=== PATIENT | female | born 1960 | race Caucasian/White ===

== ENCOUNTER 2021-07-03 00:46 | Inpatient (IN) | payer OTHER, SELFPAY ==
--- NOTE | ~2021-07-03 | CT_ITS ---
EXAMINATION: CT HEAD WITHOUT CONTRAST CLINICAL INFORMATION: Fall. COMPARISON: None TECHNIQUE: Contiguous axial imaging was performed from the skull base to vertex without intravenous administration of contrast. This CT examination was performed using dose optimization techniques as appropriate, variously including the following: *Automated exposure control *Adjustment of mA and/or kV according to patient size (this includes techniques or standardized protocols for targeted exams where dose is matched to indication/reason for exam; i.e. extremities or head) *Use of iterative reconstruction technique DLP: 724 mGy-cm FINDINGS: There is no evidence of acute intracranial hemorrhage or territorial infarction. No abnormal mass effect or midline shift is seen. [place] to white matter differentiation is well preserved. No extra-axial fluid collections are identified. The ventricles are normal in size. There is no abnormal attenuation within the brain parenchyma. The osseous structures and soft tissues are normal. The mastoid air cells and visualized portions of the paranasal sinuses are well aerated. CT/CT head/brain wo con IMPRESSION: No acute intracranial process seen
--- NOTE | ~2021-07-03 | XR_ITS ---
EXAMINATION: XR CHEST CLINICAL INFORMATION: Choking with hypoxia COMPARISON: 12/06/2008 TECHNIQUE: Frontal view of the chest was obtained. FINDINGS: The lungs are markedly hypoexpanded. Allowing for that, no significant abnormality is seen in the heart, lungs, mediastinum or bony thorax. XR/XR chest 1V IMPRESSION: Hypoinflated lungs. No acute intrathoracic disease.
[2021-07-03 00:57] VITALS: BP 140/76; PULSE 72; RESP 16; TEMP 37.2; O2SAT 99; BMI 28.0
[2021-07-03 01:34] LABS: MANUAL DIFF FLAG NO
[2021-07-03 01:35] LABS: COVID-19 Test Negative (Negative)
[2021-07-03 01:36] LABS: Basophils Absolute Auto 0.1 X10*3/uL (0.0-0.2); Basophils Percent Auto 1.3 % (0-2); Eosinophils Absolute Auto 0.5 X10*3/uL (0.0-0.4); Eosinophils Percent Auto 4.4 % (0-4); Hematocrit 42.2 % (37.0-47.0); Hemoglobin 13.5 g/dl (12.0-16.0); Imm Gran Abs Auto 0.02 X10*3/uL (0.00-0.03); Imm Gran Pct Auto 0.2 % (0.0-0.4); Lymphocytes Absolute Auto 3.6 X10*3/uL (1.2-4.9); Lymphocytes Percent Auto 33.1 % (20-40); Mean Corpuscular Hemoglobin 31.9 pg (27.0-33.0); Mean Corpuscular Volume 99.8 fL (80.0-98.0); Mean Platelet Volume 12.4 fL (9.4-12.3); Monocytes Absolute Auto 1.1 X10*3/uL (0.1-1.2); Monocytes Percent Auto 10.2 % (2-11); Neutrophils Absolute Auto 5.5 x10*3/uL (2.0-8.3); Neutrophils Percent Auto 50.8 % (45-73); Platelet Count 219 X10*3/uL (160-400); Red Blood Count 4.23 X10*6/uL (4.20-5.50); Red Cell Distribution Width 13.2 % (11.0-16.0); White Blood Count 10.9 X10*3/uL (4.8-10.8)
[2021-07-03 01:38] LABS: Appearance Urine HAZY; Color Urine STRAW; Glucose Urine UA NEG (NEG); Leukocyte Esterase Urine 1+ (NEG); Nitrite Urine NEG (NEG); Specific Gravity - Urine <= 1.005 (1.005-1.025); Urine Blood NEG (NEG); Urine Ketones NEG (NEG); Urine Protein NEG (NEG-TRACE)
[2021-07-03 01:43] LABS: Bacteria Urine 2+ /LPF; RBC Urine 0 /HPF (0); Squamous Epithelial Cell Urine 2+ /LPF
[2021-07-03 01:46] LABS: Amphetamine Screen Urine Not Detected (Not Detect); Barbiturates, Urine Not Detected (Not Detect); Benzodiazepines Screen Urine Not Detected (Not Detect); Cannabinoid Screen Urine Not Detected (Not Detect); Cocaine Screen Urine Not Detected (Not Detect); Fentanyl, urine Not Detected (Not Detect); Opiate Screen Urine Not Detected (Not Detect); Phencyclidine Screen Urine Not Detected (Not Detect)
[2021-07-03 01:47] LABS: Ethanol < 10 mg/dL
[2021-07-03 01:48] LABS: Anion Gap 12 (12-20); Blood Urea Nitrogen 9 mg/dL (9-16); Calcium 9.6 mg/dL (8.4-10.2); Carbon Dioxide 25 mmol/L (22-29); Chloride 107 mmol/L (96-108); Creatinine Clr Calc Pharmacy 38.5; Estimated Glomerular Filt Rate 28; Glucose Random 88 mg/dL (60-115); Potassium 3.5 mmol/L (3.3-5.1); Sodium 140 mmol/L (135-145)
[2021-07-03 02:04] LABS: Acetaminophen LAB < 1 mcg/mL (<30); Alanine Aminotransferase 24 U/L (0-31); Albumin Level 4.3 g/dL (3.5-5.0); Alkaline Phosphatase 97 U/L (39-117); Aspartate Amino Transferase 47 U/L (5-31); Bilirubin Direct 0.2 mg/dL (0.0-0.5); Bilirubin Total 0.5 mg/dL (0.0-1.0); Magnesium 2.1 mg/dL (1.6-2.6); Salicylate < 5.0 mg/dL (15-30); Total Protein 8.1 g/dL (6.5-8.0)
[2021-07-03 02:08] LABS: Valproate 27.1 mcg/mL (50.0-100.0)
--- NOTE | 2021-07-03 05:07 | PC.NURSE ---
Patient slept through the night, no distress observed/reported, [facility]N referral completed/confirmed/pending ETA, med rec completed/pending providers approval, VSS, behavior non concerning at this time, will continue to monitor.
--- NOTE | 2021-07-03 07:44 | ED_ITS ---
HPI - Psych General Chief Complaint: Psychiatric Symptoms Stated Complaint: crisis Time Seen by Provider: 07/03/21 07:43 Source: patient Mode of arrival: EMS Limitations: no limitations History of Present Illness MD complaint: feels depressed and anxiety Onset (ago): day(s) (several days) Duration: getting worse History of same: Yes Relieving factors: none Exacerbating factors: medication Context: new medication(s) Associated psychiatric symptoms: depression Associated symptoms: denies other symptoms Treatments prior to arrival: none Related Data Home Medications Medication Instructions Recorded Confirmed divalproex 250 mg tablet,delayed 1 tab PO BEDTIME 07/03/21 07/03/21 release hydroxyzine pamoate 25 mg capsule 1 - 2 cap PO BID PRN 07/03/21 07/03/21 levothyroxine 50 mcg tablet 1 tab PO DAILY 07/03/21 07/03/21 omeprazole 20 mg capsule,delayed 1 cap PO QAM 07/03/21 07/03/21 release paroxetine HCl 20 mg tablet 1 tab PO DAILY 07/03/21 07/03/21 propranolol 10 mg tablet 1 tab PO BID 07/03/21 07/03/21 Allergies Allergy/AdvReac Type Severity Reaction Status Date / Time No Known Allergies Allergy Unverified 11/05/19 14:44 Review of Systems Review of Systems: Constitutional : No Fever, No Chills ENT/Mouth : No Ear Pain, No Nasal Congestion, No sore throat Eyes: No Eye Pain, No Swelling, No Redness Cardiovascular : No Chest Pain, No SOB Respiratory : No Cough, No Sputum, No Dyspnea Gastrointestinal : No Nausea, No Vomiting, No Diarrhea, No Hematochezia, No Melena Genitourinary : No Dysuria, No Urinary Frequency, No Hematuria Musculoskeletal : No Myalgias Skin : No Skin Lesions, No rash Neuro : No Weakness, No Numbness, No Paresthesias, No Dizziness, No Headache Psych : positive Anxiety, positive Depression, no SI/HI Heme/Lymph: No Lymphadenopathy Endocrine : No Polyuria, No Polydipsia All other systems reviewed and are negative [facility] Past Medical History Attestation statement: The following information was validated with the patient. Medical History (Updated 07/03/21 @ 08:16 by Anne Machado DO) Anxiety CKD (chronic kidney disease) Depression GERD (gastroesophageal reflux disease) Hypothyroidism Social History Social History (Updated 07/03/21 @ 07:48 by Anne Machado DO) Patient Tobacco Use Status: Tobacco use Unknown Advance Directives: No Physical Exam Vital Signs: Vital Signs: Last Vital Signs Temp 99 F 07/03/21 00:57 Pulse 72 07/03/21 00:57 Resp 16 07/03/21 00:57 BP 140/76 H 07/03/21 00:57 Pulse Ox 99 07/03/21 00:57 BMI result Body Mass Index 28.0 Appearance: Alert. Oriented X3. No acute distress. Eyes: Pupils equal, round and reactive to light. ENT: Pharynx normal. Neck: Normal inspection. Neck supple. CVS: Normal heart rate and rhythm. Pulses normal. Respiratory: No respiratory distress. Breath sounds normal. Abdomen: Soft and non-tender. Skin: Skin warm and dry. Normal skin color. Normal skin turgor. Extremities: No lower extremity edema. No calf ttp Neuro: Oriented X 3. No motor deficit. No sensory deficit. CN2-12 intact Course Course Course Narrative: getting records from [facility] - states she has CKD at baseline to compare Cr today baseline Cr 1.4 from 06/13 will give 2L of IVF and repeat BMP CR 1.6 down medically cleared at this time Physician observation started at 1033am.Patient placed in physician observation because the patient needed more time for N to assess the need for psych admission. At the time observation was started the patient's vitals were stable, patient is alert and oriented Neuro: nonfocal, CV RRR, Lungs clear MDM - Psych MDM Narrative Medical decision making narrative: 60 yo female presents with worsening depression and anxiety - at this time denies medical complaints to me she is in no distress - need to obtain prior Cr level from [facility] and then will refer to BHN. She denies any issues voiding no vomiting/dehydration. Dispo per baseline Cr and N input Lab Data Result diagrams: 07/03/21 01:27 07/03/21 09:37 Labs: Lab Results 07/03/21 07/03/21 07/03/21 Range/Units 01:08 01:27 01:27 WBC 10.9 H (4.8-10.8) X10*3/uL RBC 4.23 (4.20-5.50) X10*6/uL Hgb 13.5 (12.0-16.0) g/dl Hct 42.2 (37.0-47.0) % MCV 99.8 H (80.0-98.0) fL MCH 31.9 (27.0-33.0) pg MCHC 32.0 (31.0-35.0) g/dl RDW 13.2 (11.0-16.0) % Plt Count 219 (160-400) X10*3/uL MPV 12.4 H (9.4-12.3) fL Immature Gran % (Auto) 0.2 (0.0-0.4) % Neut % (Auto) 50.8 (45-73) % Lymph % (Auto) 33.1 (20-40) % [place] % (Auto) 10.2 (2-11) % Eos % (Auto) 4.4 H (0-4) % Baso % (Auto) 1.3 (0-2) % Lymph # (Auto) 3.6 (1.2-4.9) X10*3/uL [place] # (Auto) 1.1 (0.1-1.2) X10*3/uL Eos # (Auto) 0.5 H (0.0-0.4) X10*3/uL Baso # (Auto) 0.1 (0.0-0.2) X10*3/uL Abs Immat Gran (auto) 0.02 (0.00-0.03) X10*3/uL Absolute Neuts (auto) 5.5 (2.0-8.3) x10*3/uL Absolute Nucleated RBC 0.000 (0.0-0.012) X10*3/uL Nucleated RBC % (auto) 0.0 (0.0-0.2) /100WBC Sodium 140 (135-145) mmol/L Potassium 3.5 (3.3-5.1) mmol/L Chloride 107 (96-108) mmol/L Carbon Dioxide 25 (22-29) mmol/L Anion Gap 12 (12-20) BUN 9 (9-16) mg/dL Creatinine 1.84 H (0.5-1.4) mg/dL Estim Creat Clear Calc 38.5 Estimated GFR 28 Random Glucose 88 (60-115) mg/dL Calcium 9.6 (8.4-10.2) mg/dL Magnesium (1.6-2.6) mg/dL Total Bilirubin (0.0-1.0) mg/dL Direct Bilirubin (0.0-0.5) mg/dL AST (5-31) U/L ALT (0-31) U/L Alkaline Phosphatase (39-117) U/L Total Protein (6.5-8.0) g/dL Albumin (3.5-5.0) g/dL Urine Color Urine Appearance Urine pH (5.0-8.0) Ur Specific [place] (1.005-1.025) Urine Protein (NEG-TRACE) MG/DL Urine Glucose (UA) (NEG) MG/DL Urine Ketones (NEG) MG/DL Urine Blood (NEG) Urine Nitrite (NEG) Ur Leukocyte Esterase (NEG) Urine RBC (0) /HPF Urine WBC (0-4) /HPF Ur Squamous Epith Cells /LPF Urine Bacteria /LPF Salicylates (15-30) mg/dL Urine Opiates Screen (Not Detect) Urine Fentanyl Screen (Not Detect) Acetaminophen (<30) mcg/mL Ur Barbiturates Screen (Not Detect) Valproic Acid (50.0-100.0) mcg/mL Ur Phencyclidine Scrn (Not Detect) Ur Amphetamines Screen (Not Detect) U Benzodiazepines Scrn (Not Detect) Urine Cocaine Screen (Not Detect) U Marijuana (THC) Screen (Not Detect) Ethyl Alcohol mg/dL COVID-19 ([facility]) Negative (Negative) COVID-19 Clin Com See Note 07/03/21 07/03/21 07/03/21 Range/Units 01:27 01:27 01:28 WBC (4.8-10.8) X10*3/uL RBC (4.20-5.50) X10*6/uL Hgb (12.0-16.0) g/dl Hct (37.0-47.0) % MCV (80.0-98.0) fL MCH (27.0-33.0) pg MCHC (31.0-35.0) g/dl RDW (11.0-16.0) % Plt Count (160-400) X10*3/uL MPV (9.4-12.3) fL Immature Gran % (Auto) (0.0-0.4) % Neut % (Auto) (45-73) % Lymph % (Auto) (20-40) % [place] % (Auto) (2-11) % Eos % (Auto) (0-4) % Baso % (Auto) (0-2) % Lymph # (Auto) (1.2-4.9) X10*3/uL [place] # (Auto) (0.1-1.2) X10*3/uL Eos # (Auto) (0.0-0.4) X10*3/uL Baso # (Auto) (0.0-0.2) X10*3/uL Abs Immat Gran (auto) (0.00-0.03) X10*3/uL Absolute Neuts (auto) (2.0-8.3) x10*3/uL Absolute Nucleated RBC (0.0-0.012) X10*3/uL Nucleated RBC % (auto) (0.0-0.2) /100WBC Sodium (135-145) mmol/L Potassium (3.3-5.1) mmol/L Chloride (96-108) mmol/L Carbon Dioxide (22-29) mmol/L Anion Gap (12-20) BUN (9-16) mg/dL Creatinine (0.5-1.4) mg/dL Estim Creat Clear Calc Estimated GFR Random Glucose (60-115) mg/dL Calcium (8.4-10.2) mg/dL Magnesium 2.1 (1.6-2.6) mg/dL Total Bilirubin 0.5 (0.0-1.0) mg/dL Direct Bilirubin 0.2 (0.0-0.5) mg/dL AST 47 H (5-31) U/L ALT 24 (0-31) U/L Alkaline Phosphatase 97 (39-117) U/L Total Protein 8.1 H (6.5-8.0) g/dL Albumin 4.3 (3.5-5.0) g/dL Urine Color Urine Appearance Urine pH (5.0-8.0) Ur Specific [place] (1.005-1.025) Urine Protein (NEG-TRACE) MG/DL Urine Glucose (UA) (NEG) MG/DL Urine Ketones (NEG) MG/DL Urine Blood (NEG) Urine Nitrite (NEG) Ur Leukocyte Esterase (NEG) Urine RBC (0) /HPF Urine WBC (0-4) /HPF Ur Squamous Epith Cells /LPF Urine Bacteria /LPF Salicylates < 5.0 L (15-30) mg/dL Urine Opiates Screen Not Detected (Not Detect) Urine Fentanyl Screen Not Detected (Not Detect) Acetaminophen < 1 (<30) mcg/mL Ur Barbiturates Screen Not Detected (Not Detect) Valproic Acid 27.1 L (50.0-100.0) mcg/mL Ur Phencyclidine Scrn Not Detected (Not Detect) Ur Amphetamines Screen Not Detected (Not Detect) U Benzodiazepines Scrn Not Detected (Not Detect) Urine Cocaine Screen Not Detected (Not Detect) U Marijuana (THC) Screen Not Detected (Not Detect) Ethyl Alcohol < 10 mg/dL COVID-19 ([facility]) (Negative) COVID-19 Clin Com 07/03/21 07/03/21 Range/Units 01:29 09:37 WBC (4.8-10.8) X10*3/uL RBC (4.20-5.50) X10*6/uL Hgb (12.0-16.0) g/dl Hct (37.0-47.0) % MCV (80.0-98.0) fL MCH (27.0-33.0) pg MCHC (31.0-35.0) g/dl RDW (11.0-16.0) % Plt Count (160-400) X10*3/uL MPV (9.4-12.3) fL Immature Gran % (Auto) (0.0-0.4) % Neut % (Auto) (45-73) % Lymph % (Auto) (20-40) % [place] % (Auto) (2-11) % Eos % (Auto) (0-4) % Baso % (Auto) (0-2) % Lymph # (Auto) (1.2-4.9) X10*3/uL [place] # (Auto) (0.1-1.2) X10*3/uL Eos # (Auto) (0.0-0.4) X10*3/uL Baso # (Auto) (0.0-0.2) X10*3/uL Abs Immat Gran (auto) (0.00-0.03) X10*3/uL Absolute Neuts (auto) (2.0-8.3) x10*3/uL Absolute Nucleated RBC (0.0-0.012) X10*3/uL Nucleated RBC % (auto) (0.0-0.2) /100WBC Sodium 144 (135-145) mmol/L Potassium 3.5 (3.3-5.1) mmol/L Chloride 114 H (96-108) mmol/L Carbon Dioxide 24 (22-29) mmol/L Anion Gap 10 L (12-20) BUN 10 (9-16) mg/dL Creatinine 1.66 H (0.5-1.4) mg/dL Estim Creat Clear Calc 42.7 Estimated GFR 32 Random Glucose 103 (60-115) mg/dL Calcium 8.5 D (8.4-10.2) mg/dL Magnesium (1.6-2.6) mg/dL Total Bilirubin (0.0-1.0) mg/dL Direct Bilirubin (0.0-0.5) mg/dL AST (5-31) U/L ALT (0-31) U/L Alkaline Phosphatase (39-117) U/L Total Protein (6.5-8.0) g/dL Albumin (3.5-5.0) g/dL Urine Color STRAW Urine Appearance HAZY Urine pH 6.0 (5.0-8.0) Ur Specific [place] <= 1.005 (1.005-1.025) Urine Protein NEG (NEG-TRACE) MG/DL Urine Glucose (UA) NEG (NEG) MG/DL Urine Ketones NEG (NEG) MG/DL Urine Blood NEG (NEG) Urine Nitrite NEG (NEG) Ur Leukocyte Esterase 1+ H (NEG) Urine RBC 0 (0) /HPF Urine WBC 5-9 H (0-4) /HPF Ur Squamous Epith Cells 2+ /LPF Urine Bacteria 2+ /LPF Salicylates (15-30) mg/dL Urine Opiates Screen (Not Detect) Urine Fentanyl Screen (Not Detect) Acetaminophen (<30) mcg/mL Ur Barbiturates Screen (Not Detect) Valproic Acid (50.0-100.0) mcg/mL Ur Phencyclidine Scrn (Not Detect) Ur Amphetamines Screen (Not Detect) U Benzodiazepines Scrn (Not Detect) Urine Cocaine Screen (Not Detect) U Marijuana (THC) Screen (Not Detect) Ethyl Alcohol mg/dL COVID-19 ([facility]) (Negative) COVID-19 Clin Com Discharge Plan Discharge Clinical Impression: Depression, Acute kidney injury superimposed on chronic kidney disease Patient Disposition: Still a Patient Prescriptions: No Action divalproex 250 mg tablet,delayed release (DR/EC) 1 tab PO BEDTIME 0RF paroxetine HCl 20 mg tablet 1 tab PO DAILY 0RF omeprazole 20 mg capsule,delayed release(DR/EC) 1 cap PO QAM 0RF levothyroxine 50 mcg tablet 1 tab PO DAILY 0RF hydroxyzine pamoate 25 mg capsule 1 - 2 cap PO BID PRN (Reason: anxiety) 0RF propranolol 10 mg tablet 1 tab PO BID 0RF
--- NOTE | 2021-07-03 08:42 | PHA.MEDREC ---
Pharmacy Consult ? Medication Reconciliation Pharmacy has reviewed the medication reconciliation by Willie. Patient does not take Depakote 500 mg. Reports that doctor consider increase dose to 500 mg but has not done it yet. Nanci Weiss, PharmD
[2021-07-03] MEDS: Levothyroxine Sodium 50 MCG TABLET PO (08:51)
[2021-07-03] MEDS: Omeprazole 20 MG CAPSULE.DR PO (08:51)
[2021-07-03] MEDS: Propranolol HCL 10 MG TABLET PO (08:51)
[2021-07-03] MEDS: 0.9 % Sodium Chloride 1,000 ML 999 ML IVCONT ×2 (08:53→08:54)
[2021-07-03] MEDS: PARoxetine HCL 20 MG TABLET PO (09:48)
[2021-07-03 10:08] LABS: Anion Gap 10 (12-20); Blood Urea Nitrogen 10 mg/dL (9-16); Calcium 8.5 mg/dL (8.4-10.2); Carbon Dioxide 24 mmol/L (22-29); Chloride 114 mmol/L (96-108); Creatinine Clr Calc Pharmacy 42.7; Estimated Glomerular Filt Rate 32; Glucose Random 103 mg/dL (60-115); Potassium 3.5 mmol/L (3.3-5.1); Sodium 144 mmol/L (135-145)
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
--- NOTE | 2021-07-03 17:59 | MHC.CARE ---
Patient assessed by the CARE Team to need an inpatient psychiatric admission, she is voluntary for this treatment.
[2021-07-03] MEDS: hydrOXYzine HCL 50 MG TABLET PO (19:00)
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
[2021-07-03] MEDS: OLANZapine 5 MG TABLET PO (20:28)
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
[2021-07-04] MEDS: Omeprazole 20 MG CAPSULE.DR PO (06:35)
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
[2021-07-04] MEDS: Divalproex Sodium ER 250 MG TAB.ER.24H PO (13:46)
[2021-07-04] MEDS: Acetaminophen 325 MG TABLET 650 MG PO (16:53)
[2021-07-04] MEDS: hydrOXYzine HCL 50 MG TABLET PO (16:54)
[2021-07-04 16:57] VITALS: BP 124/72; PULSE 97; RESP 16; TEMP 36.8; O2SAT 98
[2021-07-04] MEDS: OLANZapine 5 MG TABLET PO (17:21)
--- NOTE | 2021-07-04 17:59 | PM.EVENT ---
Event Note Date of Service: 07/04/21 Event Note: pt became severely agitated, aggressive, not redirectable. Needs medication restraint. Ordered zyprexa 10mg IM
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
[2021-07-04] MEDS: OLANZapine 10 MG VIAL IM (18:26)
[2021-07-04] MEDS: traZODone HCL 50 MG TABLET PO (21:03)
[2021-07-04] MEDS: Divalproex Sodium ER 500 MG TAB.ER.24H 1000 MG PO (21:03)
[2021-07-04] MEDS: Propranolol HCL 10 MG TABLET PO (21:03)
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
[2021-07-05] MEDS: Omeprazole 20 MG CAPSULE.DR PO (05:59)
[2021-07-05] MEDS: Levothyroxine Sodium 50 MCG TABLET PO (05:59)
[2021-07-05] MEDS: Acetaminophen 325 MG TABLET 650 MG PO ×2 (05:59→11:45)
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
--- NOTE | 2021-07-05 09:52 | HO.PSYCHPN ---
Subjective Subjective Date of Service: 07/05/21 Reason For Visit: Depression Interim History: Patient remains intermittently very aggressive, posturing to staff, throwing and breaking things, spitting at staff, threatening to hit and has already several times needed IM medication to calm down. Patient has some insight and says she is getting angry because everybody is Messing With her; however when content writer offers that it seems that the bipolar disorder is making her more irritable, she says maybe that's true. Patient asked when she could discharge but accepted that she needs to become more stable. She agrees to increase dose of Depakote however she said that her sister has been telling her to try Trileptal which has apparently made a big difference in treating her sisters bipolar disorder which is equally severe. Patient agreed to Thorazine as a p.r.n. saying that it can help sedate her. Mental Status Exam Mental Status Exam Narrative: Pt is alert and oriented; behavior is aggressive, agitated, destructive, intrusive; dressed in hospital gown with unkempt hair; mood is described as angry and affect congruent, intense; eye contact intense; Speech is normal rate, loud volume, normal prosody and not pressured; intermittent psychomotor agitation present; thought process is goal directed; Thought content is on feeling provoked, tx, discharge; some delusional thinking but no paranoid ideations expressed; denies any SI/HI. Seems at times to be responding to internal stimuli. Patients insight and judgment are impaired Diagnostics Vital Signs (24Hr): Vital Signs - 24 hr 07/04/21 16:57 Temperature 98.2 F Pulse Rate 97 Respiratory Rate 16 Blood Pressure 124/72 Pulse Oximetry 98 BMI result Body Mass Index 28.0 Labs Results: 07/03/21 01:27 07/03/21 09:37 Labs: Laboratory Results - last 48 hr 07/03/21 09:37 Sodium 144 Potassium 3.5 Chloride 114 H Carbon Dioxide 24 Anion Gap 10 L BUN 10 Creatinine 1.66 H Estim Creat Clear Calc 42.7 Estimated GFR 32 Random Glucose 103 Calcium 8.5 D Medications Medications Current Medications Acetaminophen (Acetaminophen 325 Mg Tablet) 650 mg PO Q6H PRN PRN Reason: Headache/Pain Mild Scale (1-3) Last Admin: 07/05/21 05:59 Dose: 650 mg Documented by: Al Hydroxide/Mg Hydroxide (Magnesium Hydrox/Alum Hydrox 30 Ml Oral.Susp) 30 ml PO Q6H PRN PRN Reason: Heartburn/Nausea Diphenhydramine HCl (Diphenhydramine Hcl 25 Mg Tablet) 50 mg PO BEDTIME PRN PRN Reason: sleep Divalproex Sodium (Divalproex Sodium Er 500 Mg Tab.Er.24h) 1,000 mg PO BEDTIME [facility] Last Admin: 07/04/21 21:03 Dose: 1,000 mg Documented by: Divalproex Sodium (Divalproex Sodium Er 500 Mg Tab.Er.24h) 500 mg PO DAILY [facility] Divalproex Sodium (Divalproex Sodium Er 500 Mg Tab.Er.24h) 500 mg PO ONCE ONE Stop: 07/05/21 09:51 Hydroxyzine HCl (Hydroxyzine Hcl 50 Mg Tablet) 50 mg PO Q6H PRN PRN Reason: Anxiety Last Admin: 07/04/21 16:54 Dose: 50 mg Documented by: Levothyroxine Sodium (Levothyroxine Sodium 50 Mcg Tablet) 50 mcg PO DAILY@0600 [facility] Last Admin: 07/05/21 05:59 Dose: 50 mcg Documented by: Loperamide HCl (Loperamide Hcl 2 Mg Capsule) 2 mg PO Q6H PRN PRN Reason: diarrhea Magnesium Hydroxide (Milk Of Magnesia 30 Ml Oral.Susp) 30 ml PO DAILY PRN PRN Reason: Constipation Olanzapine (Olanzapine 5 Mg Tablet) 5 mg PO Q4H PRN PRN Reason: agitation Last Admin: 07/04/21 17:21 Dose: 5 mg Documented by: Omeprazole (Omeprazole 20 Mg Capsule.) 20 mg PO DAILY@0630 [facility] Last Admin: 07/05/21 05:59 Dose: 20 mg Documented by: Paroxetine HCl (Paroxetine Hcl 10 Mg Tablet) 10 mg PO DAILY [facility] Propranolol HCl (Propranolol Hcl 10 Mg Tablet) 10 mg PO BID [facility]; Protocol Last Admin: 07/04/21 21:03 Dose: 10 mg Documented by: Trazodone HCl (Trazodone Hcl 50 Mg Tablet) 50 mg PO BEDTIME [facility] Last Admin: 07/04/21 21:03 Dose: 50 mg Documented by: Trazodone HCl (Trazodone Hcl 50 Mg Tablet) 50 mg PO BEDTIME PRN PRN Reason: continued insomnia Allergies Allergies Allergy/AdvReac Type Severity Reaction Status Date / Time No Known Allergies Allergy Unverified 11/05/19 14:44 Assessment & Plan Assessment & Plan (1) Bipolar 1 disorder: Status: Acute Code(s): F31.9 - Bipolar disorder, unspecified Plan Jeri is a 60 yo female who carries a diagnosis of bipolar I DO. She presented to [facility] ED on 07/03/21 due to worsening depression and anxiety after she was at a convenience store and told the desk clerks supervisor she needed help and they called 911. ED provider obtained records from [facility], pt has CKD, Cr 1.4 on 06/13. Pt was given 2L of IVF, Cr improved from 1.84 to 1.66. Precipitating factors include recent medication change from [place] to Depakote due to toxicity, level was 1.5 on 06/08/21, in content of underlying kidney impairment. Pt reported worsening sx of mood lability, mary ellen, agitation, and increased activity level since stopping lithium, i.e. she walked for 14 hours one day. VPA level was 27.1. Utox negative. HOSPITAL Course: 07/04 patient highly irritable this morning, posturing and aggressive with peers and staff however she was able to calm down and agreed to increase Depakote dose. Will also restart Paxil though at a lower dose to avoid discontinuation syndrome which could be further aggravated 07/05 Patient severely agitated off and on throughout the day, posturing at staff, threatening to hit, spitting on staff, breaking and throwing things and needing IM medication. Minimal insight -hopefully Depakote will start to help -will consider Tegretol since her sister who has severe bipolar disorder has been successfully treated with this medication PLAN: CV; signed 3 day Q15 min safety checks Depakote ER 500mg daily Depakote ER 1000mg qhs Consider Tegretol which has helped her sister who also has severe bipolar disorder Thorazine 25mg qid prn for anxiety, mild agitation Likely add increased Thorazine dose for severe agitation as zyprexa not that helpful DC zyprexa prn since not that helpful -will recheck levels/Lft's Elevated Cr due CKD -Schedule Trazodone for sleep -will restart Paxil but at 10mg (down from 20mg) to avoid discontinuation syndrome which could be potentially aggravating -continue to avoid NSAIDs given CKD Otherwise: Monitor response to medications. Monitor for safety in the milieu. Discharge on stabilization. Patient seen. Chart reviewed. Discussed with team. Obtain collateral contact info?as needed I spent minutes with the patient and/or on the patient floor today, greater than?50% of which was spent counseling/coordinating care. Patient educated on: diagnosis and medication risk/benefits Informed Consent: further education needed Reason for contiued inpatient stay Substantial Risk for: harm to self and harm to others
[2021-07-05] MEDS: OLANZapine 10 MG VIAL IM (10:00)
[2021-07-05] MEDS: Divalproex Sodium ER 500 MG TAB.ER.24H PO (10:00)
--- NOTE | 2021-07-05 12:59 | PC.NURSE ---
Patient came out of her room demanding to leave now. Staff attempted to discuss the process with patient when she became angry, making verbal threats to harm staff and punching windows. Staff again tried to speak to patient and offer quit space when pt spit at the staff and made more threats of harm. MD notified and medication restraint was ordered, Zyprexa IM, given in left Deltoid with out difficulty at 10 am. Security notified and present. Gambling Box Person notified. Pt placed on 5 minute safety checks at this time.
[2021-07-05] MEDS: LORazepam 2 MG/ML VIAL IM (13:32)
--- NOTE | 2021-07-05 13:47 | PM.EVENT ---
Event Note Date of Service: 07/05/21 Event Note: pt pushing staff with elbow, not redirectable, when into peers room; at redirection, got verbally aggressive, grabbed staff's badge, threw lunch tray, posturing and threatening, threatening to spit;needed to call security for [place] and staff safety; pt could not calm down on her own, tried to bite staff, She did accept IM Thorazine 75mg and ativan 2mg. And though verbally still aggressive, put herself in her room.
--- NOTE | 2021-07-05 13:58 | PC.NURSE ---
At approx 1330 Pt was wondering in/out of peers rooms and when redirected she became aggressive. Pt shaking fist at staff, then walked down the hagan and flipped food filled trays over in the hallway. Pt then made verbal threats towards multiple staff. present and ordered medication restraint, Thorazine 75MG IM and Ativan 2 mg IM. Security called to unit and patient was approached. Pt swung at staff, threatened to spit in staffs face and tried to bite staff. Pt given both medications and went to her room. Pt continues to swear and threaten staff, but not approaching them.No injuries reported or visible.
[2021-07-05 18:00] VITALS: PULSE 67; RESP 18; TEMP 36.3; O2SAT 98
[2021-07-05] MEDS: diphenhydrAMINE HCL 25 MG TABLET 50 MG PO (19:09)
[2021-07-05] MEDS: chlorproMAZINE HCl 25 MG TABLET PO (19:10)
[2021-07-05] MEDS: LORazepam 1 MG TABLET 2 MG PO (19:10)
[2021-07-06] MEDS: Acetaminophen 325 MG TABLET 650 MG PO (01:03)
[2021-07-06] MEDS: chlorproMAZINE HCl 25 MG TABLET 75 MG PO (01:05)
[2021-07-06] MEDS: LORazepam 1 MG TABLET 2 MG PO (01:05)
--- NOTE | 2021-07-06 11:17 | HO.PSYCHPN ---
Subjective Subjective Date of Service: 07/06/21 Reason For Visit: Depression Interim History: UTI; discussed with Dr. Flor including CKD, who recommended Ceftin 250mg BID for 7 days Patient irritable, lying in bed, does not want to talk. Remains intermittently verbally assaultive and making threats Mental Status Exam Mental Status Exam Narrative: Pt is alert and oriented; behavior is aggressive, agitated, destructive, intrusive; dressed in hospital gown with unkempt hair; mood is described as angry and affect congruent, intense; eye contact intense on none; Speech is normal rate, loud volume, normal prosody and not pressured; intermittent psychomotor agitation present; thought process is goal directed; Thought content is on feeling provoked, tx, discharge; some delusional thinking but no paranoid ideations expressed; denies any SI/HI. Seems at times to be responding to internal stimuli. Patients insight and judgment are impaired Diagnostics Vital Signs (24Hr): Vital Signs - 24 hr 07/05/21 18:00 Temperature 97.3 F Pulse Rate 67 Respiratory Rate 18 Pulse Oximetry 98 BMI result Body Mass Index 28.0 Labs Results: 07/03/21 01:27 07/03/21 09:37 Medications Medications Current Medications Acetaminophen (Acetaminophen 325 Mg Tablet) 650 mg PO Q6H PRN PRN Reason: Headache/Pain Mild Scale (1-3) Last Admin: 07/06/21 01:03 Dose: 650 mg Documented by: Al Hydroxide/Mg Hydroxide (Magnesium Hydrox/Alum Hydrox 30 Ml Oral.Susp) 30 ml PO Q6H PRN PRN Reason: Heartburn/Nausea Cefuroxime Axetil (Cefuroxime Axetil 250 Mg Tablet) 250 mg PO Q12H [facility] Stop: 07/12/21 07:01 Last Admin: 07/05/21 19:10 Dose: 250 mg Documented by: Chlorpromazine HCl (Chlorpromazine Hcl 25 Mg Tablet) 25 mg PO Q4H PRN PRN Reason: anxiety/agitation Last Admin: 07/05/21 19:10 Dose: 25 mg Documented by: Chlorpromazine HCl (Chlorpromazine Hcl 25 Mg Tablet) 50 mg PO TID PRN PRN Reason: mod -severe agitation Chlorpromazine HCl (Chlorpromazine Hcl 25 Mg Tablet) 50 mg PO BEDTIME PRN PRN Reason: insomnia Diphenhydramine HCl (Diphenhydramine Hcl 25 Mg Tablet) 50 mg PO BEDTIME PRN PRN Reason: sleep Last Admin: 07/05/21 19:09 Dose: 50 mg Documented by: Divalproex Sodium (Divalproex Sodium Er 500 Mg Tab.Er.24h) 1,500 mg PO BEDTIME [facility] Hydroxyzine HCl (Hydroxyzine Hcl 50 Mg Tablet) 50 mg PO Q6H PRN PRN Reason: Anxiety Last Admin: 07/04/21 16:54 Dose: 50 mg Documented by: Levothyroxine Sodium (Levothyroxine Sodium 50 Mcg Tablet) 50 mcg PO DAILY@0600 [facility] Last Admin: 07/05/21 05:59 Dose: 50 mcg Documented by: Loperamide HCl (Loperamide Hcl 2 Mg Capsule) 2 mg PO Q6H PRN PRN Reason: diarrhea Lorazepam (Lorazepam 1 Mg Tablet) 1 mg PO TID PRN PRN Reason: mod severe agitation Magnesium Hydroxide (Milk Of Magnesia 30 Ml Oral.Susp) 30 ml PO DAILY PRN PRN Reason: Constipation Omeprazole (Omeprazole 20 Mg Capsule.Dr) 20 mg PO DAILY@0630 [facility] Last Admin: 07/05/21 05:59 Dose: 20 mg Documented by: Paroxetine HCl (Paroxetine Hcl 10 Mg Tablet) 10 mg PO DAILY [facility] Last Admin: 07/05/21 10:01 Dose: Not Given Documented by: Propranolol HCl (Propranolol Hcl 10 Mg Tablet) 10 mg PO BID [facility]; Protocol Last Admin: 07/05/21 23:36 Dose: Not Given Documented by: Allergies Allergies Allergy/AdvReac Type Severity Reaction Status Date / Time lithium AdvReac Intermediate CKD Verified 07/05/21 15:04 Assessment & Plan Assessment & Plan (1) Bipolar 1 disorder: Status: Acute Code(s): F31.9 - Bipolar disorder, unspecified Plan Jeri is a 60 yo female who carries a diagnosis of bipolar I DO. She presented to [facility] ED on 07/03/21 due to worsening depression and anxiety after she was at a convenience store and told the branch billing payroll clerk she needed help and they called 911. ED provider obtained [place] [facility], [place] has CKD, Cr 1.4 on 06/13. Pt was given 2L of IVF, Cr improved from 1.84 to 1.66. Precipitating factors include recent medication change from [place] to Depakote due to toxicity, level was 1.5 on 06/08/21, in content of underlying kidney impairment. Pt reported worsening sx of mood lability, mary ellen, agitation, and increased activity level since stopping lithium, i.e. she walked for 14 hours one day. VPA level was 27.1. Utox negative. HOSPITAL Course: 07/04 patient highly irritable this morning, posturing and aggressive with peers and staff however she was able to calm down and agreed to increase Depakote dose. Will also restart Paxil though at a lower dose to avoid discontinuation syndrome which could be further aggravated 07/05 Patient severely agitated off and on throughout the day, posturing at staff, threatening to hit, spitting on staff, breaking and throwing things and needing IM medication. Minimal insight -hopefully Depakote will start to help -will consider Tegretol since her sister who has severe bipolar disorder has been successfully treated with this medication 07/06 remains manic, irritated easily agitated; continue treatment plan however patient talked about Tegretol and this remains consideration PLAN: CV; signed 3 day (verbally retracted and resigned saying she wants dc no later than saturday) Q15 min safety checks -will recheck levels/Lft's/Bun Cr Depakote ER 500mg daily Depakote ER 1000mg qhs Thorazine 50 mg and Ativan 1 mg for moderate severe agitation (lowered dosing a little since sedating) Thorazine 25mg qid prn for anxiety, mild agitation Consider Tegretol which has helped her sister who also has severe bipolar disorder Likely add increased Thorazine dose for severe agitation as zyprexa not that helpful DC zyprexa prn since not that helpful -will recheck levels/Lft's Elevated Cr due CKD -Schedule Trazodone for sleep -will restart Paxil but at 10mg (down from 20mg) to avoid discontinuation syndrome which could be potentially aggravating -continue to avoid NSAIDs given CKD Otherwise: Monitor response to medications. Monitor for safety in the milieu. Discharge on stabilization. Patient seen. Chart reviewed. Discussed with team. Obtain collateral contact info?as needed I spent minutes with the patient and/or on the patient floor today, greater than?50% of which was spent counseling/coordinating care. Patient educated on: diagnosis Informed Consent: understands Reason for contiued inpatient stay Substantial Risk for: rapid decompensation
--- NOTE | 2021-07-06 14:53 | PC.NURSE ---
pt has refused all medications and blood pressures today, incontinent of urine x2 with need to for 100% assist in ADL's, she is sedated from restraint medications previous day and overnight meds; pt slept all day, minimal fluid intake of 40ml . aware.
[2021-07-06 21:00] VITALS: BP 121/73; PULSE 102; TEMP 36.4
[2021-07-06] MEDS: Propranolol HCL 10 MG TABLET PO (21:12)
[2021-07-06] MEDS: Divalproex Sodium ER 500 MG TAB.ER.24H 1500 MG PO (21:13)
[2021-07-07] MEDS: Levothyroxine Sodium 50 MCG TABLET PO (05:33)
[2021-07-07] MEDS: Omeprazole 20 MG CAPSULE.DR PO (05:33)
[2021-07-07] MEDS: Acetaminophen 325 MG TABLET 650 MG PO ×3 (05:33→22:30)
--- NOTE | 2021-07-07 11:49 | HO.PSYCHPN ---
Subjective Subjective Date of Service: 07/07/21 Reason For Visit: Depression Interim History: Remains manic , irritable difficult to engage; wants Tegretol saying show abuse Depakote Mental Status Exam Mental Status Exam Narrative: t is alert and oriented; behavior is aggressive, agitated, destructive, intrusive; dressed in hospital gown with unkempt hair; mood is described as irritable and affect congruent, intense; eye contact intense on none; Speech is normal rate, loud volume, normal prosody and not pressured; intermittent psychomotor agitation present; thought process is goal directed; Thought content is on feeling provoked, tx, discharge; some delusional thinking but no paranoid ideations expressed; denies any SI/HI. Seems at times to be responding to internal stimuli. Patients insight and judgment are impaired Diagnostics Vital Signs (24Hr): Vital Signs - 24 hr 07/06/21 21:00 Temperature 97.5 F Pulse Rate 102 H Blood Pressure 121/73 BMI result Body Mass Index 28.0 Labs Results: 07/03/21 01:27 07/03/21 09:37 Medications Medications Current Medications Acetaminophen (Acetaminophen 325 Mg Tablet) 650 mg PO Q6H PRN PRN Reason: Headache/Pain Mild Scale (1-3) Last Admin: 07/07/21 05:33 Dose: 650 mg Documented by: Al Hydroxide/Mg Hydroxide (Magnesium Hydrox/Alum Hydrox 30 Ml Oral.Susp) 30 ml PO Q6H PRN PRN Reason: Heartburn/Nausea Cefuroxime Axetil (Cefuroxime Axetil 250 Mg Tablet) 250 mg PO Q12H [facility] Stop: 07/12/21 07:01 Last Admin: 07/07/21 05:33 Dose: 250 mg Documented by: Chlorpromazine HCl (Chlorpromazine Hcl 25 Mg Tablet) 25 mg PO Q4H PRN PRN Reason: anxiety/agitation Last Admin: 07/05/21 19:10 Dose: 25 mg Documented by: Chlorpromazine HCl (Chlorpromazine Hcl 25 Mg Tablet) 50 mg PO TID PRN PRN Reason: mod -severe agitation Chlorpromazine HCl (Chlorpromazine Hcl 25 Mg Tablet) 50 mg PO BEDTIME PRN PRN Reason: insomnia Diphenhydramine HCl (Diphenhydramine Hcl 25 Mg Tablet) 50 mg PO BEDTIME PRN PRN Reason: sleep Last Admin: 07/05/21 19:09 Dose: 50 mg Documented by: Divalproex Sodium (Divalproex Sodium Er 500 Mg Tab.Er.24h) 1,500 mg PO BEDTIME [facility] Last Admin: 07/06/21 21:13 Dose: 500 mg Documented by: Hydroxyzine HCl (Hydroxyzine Hcl 50 Mg Tablet) 50 mg PO Q6H PRN PRN Reason: Anxiety Last Admin: 07/04/21 16:54 Dose: 50 mg Documented by: Levothyroxine Sodium (Levothyroxine Sodium 50 Mcg Tablet) 50 mcg PO DAILY@0600 [facility] Last Admin: 07/07/21 05:33 Dose: 50 mcg Documented by: Loperamide HCl (Loperamide Hcl 2 Mg Capsule) 2 mg PO Q6H PRN PRN Reason: diarrhea Lorazepam (Lorazepam 1 Mg Tablet) 1 mg PO TID PRN PRN Reason: mod severe agitation Magnesium Hydroxide (Milk Of Magnesia 30 Ml Oral.Susp) 30 ml PO DAILY PRN PRN Reason: Constipation Omeprazole (Omeprazole 20 Mg Capsule.Dr) 20 mg PO DAILY@0630 [facility] Last Admin: 07/07/21 05:33 Dose: 20 mg Documented by: Paroxetine HCl (Paroxetine Hcl 10 Mg Tablet) 10 mg PO DAILY [facility] Last Admin: 07/07/21 09:57 Dose: Not Given Documented by: Propranolol HCl (Propranolol Hcl 10 Mg Tablet) 10 mg PO BID [facility]; Protocol Last Admin: 07/07/21 09:57 Dose: Not Given Documented by: Allergies Allergies Allergy/AdvReac Type Severity Reaction Status Date / Time lithium AdvReac Intermediate CKD Verified 07/05/21 15:04 Assessment & Plan Assessment & Plan (1) Bipolar 1 disorder: Status: Acute Code(s): F31.9 - Bipolar disorder, unspecified Plan Jeri is a 60 yo female who carries a diagnosis of bipolar I DO. She presented to [facility] on 07/03/21 due to worsening depression and anxiety after she was at a convenience store and told the medical records clerk she needed help and they called 911. ED provider [place] [facility] has CKD, Cr 1.4 on 06/13. Pt was given 2L of IVF, Cr improved from 1.84 to 1.66. Precipitating factors include recent medication change from [place] to Depakote due to toxicity, level was 1.5 on 06/08/21, in content of underlying kidney impairment. Pt reported worsening sx of mood lability, mary ellen, agitation, and increased activity level since stopping lithium, i.e. she walked for 14 hours one day. VPA level was 27.1. Utox negative. HOSPITAL Course: 07/04 patient highly irritable this morning, posturing and aggressive with peers and staff however she was able to calm down and agreed to increase Depakote dose. Will also restart Paxil though at a lower dose to avoid discontinuation syndrome which could be further aggravated 07/05 Patient severely agitated off and on throughout the day, posturing at staff, threatening to hit, spitting on staff, breaking and throwing things and needing IM medication. Minimal insight -hopefully Depakote will start to help -will consider Tegretol since her sister who has severe bipolar disorder has been successfully treated with this medication 07/06 remains manic, irritated easily agitated; continue treatment plan however patient talked about Tegretol and this remains consideration 07/07 patient refused Depakote last night saying she wants Tegretol PLAN: CV; signed 3 day (verbally retracted and resigned saying she wants dc no later than saturday) Q15 min safety checks -will recheck levels/Lft's/Bun Cr START Tegretol 200mg BID; will need to titrate; will leave Depakote on for now; Tegretol has helped her sister who also has severe bipolar disorder Depakote ER 500mg daily Depakote ER 1000mg qhs Thorazine 50 mg and Ativan 1 mg for moderate severe agitation (lowered dosing a little since sedating) Thorazine 25mg qid prn for anxiety, mild agitation Likely add increased Thorazine dose for severe agitation as zyprexa not that helpful DC zyprexa prn since not that helpful -will recheck levels/Lft's Elevated Cr due CKD -Schedule Trazodone for sleep -will restart Paxil but at 10mg (down from 20mg) to avoid discontinuation syndrome which could be potentially aggravating -continue to avoid NSAIDs given CKD Otherwise: Monitor response to medications. Monitor for safety in the milieu. Discharge on stabilization. Patient seen. Chart reviewed. Discussed with team. Obtain collateral contact info?as needed I spent minutes with the patient and/or on the patient floor today, greater than?50% of which was spent counseling/coordinating care. Patient educated on: diagnosis Informed Consent: understands Reason for contiued inpatient stay Substantial Risk for: inability to function and rapid decompensation
[2021-07-07 17:36] VITALS: BP 126/86; PULSE 82; RESP 18; TEMP 36.1; O2SAT 98
--- NOTE | 2021-07-07 20:08 | HO.PSYCHPN ---
Subjective Subjective Reason For Visit: Depression Diagnostics Vital Signs (24Hr): Vital Signs - 24 hr 07/06/21 21:00 07/07/21 17:36 Temperature 97.5 F 96.9 F Pulse Rate 102 H 82 Respiratory Rate 18 Blood Pressure 121/73 126/86 Pulse Oximetry 98 BMI result Body Mass Index 28.0 Labs Results: 07/03/21 01:27 07/03/21 09:37 Medications Medications Current Medications Acetaminophen (Acetaminophen 325 Mg Tablet) 650 mg PO Q6H PRN PRN Reason: Headache/Pain Mild Scale (1-3) Last Admin: 07/07/21 16:53 Dose: 650 mg Documented by: Al Hydroxide/Mg Hydroxide (Magnesium Hydrox/Alum Hydrox 30 Ml Oral.Susp) 30 ml PO Q6H PRN PRN Reason: Heartburn/Nausea Carbamazepine (Carbamazepine Er 200 Mg Tab.Er.12h) 200 mg PO BID [facility] Cefuroxime Axetil (Cefuroxime Axetil 250 Mg Tablet) 250 mg PO Q12H [facility] Stop: 07/12/21 07:01 Last Admin: 07/07/21 05:33 Dose: 250 mg Documented by: Chlorpromazine HCl (Chlorpromazine Hcl 25 Mg Tablet) 25 mg PO Q4H PRN PRN Reason: anxiety/agitation Last Admin: 07/05/21 19:10 Dose: 25 mg Documented by: Chlorpromazine HCl (Chlorpromazine Hcl 25 Mg Tablet) 50 mg PO TID PRN PRN Reason: mod -severe agitation Chlorpromazine HCl (Chlorpromazine Hcl 25 Mg Tablet) 50 mg PO BEDTIME PRN PRN Reason: insomnia Diphenhydramine HCl (Diphenhydramine Hcl 25 Mg Tablet) 50 mg PO BEDTIME PRN PRN Reason: sleep Last Admin: 07/05/21 19:09 Dose: 50 mg Documented by: Divalproex Sodium (Divalproex Sodium Er 500 Mg Tab.Er.24h) 1,500 mg PO BEDTIME ISA[facility]AS Last Admin: 07/06/21 21:13 Dose: 500 mg Documented by: Hydroxyzine HCl (Hydroxyzine Hcl 50 Mg Tablet) 50 mg PO Q6H PRN PRN Reason: Anxiety Last Admin: 07/04/21 16:54 Dose: 50 mg Documented by: Levothyroxine Sodium (Levothyroxine Sodium 50 Mcg Tablet) 50 mcg PO DAILY@0600 [facility] Last Admin: 07/07/21 05:33 Dose: 50 mcg Documented by: Loperamide HCl (Loperamide Hcl 2 Mg Capsule) 2 mg PO Q6H PRN PRN Reason: diarrhea Lorazepam (Lorazepam 1 Mg Tablet) 1 mg PO TID PRN PRN Reason: mod severe agitation Magnesium Hydroxide (Milk Of Magnesia 30 Ml Oral.Susp) 30 ml PO DAILY PRN PRN Reason: Constipation Omeprazole (Omeprazole 20 Mg Capsule.) 20 mg PO DAILY@0630 [facility] Last Admin: 07/07/21 05:33 Dose: 20 mg Documented by: Paroxetine HCl (Paroxetine Hcl 10 Mg Tablet) 10 mg PO DAILY [facility] Last Admin: 07/07/21 09:57 Dose: Not Given Documented by: Propranolol HCl (Propranolol Hcl 10 Mg Tablet) 10 mg PO BID [facility]; Protocol Last Admin: 07/07/21 09:57 Dose: Not Given Documented by: Allergies Allergies Allergy/AdvReac Type Severity Reaction Status Date / Time lithium AdvReac Intermediate CKD Verified 07/05/21 15:04 Assessment & Plan Assessment & Plan (1) Bipolar 1 disorder: Status: Acute Code(s): F31.9 - Bipolar disorder, unspecified Plan Jeri is a 60 yo female who carries a diagnosis of bipolar I DO. She presented to [facility] [place] ED on 07/03/21 due to worsening depression and anxiety after she was at a convenience store and told the item processing clerk she needed help and they called 911. [place] provider [place] [facility] [place], Cr 1.4 on 06/13. Pt was given 2L of IVF, Cr improved from 1.84 to 1.66. Precipitating factors include recent medication change from [place] to Depakote due to toxicity, level was 1.5 on 06/08/21, in content of underlying kidney impairment. Pt reported worsening sx of mood lability, mary ellen, agitation, and increased activity level since stopping lithium, i.e. she walked for 14 hours one day. VPA level was 27.1. Utox negative. HOSPITAL Course: 07/04 patient highly irritable this morning, posturing and aggressive with peers and staff however she was able to calm down and agreed to increase Depakote dose. Will also restart Paxil though at a lower dose to avoid discontinuation syndrome which could be further aggravated 07/05 Patient severely agitated off and on throughout the day, posturing at staff, threatening to hit, spitting on staff, breaking and throwing things and needing IM medication. Minimal insight -hopefully Depakote will start to help -will consider Tegretol since her sister who has severe bipolar disorder has been successfully treated with this medication 07/06 remains manic, irritated easily agitated; continue treatment plan however patient talked about Tegretol and this remains consideration 07/07 patient refused Depakote last night saying she wants Tegretol PLAN: CV; signed 3 day (verbally retracted and resigned saying she wants dc no later than saturday) Q15 min safety checks -will recheck levels/Lft's/Bun Cr Depakote ER 500mg daily Depakote ER 1000mg qhs Thorazine 50 mg and Ativan 1 mg for moderate severe agitation (lowered dosing a little since sedating) Thorazine 25mg qid prn for anxiety, mild agitation Consider Tegretol which has helped her sister who also has severe bipolar disorder Likely add increased Thorazine dose for severe agitation as zyprexa not that helpful DC zyprexa prn since not that helpful -will recheck levels/Lft's Elevated Cr due CKD -Schedule Trazodone for sleep -will restart Paxil but at 10mg (down from 20mg) to avoid discontinuation syndrome which could be potentially aggravating -continue to avoid NSAIDs given CKD Otherwise: Monitor response to medications. Monitor for safety in the milieu. Discharge on stabilization. Patient seen. Chart reviewed. Discussed with team. Obtain collateral contact info?as needed I spent minutes with the patient and/or on the patient floor today, greater than?50% of which was spent counseling/coordinating care.
[2021-07-07] MEDS: Divalproex Sodium ER 500 MG TAB.ER.24H 1500 MG PO (22:08)
[2021-07-07] MEDS: Propranolol HCL 10 MG TABLET PO (22:08)
[2021-07-07] MEDS: carBAMazepine ER 200 MG TAB.ER.12H PO (22:09)
[2021-07-08] MEDS: Omeprazole 20 MG CAPSULE.DR PO (05:20)
[2021-07-08] MEDS: Levothyroxine Sodium 50 MCG TABLET PO (05:20)
[2021-07-08] MEDS: PARoxetine HCL 10 MG TABLET PO (09:43)
[2021-07-08] MEDS: carBAMazepine ER 200 MG TAB.ER.12H PO (09:43)
[2021-07-08 18:00] VITALS: BP 128/62; PULSE 91; RESP 18; TEMP 36.1; O2SAT 95
--- NOTE | 2021-07-08 20:49 | P.PNPSI_ITS ---
Subjective Subjective Date of Service: 07/08/21 Reason For Visit: Depression Subjective Notes: Vela Warning and Conditional Voluntary Healthcare Proxy: No Guardianship: No Medical Problems Affecting Mental Status: No Interim History: Patient seen and discussed with team. Her 3 day is up on Monday 07/10, med adherent. Patient evaluated today, however she declined interview, says dont talk to me. In the milieu, patient is disorganized, lacks insight, easily agitated. Medication Compliance: Yes Side effects from medications: No Attending Groups: No Review of Systems Acute medical concerns: No Medical Review of Systems: unchanged Mental Status Exam Mental Status Exam Narrative: Pt is alert and oriented; behavior is aggressive, agitated, destructive, intrusive; dressed in casual attire with unkempt hair; mood is described as irritable and affect congruent, intense; eye contact intense on none; Speech is normal rate, loud volume, normal prosody and not pressured; intermittent psychomotor agitation present; thought process is goal directed; Thought content is on feeling provoked, tx, discharge; some delusional thinking but no paranoid ideations expressed; denies any SI/HI. Seems at times to be responding to internal stimuli. Patients insight and judgment are impaired Diagnostics Vital Signs (24Hr): Vital Signs - 24 hr 07/08/21 18:00 Temperature 97 F Pulse Rate 91 Respiratory Rate 18 Blood Pressure 128/62 Pulse Oximetry 95 BMI result Body Mass Index 28.0 Labs Results: 07/10/21 10:07 07/10/21 10:07 Medications Medications Current Medications Acetaminophen (Acetaminophen 325 Mg Tablet) 650 mg PO Q6H PRN PRN Reason: Headache/Pain Mild Scale (1-3) Last Admin: 07/07/21 22:30 Dose: 650 mg Documented by: Al Hydroxide/Mg Hydroxide (Magnesium Hydrox/Alum Hydrox 30 Ml Oral.Susp) 30 ml PO Q6H PRN PRN Reason: Heartburn/Nausea Carbamazepine (Carbamazepine Er 200 Mg Tab.Er.12h) 200 mg PO BID [facility] Last Admin: 07/08/21 22:58 Dose: Not Given Documented by: Cefuroxime Axetil (Cefuroxime Axetil 250 Mg Tablet) 250 mg PO Q12H [facility] Stop: 07/12/21 07:01 Last Admin: 07/08/21 18:22 Dose: 250 mg Documented by: Chlorpromazine HCl (Chlorpromazine Hcl 25 Mg Tablet) 25 mg PO Q4H PRN PRN Reason: anxiety/agitation Last Admin: 07/05/21 19:10 Dose: 25 mg Documented by: Chlorpromazine HCl (Chlorpromazine Hcl 25 Mg Tablet) 50 mg PO TID PRN PRN Reason: mod -severe agitation Chlorpromazine HCl (Chlorpromazine Hcl 25 Mg Tablet) 50 mg PO BEDTIME PRN PRN Reason: insomnia Diphenhydramine HCl (Diphenhydramine Hcl 25 Mg Tablet) 50 mg PO BEDTIME PRN PRN Reason: sleep Last Admin: 07/05/21 19:09 Dose: 50 mg Documented by: Divalproex Sodium (Divalproex Sodium Er 500 Mg Tab.Er.24h) 1,500 mg PO BEDTIME ISAÍAS Last Admin: 07/08/21 22:47 Dose: 1,500 mg Documented by: Hydroxyzine HCl (Hydroxyzine Hcl 50 Mg Tablet) 50 mg PO Q6H PRN PRN Reason: Anxiety Last Admin: 07/04/21 16:54 Dose: 50 mg Documented by: Levothyroxine Sodium (Levothyroxine Sodium 50 Mcg Tablet) 50 mcg PO DAILY@0600 [facility] Last Admin: 07/08/21 05:20 Dose: 50 mcg Documented by: Loperamide HCl (Loperamide Hcl 2 Mg Capsule) 2 mg PO Q6H PRN PRN Reason: diarrhea Lorazepam (Lorazepam 1 Mg Tablet) 1 mg PO TID PRN PRN Reason: mod severe agitation Magnesium Hydroxide (Milk Of Magnesia 30 Ml Oral.Susp) 30 ml PO DAILY PRN PRN Reason: Constipation Omeprazole (Omeprazole 20 Mg Capsule.Dr) 20 mg PO DAILY@0630 [facility] Last Admin: 07/08/21 05:20 Dose: 20 mg Documented by: Paroxetine HCl (Paroxetine Hcl 10 Mg Tablet) 10 mg PO DAILY [facility] Last Admin: 07/08/21 09:43 Dose: 10 mg Documented by: Propranolol HCl (Propranolol Hcl 10 Mg Tablet) 10 mg PO BID [facility]; Protocol Last Admin: 07/08/21 22:48 Dose: 10 mg Documented by: Allergies Allergies Allergy/AdvReac Type Severity Reaction Status Date / Time lithium AdvReac Intermediate CKD Verified 07/05/21 15:04 Assessment & Plan Assessment & Plan (1) Bipolar 1 disorder: Status: Acute Code(s): F31.9 - Bipolar disorder, unspecified Plan Jeri is a 60 yo female who carries a diagnosis of bipolar I DO. She presented to [facility] [place] on 07/03/21 due to worsening depression and anxiety after she was at a convenience store and told the entry level accounting clerk she needed help and they called 911. [place] [facility] [place], Cr 1.4 on 06/13. Pt was given 2L of IVF, Cr improved from 1.84 to 1.66. Precipitating factors include recent medication change from [place] to Depakote due to toxicity, level was 1.5 on 06/08/21, in content of underlying kidney impairment. Pt reported worsening sx of mood lability, mary ellen, agitation, and increased activity level since stopping lithium, i.e. she walked for 14 hours one day. VPA level was 27.1. Utox negative. HOSPITAL Course: 07/04 patient highly irritable this morning, posturing and aggressive with peers and staff however she was able to calm down and agreed to increase Depakote dose. Will also restart Paxil though at a lower dose to avoid discontinuation syndrome which could be further aggravated 07/08 No changes PLAN: CV; signed 3 day Q15 min safety checks -INCREASE to Depakote (and change to ER) 500 mg q.h.s.; may need to go higher however patient hesitant at the moment -will recheck levels/Lft's -Schedule Trazodone for sleep -zyprexa 5 mg Q4Hr PRN for agitation. -will restart Paxil but at 10mg (down from 20mg) to avoid discontinuation syndrome which could be potentially aggravating -continue to avoid NSAIDs given CKD Otherwise: Monitor response to medications. Monitor for safety in the milieu. Discharge on stabilization. Patient seen. Chart reviewed. Discussed with team. Obtain collateral contact info?as needed I spent minutes with the patient and/or on the patient floor today, greater than?50% of which was spent counseling/coordinating care. Reason for contiued inpatient stay Substantial Risk for: inability to function, rapid decompensation and med/psych decompensation
[2021-07-08] MEDS: Divalproex Sodium ER 500 MG TAB.ER.24H 1500 MG PO (22:47)
[2021-07-08] MEDS: Propranolol HCL 10 MG TABLET PO (22:48)
[2021-07-09] MEDS: diphenhydrAMINE HCL 25 MG TABLET 50 MG PO ×2 (02:38→19:55)
[2021-07-09] MEDS: Acetaminophen 325 MG TABLET 650 MG PO (04:53)
[2021-07-09] MEDS: Levothyroxine Sodium 50 MCG TABLET PO (07:08)
[2021-07-09] MEDS: Omeprazole 20 MG CAPSULE.DR PO (07:08)
[2021-07-09 08:23] VITALS: BP 98/53; PULSE 80; TEMP 36.2; O2SAT 98
[2021-07-09] MEDS: carBAMazepine ER 200 MG TAB.ER.12H PO ×2 (08:29→19:55)
[2021-07-09 08:30] VITALS: BP 135/75; PULSE 97; TEMP 36
[2021-07-09] MEDS: chlorproMAZINE HCl 25 MG TABLET PO (08:30)
[2021-07-09] MEDS: PARoxetine HCL 10 MG TABLET PO (08:30)
--- NOTE | 2021-07-09 18:45 | P.PNPSI_ITS ---
Subjective Subjective Date of Service: 07/09/21 Reason For Visit: Depression Interim History: Patient seen and discussed with team. Per staff, pt has a reverse sleep schedule, asleep in the daytime. Pt asleep, which was deemed therapeutic. I did not wake her. Medication Compliance: Yes Side effects from medications: No Attending Groups: No Review of Systems Acute medical concerns: No Medical Review of Systems: unchanged Mental Status Exam Mental Status Exam Narrative: Pt is alert and oriented; behavior is aggressive, agitated, destructive, intrusive; dressed in casual attire with unkempt hair; mood is [did not state], intense; eye contact intense on none; Speech is normal rate, loud volume, normal prosody and not pressured; intermittent psychomotor agitation present; thought process is goal directed; Thought content is on feeling provoked, tx, discharge; some delusional thinking but no paranoid ideations expressed; denies any SI/HI. Seems at times to be responding to internal stimuli. Patients insight and judgment are impaired Diagnostics Vital Signs (24Hr): Vital Signs - 24 hr 07/10/21 08:41 07/10/21 18:00 Temperature 97.0 F 97.8 F Pulse Rate 68 70 Blood Pressure 137/69 95/61 Pulse Oximetry 98 99 BMI result Body Mass Index 28.0 Labs Results: 07/10/21 10:07 07/10/21 10:07 Labs: Laboratory Results - last 48 hr 07/10/21 07/10/21 07/10/21 10:07 10:07 10:07 WBC 5.7 RBC 3.69 L Hgb 11.9 L Hct 38.2 MCV 103.5 H MCH 32.2 MCHC 31.2 RDW 13.0 Plt Count 142 L D MPV 12.8 H Immature Gran % (Auto) 0.2 Neut % (Auto) 50.2 Lymph % (Auto) 31.1 Ida % (Auto) 10.2 Eos % (Auto) 6.9 H Baso % (Auto) 1.4 Lymph # (Auto) 1.8 Ida # (Auto) 0.6 Eos # (Auto) 0.4 Baso # (Auto) 0.1 Abs Immat Gran (auto) 0.01 Absolute Neuts (auto) 2.9 Absolute Nucleated RBC 0.000 Nucleated RBC % (auto) 0.0 Sodium 143 Potassium 4.3 D Chloride 112 H Carbon Dioxide 25 Anion Gap 10 L BUN 22 H D Creatinine 1.74 H Estim Creat Clear Calc 40.7 Estimated GFR 30 Total Bilirubin 0.3 Direct Bilirubin < 0.2 AST 17 D ALT 14 Alkaline Phosphatase 72 D Ammonia 39 Total Protein 6.8 Albumin 3.6 Valproic Acid 83.1 Medications Medications Current Medications Acetaminophen (Acetaminophen 325 Mg Tablet) 650 mg PO Q6H PRN PRN Reason: Headache/Pain Mild Scale (1-3) Last Admin: 07/09/21 04:53 Dose: 650 mg Documented by: Al Hydroxide/Mg Hydroxide (Magnesium Hydrox/Alum Hydrox 30 Ml Oral.Susp) 30 ml PO Q6H PRN PRN Reason: Heartburn/Nausea Carbamazepine (Carbamazepine Er 200 Mg Tab.Er.12h) 400 mg PO BID [facility] Last Admin: 07/10/21 21:16 Dose: 400 mg Documented by: Cefuroxime Axetil (Cefuroxime Axetil 250 Mg Tablet) 250 mg PO Q12H [facility] Stop: 07/12/21 07:01 Last Admin: 07/10/21 19:40 Dose: 250 mg Documented by: Chlorpromazine HCl (Chlorpromazine Hcl 25 Mg Tablet) 25 mg PO Q4H PRN PRN Reason: anxiety/agitation Last Admin: 07/10/21 08:33 Dose: 25 mg Documented by: Chlorpromazine HCl (Chlorpromazine Hcl 25 Mg Tablet) 50 mg PO TID PRN PRN Reason: mod -severe agitation Last Admin: 07/09/21 19:55 Dose: 50 mg Documented by: Chlorpromazine HCl (Chlorpromazine Hcl 25 Mg Tablet) 50 mg PO BEDTIME PRN PRN Reason: insomnia Last Admin: 07/10/21 02:01 Dose: 25 mg Documented by: Diphenhydramine HCl (Diphenhydramine Hcl 25 Mg Tablet) 50 mg PO BEDTIME PRN PRN Reason: sleep Last Admin: 07/09/21 19:55 Dose: 50 mg Documented by: Divalproex Sodium (Divalproex Sodium Er 500 Mg Tab.Er.24h) 1,500 mg PO BEDTIME ISAÍAS Last Admin: 07/10/21 21:16 Dose: 1,500 mg Documented by: Hydroxyzine HCl (Hydroxyzine Hcl 50 Mg Tablet) 50 mg PO Q6H PRN PRN Reason: Anxiety Last Admin: 07/04/21 16:54 Dose: 50 mg Documented by: Levothyroxine Sodium (Levothyroxine Sodium 50 Mcg Tablet) 50 mcg PO DAILY@0600 [facility] Last Admin: 07/10/21 08:33 Dose: 50 mcg Documented by: Loperamide HCl (Loperamide Hcl 2 Mg Capsule) 2 mg PO Q6H PRN PRN Reason: diarrhea Lorazepam (Lorazepam 1 Mg Tablet) 1 mg PO TID PRN PRN Reason: mod severe agitation Last Admin: 07/10/21 02:00 Dose: 1 mg Documented by: Magnesium Hydroxide (Milk Of Magnesia 30 Ml Oral.Susp) 30 ml PO DAILY PRN PRN Reason: Constipation Omeprazole (Omeprazole 20 Mg Capsule.Dr) 20 mg PO DAILY@0630 [facility] Last Admin: 07/10/21 08:33 Dose: 20 mg Documented by: Paroxetine HCl (Paroxetine Hcl 10 Mg Tablet) 10 mg PO DAILY [facility] Last Admin: 07/10/21 08:33 Dose: 10 mg Documented by: Propranolol HCl (Propranolol Hcl 10 Mg Tablet) 10 mg PO BID [facility]; Protocol Last Admin: 07/10/21 21:16 Dose: 10 mg Documented by: Allergies Allergies Allergy/AdvReac Type Severity Reaction Status Date / Time lithium AdvReac Intermediate CKD Verified 07/05/21 15:04 Assessment & Plan Assessment & Plan (1) Bipolar 1 disorder: Status: Acute Code(s): F31.9 - Bipolar disorder, unspecified Plan Jeri is a 60 yo female who carries a diagnosis of bipolar I DO. She presented to [facility] [place] on 07/03/21 due to worsening depression and anxiety after she was at a convenience store and told the hospital television rental clerk she needed help and they called 911. ED provider obtained records from [facility] [place], pt has CKD, Cr 1.4 on 06/13. Pt was given 2L of IVF, Cr improved from 1.84 to 1.66. Precipitating factors include recent medication change from [place] to Depakote due to toxicity, level was 1.5 on 06/08/21, in content of underlying kidney impairment. Pt reported worsening sx of mood lability, mary ellen, agitation, and increased activity level since stopping lithium, i.e. she walked for 14 hours one day. VPA level was 27.1. Utox negative. HOSPITAL Course: 07/04 patient highly irritable this morning, posturing and aggressive with peers and staff however she was able to calm down and agreed to increase Depakote dose. Will also restart Paxil though at a lower dose to avoid discontinuation syndrome which could be further aggravated 07/08 No changes during weekend coverage 07/09 No changes during weekend coverage PLAN: CV; signed 3 day Q15 min safety checks -INCREASE to Depakote (and change to ER) 500 mg q.h.s.; may need to go higher however patient hesitant at the moment -will recheck levels/Lft's -Schedule Trazodone for sleep -zyprexa 5 mg Q4Hr PRN for agitation. -will restart Paxil but at 10mg (down from 20mg) to avoid discontinuation syndrome which could be potentially aggravating -continue to avoid NSAIDs given CKD Otherwise: Monitor response to medications. Monitor for safety in the milieu. Discharge on stabilization. Patient seen. Chart reviewed. Discussed with team. Obtain collateral contact info?as needed I spent minutes with the patient and/or on the patient floor today, greater than?50% of which was spent counseling/coordinating care. Reason for contiued inpatient stay Substantial Risk for: inability to function, rapid decompensation and med/psych decompensation
[2021-07-09] MEDS: chlorproMAZINE HCl 25 MG TABLET 50 MG PO (19:55)
[2021-07-09] MEDS: Divalproex Sodium ER 500 MG TAB.ER.24H 1500 MG PO (19:55)
[2021-07-09] MEDS: Propranolol HCL 10 MG TABLET PO (19:56)
[2021-07-10] MEDS: LORazepam 1 MG TABLET PO (02:00)
[2021-07-10] MEDS: chlorproMAZINE HCl 25 MG TABLET 50 MG PO (02:01)
--- NOTE | 2021-07-10 02:28 | PC.NURSE ---
Patient had unwitnessed fall in the kitchen @0212; was found on floor next to refrigerator. Denied pain, denied hitting her head. Baseline confusion and agitation. Moving all extremities at will. Refused vitals. Self-Dialoguing and swearing at staff. Ambulated independently back to room and is currently in bed. Patient was on 5 minute safety checks due to behaviors at time of event and will remain on 5 min safety checks. OnCall Psych Provider and Clinical Nursing Molding Machine Tender notified.
[2021-07-10] MEDS: chlorproMAZINE HCl 25 MG TABLET PO (08:33)
[2021-07-10] MEDS: Levothyroxine Sodium 50 MCG TABLET PO (08:33)
[2021-07-10] MEDS: PARoxetine HCL 10 MG TABLET PO (08:33)
[2021-07-10] MEDS: Omeprazole 20 MG CAPSULE.DR PO (08:33)
[2021-07-10] MEDS: carBAMazepine ER 200 MG TAB.ER.12H PO (08:33)
[2021-07-10] MEDS: Propranolol HCL 10 MG TABLET PO ×2 (08:33→21:16)
[2021-07-10 08:41] VITALS: BP 137/69; PULSE 68; TEMP 36.1; O2SAT 98
[2021-07-10 10:16] LABS: MANUAL DIFF FLAG NO
[2021-07-10 10:21] LABS: Basophils Absolute Auto 0.1 X10*3/uL (0.0-0.2); Basophils Percent Auto 1.4 % (0-2); Eosinophils Absolute Auto 0.4 X10*3/uL (0.0-0.4); Eosinophils Percent Auto 6.9 % (0-4); Hematocrit 38.2 % (37.0-47.0); Hemoglobin 11.9 g/dl (12.0-16.0); Imm Gran Abs Auto 0.01 X10*3/uL (0.00-0.03); Imm Gran Pct Auto 0.2 % (0.0-0.4); Lymphocytes Absolute Auto 1.8 X10*3/uL (1.2-4.9); Lymphocytes Percent Auto 31.1 % (20-40); Mean Corpuscular HGB Conc 31.2 g/dl (31.0-35.0); Mean Corpuscular Hemoglobin 32.2 pg (27.0-33.0); Mean Corpuscular Volume 103.5 fL (80.0-98.0); Mean Platelet Volume 12.8 fL (9.4-12.3); Monocytes Absolute Auto 0.6 X10*3/uL (0.1-1.2); Monocytes Percent Auto 10.2 % (2-11); Neutrophils Absolute Auto 2.9 x10*3/uL (2.0-8.3); Neutrophils Percent Auto 50.2 % (45-73); Platelet Count 142 X10*3/uL (160-400); Red Blood Count 3.69 X10*6/uL (4.20-5.50); White Blood Count 5.7 X10*3/uL (4.8-10.8)
[2021-07-10 10:25] LABS: Ammonia 39 umol/L (13-55)
[2021-07-10 10:35] LABS: Alanine Aminotransferase 14 U/L (0-31); Albumin Level 3.6 g/dL (3.5-5.0); Alkaline Phosphatase 72 U/L (39-117); Anion Gap 10 (12-20); Aspartate Amino Transferase 17 U/L (5-31); Bilirubin Direct < 0.2 mg/dL (0.0-0.5); Bilirubin Total 0.3 mg/dL (0.0-1.0); Blood Urea Nitrogen 22 mg/dL (9-16); Carbon Dioxide 25 mmol/L (22-29); Chloride 112 mmol/L (96-108); Creatinine Clr Calc Pharmacy 40.7; Estimated Glomerular Filt Rate 30; Potassium 4.3 mmol/L (3.3-5.1); Sodium 143 mmol/L (135-145); Total Protein 6.8 g/dL (6.5-8.0)
[2021-07-10 10:44] LABS: Valproate 83.1 mcg/mL (50.0-100.0)
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
[2021-07-10 18:00] VITALS: BP 95/61; PULSE 70; TEMP 36.6; O2SAT 99
[2021-07-10] MEDS: Divalproex Sodium ER 500 MG TAB.ER.24H 1500 MG PO (21:16)
[2021-07-10] MEDS: carBAMazepine ER 200 MG TAB.ER.12H 400 MG PO (21:16)
[2021-07-11] MEDS: Levothyroxine Sodium 50 MCG TABLET PO (06:35)
[2021-07-11] MEDS: Omeprazole 20 MG CAPSULE.DR PO (06:35)
[2021-07-11] MEDS: Propranolol HCL 10 MG TABLET PO (08:10)
[2021-07-11] MEDS: carBAMazepine ER 200 MG TAB.ER.12H 400 MG PO (08:10)
[2021-07-11] MEDS: chlorproMAZINE HCl 25 MG TABLET PO ×2 (08:10→18:22)
[2021-07-11] MEDS: PARoxetine HCL 10 MG TABLET PO (08:10)
[2021-07-11 08:16] VITALS: BP 134/76; PULSE 82; RESP 16; TEMP 36.1; O2SAT 96
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
[2021-07-11] MEDS: Albuterol/Iprat 2.5/0.5MG 3 ML AMPUL.NEB INHALE (20:56)
[2021-07-11 20:57] VITALS: PULSE 82; RESP 16; O2SAT 94
[2021-07-11 21:07] VITALS: BP 110/50
[2021-07-11 21:56] LABS: D Dimer High Sensitivity 237 NG/ML
[2021-07-12 06:00] VITALS: BP 106/57; PULSE 80; RESP 16; TEMP 36.7; O2SAT 95
--- NOTE | 2021-07-12 07:55 | PC.NURSE ---
Late entry for 07/11 at approximately 1430. Pt came out of her room and her izaiah pants where sliding down. Pt asked to pull up pants and staff approached. Pt bent over to pull up pants and then became off balance, stumbling forward. Pt began to fall, T/W reached for pt securing her arm to slow fall , but was unable to prevent fall. Pt feel into wall and then to the floor. Pt didn't hit head and had no visible injuries. Pt assisted to room to sit, MD notified and assessed pt. MD to make medication adjustments due to sedation and unsteady gait.
[2021-07-12] MEDS: PARoxetine HCL 10 MG TABLET PO (08:37)
[2021-07-12] MEDS: Propranolol HCL 10 MG TABLET PO (08:38)
[2021-07-12] MEDS: Levothyroxine Sodium 50 MCG TABLET PO (08:38)
[2021-07-12] MEDS: Omeprazole 20 MG CAPSULE.DR PO (08:38)
[2021-07-12 09:12] LABS: MANUAL DIFF FLAG NO
[2021-07-12 09:15] LABS: Basophils Absolute Auto 0.1 X10*3/uL (0.0-0.2); Basophils Percent Auto 1.4 % (0-2); Eosinophils Absolute Auto 0.5 X10*3/uL (0.0-0.4); Eosinophils Percent Auto 6.5 % (0-4); Hematocrit 39.6 % (37.0-47.0); Hemoglobin 12.5 g/dl (12.0-16.0); Imm Gran Abs Auto 0.03 X10*3/uL (0.00-0.03); Imm Gran Pct Auto 0.4 % (0.0-0.4); Lymphocytes Absolute Auto 2.1 X10*3/uL (1.2-4.9); Lymphocytes Percent Auto 28.7 % (20-40); Mean Corpuscular HGB Conc 31.6 g/dl (31.0-35.0); Mean Corpuscular Hemoglobin 32.4 pg (27.0-33.0); Mean Corpuscular Volume 102.6 fL (80.0-98.0); Mean Platelet Volume 12.7 fL (9.4-12.3); Monocytes Absolute Auto 0.8 X10*3/uL (0.1-1.2); Monocytes Percent Auto 10.7 % (2-11); Neutrophils Absolute Auto 3.8 x10*3/uL (2.0-8.3); Neutrophils Percent Auto 52.3 % (45-73); Platelet Count 151 X10*3/uL (160-400); Red Blood Count 3.86 X10*6/uL (4.20-5.50); White Blood Count 7.3 X10*3/uL (4.8-10.8)
--- NOTE | 2021-07-12 09:38 | PC.NURSE ---
This telegraphic typewriter installer was informed by staff that pt was observed to be coughing at breakfast; specifically when eating toast. A similar event was noted to have happened yesterday in report this morning, however no documentation was made. Patient took meds whole this morning and drank several cups of water w/no noted difficulty. Speech and swallow order was placed yesterday and patient will be assessed today. Will continue to observe aspiration precautions while awaiting speech report.
--- NOTE | 2021-07-12 10:33 | P.PNPSI_ITS ---
Subjective Subjective Date of Service: 07/12/21 Reason For Visit: Depression Interim History: Staff reported to law writer that patient had a choking episode and needed the Heimlich maneuver which was successful. Patient remained unsteady on her feet overnight, fell. Head CT done which was negative Chest x-ray revealed hypoinflation, law writer placed internal medicine consult Because patient was confused last night her Depakote dose was held Labs rechecked and platelets remain low but stable Swallow eval Pending Today patient has some vague recollection of this from last night. However she does know she has been having negative side effects symptoms. Email Administrator discussed again that this is very likely Tegretol and Now that she is off it it should start to clear up. Patient agreed to remain off Tegretol and to see how Depakote would do and Also agreed to start another medication for mood stabilization if needed. Patient was able to sit calmly in talk about this with law writer with insight. Later in the day however she became verbally aggressive, repeatedly threatening to hit a staff member And postured aggressively as if she was going to do it. Patient's swore at this law writer. Patient was able to be redirected to her room and took her nighttime medications plus p.r.n. Thorazine. Mental Status Exam Mental Status Exam Narrative: Pt is alert and oriented; behavior vacillates between calm and agitated; dressed in hospital gown with unkempt hair; mood is irritable; eye contact typically either intense or avoidant; Speech is normal rate but loud volume, normal prosody and not pressured; intermittent psychomotor agitation present; thought process is goal directed; Thought content is on discharge and tx; some delusional thinking but no paranoid ideations expressed; denies any SI/HI. Seems at times to be responding to internal stimuli. Patients insight and judgment are impaired Diagnostics Vital Signs (24Hr): Vital Signs - 24 hr 07/11/21 20:57 07/11/21 21:07 07/12/21 06:00 Temperature 98.0 F Pulse Rate 82 80 Respiratory Rate 16 16 Blood Pressure 110/50 L 106/57 L Pulse Oximetry 95 BMI result Body Mass Index 28.0 Labs Results: 07/12/21 08:16 07/10/21 10:07 Labs: Laboratory Results - last 48 hr 07/10/21 07/11/21 07/12/21 10:07 21:37 08:16 WBC 7.3 RBC 3.86 L Hgb 12.5 Hct 39.6 MCV 102.6 H MCH 32.4 MCHC 31.6 RDW 13.0 Plt Count 151 L MPV 12.7 H Immature Gran % (Auto) 0.4 Neut % (Auto) 52.3 Lymph % (Auto) 28.7 [place] % (Auto) 10.7 Eos % (Auto) 6.5 H Baso % (Auto) 1.4 Lymph # (Auto) 2.1 [place] # (Auto) 0.8 Eos # (Auto) 0.5 H Baso # (Auto) 0.1 Abs Immat Gran (auto) 0.03 Absolute Neuts (auto) 3.8 Absolute Nucleated RBC 0.000 Nucleated RBC % (auto) 0.0 D-Dimer High Sensitivty 237 Sodium 143 Potassium 4.3 D Chloride 112 H Carbon Dioxide 25 Anion Gap 10 L BUN 22 H D Creatinine 1.74 H Estim Creat Clear Calc 40.7 Estimated GFR 30 Total Bilirubin 0.3 Direct Bilirubin < 0.2 AST 17 D ALT 14 Alkaline Phosphatase 72 D Total Protein 6.8 Albumin 3.6 Valproic Acid 83.1 Imaging Radiology Impressions: ITS Impressions Chest X-Ray 07/11/21 21:02 IMPRESSION: Hypoinflated lungs. No acute intrathoracic disease. Head CT 07/11/21 21:12 IMPRESSION: No acute intracranial process seen Medications Medications Current Medications Acetaminophen (Acetaminophen 325 Mg Tablet) 650 mg PO Q6H PRN PRN Reason: Headache/Pain Mild Scale (1-3) Last Admin: 07/09/21 04:53 Dose: 650 mg Documented by: Al Hydroxide/Mg Hydroxide (Magnesium Hydrox/Alum Hydrox 30 Ml Oral.Susp) 30 ml PO Q6H PRN PRN Reason: Heartburn/Nausea Albuterol/Ipratropium (Albuterol/Iprat 2.5/0.5mg 3 Ml Ampul.Neb) 3 ml INHALE RQ4H PRN PRN Reason: Shortness of Breath/Wheezing Last Admin: 07/11/21 20:56 Dose: 3 ml Documented by: Chlorpromazine HCl (Chlorpromazine Hcl 25 Mg Tablet) 25 mg PO Q4H PRN PRN Reason: anxiety/agitation Last Admin: 07/11/21 18:22 Dose: 25 mg Documented by: Chlorpromazine HCl (Chlorpromazine Hcl 25 Mg Tablet) 50 mg PO TID PRN PRN Reason: mod -severe agitation Last Admin: 07/09/21 19:55 Dose: 50 mg Documented by: Chlorpromazine HCl (Chlorpromazine Hcl 25 Mg Tablet) 50 mg PO BEDTIME PRN PRN Reason: insomnia Last Admin: 07/10/21 02:01 Dose: 25 mg Documented by: Diphenhydramine HCl (Diphenhydramine Hcl 25 Mg Tablet) 50 mg PO BEDTIME PRN PRN Reason: sleep Last Admin: 07/09/21 19:55 Dose: 50 mg Documented by: Divalproex Sodium (Divalproex Sodium Er 500 Mg Tab.Er.24h) 1,500 mg PO BEDTIME ISAÍAS Last Admin: 07/11/21 20:35 Dose: Not Given Documented by: Hydroxyzine HCl (Hydroxyzine Hcl 50 Mg Tablet) 50 mg PO Q6H PRN PRN Reason: Anxiety Last Admin: 07/04/21 16:54 Dose: 50 mg Documented by: Levothyroxine Sodium (Levothyroxine Sodium 50 Mcg Tablet) 50 mcg PO DAILY@0600 [facility] Last Admin: 07/12/21 08:38 Dose: 50 mcg Documented by: Loperamide HCl (Loperamide Hcl 2 Mg Capsule) 2 mg PO Q6H PRN PRN Reason: diarrhea Lorazepam (Lorazepam 1 Mg Tablet) 1 mg PO TID PRN PRN Reason: mod severe agitation Last Admin: 07/10/21 02:00 Dose: 1 mg Documented by: Magnesium Hydroxide (Milk Of Magnesia 30 Ml Oral.Susp) 30 ml PO DAILY PRN PRN Reason: Constipation Omeprazole (Omeprazole 20 Mg Capsule.Dr) 20 mg PO DAILY@0630 [facility] Last Admin: 07/12/21 08:38 Dose: 20 mg Documented by: Paroxetine HCl (Paroxetine Hcl 10 Mg Tablet) 10 mg PO DAILY [facility] Last Admin: 07/12/21 08:37 Dose: 10 mg Documented by: Propranolol HCl (Propranolol Hcl 10 Mg Tablet) 10 mg PO BID [facility]; Protocol Last Admin: 07/12/21 08:38 Dose: 10 mg Documented by: Allergies Allergies Allergy/AdvReac Type Severity Reaction Status Date / Time lithium AdvReac Intermediate CKD Verified 07/05/21 15:04 Assessment & Plan Assessment & Plan (1) Bipolar 1 disorder: Status: Acute Code(s): F31.9 - Bipolar disorder, unspecified Plan Jeri is a 60 yo female who carries a diagnosis of bipolar I DO. She presented to [facility] ED on 07/03/21 due to worsening depression and anxiety after she was at a convenience store and told the money order clerk she needed help and they called 911. ED provider obtained records from [facility], pt has CKD, Cr 1.4 on 06/13. Pt was given 2L of IVF, Cr improved from 1.84 to 1.66. Precipitating factors include recent medication change from [place] to Depakote due to toxicity, level was 1.5 on 06/08/21, in content of underlying kidney impairment. Pt reported worsening sx of mood lability, mary ellen, agitation, and increased activity level since stopping lithium, i.e. she walked for 14 hours one day. VPA level was 27.1. Utox negative. PLAN: CV; (retracted 3 day) Q15 min safety checks 1. confusion, fall due to medication side-effect, resolving: Head CT done which was negative Chest x-ray negative for aspiration but did reveal hypoinflation, law writer placed internal medicine consult Labs rechecked and platelets remain low but stable Swallow eval Pending -patient's confusion is resolving and she is now walking and talking much better has Tegretol was discontinued 2. Bipolar disorder, severe: -while it is possible patient may stabilize on Depakote if given more time, she is currently internally provoked to unsafe behaviors and it may be necessary to start another mood stabilizer. Patient cannot take lithium, and Tegretol caused intolerable medication side effect. Trileptal is an option however this also can lower platelets and cause similar side effects to Tegretol. It seems that atypical antipsychotics are likely the next best option for med trials consider adding Risperdal DISCONTINUE Tegretol seems to have produced side effects of ataxia and tremor Continue Depakote ER 1500mg qhs Thorazine 50 mg and Ativan 1 mg for moderate severe agitation (lowered dosing a little since sedating) Thorazine 25mg qid prn for anxiety, mild agitation DC zyprexa prn since not that helpful CBC repeat: Platelets remain low but are stabilized Elevated Cr due CKD -continue Trazodone for sleep -continue Paxil but at 10mg (down from 20mg) to avoid discontinuation syndrome which could be potentially aggravating -continue to avoid NSAIDs given CKD Otherwise: Monitor response to medications. Monitor for safety in the milieu. Discharge on stabilization. Patient seen. Chart reviewed. Discussed with team. Obtain collateral contact info?as needed HOSPITAL Course: 07/04 patient highly irritable this morning, posturing and aggressive with peers and staff however she was able to calm down and agreed to increase Depakote dose. Will also restart Paxil though at a lower dose to avoid discontinuation syndrome which could be further aggravated 07/05 Patient severely agitated off and on throughout the day, posturing at staff, threatening to hit, spitting on staff, breaking and throwing things and needing IM medication. Minimal insight -hopefully Depakote will start to help -will consider Tegretol since her sister who has severe bipolar disorder has been successfully treated with this medication 07/06 remains manic, irritated easily agitated; continue treatment plan however patient talked about Tegretol and this remains consideration 07/07 patient refused Depakote last night saying she wants Tegretol 07/10 some mild improvement but she remains manic, disorganized. Patient seems to be having side effect of hand tremor, some ataxia and lowered platelets; currently debating how to approach medication management as patient would like to be on Tegretol as a monotherapy, however initiation of this medication coincides with onset of side effects. Will continue to monitor for now. These medications side effects/risks were discussed with patient who understood and agrees to current regimen 07/11 patient agrees that side effects of unsteady gait and tremor have increased with increased dose of Tegretol and she agrees to discontinue this medication and see if Depakote alone or with another mood stabilizer will be helpful. 07/12 pt confused, disoriented, most likely due to medicationStaff reported to law writer that patient had a choking episode and needed the Heimlich maneuver which was successful. Patient remained unsteady on her feet overnight, fell. Head CT done which was negative; Chest x-ray negative for aspiration but did reveal hypoinflation, law writer placed internal medicine consult; Because patient was con fused last night her Depakote dose was held I spent minutes with the patient and/or on the patient floor today, greater than?50% of which was spent counseling/coordinating care. Patient educated on: medication risk/benefits Informed Consent: understands Reason for contiued inpatient stay Substantial Risk for: inability to function and rapid decompensation
--- NOTE | 2021-07-12 12:03 | MHC.SL.SWA ---
Speech Pathologist Impression: Oropharyngeal dysphagia Risk of Aspiration Due to: Impulsivity when eating Dysphasia Diet Status: Downgrade Liquid Consistency and Strategies for Safe Swallow: Liquid Intake Recommendation: Thin Liquid Intake Strategies: Small Sips Solid Food Consistency: Dietary Recommendations: Chopped/Advanced (NDD3) Additional Modifications to Solid Foods: Patient seen for bedside dysphagia evaluation this morning. No clinical signs of aspiration. Oral phase marked by prolonged mastication of solids. Also note impulsivity when eating- taking large bites, speaking with food in her mouth. Given the recent choking episodes, as a precaution, recommend CHOPPED/ADVANCED (NDD3) diet with sauces and gravies, avoid sticky foods, tough difficult to chew solids, and breads. Continue with THIN liquids, pills WHOLE with LIQUID or PUREE. Recommend total supervision during meals to monitor tolerance and provide reminders for safe eating/aspiration precautions: take small bites, chew food well, clear oral cavity and swallow before speaking, minimize distractions during meals, upright 90 degree position during PO intake, alternate bite of food with sip of liquid. Diet order updated by SWIM COACH- Updated RN, RD, via [employer]. SWIM COACH to f/u tomorrow to re-assess. Oral Medication Intake: Whole with Liquid Please contact the pharmacy regarding appropriate crushable or liquid drug formulations that are available whenever modified delivery is recommended. Compensatory Strategies and Precautions to be Taken for Safe Swallow: Sitting Upright (90 deg) No Straw Small Bites and Sips Alternate Liquids/Solids Rate of Ingestion Change Avoid Specific Foods Supervision While Eating and Drinking for Safe Swallow: Total Supervision (1:1) Foods to Avoid: Avoid sticky foods, tough difficult to chew solids, and breads. Swallowing Recommended Treatments: Compens. Strategy Educat. Recommendation for Speech: Inpatient Speech Therapy Comment: Frequency/Duration: Date Range for Service Req: Timeline to reassess: Traffic Law Attorney Clinican/Clinical Fellow: No Supervisory Statement: I have reviewed and agree with the student/clinical fellow's documentation: N/A Speech Language Pathologist: Viridiana Lovell M.A., CCC-SWIM COACH
[2021-07-12 18:00] VITALS: BP 100/57; PULSE 90; TEMP 36.6; O2SAT 100
[2021-07-12] MEDS: chlorproMAZINE HCl 25 MG TABLET 50 MG PO (18:43)
[2021-07-12] MEDS: Divalproex Sodium ER 500 MG TAB.ER.24H 1500 MG PO (18:44)
--- NOTE | 2021-07-12 23:30 | PC.NURSE ---
Pt's BP at 100/57, HR 90, an hour after taking prn Thorazine.Scheduled Propranolol not given, Sabrina Ybarra notified, endorsed decision not to give.
[2021-07-13] MEDS: chlorproMAZINE HCl 25 MG TABLET 50 MG PO ×2 (00:21→21:05)
[2021-07-13] MEDS: diphenhydrAMINE HCL 25 MG TABLET 50 MG PO ×2 (00:21→21:05)
--- NOTE | 2021-07-13 10:29 | HO.PSYCHPN ---
Subjective Subjective Date of Service: 07/13/21 Reason For Visit: Depression Interim History: Overnight irritable and required p.r.n. Thorazine. This morning patient started out as Highly irritable; However she agreed to add Risperdal to her medication regimen and later in the day was more calm and for the 1st time said that her mind was not racing so much anymore and that I have not been swearing at everyone Which is true. Patient is also walking much better and talking more clearly. She reports she does not feel so angry and her presentation shows this. Patient said she would really like to discharge but agrees to wait it out longer to make sure that she really is stabilizing, not wanting to have to come back if she again decompensates. Mental Status Exam Mental Status Exam Narrative: Pt is alert and oriented; behavior vacillates between calm and agitated; dressed in hospital gown with unkempt hair; mood is not as angry and affect is calmer too; eye contact typically either intense or avoidant but can also at time be appropriate; Speech is normal rate but often loud volume, normal prosody and not pressured; intermittent psychomotor agitation present; thought process is goal directed; Thought content is on discharge and tx; some delusional thinking but no paranoid ideations expressed; denies any SI/HI. Seems at times to be responding to internal stimuli. Patients insight and judgment are impaired but improving. Diagnostics Vital Signs (24Hr): Vital Signs - 24 hr 07/12/21 18:00 Temperature 97.8 F Pulse Rate 90 Blood Pressure 100/57 L Pulse Oximetry 100 BMI result Body Mass Index 28.0 Labs Results: 07/12/21 08:16 07/10/21 10:07 Labs: Laboratory Results - last 48 hr 07/11/21 07/12/21 21:37 08:16 WBC 7.3 RBC 3.86 L Hgb 12.5 Hct 39.6 MCV 102.6 H MCH 32.4 MCHC 31.6 RDW 13.0 Plt Count 151 L MPV 12.7 H Immature Gran % (Auto) 0.4 Neut % (Auto) 52.3 Lymph % (Auto) 28.7 [place] % (Auto) 10.7 Eos % (Auto) 6.5 H Baso % (Auto) 1.4 Lymph # (Auto) 2.1 [place] # (Auto) 0.8 Eos # (Auto) 0.5 H Baso # (Auto) 0.1 Abs Immat Gran (auto) 0.03 Absolute Neuts (auto) 3.8 Absolute Nucleated RBC 0.000 Nucleated RBC % (auto) 0.0 D-Dimer High Sensitivty 237 Imaging Radiology Impressions: ITS Impressions Chest X-Ray 07/11/21 21:02 IMPRESSION: Hypoinflated lungs. No acute intrathoracic disease. Head CT 07/11/21 21:12 IMPRESSION: No acute intracranial process seen Medications Medications Current Medications Acetaminophen (Acetaminophen 325 Mg Tablet) 650 mg PO Q6H PRN PRN Reason: Headache/Pain Mild Scale (1-3) Last Admin: 07/09/21 04:53 Dose: 650 mg Documented by: Al Hydroxide/Mg Hydroxide (Magnesium Hydrox/Alum Hydrox 30 Ml Oral.Susp) 30 ml PO Q6H PRN PRN Reason: Heartburn/Nausea Albuterol/Ipratropium (Albuterol/Iprat 2.5/0.5mg 3 Ml Ampul.Neb) 3 ml INHALE RQ4H PRN PRN Reason: Shortness of Breath/Wheezing Last Admin: 07/11/21 20:56 Dose: 3 ml Documented by: Chlorpromazine HCl (Chlorpromazine Hcl 25 Mg Tablet) 25 mg PO Q4H PRN PRN Reason: anxiety/agitation Last Admin: 07/11/21 18:22 Dose: 25 mg Documented by: Chlorpromazine HCl (Chlorpromazine Hcl 25 Mg Tablet) 50 mg PO TID PRN PRN Reason: mod -severe agitation Last Admin: 07/13/21 00:21 Dose: 50 mg Documented by: Chlorpromazine HCl (Chlorpromazine Hcl 25 Mg Tablet) 50 mg PO BEDTIME PRN PRN Reason: insomnia Last Admin: 07/12/21 18:43 Dose: 50 mg Documented by: Diphenhydramine HCl (Diphenhydramine Hcl 25 Mg Tablet) 50 mg PO BEDTIME PRN PRN Reason: sleep Last Admin: 07/13/21 00:21 Dose: 50 mg Documented by: Divalproex Sodium (Divalproex Sodium Er 500 Mg Tab.Er.24h) 1,500 mg PO BEDTIME ISAÍAS Last Admin: 07/12/21 18:44 Dose: 1,500 mg Documented by: Hydroxyzine HCl (Hydroxyzine Hcl 50 Mg Tablet) 50 mg PO Q6H PRN PRN Reason: Anxiety Last Admin: 07/04/21 16:54 Dose: 50 mg Documented by: Levothyroxine Sodium (Levothyroxine Sodium 50 Mcg Tablet) 50 mcg PO DAILY@0600 [facility] Last Admin: 07/12/21 08:38 Dose: 50 mcg Documented by: Loperamide HCl (Loperamide Hcl 2 Mg Capsule) 2 mg PO Q6H PRN PRN Reason: diarrhea Magnesium Hydroxide (Milk Of Magnesia 30 Ml Oral.Susp) 30 ml PO DAILY PRN PRN Reason: Constipation Omeprazole (Omeprazole 20 Mg Capsule.Dr) 20 mg PO DAILY@0630 [facility] Last Admin: 07/12/21 08:38 Dose: 20 mg Documented by: Paroxetine HCl (Paroxetine Hcl 10 Mg Tablet) 10 mg PO DAILY [facility] Last Admin: 07/12/21 08:37 Dose: 10 mg Documented by: Propranolol HCl (Propranolol Hcl 10 Mg Tablet) 10 mg PO BID [facility]; Protocol Last Admin: 07/12/21 23:30 Dose: Not Given Documented by: Allergies Allergies Allergy/AdvReac Type Severity Reaction Status Date / Time lithium AdvReac Intermediate CKD Verified 07/05/21 15:04 Assessment & Plan Assessment & Plan (1) Bipolar 1 disorder: Status: Acute Code(s): F31.9 - Bipolar disorder, unspecified Plan Jeri is a 60 yo female who carries a diagnosis of bipolar I DO. She presented to [facility] ED on 07/03/21 due to worsening depression and anxiety after she was at a convenience store and told the automotive title clerk she needed help and they called 911. ED provider obtained records from [facility], pt has CKD, Cr 1.4 on 06/13. Pt was given 2L of IVF, Cr improved from 1.84 to 1.66. Precipitating factors include recent medication change from [place] to Depakote due to toxicity, level was 1.5 on 06/08/21, in content of underlying kidney impairment. Pt reported worsening sx of mood lability, mary ellen, agitation, and increased activity level since stopping lithium, i.e. she walked for 14 hours one day. VPA level was 27.1. Utox negative. PLAN: CV; (retracted 3 day) Q15 min safety checks 1. confusion, fall due to medication side-effect, resolving: Head CT done which was negative Chest x-ray negative for aspiration but did reveal hypoinflation, copy writer placed internal medicine consult Labs rechecked and platelets remain low but stable Swallow eval Pending -patient's confusion is resolving and she is now walking and talking much better has Tegretol was discontinued 2. Bipolar disorder, severe: -while it is possible patient may stabilize on Depakote if given more time, she is currently internally provoked to unsafe behaviors and it may be necessary to start another mood stabilizer. Patient cannot take lithium, and Tegretol caused intolerable medication side effect. Trileptal is an option however this also can lower platelets and cause similar side effects to Tegretol. It seems that atypical antipsychotics are likely the next best option for med trials START Risperdal 1mg BID DISCONTINUE Tegretol seems to have produced side effects of ataxia and tremor Continue Depakote ER 1500mg qhs Thorazine 50 mg and Ativan 1 mg for moderate severe agitation (lowered dosing a little since sedating) Thorazine 25mg qid prn for anxiety, mild agitation DC zyprexa prn since not that helpful CBC repeat: Platelets remain low but are stabilized Elevated Cr due CKD -continue Trazodone for sleep -continue Paxil but at 10mg (down from 20mg) to avoid discontinuation syndrome which could be potentially aggravating -continue to avoid NSAIDs given CKD Otherwise: Monitor response to medications. Monitor for safety in the milieu. Discharge on stabilization. Patient seen. Chart reviewed. Discussed with team. Obtain collateral contact info?as needed HOSPITAL Course: 07/04 patient highly irritable this morning, posturing and aggressive with peers and staff however she was able to calm down and agreed to increase Depakote dose. Will also restart Paxil though at a lower dose to avoid discontinuation syndrome which could be further aggravated 07/05 Patient severely agitated off and on throughout the day, posturing at staff, threatening to hit, spitting on staff, breaking and throwing things and needing IM medication. Minimal insight -hopefully Depakote will start to help -will consider Tegretol since her sister who has severe bipolar disorder has been successfully treated with this medication 07/06 remains manic, irritated easily agitated; continue treatment plan however patient talked about Tegretol and this remains consideration 07/07 patient refused Depakote last night saying she wants Tegretol 07/10 some mild improvement but she remains manic, disorganized. Patient seems to be having side effect of hand tremor, some ataxia and lowered platelets; currently debating how to approach medication management as patient would like to be on Tegretol as a monotherapy, however initiation of this medication coincides with onset of side effects. Will continue to monitor for now. These medications side effects/risks were discussed with patient who understood and agrees to current regimen 07/11 patient agrees that side effects of unsteady gait and tremor have increased with increased dose of Tegretol and she agrees to discontinue this medication and see if Depakote alone or with another mood stabilizer will be helpful. 07/12 pt confused, disoriented, most likely due to medicationStaff reported to copy writer that patient had a choking episode and needed the Heimlich maneuver which was successful. Patient remained unsteady on her feet overnight, fell. Head CT done which was negative; Chest x-ray negative for aspiration but did reveal hypoinflation, copy writer placed internal medicine consult; Because patient was confused last night her Depakote dose was held 07/13 Seems to be calmer since starting low-dose Risperdal; she says her mind is not racing as much. Will continue this medication and hopefully seek continued stabilization I spent minutes with the patient and/or on the patient floor today, greater than?50% of which was spent counseling/coordinating care. Patient educated on: diagnosis and medication risk/benefits Informed Consent: understands Reason for contiued inpatient stay Substantial Risk for: inability to function and rapid decompensation
[2021-07-13] MEDS: PARoxetine HCL 10 MG TABLET PO (11:43)
[2021-07-13] MEDS: Propranolol HCL 10 MG TABLET PO (11:43)
[2021-07-13] MEDS: risperiDONE 1 MG TABLET PO (11:43)
[2021-07-13] MEDS: Levothyroxine Sodium 50 MCG TABLET PO (11:45)
[2021-07-13] MEDS: Omeprazole 20 MG CAPSULE.DR PO (11:45)
[2021-07-13 11:50] VITALS: BP 148/81; PULSE 86; TEMP 47.9; TEMP 8.8
--- NOTE | 2021-07-13 12:25 | MHC.SLORD ---
Speech Language Pathology Order Status: Attempted to see PT at lunch. Lunch not yet to floor, Pt notably agitated and combative w/ my presence, and becoming escalated. Staff reported that she ate a little this morning, but that was her pattern, and had no other difficulties. Due to Pt escalated state, did not attempt any further trials or observation.
[2021-07-13] MEDS: chlorproMAZINE HCl 25 MG TABLET PO (17:37)
[2021-07-13 18:11] VITALS: RESP 18
--- NOTE | 2021-07-14 09:19 | P.PNPSI_ITS ---
Subjective Subjective Date of Service: 07/14/21 Reason For Visit: Depression Interim History: Last night and again today, patient yelling and swearing at staff and other patients, scaring patients and threatening. Today patient had to be redirected out of the kitchen and lost access to the kitchen due to agitation towards other patients. Patient refused her Depakote last night. On approach patient said that ghost writer promised her she would discharge today which ghost writer helped explain w as not the case and that she agreed to remain on the unit for more treatment. Patient then remembered this discussion and again agreed she needed to remain for treatment and that she was still not at her baseline. She cried and said she hates being liked this and hates feeling manic; she agreed to increased Risperdal dose. Mental Status Exam Mental Status Exam Narrative: Pt is alert and oriented; behavior vacillates between calm and agitated; dressed in hospital gown with unkempt hair; mood is not as angry and affect is calmer too; eye contact typically either intense or avoidant but can also at time be appropriate; Speech is normal rate but often loud volume, normal prosody and not pressured; intermittent psychomotor agitation present; thought process is goal directed; Thought content is on discharge and tx; some delusional thinking but no paranoid ideations expressed; denies any SI/HI. Seems at times to be responding to internal stimuli. Patients insight and judgment are impaired. Diagnostics Vital Signs (24Hr): Vital Signs - 24 hr 07/13/21 11:50 07/13/21 18:11 Temperature 47.9 F L Pulse Rate 86 Respiratory Rate 18 Blood Pressure 148/81 H BMI result Body Mass Index 28.0 Labs Results: 07/12/21 08:16 07/10/21 10:07 Imaging Radiology Impressions: ITS Impressions Chest X-Ray 07/11/21 21:02 IMPRESSION: Hypoinflated lungs. No acute intrathoracic disease. Head CT 07/11/21 21:12 IMPRESSION: No acute intracranial process seen Medications Medications Current Medications Acetaminophen (Acetaminophen 325 Mg Tablet) 650 mg PO Q6H PRN PRN Reason: Headache/Pain Mild Scale (1-3) Last Admin: 07/09/21 04:53 Dose: 650 mg Documented by: Al Hydroxide/Mg Hydroxide (Magnesium Hydrox/Alum Hydrox 30 Ml Oral.Susp) 30 ml PO Q6H PRN PRN Reason: Heartburn/Nausea Albuterol/Ipratropium (Albuterol/Iprat 2.5/0.5mg 3 Ml Ampul.Neb) 3 ml INHALE RQ4H PRN PRN Reason: Shortness of Breath/Wheezing Last Admin: 07/11/21 20:56 Dose: 3 ml Documented by: Chlorpromazine HCl (Chlorpromazine Hcl 25 Mg Tablet) 25 mg PO Q4H PRN PRN Reason: anxiety/agitation Last Admin: 07/13/21 17:37 Dose: 25 mg Documented by: Chlorpromazine HCl (Chlorpromazine Hcl 25 Mg Tablet) 50 mg PO TID PRN PRN Reason: mod -severe agitation Last Admin: 07/13/21 21:05 Dose: 50 mg Documented by: Chlorpromazine HCl (Chlorpromazine Hcl 25 Mg Tablet) 50 mg PO BEDTIME PRN PRN Reason: insomnia Last Admin: 07/12/21 18:43 Dose: 50 mg Documented by: Diphenhydramine HCl (Diphenhydramine Hcl 25 Mg Tablet) 50 mg PO BEDTIME PRN PRN Reason: sleep Last Admin: 07/13/21 21:05 Dose: 50 mg Documented by: Divalproex Sodium (Divalproex Sodium Er 500 Mg Tab.Er.24h) 1,500 mg PO BEDTIME [facility] Last Admin: 07/13/21 20:12 Dose: Not Given Documented by: Hydroxyzine HCl (Hydroxyzine Hcl 50 Mg Tablet) 50 mg PO Q6H PRN PRN Reason: Anxiety Last Admin: 07/04/21 16:54 Dose: 50 mg Documented by: Levothyroxine Sodium (Levothyroxine Sodium 50 Mcg Tablet) 50 mcg PO DAILY@0600 [facility] Last Admin: 07/14/21 08:38 Dose: 50 mcg Documented by: Loperamide HCl (Loperamide Hcl 2 Mg Capsule) 2 mg PO Q6H PRN PRN Reason: diarrhea Magnesium Hydroxide (Milk Of Magnesia 30 Ml Oral.Susp) 30 ml PO DAILY PRN PRN Reason: Constipation Omeprazole (Omeprazole 20 Mg Capsule.Dr) 20 mg PO DAILY@0630 [facility] Last Admin: 07/14/21 08:38 Dose: 20 mg Documented by: Paroxetine HCl (Paroxetine Hcl 10 Mg Tablet) 10 mg PO DAILY [facility] Last Admin: 07/14/21 08:38 Dose: 10 mg Documented by: Propranolol HCl (Propranolol Hcl 10 Mg Tablet) 10 mg PO BID ISAÍAS; Protocol Last Admin: 07/14/21 08:38 Dose: 10 mg Documented by: Risperidone (Risperidone 1 Mg Tablet) 1 mg PO BID [facility] Last Admin: 07/14/21 08:38 Dose: 1 mg Documented by: Allergies Allergies Allergy/AdvReac Type Severity Reaction Status Date / Time lithium AdvReac Intermediate CKD Verified 07/05/21 15:04 Assessment & Plan Assessment & Plan (1) Bipolar 1 disorder: Status: Acute Code(s): F31.9 - Bipolar disorder, unspecified Plan Jeri is a 60 yo female who carries a diagnosis of bipolar I DO. She presented to [facility] ED on 07/03/21 due to worsening depression and anxiety after she was at a convenience store and told the sales order clerk she needed help and they called 911. ED provider obtained records from [facility], pt has CKD, Cr 1.4 on 06/13. Pt was given 2L of IVF, Cr improved from 1.84 to 1.66. Precipitating factors include recent medication change from [place] to Depakote due to toxicity, level was 1.5 on 06/08/21, in content of underlying kidney impairment. Pt reported worsening sx of mood lability, mary ellen, agitation, and increased activity level since stopping lithium, i.e. she walked for 14 hours one day. VPA level was 27.1. Utox negative. PLAN: CV; (retracted 3 day) Q15 min safety checks . Bipolar disorder, severe: while it is possible patient may stabilize on Depakote if given more time, she is currently internally provoked to unsafe be haviors and it may be necessary to start another mood stabilizer. Patient cannot take lithium, and Tegretol caused intolerable medication side effect. Trileptal is an option however this also can lower platelets and cause similar side effects to Tegretol. Starting trial of atypical antipsychotics INCrease to Risperdal 2mg BID (increased on ) DISCONTINUE Tegretol seems to have produced side effects of ataxia and tremor Continue Depakote ER 1500mg qhs Thorazine 50 mg and Ativan 1 mg for moderate severe agitation (lowered dosing a little since sedating) Thorazine 25mg qid prn for anxiety, mild agitation DC zyprexa prn since not that helpful CBC repeat: Platelets remain low but are stabilized Elevated Cr due CKD -continue Trazodone for sleep -continue Paxil but at 10mg (down from 20mg) to avoid discontinuation syndrome which could be potentially aggravating -continue to avoid NSAIDs given CKD Chest x-ray negative for aspiration but did reveal hypoinflation: discussed with Dr. Castillo who says no need for follow up; finding due to pt not taking deep breath when image taken. Otherwise: Monitor response to medications. Monitor for safety in the milieu. Discharge on stabilization. Patient seen. Chart reviewed. Discussed with team. Obtain collateral contact info?as needed HOSPITAL Course: 07/04 patient highly irritable this morning, posturing and aggressive with peers and staff however she was able to calm down and agreed to increase Depakote dose. Will also restart Paxil though at a lower dose to avoid discontinuation syndrome which could be further aggravated 07/05 Patient severely agitated off and on throughout the day, posturing at staff, threatening to hit, spitting on staff, breaking and throwing things and needing IM medication. Minimal insight -hopefully Depakote will start to help -will consider Tegretol since her sister who has severe bipolar disorder has b een successfully treated with this medication 07/06 remains manic, irritated easily agitated; continue treatment plan however patient talked about Tegretol and this remains consideration 07/07 patient refused Depakote last night saying she wants Tegretol 07/10 some mild improvement but she remains manic, disorganized. Patient seems to be having side effect of hand tremor, some ataxia and lowered platelets; currently debating how to approach medication management as patient would like to be on Tegretol as a monotherapy, however initiation of this medication coincides with onset of side effects. Will continue to monitor for now. These medications side effects/risks were discussed with patient who understood and agrees to current regimen 07/11 patient agrees that side effects of unsteady gait and tremor have increased with increased dose of Tegretol and she agrees to discontinue this medication and see if Depakote alone or with another mood stabilizer will be helpful. 07/12 pt confused, disoriented, most likely due to medication Tegretol side effects. Staff reported to ghost writer that patient had a choking episode and needed the Heimlich maneuver which was successful. Patient remained unsteady on her feet overnight, fell. Head CT done which was negative; Chest x-ray negative for aspiration but did reveal hypoinflation, ghost writer placed internal medicine consult; Because patient was confused last night her Depakote dose was held 07/13 Seems to be calmer since starting low-dose Risperdal; she says her mind is not racing as much. Will continue this medication and hopefully seek continued stabilization 07/14 remains manic; refused depakote last night; increasing Risperdal to 2 mg b.i.d. patient accepts that she has bipolar disorder and agrees that she is not at her baseline and that discharging would put her vulnerable in the community due to her agitated behaviors. She agrees to remain in the unit for continued treatment I spent minutes with the patient and/or on the patient floor today, greater than?50% of which was spent counseling/coordinating care. Patient educated on: medication risk/benefits Informed Consent: further education needed Reason for contiued inpatient stay Substantial Risk for: inability to function and rapid decompensation
[2021-07-14] MEDS: PARoxetine HCL 10 MG TABLET PO (11:06)
[2021-07-14] MEDS: Levothyroxine Sodium 50 MCG TABLET PO (11:06)
[2021-07-14] MEDS: Propranolol HCL 10 MG TABLET PO (11:06)
[2021-07-14] MEDS: Omeprazole 20 MG CAPSULE.DR PO (11:07)
[2021-07-14] MEDS: risperiDONE 1 MG TABLET PO (11:07)
[2021-07-14] MEDS: Divalproex Sodium ER 500 MG TAB.ER.24H PO (14:52)
[2021-07-14 21:30] VITALS: BP 126/80; PULSE 80; TEMP 36.1
[2021-07-15] MEDS: diphenhydrAMINE HCL 25 MG TABLET 50 MG PO (02:36)
[2021-07-15] MEDS: Acetaminophen 325 MG TABLET 650 MG PO (02:36)
[2021-07-15] MEDS: Omeprazole 20 MG CAPSULE.DR PO (08:31)
[2021-07-15] MEDS: Levothyroxine Sodium 50 MCG TABLET PO (08:32)
[2021-07-15] MEDS: risperiDONE 2 MG TABLET PO ×2 (08:33→18:31)
[2021-07-15] MEDS: PARoxetine HCL 10 MG TABLET PO (08:33)
[2021-07-15] MEDS: Propranolol HCL 10 MG TABLET PO (08:34)
--- NOTE | 2021-07-15 12:55 | HO.PSYCHPN ---
Subjective Subjective Date of Service: 07/15/21 Reason For Visit: Depression Interim History: Patient seen. Patient refused medications last night including Depakote. She is described as easily irritable. She reported she feels calmer since coming in. She was encouraged to comply with medications at night. She denies SI. She perseverates on getting items from kitchen like coke or water. She is kitchen restricted for now. Continues on 1:1 for safety. Mental Status Exam Mental Status Exam Narrative: Pt is alert and oriented; behavior vacillates between calm and agitated; dressed in hospital gown with unkempt hair; mood is not as angry and affect is calmer too; eye contact typically either intense or avoidant but can also at time be appropriate; Speech is normal rate but often loud volume, normal prosody and not pressured; intermittent psychomotor agitation present; thought process is goal directed; Thought content is on discharge and tx; some delusional thinking but no paranoid ideations expressed; denies any SI/HI. Seems at times to be responding to internal stimuli. Patients insight and judgment are impaired. Diagnostics Vital Signs (24Hr): Vital Signs - 24 hr 07/14/21 21:30 Temperature 97.0 F Pulse Rate 80 Blood Pressure 126/80 BMI result Body Mass Index 28.0 Labs Results: 07/12/21 08:16 07/10/21 10:07 Imaging Radiology Impressions: ITS Impressions Chest X-Ray 07/11/21 21:02 IMPRESSION: Hypoinflated lungs. No acute intrathoracic disease. Head CT 07/11/21 21:12 IMPRESSION: No acute intracranial process seen Medications Medications Current Medications Acetaminophen (Acetaminophen 325 Mg Tablet) 650 mg PO Q6H PRN PRN Reason: Headache/Pain Mild Scale (1-3) Last Admin: 07/15/21 02:36 Dose: 650 mg Documented by: Al Hydroxide/Mg Hydroxide (Magnesium Hydrox/Alum Hydrox 30 Ml Oral.Susp) 30 ml PO Q6H PRN PRN Reason: Heartburn/Nausea Albuterol/Ipratropium (Albuterol/Iprat 2.5/0.5mg 3 Ml Ampul.Neb) 3 ml INHALE RQ4H PRN PRN Reason: Shortness of Breath/Wheezing Last Admin: 07/11/21 20:56 Dose: 3 ml Documented by: Chlorpromazine HCl (Chlorpromazine Hcl 25 Mg Tablet) 25 mg PO Q4H PRN PRN Reason: anxiety/agitation Last Admin: 07/13/21 17:37 Dose: 25 mg Documented by: Chlorpromazine HCl (Chlorpromazine Hcl 25 Mg Tablet) 50 mg PO TID PRN PRN Reason: mod -severe agitation Last Admin: 07/13/21 21:05 Dose: 50 mg Documented by: Chlorpromazine HCl (Chlorpromazine Hcl 25 Mg Tablet) 50 mg PO BEDTIME PRN PRN Reason: insomnia Last Admin: 07/12/21 18:43 Dose: 50 mg Documented by: Diphenhydramine HCl (Diphenhydramine Hcl 25 Mg Tablet) 50 mg PO BEDTIME PRN PRN Reason: sleep Last Admin: 07/15/21 02:36 Dose: 50 mg Documented by: Divalproex Sodium (Divalproex Sodium Er 500 Mg Tab.Er.24h) 1,500 mg PO DAILY@1700 [facility] Last Admin: 07/14/21 17:35 Dose: Not Given Documented by: Hydroxyzine HCl (Hydroxyzine Hcl 50 Mg Tablet) 50 mg PO Q6H PRN PRN Reason: Anxiety Last Admin: 07/04/21 16:54 Dose: 50 mg Documented by: Levothyroxine Sodium (Levothyroxine Sodium 50 Mcg Tablet) 50 mcg PO DAILY@0600 [facility] Last Admin: 07/15/21 08:32 Dose: 50 mcg Documented by: Loperamide HCl (Loperamide Hcl 2 Mg Capsule) 2 mg PO Q6H PRN PRN Reason: diarrhea Magnesium Hydroxide (Milk Of Magnesia 30 Ml Oral.Susp) 30 ml PO DAILY PRN PRN Reason: Constipation Omeprazole (Omeprazole 20 Mg Capsule.Dr) 20 mg PO DAILY [facility] Last Admin: 07/15/21 08:31 Dose: 20 mg Documented by: Paroxetine HCl (Paroxetine Hcl 10 Mg Tablet) 10 mg PO DAILY [facility] Last Admin: 07/15/21 08:33 Dose: 10 mg Documented by: Propranolol HCl (Propranolol Hcl 10 Mg Tablet) 10 mg PO BID [facility]; Protocol Last Admin: 07/15/21 08:34 Dose: 10 mg Documented by: Risperidone (Risperidone 2 Mg Tablet) 2 mg PO DAILY@1700 [facility] Last Admin: 07/14/21 17:36 Dose: Not Given Documented by: Risperidone (Risperidone 2 Mg Tablet) 2 mg PO DAILY [facility] Last Admin: 07/15/21 08:33 Dose: 2 mg Documented by: Allergies Allergies Allergy/AdvReac Type Severity Reaction Status Date / Time lithium AdvReac Intermediate CKD Verified 07/05/21 15:04 Assessment & Plan Assessment & Plan (1) Bipolar 1 disorder: Status: Acute Code(s): F31.9 - Bipolar disorder, unspecified Plan Jeri is a 60 yo female who carries a diagnosis of bipolar I DO. She presented to [facility] ED on 07/03/21 due to worsening depression and anxiety after she was at a convenience store and told the court operations clerk she needed help and they called 911. ED provider obtained records from [facility], pt has CKD, Cr 1.4 on 06/13. Pt was given 2L of IVF, Cr improved from 1.84 to 1.66. Precipitating factors include recent medication change from [place] to Depakote due to toxicity, level was 1.5 on 06/08/21, in content of underlying kidney impairment. Pt reported worsening sx of mood lability, mary ellen, agitation, and increased activity level since stopping lithium, i.e. she walked for 14 hours one day. VPA level was 27.1. Utox negative. PLAN: CV; (retracted 3 day) Q15 min safety checks . Bipolar disorder, severe: while it is possible patient may stabilize on Depakote if given more time, she is currently internally provoked to unsafe behaviors and it may be necessary to start another mood stabilizer. Patient cannot take lithium, and Tegretol caused intolerable medication side effect. Trileptal is an option however this also can lower platelets and cause similar side effects to Tegretol. Starting trial of atypical antipsychotics INCrease to Risperdal 2mg BID (increased on ) DISCONTINUE Tegretol seems to have produced side effects of ataxia and tremor Continue Depakote ER 1500mg qhs Thorazine 50 mg and Ativan 1 mg for moderate severe agitation (lowered dosing a little since sedating) Thorazine 25mg qid prn for anxiety, mild agitation DC zyprexa prn since not that helpful CBC repeat: Platelets remain low but are stabilized Elevated Cr due CKD -continue Trazodone for sleep -continue Paxil but at 10mg (down from 20mg) to avoid discontinuation syndrome which could be potentially aggravating -continue to avoid NSAIDs given CKD Chest x-ray negative for aspiration but did reveal hypoinflation: discussed with Dr. Castillo who says no need for follow up; finding due to pt not taking deep breath when image taken. Otherwise: Monitor response to medications. Monitor for safety in the milieu. Discharge on stabilization. Patient seen. Chart reviewed. Discussed with team. Obtain collateral contact info?as needed HOSPITAL Course: 07/04 patient highly irritable this morning, posturing and aggressive with peers and staff however she was able to calm down and agreed to increase Depakote dose. Will also restart Paxil though at a lower dose to avoid discontinuation syndrome which could be further aggravated 07/05 Patient severely agitated off and on throughout the day, posturing at staff, threatening to hit, spitting on staff, breaking and throwing things and needing IM medication. Minimal insight -hopefully Depakote will start to help -will consider Tegretol since her sister who has severe bipolar disorder has been successfully treated with this medication 07/06 remains manic, irritated easily agitated; continue treatment plan however patient talked about Tegretol and this remains consideration 07/07 patient refused Depakote last night saying she wants Tegretol 07/10 some mild improvement but she remains manic, disorganized. Patient seems to be having side effect of hand tremor, some ataxia and lowered platelets; currently debating how to approach medication management as patient would like to be on Tegretol as a monotherapy, however initiation of this medication coincides with onset of side effects. Will continue to monitor for now. These medications side effects/risks were discussed with patient who understood and agrees to current regimen 07/11 patient agrees that side effects of unsteady gait and tremor have increased with increased dose of Tegretol and she agrees to discontinue this medication and see if Depakote alone or with another mood stabilizer will be helpful. 07/12 pt confused, disoriented, most likely due to medication Tegretol side effects. Staff reported to contract writer that patient had a choking episode and needed the Heimlich maneuver which was successful. Patient remained unsteady on her feet overnight, fell. Head CT done which was negative; Chest x-ray negative for aspiration but did reveal hypoinflation, contract writer placed internal medicine consult; Because patient was confused last night her Depakote dose was held 07/13 Seems to be calmer since starting low-dose Risperdal; she says her mind is not racing as much. Will continue this medication and hopefully seek continued stabilization 07/14 remains manic; refused depakote last night; increasing Risperdal to 2 mg b.i.d. patient accepts that she has bipolar disorder and agrees that she is not at her baseline and that discharging would put her vulnerable in the community due to her agitated behaviors. She agrees to remain in the unit for continued treatment 07/15: continue treatment plan. Encourage to take medications. 1:1 for safety. I spent minutes with the patient and/or on the patient floor today, greater than?50% of which was spent counseling/coordinating care. Reason for contiued inpatient stay Substantial Risk for: inability to function and rapid decompensation
[2021-07-15] MEDS: Divalproex Sodium ER 500 MG TAB.ER.24H 1500 MG PO (18:31)
[2021-07-16] MEDS: diphenhydrAMINE HCL 25 MG TABLET 50 MG PO (01:01)
--- NOTE | 2021-07-16 02:03 | PC.NURSE ---
0050- Patient came out of room agitated, yelling loudly she needed to talk to Grant ; when this film writer asked who Grant was, patient stated My childhood friend. Where is he? He was just here 15 minutes ago! Let me leave now so I can go talk to him. When patient was told he was not here, she swung violently and knocked the clipboard used to document checks across the hallway off a table, narrowly missing another patient. Patient was asked to go back to her room while this film writer took hold of her wrist to prevent swinging again. Patient then decided to go back to her room. She refused PRN Thorazine but accepted PRN Benadryl. Patient became more civil with her sitter whom she was not cooperating with during the incident, and apologized shortly after to this RN.
[2021-07-16] MEDS: Levothyroxine Sodium 50 MCG TABLET PO (06:13)
[2021-07-16] MEDS: Propranolol HCL 10 MG TABLET PO (08:19)
[2021-07-16] MEDS: Omeprazole 20 MG CAPSULE.DR PO (08:19)
[2021-07-16] MEDS: PARoxetine HCL 10 MG TABLET PO (08:19)
[2021-07-16] MEDS: risperiDONE 2 MG TABLET PO ×2 (08:20→17:45)
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
[2021-07-16] MEDS: Nicotine 14 MG PATCH.TD24 TRANSDERMA (14:20)
[2021-07-16] MEDS: Divalproex Sodium ER 500 MG TAB.ER.24H 1500 MG PO (17:44)
[2021-07-16 20:30] VITALS: BP 122/85; PULSE 101; TEMP 36.8; O2SAT 98
[2021-07-17 10:00] VITALS: BP 101/65; PULSE 104; RESP 16; TEMP 36.4; O2SAT 98
[2021-07-17] MEDS: PARoxetine HCL 10 MG TABLET PO (10:25)
[2021-07-17] MEDS: Omeprazole 20 MG CAPSULE.DR PO (10:25)
[2021-07-17] MEDS: risperiDONE 2 MG TABLET PO ×2 (10:26→18:59)
[2021-07-17] MEDS: Propranolol HCL 10 MG TABLET PO (10:26)
[2021-07-17] MEDS: Nicotine 14 MG PATCH.TD24 TRANSDERMA (10:26)
[2021-07-17] MEDS: Levothyroxine Sodium 50 MCG TABLET PO (10:26)
--- NOTE | 2021-07-17 13:06 | P.PNPSI_ITS ---
Subjective Subjective Date of Service: 07/17/21 Reason For Visit: Depression Interim History: Patient seen. LULÚ RN. Patient continues to improve. Taking her medications. Staff report she may be eligible to switch to 5 minute checks tomorrow if she continues to show behavioral control and adherence to medications. She had no behavioral outbursts. She is sleeping better. No SI. Mental Status Exam Mental Status Exam Narrative: Pt is alert and oriented; Calmer today. Behavior calm; dressed in casual clothes today; mood is feeling better and affect is calmer too; eye contact approp riate; Speech is normal rate, normal prosody and not pressured; No psychomotor agitation; thought process is goal directed; Thought content is on discharge and tx; no delusional thinking elicited; denies any SI/HI. Patients insight and judgment are improving. Diagnostics Vital Signs (24Hr): Vital Signs - 24 hr 07/16/21 20:30 07/17/21 10:00 Temperature 98.2 F 97.6 F Pulse Rate 101 H 104 H Respiratory Rate 16 Blood Pressure 122/85 101/65 Pulse Oximetry 98 98 BMI result Body Mass Index 28.0 Labs Results: 07/12/21 08:16 07/10/21 10:07 Imaging Radiology Impressions: ITS Impressions Chest X-Ray 07/11/21 21:02 IMPRESSION: Hypoinflated lungs. No acute intrathoracic disease. Head CT 07/11/21 21:12 IMPRESSION: No acute intracranial process seen Medications Medications Current Medications Acetaminophen (Acetaminophen 325 Mg Tablet) 650 mg PO Q6H PRN PRN Reason: Headache/Pain Mild Scale (1-3) Last Admin: 07/15/21 02:36 Dose: 650 mg Documented by: Al Hydroxide/Mg Hydroxide (Magnesium Hydrox/Alum Hydrox 30 Ml Oral.Susp) 30 ml PO Q6H PRN PRN Reason: Heartburn/Nausea Albuterol/Ipratropium (Albuterol/Iprat 2.5/0.5mg 3 Ml Ampul.Neb) 3 ml INHALE RQ4H PRN PRN Reason: Shortness of Breath/Wheezing Last Admin: 07/11/21 20:56 Dose: 3 ml Documented by: Chlorpromazine HCl (Chlorpromazine Hcl 25 Mg Tablet) 25 mg PO Q4H PRN PRN Reason: anxiety/agitation Last Admin: 07/13/21 17:37 Dose: 25 mg Documented by: Chlorpromazine HCl (Chlorpromazine Hcl 25 Mg Tablet) 50 mg PO TID PRN PRN Reason: mod -severe agitation Last Admin: 07/13/21 21:05 Dose: 50 mg Documented by: Chlorpromazine HCl (Chlorpromazine Hcl 25 Mg Tablet) 50 mg PO BEDTIME PRN PRN Reason: insomnia Last Admin: 07/12/21 18:43 Dose: 50 mg Documented by: Diphenhydramine HCl (Diphenhydramine Hcl 25 Mg Tablet) 50 mg PO BEDTIME PRN PRN Reason: sleep Last Admin: 07/16/21 01:01 Dose: 50 mg Documented by: Divalproex Sodium (Divalproex Sodium Er 500 Mg Tab.Er.24h) 1,500 mg PO DAILY@1700 [facility] Last Admin: 07/16/21 17:44 Dose: 1,500 mg Documented by: Hydroxyzine HCl (Hydroxyzine Hcl 50 Mg Tablet) 50 mg PO Q6H PRN PRN Reason: Anxiety Last Admin: 07/04/21 16:54 Dose: 50 mg Documented by: Levothyroxine Sodium (Levothyroxine Sodium 50 Mcg Tablet) 50 mcg PO DAILY@0600 [facility] Last Admin: 07/17/21 10:26 Dose: 50 mcg Documented by: Loperamide HCl (Loperamide Hcl 2 Mg Capsule) 2 mg PO Q6H PRN PRN Reason: diarrhea Magnesium Hydroxide (Milk Of Magnesia 30 Ml Oral.Susp) 30 ml PO DAILY PRN PRN Reason: Constipation Nicotine (Nicotine 14 Mg Patch.Td24) 14 mg TRANSDERMA DAILY [facility] Last Admin: 07/17/21 10:26 Dose: 14 mg Documented by: Nicotine Polacrilex (Nicotine Polacrilex 2 Mg Gum) 2 mg BUCCAL Q2H PRN PRN Reason: Nicotine Cravings Omeprazole (Omeprazole 20 Mg Capsule.Dr) 20 mg PO DAILY [facility] Last Admin: 07/17/21 10:25 Dose: 20 mg Documented by: Paroxetine HCl (Paroxetine Hcl 10 Mg Tablet) 10 mg PO DAILY [facility] Last Admin: 07/17/21 10:25 Dose: 10 mg Documented by: Propranolol HCl (Propranolol Hcl 10 Mg Tablet) 10 mg PO BID [facility]; Protocol Last Admin: 07/17/21 10:26 Dose: 10 mg Documented by: Risperidone (Risperidone 2 Mg Tablet) 2 mg PO DAILY@1700 [facility] Last Admin: 07/16/21 17:45 Dose: 2 mg Documented by: Risperidone (Risperidone 2 Mg Tablet) 2 mg PO DAILY [facility] Last Admin: 07/17/21 10:26 Dose: 2 mg Documented by: Allergies Allergies Allergy/AdvReac Type Severity Reaction Status Date / Time lithium AdvReac Intermediate CKD Verified 07/05/21 15:04 Assessment & Plan Assessment & Plan (1) Bipolar 1 disorder: Status: Acute Code(s): F31.9 - Bipolar disorder, unspecified Plan Jeri is a 60 yo female who carries a diagnosis of bipolar I DO. She presented to [facility] ED on 07/03/21 due to worsening depression and anxiety after she was at a convenience store and told the car rental clerk she needed help and they called 911. [place] [facility] [place], Cr 1.4 on 06/13. Pt was given 2L of IVF, Cr improved from 1.84 to 1.66. Precipitating factors include recent medication change from [place] to Depakote due to toxicity, level was 1.5 on 06/08/21, in content of underlying kidney impairment. Pt reported worsening sx of mood lability, mary ellen, agitation, and increased activity level since stopping lithium, i.e. she walked for 14 hours one day. VPA level was 27.1. Utox negative. PLAN: CV; (retracted 3 day) Q15 min safety checks . Bipolar disorder, severe: while it is possible patient may stabilize on Depa kote if given more time, she is currently internally provoked to unsafe behaviors and it may be necessary to start another mood stabilizer. Patient cannot take lithium, and Tegretol caused intolerable medication side effect. Trileptal is an option however this also can lower platelets and cause similar side effects to Tegretol. Starting trial of atypical antipsychotics INCrease to Risperdal 2mg BID (increased on ) DISCONTINUE Tegretol seems to have produced side effects of ataxia and tremor Continue Depakote ER 1500mg qhs Thorazine 50 mg and Ativan 1 mg for moderate severe agitation (lowered dosing a little since sedating) Thorazine 25mg qid prn for anxiety, mild agitation DC zyprexa prn since not that helpful CBC repeat: Platelets remain low but are stabilized Elevated Cr due CKD -continue Trazodone for sleep -continue Paxil but at 10mg (down from 20mg) to avoid discontinuation syndrome which could be potentially aggravating -continue to avoid NSAIDs given CKD Chest x-ray negative for aspiration but did reveal hypoinflation: discussed with Dr. Castillo who says no need for follow up; finding due to pt not taking deep breath when image taken. Otherwise: Monitor response to medications. Monitor for safety in the milieu. Discharge on stabilization. Patient seen. Chart reviewed. Discussed with team. Obtain collateral contact info?as needed HOSPITAL Course: 07/04 patient highly irritable this morning, posturing and aggressive with peers and staff however she was able to calm down and agreed to increase Depakote dose. Will also restart Paxil though at a lower dose to avoid discontinuation syndrome which could be further aggravated 07/05 Patient severely agitated off and on throughout the day, posturing at staff, threatening to hit, spitting on staff, breaking and throwing things and needing IM medication. Minimal insight -hopefully Depakote will start to help -will consider Tegretol since her sister who has severe bipolar disorder has been successfully treated with this medication 07/06 remains manic, irritated easily agitated; continue treatment plan however p atient talked about Tegretol and this remains consideration 07/07 patient refused Depakote last night saying she wants Tegretol 07/10 some mild improvement but she remains manic, disorganized. Patient seems to be having side effect of hand tremor, some ataxia and lowered platelets; currently debating how to approach medication management as patient would like to be on Tegretol as a monotherapy, however initiation of this medication coincides with onset of side effects. Will continue to monitor for now. These medications side effects/risks were discussed with patient who understood and agrees to current regimen 07/11 patient agrees that side effects of unsteady gait and tremor have increased with increased dose of Tegretol and she agrees to discontinue this medication and see if Depakote alone or with another mood stabilizer will be helpful. 07/12 pt confused, disoriented, most likely due to medication Tegretol side effects. Staff reported to keno writer/runner that patient had a choking episode and needed the Heimlich maneuver which was successful. Patient remained unsteady on her feet overnight, fell. Head CT done which was negative; Chest x-ray negative for aspiration but did reveal hypoinflation, keno writer/runner placed internal medicine consult; Because patient was confused last night her Depakote dose was held 07/13 Seems to be calmer since starting low-dose Risperdal; she says her mind is not racing as much. Will continue this medication and hopefully seek continued stabilization 07/14 remains manic; refused depakote last night; increasing Risperdal to 2 mg b.i.d. patient accepts that she has bipolar disorder and agrees that she is not at her baseline and that discharging would put her vulnerable in the community due to her agitated behaviors. She agrees to remain in the unit for continued treatment 07/15: continue treatment plan. Encourage to take medications. 1:1 for safety. 07/16: continue treatment plan. Encourage to take medications. 1:1 for safety. 07/17: Improving. Continue tx plan I spent minutes with the patient and/or on the patient floor today, greater than?50% of which was spent counseling/coordinating care. Reason for contiued inpatient stay Substantial Risk for: inability to function and rapid decompensation
[2021-07-17] MEDS: Divalproex Sodium ER 500 MG TAB.ER.24H 1500 MG PO (18:59)
[2021-07-17 20:08] VITALS: BP 127/57; PULSE 88; RESP 18; TEMP 37.3
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
[2021-07-18] MEDS: Acetaminophen 325 MG TABLET 650 MG PO ×2 (01:49→19:40)
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
[2021-07-18 06:00] VITALS: BP 143/68; PULSE 104; RESP 18; O2SAT 98
--- NOTE | 2021-07-18 06:35 | PC.NURSE ---
0630: pt apologized to this senior underwriter for her earlier behavior
[2021-07-18] MEDS: Levothyroxine Sodium 50 MCG TABLET PO (08:38)
[2021-07-18] MEDS: Omeprazole 20 MG CAPSULE.DR PO (08:38)
[2021-07-18] MEDS: Nicotine 14 MG PATCH.TD24 TRANSDERMA (08:38)
[2021-07-18] MEDS: PARoxetine HCL 10 MG TABLET PO (08:38)
[2021-07-18] MEDS: risperiDONE 2 MG TABLET PO (08:39)
--- NOTE | 2021-07-18 10:25 | P.PNPSI_ITS ---
Subjective Subjective Date of Service: 07/18/21 Reason For Visit: Depression Interim History: Yesterday evening staff reports the patient threw water on the staff, grabbed to staff by the neck, was spitting, yelling, pulling things off the wall unable to be redirected and needed medication restraint. Patient up off and on throughout the night. Patient disorganized and thought she was in a hotel and demanding to leave. Today patient agrees to remain for treatment. Narrow Gauge Operator further inquired and staff who was present over the weekend said that starting Saturday evening Saturday and Saturday, patient was in good behavioral control and had no dangerous air inappropriate behaviors. Staff also reports that Saturday night, when patient got dysregulated and unsafe, they unit itself was at a high acuity and very likely triggering for patient. Narrow Gauge Operator spoke with patient today who agreed that she is feeling a little better and thinks perhaps the Depakote has been working. However she does say she feels confused and does not know she is coming or going. She continues to have some delusional thoughts about people trying to provoke her on the unit and does not remember that she was aggressive with staff, instead seems to be remembering it as if she was trying to defend herself. Patient also said that she can hear people saying negative root things about her behind her back. Patient got tearful when assembly instructions writer explained that this is not actually happening but it is a hallucination and part of her bipolar disorder. Patient was grateful for this information and accepted it as reality despite being upset that it is occurring. After discussion of medications, patient agrees to remain on Depakote but will get off the Risperdal and start Haldol for the auditory hallucinations and delusional thinking. Discussed case with other psychiatrists/nurse practitioner and on staff. Mental Status Exam Mental Status Exam Narrative: Pt is alert and oriented; Behavior vacillates between calm and agitated, internally triggered; dressed in hospital gown with unkempt hair; mood is OK, when can I leave and affect is irritable; eye contact typically either intense or avoidant but can also at time be appropriate; Speech is normal rate but often loud volume, normal prosody and not pressured; intermittent psychomotor agitation present; thought process is goal directed; Thought content is on some paranoid ideations that others are provoking her; also discharge and tx; some delusional; denies any SI/HI. Seems at times to be responding to internal stimuli. Patients insight and judgment are impaired. Diagnostics Vital Signs (24Hr): Vital Signs - 24 hr 07/17/21 20:08 07/18/21 06:00 Temperature 99.2 F Pulse Rate 88 104 H Respiratory Rate 18 18 Blood Pressure 127/57 L 143/68 H Pulse Oximetry 98 BMI result Body Mass Index 28.0 Labs Results: 07/19/21 08:40 07/19/21 08:40 Imaging Radiology Impressions: ITS Impressions Chest X-Ray 07/11/21 21:02 IMPRESSION: Hypoinflated lungs. No acute intrathoracic disease. Head CT 07/11/21 21:12 IMPRESSION: No acute intracranial process seen Medications Medications Current Medications Acetaminophen (Acetaminophen 325 Mg Tablet) 650 mg PO Q6H PRN PRN Reason: Headache/Pain Mild Scale (1-3) Last Admin: 07/18/21 01:49 Dose: 650 mg Documented by: Al Hydroxide/Mg Hydroxide (Magnesium Hydrox/Alum Hydrox 30 Ml Oral.Susp) 30 ml PO Q6H PRN PRN Reason: Heartburn/Nausea Albuterol/Ipratropium (Albuterol/Iprat 2.5/0.5mg 3 Ml Ampul.Neb) 3 ml INHALE RQ4H PRN PRN Reason: Shortness of Breath/Wheezing Last Admin: 07/11/21 20:56 Dose: 3 ml Documented by: Chlorpromazine HCl (Chlorpromazine Hcl 25 Mg Tablet) 25 mg PO Q4H PRN PRN Reason: anxiety/agitation Last Admin: 07/13/21 17:37 Dose: 25 mg Documented by: Chlorpromazine HCl (Chlorpromazine Hcl 25 Mg Tablet) 50 mg PO TID PRN PRN Reason: mod -severe agitation Last Admin: 07/13/21 21:05 Dose: 50 mg Documented by: Chlorpromazine HCl (Chlorpromazine Hcl 25 Mg Tablet) 50 mg PO BEDTIME PRN PRN Reason: insomnia Last Admin: 07/12/21 18:43 Dose: 50 mg Documented by: Diphenhydramine HCl (Diphenhydramine Hcl 25 Mg Tablet) 50 mg PO BEDTIME PRN PRN Reason: sleep Last Admin: 07/16/21 01:01 Dose: 50 mg Documented by: Divalproex Sodium (Divalproex Sodium Er 500 Mg Tab.Er.24h) 1,500 mg PO DAILY@1700 [facility] Last Admin: 07/17/21 18:59 Dose: 1,500 mg Documented by: Hydroxyzine HCl (Hydroxyzine Hcl 50 Mg Tablet) 50 mg PO Q6H PRN PRN Reason: Anxiety Last Admin: 07/04/21 16:54 Dose: 50 mg Documented by: Levothyroxine Sodium (Levothyroxine Sodium 50 Mcg Tablet) 50 mcg PO DAILY@0600 [facility] Last Admin: 07/18/21 08:38 Dose: 50 mcg Documented by: Loperamide HCl (Loperamide Hcl 2 Mg Capsule) 2 mg PO Q6H PRN PRN Reason: diarrhea Magnesium Hydroxide (Milk Of Magnesia 30 Ml Oral.Susp) 30 ml PO DAILY PRN PRN Reason: Constipation Nicotine (Nicotine 14 Mg Patch.Td24) 14 mg TRANSDERMA DAILY [facility] Last Admin: 07/18/21 08:38 Dose: 14 mg Documented by: Nicotine Polacrilex (Nicotine Polacrilex 2 Mg Gum) 2 mg BUCCAL Q2H PRN PRN Reason: Nicotine Cravings Omeprazole (Omeprazole 20 Mg Capsule.Dr) 20 mg PO DAILY [facility] Last Admin: 07/18/21 08:38 Dose: 20 mg Documented by: Paroxetine HCl (Paroxetine Hcl 10 Mg Tablet) 10 mg PO DAILY [facility] Last Admin: 07/18/21 08:38 Dose: 10 mg Documented by: Propranolol HCl (Propranolol Hcl 10 Mg Tablet) 10 mg PO BID [facility]; Protocol Last Admin: 07/18/21 08:40 Dose: Not Given Documented by: Risperidone (Risperidone 2 Mg Tablet) 2 mg PO DAILY@1700 [facility] Last Admin: 07/17/21 18:59 Dose: 2 mg Documented by: Risperidone (Risperidone 2 Mg Tablet) 2 mg PO DAILY [facility] Last Admin: 07/18/21 08:39 Dose: 2 mg Documented by: Allergies Allergies Allergy/AdvReac Type Severity Reaction Status Date / Time lithium AdvReac Intermediate CKD Verified 07/05/21 15:04 Assessment & Plan Assessment & Plan (1) Bipolar 1 disorder: Status: Acute Code(s): F31.9 - Bipolar disorder, unspecified Plan HPI: Jeri is a 60 yo female who carries a diagnosis of bipolar I DO. She [place] [facility] [place] due to worsening depression and anxiety after she was at a convenience store and told the mortgage closing clerk she needed help and they called 911. ED provider obtained records from [facility], pt has CKD, Cr 1.4 on 06/13. Pt was given 2L of IVF, Cr improved from 1.84 to 1.66. Precipitating factors include recent medication change where she was discontinued from [place] after developing CKD adn started on Depakote 250mg daily; she was left on Paxil. Pt reported worsening sx of mood lability, mary ellen, agitation, and increased activity level since stopping lithium, i.e. she walked for 14 hours one day. Utox negative. Working Formulation: History of severe bipolar disorder moderately well treated with lithium until developed CKD. Patient has tough daily insight and judgment to know she has bipolar disorder and needs to remain for treatment. She nearly daily demands discharge when she is dysregulated however when she calms down she agrees that she is not stable and agrees to remain for treatment Working PLAN: CV 1:1 1. Bipolar disorder, severe: Continue Depakote, and consider increasing; discontinue Risperdal and start Haldol Depakote ER 1500mg daily (consider increasing since room in levels) START Haldol 10mg BID (0900 and 1700) DC Risperdal monitor CBC, lytes, bun/cr LOWER Paxil to 5mg and then dc START Thorazine 50mg qhs for insomnia (dc'd trazodone) continue Thorazine 50 mg and Ativan 1 mg for moderate severe agitation (lowered dosing a little since sedating) continue Thorazine 25mg qid prn for anxiety, mild agitation -will consider Clozapine and ECT Evolving Medication decisions for this admission: -on Admision, Depakote monotherapy tried; not effective (tried in combo with tegretol, then risperdal... eventually Dc'd) -Zyprexa as a p.r.n. not effective; DC'd -Risperidone (added to Depakote); not effective; DC'd -Thorazine PRN proves sedating even at low doses making it difficult to titrate to therapeutic dose. -Tegretol added to depakote caused side-effect: pt developed ataxia, tremor and was disoriented. Tegretol was dc'd and side-effects resolved. -Narrow Gauge Operator discussed case with psychiatric team, Dr. Uribe, Dr. Leon, Dr. Rangel; one consideration is that the problem with Tegretol was that it was combined with Depakote, the combination being the cause of side effects; however given the fact that patient did have 3 good days over the weekend on Depakote, assembly instructions writer will continue with Depakote at this time, possibly increase it and instead just switch patient over to Haldol since Risperdal has not been helpful for delusions/AH. -prior to admission patient was started on Depakote 250 mg and left on Paxil 20 mg; to avoid discontinuation syndrome, assembly instructions writer lowered Paxil to 10 mg and increase Depakote to therapeutic level. At this time will taper and then discontinue Paxil out of concern for at being a barrier for resolution of mary ellen. DISCONTINUE Risperdal 2mg BID; not effective (dc'd on 07/18) DISCONTINUE Trazodone; used for sleep, but will dc on outside chance interferes with this mentally mary ellen; will use Thorazine instead) Otherwise: Elevated Cr due CKD continue to avoid NSAIDs given CKD Chest x-ray negative for aspiration but did reveal hypoinflation: discussed with Dr. Castillo who says no need for follow up; finding due to pt not taking deep breath when image taken. Monitor response to medications. Monitor for safety in the milieu. Discharge on stabilization. Patient seen. Chart reviewed. Discussed with team. Obtain collateral contact info?as needed For day today details... HOSPITAL Course: 07/04 patient highly irritable this morning, posturing and aggressive with peers and staff however she was able to calm down and agreed to increase Depakote dose. Will also restart Paxil though at a lower dose to avoid discontinuation syndrome which could be further aggravated 07/05 Patient severely agitated off and on throughout the day, posturing at staff, threatening to hit, spitting on staff, breaking and throwing things and needing IM medication. Minimal insight -hopefully Depakote will start to help -will consider Tegretol since her sister who has severe bipolar disorder has been successfully treated with this medication 07/06 remains manic, irritated easily agitated; continue treatment plan however patient talked about Tegretol and this remains consideration 07/07 patient refused Depakote last night saying she wants Tegretol 07/10 some mild improvement but she remains manic, disorganized. Patient seems to be having side effect of hand tremor, some ataxia and lowered platelets; currently debating how to approach medication management as patient would like to be on Tegretol as a monotherapy, however initiation of this medication coincides with onset of side effects. Will continue to monitor for now. These medications side effects/risks were discussed with patient who understood and agrees to current regimen 07/11 patient agrees that side effects of unsteady gait and tremor have increased with increased dose of Tegretol and she agrees to discontinue this medication and see if Depakote alone or with another mood stabilizer will be helpful. 07/12 pt confused, disoriented, most likely due to medication Tegretol side effects. Staff reported to assembly instructions writer that patient had a choking episode and needed the Heimlich maneuver which was successful. Patient remained unsteady on her feet overnight, fell. Head CT done which was negative; Chest x-ray negative for aspiration but did reveal hypoinflation, assembly instructions writer placed internal medicine consult; Because patient was confused last night her Depakote dose was held 07/13 Seems to be calmer since starting low-dose Risperdal; she says her mind is not racing as much. Will continue this medication and hopefully seek continued stabilization 07/14 remains manic; refused depakote last night; increasing Risperdal to 2 mg b.i.d. patient accepts that she has bipolar disorder and agrees that she is not at her baseline and that discharging would put her vulnerable in the community due to her agitated behaviors. She agrees to remain in the unit for continued treatment From evening of 07/14 to evening of 07/17 patient had good behaviors and was in good behavioral control only getting dysregulated the evening of 07/17 and possibly due to being triggered by the high acuity on the unit. I spent minutes with the patient and/or on the patient floor today, greater than?50% of which was spent counseling/coordinating care. Patient educated on: diagnosis, medication risk/benefits and therapeutic strategies Informed Consent: understands Reason for contiued inpatient stay Substantial Risk for: inability to function and rapid decompensation
[2021-07-18] MEDS: HaloperidoL 5 MG TABLET 10 MG PO ×2 (17:46→20:54)
[2021-07-18] MEDS: Divalproex Sodium ER 500 MG TAB.ER.24H 1500 MG PO (17:47)
[2021-07-18 18:00] VITALS: BP 134/66; PULSE 97; RESP 18; TEMP 36.3; O2SAT 97
[2021-07-18] MEDS: hydrOXYzine HCL 50 MG TABLET PO (20:54)
[2021-07-18] MEDS: chlorproMAZINE HCl 25 MG TABLET 50 MG PO (21:09)
[2021-07-18] MEDS: Propranolol HCL 10 MG TABLET PO (21:10)
[2021-07-19] MEDS: Levothyroxine Sodium 50 MCG TABLET PO (07:13)
[2021-07-19] MEDS: HaloperidoL 5 MG TABLET 10 MG PO ×2 (08:52→16:32)
[2021-07-19] MEDS: Propranolol HCL 10 MG TABLET PO (08:53)
[2021-07-19] MEDS: Nicotine 14 MG PATCH.TD24 TRANSDERMA (08:54)
[2021-07-19] MEDS: PARoxetine HCL 10 MG TABLET 5 MG PO (08:54)
[2021-07-19] MEDS: Omeprazole 20 MG CAPSULE.DR PO (08:55)
[2021-07-19 09:00] VITALS: BP 123/58; PULSE 77
[2021-07-19 09:18] LABS: MANUAL DIFF FLAG NO
[2021-07-19 09:30] LABS: Basophils Absolute Auto 0.1 X10*3/uL (0.0-0.2); Basophils Percent Auto 1.3 % (0-2); Eosinophils Absolute Auto 0.3 X10*3/uL (0.0-0.4); Eosinophils Percent Auto 5.7 % (0-4); Hematocrit 32.5 % (37.0-47.0); Hemoglobin 10.6 g/dl (12.0-16.0); Imm Gran Abs Auto 0.01 X10*3/uL (0.00-0.03); Imm Gran Pct Auto 0.2 % (0.0-0.4); Lymphocytes Absolute Auto 1.9 X10*3/uL (1.2-4.9); Lymphocytes Percent Auto 34.8 % (20-40); Mean Corpuscular HGB Conc 32.6 g/dl (31.0-35.0); Mean Corpuscular Hemoglobin 33.4 pg (27.0-33.0); Mean Corpuscular Volume 102.5 fL (80.0-98.0); Monocytes Absolute Auto 0.9 X10*3/uL (0.1-1.2); Monocytes Percent Auto 15.2 % (2-11); Neutrophils Absolute Auto 2.4 x10*3/uL (2.0-8.3); Neutrophils Percent Auto 42.8 % (45-73); Red Blood Count 3.17 X10*6/uL (4.20-5.50); White Blood Count 5.6 X10*3/uL (4.8-10.8)
[2021-07-19 09:39] LABS: Ammonia 39 umol/L (13-55)
[2021-07-19 09:50] LABS: Mean Platelet Volume 12.3 fL (9.4-12.3); Platelet Count 96 X10*3/uL (160-400)
[2021-07-19 10:14] LABS: Anion Gap 11 (12-20); Blood Urea Nitrogen 27 mg/dL (9-16); Carbon Dioxide 25 mmol/L (22-29); Chloride 111 mmol/L (96-108); Creatinine Clr Calc Pharmacy 44.9; Estimated Glomerular Filt Rate 33; Potassium 4.1 mmol/L (3.3-5.1); Sodium 143 mmol/L (135-145)
[2021-07-19] MEDS: Acetaminophen 325 MG TABLET 650 MG PO (11:23)
[2021-07-19] MEDS: Divalproex Sodium ER 500 MG TAB.ER.24H 1500 MG PO (16:32)
--- NOTE | 2021-07-19 16:52 | MHC.SLORD ---
Speech Language Pathology Order Status: Discussed w/ RN. Per RN, patient reportedly has been eating fine with no choking problems at the moment, has been good for several days. Patient continues with a chopped diet. Per RN, patient has been doing better, may be more willing to cooperate in re-evaluation. Will attempt re-evaluation tomorrow.
--- NOTE | 2021-07-19 17:08 | P.PNPSI_ITS ---
Subjective Subjective Date of Service: 07/19/21 Reason For Visit: Depression Interim History: Patient able to come off one-to-one. Still some disorganization, mostly in the morning but it seems to wear off and she complains of her friends coming by and scratching at the window. Otherwise Last night overnight was good for behaviors. Economic Development Director explained that Platelets continue to trend down but will monitor. Mental Status Exam Mental Status Exam Narrative: Pt is alert and oriented; Behavior mostly calm; dressed in casual cloths; unkempt hair; mood is OK and affect more calm; eye contact adequate; Speech is normal rate, volume and prosody; not pressured; no psychomotor agitation present; thought process is goal directed; Thought content still on some paranoid ideations but less intense; denies any SI/HI. Seems at times to be responding to internal stimuli. Patients insight and judgment are impaired but much improved. Diagnostics Vital Signs (24Hr): Vital Signs - 24 hr 07/18/21 18:00 07/19/21 09:00 Temperature 97.4 F Pulse Rate 97 77 Respiratory Rate 18 Blood Pressure 134/66 123/58 L Pulse Oximetry 97 BMI result Body Mass Index 28.0 Labs Results: 07/21/21 08:33 07/19/21 08:40 Labs: Laboratory Results - last 48 hr 07/19/21 07/19/21 07/19/21 08:40 08:40 08:40 WBC 5.6 RBC 3.17 L Hgb 10.6 L Hct 32.5 L MCV 102.5 H MCH 33.4 H MCHC 32.6 RDW 13.0 Plt Count 96 L D MPV 12.3 Immature Gran % (Auto) 0.2 Neut % (Auto) 42.8 L Lymph % (Auto) 34.8 Merrick % (Auto) 15.2 H Eos % (Auto) 5.7 H Baso % (Auto) 1.3 Lymph # (Auto) 1.9 Merrick # (Auto) 0.9 Eos # (Auto) 0.3 Baso # (Auto) 0.1 Abs Immat Gran (auto) 0.01 Absolute Neuts (auto) 2.4 Absolute Nucleated RBC 0.000 Nucleated RBC % (auto) 0.0 Sodium 143 Potassium 4.1 Chloride 111 H Carbon Dioxide 25 Anion Gap 11 L BUN 27 H Creatinine 1.58 H Estim Creat Clear Calc 44.9 Estimated GFR 33 Ammonia 39 Imaging Radiology Impressions: ITS Impressions Chest X-Ray 07/11/21 21:02 IMPRESSION: Hypoinflated lungs. No acute intrathoracic disease. Head CT 07/11/21 21:12 IMPRESSION: No acute intracranial process seen Medications Medications Current Medications Acetaminophen (Acetaminophen 325 Mg Tablet) 650 mg PO Q6H PRN PRN Reason: Headache/Pain Mild Scale (1-3) Last Admin: 07/19/21 11:23 Dose: 650 mg Documented by: Al Hydroxide/Mg Hydroxide (Magnesium Hydrox/Alum Hydrox 30 Ml Oral.Susp) 30 ml PO Q6H PRN PRN Reason: Heartburn/Nausea Albuterol/Ipratropium (Albuterol/Iprat 2.5/0.5mg 3 Ml Ampul.Neb) 3 ml INHALE RQ4H PRN PRN Reason: Shortness of Breath/Wheezing Last Admin: 07/11/21 20:56 Dose: 3 ml Documented by: Chlorpromazine HCl (Chlorpromazine Hcl 25 Mg Tablet) 25 mg PO Q4H PRN PRN Reason: anxiety/agitation Last Admin: 07/13/21 17:37 Dose: 25 mg Documented by: Chlorpromazine HCl (Chlorpromazine Hcl 25 Mg Tablet) 50 mg PO TID PRN PRN Reason: mod -severe agitation Last Admin: 07/13/21 21:05 Dose: 50 mg Documented by: Chlorpromazine HCl (Chlorpromazine Hcl 25 Mg Tablet) 50 mg PO BEDTIME [facility] Last Admin: 07/18/21 21:09 Dose: 50 mg Documented by: Diphenhydramine HCl (Diphenhydramine Hcl 25 Mg Tablet) 50 mg PO BEDTIME PRN PRN Reason: sleep Last Admin: 07/16/21 01:01 Dose: 50 mg Documented by: Divalproex Sodium (Divalproex Sodium Er 500 Mg Tab.Er.24h) 1,500 mg PO DAILY@1700 [facility] Last Admin: 07/19/21 16:32 Dose: 1,500 mg Documented by: Haloperidol (Haloperidol 5 Mg Tablet) 10 mg PO BID@0900,1700 [facility] Last Admin: 07/19/21 16:32 Dose: 10 mg Documented by: Hydroxyzine HCl (Hydroxyzine Hcl 50 Mg Tablet) 50 mg PO Q6H PRN PRN Reason: Anxiety Last Admin: 07/18/21 20:54 Dose: 50 mg Documented by: Levothyroxine Sodium (Levothyroxine Sodium 50 Mcg Tablet) 50 mcg PO DAILY@0600 [facility] Last Admin: 07/19/21 07:13 Dose: 50 mcg Documented by: Loperamide HCl (Loperamide Hcl 2 Mg Capsule) 2 mg PO Q6H PRN PRN Reason: diarrhea Magnesium Hydroxide (Milk Of Magnesia 30 Ml Oral.Susp) 30 ml PO DAILY PRN PRN Reason: Constipation Nicotine (Nicotine 14 Mg Patch.Td24) 14 mg TRANSDERMA DAILY [facility] Last Admin: 07/19/21 08:54 Dose: 14 mg Documented by: Nicotine Polacrilex (Nicotine Polacrilex 2 Mg Gum) 2 mg BUCCAL Q2H PRN PRN Reason: Nicotine Cravings Omeprazole (Omeprazole 20 Mg Capsule.Dr) 20 mg PO DAILY [facility] Last Admin: 07/19/21 08:55 Dose: 20 mg Documented by: Paroxetine HCl (Paroxetine Hcl 10 Mg Tablet) 5 mg PO DAILY [facility] Last Admin: 07/19/21 08:54 Dose: 5 mg Documented by: Propranolol HCl (Propranolol Hcl 10 Mg Tablet) 10 mg PO BID [facility]; Protocol Last Admin: 07/19/21 08:53 Dose: 10 mg Documented by: Allergies Allergies Allergy/AdvReac Type Severity Reaction Status Date / Time lithium AdvReac Intermediate CKD Verified 07/05/21 15:04 Assessment & Plan Assessment & Plan (1) Bipolar 1 disorder: Status: Acute Code(s): F31.9 - Bipolar disorder, unspecified Plan HPI: Jeri is a 60 yo female who carries a diagnosis of bipolar I DO. She presented to [facility] on 07/03/21 due to worsening depression and anxiety after she was at a convenience store and told the materials management clerk she needed help and they called 911. ED provider [place] [facility] has CKD, Cr 1.4 on 06/13. Pt was given 2L of IVF, Cr improved from 1.84 to 1.66. Precipitating factors include recent medication change where she was discontinued from [place] after developing CKD adn started on Depakote 250mg daily; she was left on Paxil. Pt reported worsen ing sx of mood lability, mary ellen, agitation, and increased activity level since stopping lithium, i.e. she walked for 14 hours one day. Utox negative. Working Formulation: History of severe bipolar disorder moderately well treated with lithium until developed CKD. Patient has tough daily insight and judgment to know she has bipolar disorder and needs to remain for treatment. She nearly daily demands discharge when she is dysregulated however when she calms down she agrees that she is not stable and agrees to remain for treatment Working PLAN: CV 1:1 1. Bipolar disorder, severe: Continue Depakote, and consider increasing; discontinue Risperdal and start Haldol Depakote ER 1500mg daily (consider increasing since room in levels) continue Haldol 10mg BID (0900 and 1700) DC Risperdal monitor Platelets LOWER Paxil to 5mg and then dc START Thorazine 50mg qhs for insomnia (dc'd trazodone) continue Thorazine 50 mg and Ativan 1 mg for moderate severe agitation (lowered dosing a little since sedating) continue Thorazine 25mg qid prn for anxiety, mild agitation -will consider Clozapine and ECT Evolving Medication decisions for this admission: -on Admision, Depakote monotherapy tried; not effective (tried in combo with tegretol, then risperdal... eventually Dc'd) -Zyprexa as a p.r.n. not effective; DC'd -Risperidone (added to Depakote); not effective; DC'd -Thorazine PRN proves sedating even at low doses making it difficult to titrate to therapeutic dose. -Tegretol added to depakote caused side-effect: pt developed ataxia, tremor and was disoriented. Tegretol was dc'd and side-effects resolved. -Economic Development Director discussed case with psychiatric team, Dr. Uribe, Dr. Leon, Dr. Rangel; one consideration is that the problem with Tegretol was that it was combined with Depakote, the combination being the cause of side effects; however given the fact that patient did have 3 good days over the weekend on Depakote, procedure writer will continue with Depakote at this time, possibly increase it and instead just switch patient over to Haldol since Risperdal has not been helpful for delusions/AH. -prior to admission patient was started on Depakote 250 mg and left on Paxil 20 mg; to avoid discontinuation syndrome, procedure writer lowered Paxil to 10 mg and increase Depakote to therapeutic level. At this time will taper and then discontinue Paxil out of concern for at being a barrier for resolution of mary ellen. DISCONTINUE Risperdal 2mg BID; not effective (dc'd on 07/18) DISCONTINUE Trazodone; used for sleep, but will dc on outside chance interferes with this mentally mary ellen; will use Thorazine instead) Otherwise: Elevated Cr due CKD continue to avoid NSAIDs given CKD Chest x-ray negative for aspiration but did reveal hypoinflation: discussed with Dr. Castillo who says no need for follow up; finding due to pt not taking deep breath when image taken. Monitor response to medications. Monitor for safety in the milieu. Discharge on stabilization. Patient seen. Chart reviewed. Discussed with team. Obtain collateral contact info?as needed For day today details... HOSPITAL Course: 07/04 patient highly irritable this morning, posturing and aggressive with peers and staff however she was able to calm down and agreed to increase Depakote dose. Will also restart Paxil though at a lower dose to avoid discontinuation syndrome which could be further aggravated 07/05 Patient severely agitated off and on throughout the day, posturing at staff, threatening to hit, spitting on staff, breaking and throwing things and needing IM medication. Minimal insight -hopefully Depakote will start to help -will consider Tegretol since her sister who has severe bipolar disorder has been successfully treated with this medication 07/06 remains manic, irritated easily agitated; continue treatment plan however patient talked about Tegretol and this remains consideration 07/07 patient refused Depakote last night saying she wants Tegretol 07/10 some mild improvement but she remains manic, disorganized. Patient seems to be having side effect of hand tremor, some ataxia and lowered platelets; currently debating how to approach medication management as patient would like to be on Tegretol as a monotherapy, however initiation of this medication coincides with onset of side effects. Will continue to monitor for now. These medications side effects/risks were discussed with patient who understood and agrees to current regimen 07/11 patient agrees that side effects of unsteady gait and tremor have increased with increased dose of Tegretol and she agrees to discontinue this medication and see if Depakote alone or with another mood stabilizer will be helpful. 07/12 pt confused, disoriented, most likely due to medication Tegretol side effects. Staff reported to procedure writer that patient had a choking episode and needed the Heimlich maneuver which was successful. Patient remained unsteady on her feet overnight, fell. Head CT done which was negative; Chest x-ray negative for aspiration but did reveal hypoinflation, procedure writer placed internal medicine consul t; Because patient was confused last night her Depakote dose was held 07/13 Seems to be calmer since starting low-dose Risperdal; she says her mind is not racing as much. Will continue this medication and hopefully seek continued stabilization 07/14 remains manic; refused depakote last night; increasing Risperdal to 2 mg b.i.d. patient accepts that she has bipolar disorder and agrees that she is not at her baseline and that discharging would put her vulnerable in the community due to her agitated behaviors. She agrees to remain in the unit for continued treatment From evening of 07/14 to evening of 07/17 patient had good behaviors and was in good behavioral control only getting dysregulated the evening of 07/17 and possibly due to being triggered by the high acuity on the unit. 07/19 more calm, no problematic behaviors; agrees to stay for treatment. Some confusion and auditory hallucinations but less so. I spent minutes with the patient and/or on the patient floor today, greater than?50% of which was spent counseling/coordinating care. Patient educated on: diagnosis and medical condition Informed Consent: understands Reason for contiued inpatient stay Substantial Risk for: rapid decompensation
[2021-07-19 19:08] VITALS: BP 107/54; PULSE 76
[2021-07-20] MEDS: Levothyroxine Sodium 50 MCG TABLET PO (05:26)
[2021-07-20 07:00] VITALS: BMI 30.4
[2021-07-20] MEDS: HaloperidoL 5 MG TABLET 10 MG PO ×2 (08:50→15:55)
[2021-07-20] MEDS: Omeprazole 20 MG CAPSULE.DR PO (08:50)
[2021-07-20] MEDS: PARoxetine HCL 10 MG TABLET 5 MG PO (08:50)
[2021-07-20] MEDS: Nicotine 14 MG PATCH.TD24 TRANSDERMA (08:51)
[2021-07-20] MEDS: Propranolol HCL 10 MG TABLET PO (08:51)
[2021-07-20] MEDS: Acetaminophen 325 MG TABLET 650 MG PO (13:23)
--- NOTE | 2021-07-20 14:29 | MHC.SL.SWA ---
Speech Pathologist Impression: Risk of Aspiration Due to: Dysphasia Diet Status: Recommend UPGRADE to REGULAR diet and continue with THIN liquids with pills whole w/liquid Liquid Consistency and Strategies for Safe Swallow: Liquid Intake Recommendation: Thin Liquid Intake Strategies: Small Sips Solid Food Consistency: Dietary Recommendations: Regular Additional Modifications to Solid Foods: Oral Medication Intake: Whole with Liquid Please contact the pharmacy regarding appropriate crushable or liquid drug formulations that are available whenever modified delivery is recommended. Compensatory Strategies and Precautions to be Taken for Safe Swallow: Sitting Upright (90 deg) Small Bites and Sips Alternate Liquids/Solids Supervision While Eating and Drinking for Safe Swallow: Intermittent Supervision Foods to Avoid: Swallowing Recommended Treatments: Compens. Strategy Educat. Recommendation for Speech: Inpatient Speech Therapy: Pt was seen in her room during lunch today to re-assess swallow. Pt was already eating a meal of a boneless barbeque pork chop, mashed potatoes and cooked broccoli. Pt was observed cutting a small bite of the pork chop and chewing and swallowing with oral and pharyngeal phase of swallow wnl, no difficulties observed. Pt reported that she has been having no difficulties with eating, although she has had periods where she did not have much of an appetite. Today her appetite was fine, and she reported feeling much better over all. Pt was given a hard, crunchy solid to eat (cookie), which she also did with no observed difficulty, producing a normal oral phase w/rotational chew, timely transit, evident swallow trigger, with laryngeal elevation wnl. Pt was additionally observed taking sips of liquid, with normal oral transit, evident swallow trigger with timely swallow, no clinical signs of aspiration. Pt was notably pleasant and easily engaged in conversation today. Recommend advance diet to Regular food consistencies and continue with thin liquids. [facility] [employer] made adjustment in Diet Orders and contacted MD via secure text regarding diet change recommendations. [facility] CONS[employer]ANT will follow up X1 to assess toleration of Regular diet. Comment: Frequency/Duration: Date Range for Service Req: Timeline to reassess: Clinical Data Management Manager Clinican/Clinical Fellow: No Supervisory Statement: I have reviewed and agree with the student/clinical fellow's documentation: N/A Speech Language Pathologist: Merna Morales M.A., [facility]
[2021-07-20] MEDS: Divalproex Sodium ER 500 MG TAB.ER.24H 1500 MG PO (15:54)
[2021-07-20 16:31] VITALS: RESP 16
[2021-07-20 16:46] VITALS: BP 113/67; PULSE 75
--- NOTE | 2021-07-20 17:07 | HO.PSYCHPN ---
Subjective Subjective Date of Service: 07/20/21 Reason For Visit: Depression Interim History: Patient in good behavioral and impulse control overnight and today. She says that she no longer is feeling confused about things and denies any auditory hallucinations or concerns that people are scratch at the window, knowing that was part of her mary ellen. Agrees to remain on current regimen to remain on unit for continued stabilization. Mental Status Exam Mental Status Exam Narrative: Pt is alert and oriented; Behavior calm, cooperative, organized; dressed in casual cloths; mildly unkempt hair, but also braided; mood is OK and affect calm; eye contact adequate; Speech is normal rate, volume and prosody; not pressured; no psychomotor agitation present; thought process is goal directed; Thought content without paranoid ideations and on tx; denies any SI/HI. not witnessed responding to internal stimuli. Patients insight and judgment are impaired but much improved. Diagnostics Vital Signs (24Hr): Vital Signs - 24 hr 07/19/21 19:08 07/20/21 16:31 07/20/21 16:46 Pulse Rate 76 75 Respiratory Rate 16 Blood Pressure 107/54 L 113/67 BMI result Body Mass Index 30.4 Labs Results: 07/21/21 08:33 07/19/21 08:40 Labs: Laboratory Results - last 48 hr 07/19/21 07/19/21 07/19/21 08:40 08:40 08:40 WBC 5.6 RBC 3.17 L Hgb 10.6 L Hct 32.5 L MCV 102.5 H MCH 33.4 H MCHC 32.6 RDW 13.0 Plt Count 96 L D MPV 12.3 Immature Gran % (Auto) 0.2 Neut % (Auto) 42.8 L Lymph % (Auto) 34.8 Gosper % (Auto) 15.2 H Eos % (Auto) 5.7 H Baso % (Auto) 1.3 Lymph # (Auto) 1.9 Gosper # (Auto) 0.9 Eos # (Auto) 0.3 Baso # (Auto) 0.1 Abs Immat Gran (auto) 0.01 Absolute Neuts (auto) 2.4 Absolute Nucleated RBC 0.000 Nucleated RBC % (auto) 0.0 Sodium 143 Potassium 4.1 Chloride 111 H Carbon Dioxide 25 Anion Gap 11 L BUN 27 H Creatinine 1.58 H Estim Creat Clear Calc 44.9 Estimated GFR 33 Ammonia 39 Imaging Radiology Impressions: ITS Impressions Chest X-Ray 07/11/21 21:02 IMPRESSION: Hypoinflated lungs. No acute intrathoracic disease. Head CT 07/11/21 21:12 IMPRESSION: No acute intracranial process seen Medications Medications Current Medications Acetaminophen (Acetaminophen 325 Mg Tablet) 650 mg PO Q6H PRN PRN Reason: Headache/Pain Mild Scale (1-3) Last Admin: 07/20/21 13:23 Dose: 650 mg Documented by: Al Hydroxide/Mg Hydroxide (Magnesium Hydrox/Alum Hydrox 30 Ml Oral.Susp) 30 ml PO Q6H PRN PRN Reason: Heartburn/Nausea Albuterol/Ipratropium (Albuterol/Iprat 2.5/0.5mg 3 Ml Ampul.Neb) 3 ml INHALE RQ4H PRN PRN Reason: Shortness of Breath/Wheezing Last Admin: 07/11/21 20:56 Dose: 3 ml Documented by: Chlorpromazine HCl (Chlorpromazine Hcl 25 Mg Tablet) 25 mg PO Q4H PRN PRN Reason: anxiety/agitation Last Admin: 07/13/21 17:37 Dose: 25 mg Documented by: Chlorpromazine HCl (Chlorpromazine Hcl 25 Mg Tablet) 50 mg PO TID PRN PRN Reason: mod -severe agitation Last Admin: 07/13/21 21:05 Dose: 50 mg Documented by: Chlorpromazine HCl (Chlorpromazine Hcl 25 Mg Tablet) 50 mg PO BEDTIME [facility] Last Admin: 07/20/21 16:27 Dose: Not Given Documented by: Diphenhydramine HCl (Diphenhydramine Hcl 25 Mg Tablet) 50 mg PO BEDTIME PRN PRN Reason: sleep Last Admin: 07/16/21 01:01 Dose: 50 mg Documented by: Divalproex Sodium (Divalproex Sodium Er 500 Mg Tab.Er.24h) 1,500 mg PO DAILY@1700 [facility] Last Admin: 07/20/21 15:54 Dose: 1,500 mg Documented by: Haloperidol (Haloperidol 5 Mg Tablet) 10 mg PO BID@0900,1700 [facility] Last Admin: 07/20/21 15:55 Dose: 10 mg Documented by: Hydroxyzine HCl (Hydroxyzine Hcl 50 Mg Tablet) 50 mg PO Q6H PRN PRN Reason: Anxiety Last Admin: 07/18/21 20:54 Dose: 50 mg Documented by: Levothyroxine Sodium (Levothyroxine Sodium 50 Mcg Tablet) 50 mcg PO DAILY@0600 [facility] Last Admin: 07/20/21 05:26 Dose: 50 mcg Documented by: Loperamide HCl (Loperamide Hcl 2 Mg Capsule) 2 mg PO Q6H PRN PRN Reason: diarrhea Magnesium Hydroxide (Milk Of Magnesia 30 Ml Oral.Susp) 30 ml PO DAILY PRN PRN Reason: Constipation Nicotine (Nicotine 14 Mg Patch.Td24) 14 mg TRANSDERMA DAILY [facility] Last Admin: 07/20/21 08:51 Dose: 14 mg Documented by: Nicotine Polacrilex (Nicotine Polacrilex 2 Mg Gum) 2 mg BUCCAL Q2H PRN PRN Reason: Nicotine Cravings Omeprazole (Omeprazole 20 Mg Capsule.Dr) 20 mg PO DAILY [facility] Last Admin: 07/20/21 08:50 Dose: 20 mg Documented by: Paroxetine HCl (Paroxetine Hcl 10 Mg Tablet) 5 mg PO DAILY [facility] Last Admin: 07/20/21 08:50 Dose: 5 mg Documented by: Propranolol HCl (Propranolol Hcl 10 Mg Tablet) 10 mg PO BID [facility]; Protocol Last Admin: 07/20/21 16:27 Dose: Not Given Documented by: Allergies Allergies Allergy/AdvReac Type Severity Reaction Status Date / Time lithium AdvReac Intermediate CKD Verified 07/05/21 15:04 Assessment & Plan Assessment & Plan (1) Bipolar 1 disorder: Status: Acute Code(s): F31.9 - Bipolar disorder, unspecified Plan HPI: Jeri is a 60 yo female who carries a diagnosis of bipolar I DO. She presented to [facility] ED on 07/03/21 due to worsening depression and anxiety after she was at a convenience store and told the senior warehouse clerk she needed help and they called 911. ED provider obtained records from [facility] [place], pt has CKD, Cr 1.4 on 06/13. Pt was given 2L of IVF, Cr improved from 1.84 to 1.66. Precipitating factors include recent medication change where she was discontinued from [facility] after developing CKD adn started on Depakote 250mg daily; she was left on Paxil. Pt reported worsening sx of mood lability, mary ellen, agitation, and increased activity level since stopping lithium, i.e. she walked for 14 hours one day. Utox negative. Working Formulation: History of severe bipolar disorder moderately well treated with lithium until developed CKD. Patient has tough daily insight and judgment to know she has bipolar disorder and needs to remain for treatment. She nearly daily demands discharge when she is dysregulated however when she calms down she agrees that she is not stable and agrees to remain for treatment Working PLAN: CV 1:1 1. Bipolar disorder, severe: Continue Depakote, and consider increasing; discontinue Risperdal and start Haldol Depakote ER 1500mg daily (consider increasing since room in levels) START Haldol 10mg BID (0900 and 1700) DC Risperdal monitor CBC, lytes, bun/cr LOWER Paxil to 5mg and then dc START Thorazine 50mg qhs for insomnia (dc'd trazodone) continue Thorazine 50 mg and Ativan 1 mg for moderate severe agitation (lowered dosing a little since sedating) continue Thorazine 25mg qid prn for anxiety, mild agitation -will consider Clozapine and ECT Evolving Medication decisions for this admission: -on Admision, Depakote monotherapy tried; not effective (tried in combo with tegretol, then risperdal... eventually Dc'd) -Zyprexa as a p.r.n. not effective; DC'd -Risperidone (added to Depakote); not effective; DC'd -Thorazine PRN proves sedating even at low doses making it difficult to titrate to therapeutic dose. -Tegretol added to depakote caused side-effect: pt developed ataxia, tremor and was disoriented. Tegretol was dc'd and side-effects resolved. -Technical Support 1 Software Engineer discussed case with psychiatric team, Dr. Uribe, Dr. Leon, Dr. Rangel; one consideration is that the problem with Tegretol was that it was combined with Depakote, the combination being the cause of side effects; however given the fact that patient did have 3 good days over the weekend on Depakote, fiction and nonfiction writer prose will continue with Depakote at this time, possibly increase it and instead just switch patient over to Haldol since Risperdal has not been helpful for delusions/AH. -prior to admission patient was started on Depakote 250 mg and left on Paxil 20 mg; to avoid discontinuation syndrome, fiction and nonfiction writer prose lowered Paxil to 10 mg and increase Depakote to therapeutic level. At this time will taper and then discontinue Paxil out of concern for at being a barrier for resolution of mary ellen. DISCONTINUE Risperdal 2mg BID; not effective (dc'd on 07/18) DISCONTINUE Trazodone; used for sleep, but will dc on outside chance interferes with this mentally mary ellen; will use Thorazine instead) Otherwise: Elevated Cr due CKD continue to avoid NSAIDs given CKD Chest x-ray negative for aspiration but did reveal hypoinflation: discussed with Dr. Castillo who says no need for follow up; finding due to pt not taking deep breath when image taken. Monitor response to medications. Monitor for safety in the milieu. Discharge on stabilization. Patient seen. Chart reviewed. Discussed with team. Obtain collateral contact info?as needed For day today details... HOSPITAL Course: 07/04 patient highly irritable this morning, posturing and aggressive with peers and staff however she was able to calm down and agreed to increase Depakote dose. Will also restart Paxil though at a lower dose to avoid discontinuation syndrome which could be further aggravated 07/05 Patient severely agitated off and on throughout the day, posturing at staff, threatening to hit, spitting on staff, breaking and throwing things and needing IM medication. Minimal insight -hopefully Depakote will start to help -will consider Tegretol since her sister who has severe bipolar disorder has been successfully treated with this medication 07/06 remains manic, irritated easily agitated; continue treatment plan however patient talked about Tegretol and this remains consideration 07/07 patient refused Depakote last night saying she wants Tegretol 07/10 some mild improvement but she remains manic, disorganized. Patient seems to be having side effect of hand tremor, some ataxia and lowered platelets; currently debating how to approach medication management as patient would like to be on Tegretol as a monotherapy, however initiation of this medication coincides with onset of side effects. Will continue to monitor for now. These medications side effects/risks were discussed with patient who understood and agrees to current regimen 07/11 patient agrees that side effects of unsteady gait and tremor have increased with increased dose of Tegretol and she agrees to discontinue this medication and see if Depakote alone or with another mood stabilizer will be helpful. 07/12 pt confused, disoriented, most likely due to medication Tegretol side effects. Staff reported to fiction and nonfiction writer prose that patient had a choking episode and needed the Heimlich maneuver which was successful. Patient remained unsteady on her feet overnight, fell. Head CT done which was negative; Chest x-ray negative for aspiration but did reveal hypoinflation, fiction and nonfiction writer prose placed internal medicine consult; Because patient was confused last night her Depakote dose was held 07/13 Seems to be calmer since starting low-dose Risperdal; she says her mind is not racing as much. Will continue this medication and hopefully seek continued stabilization 07/14 remains manic; refused depakote last night; increasing Risperdal to 2 mg b.i.d. patient accepts that she has bipolar disorder and agrees that she is not at her baseline and that discharging would put her vulnerable in the community due to her agitated behaviors. She agrees to remain in the unit for continued treatment From evening of 07/14 to evening of 07/17 patient had good behaviors and was in good behavioral control only getting dysregulated the evening of 07/17 and possibly due to being triggered by the high acuity on the unit. 07/19 more calm, no problematic behaviors; agrees to stay for treatment.? Some confusion and auditory hallucinations but less so. / calm, cooperative, in good behavioral control; denies AVH and is no longer feeling confused, no longer entertaining delusional thoughts. Says she has an 8/10, 10 being her regular, baseline self I spent minutes with the patient and/or on the patient floor today, greater than?50% of which was spent counseling/coordinating care. Patient educated on: diagnosis Reason for contiued inpatient stay Substantial Risk for: rapid decompensation
[2021-07-21] MEDS: Acetaminophen 325 MG TABLET 650 MG PO ×3 (02:54→23:08)
[2021-07-21] MEDS: diphenhydrAMINE HCL 25 MG TABLET 50 MG PO ×2 (02:54→23:08)
[2021-07-21 06:00] VITALS: BP 119/67; PULSE 93; RESP 14; TEMP 36.6; O2SAT 95
[2021-07-21] MEDS: Levothyroxine Sodium 50 MCG TABLET PO (06:02)
[2021-07-21 08:48] LABS: MANUAL DIFF FLAG NO
[2021-07-21 08:58] LABS: Basophils Absolute Auto 0.1 X10*3/uL (0.0-0.2); Basophils Percent Auto 1.3 % (0-2); Eosinophils Absolute Auto 0.4 X10*3/uL (0.0-0.4); Eosinophils Percent Auto 7.2 % (0-4); Hematocrit 35.7 % (37.0-47.0); Hemoglobin 11.1 g/dl (12.0-16.0); Imm Gran Abs Auto 0.04 X10*3/uL (0.00-0.03); Imm Gran Pct Auto 0.7 % (0.0-0.4); Lymphocytes Absolute Auto 1.5 X10*3/uL (1.2-4.9); Mean Corpuscular HGB Conc 31.1 g/dl (31.0-35.0); Mean Corpuscular Hemoglobin 31.9 pg (27.0-33.0); Mean Corpuscular Volume 102.6 fL (80.0-98.0); Mean Platelet Volume 12.3 fL (9.4-12.3); Monocytes Percent Auto 15.5 % (2-11); Neutrophils Absolute Auto 3.1 x10*3/uL (2.0-8.3); Neutrophils Percent Auto 51.3 % (45-73); Platelet Count 125 X10*3/uL (160-400); Red Blood Count 3.48 X10*6/uL (4.20-5.50); Red Cell Distribution Width 12.8 % (11.0-16.0); White Blood Count 6.1 X10*3/uL (4.8-10.8)
[2021-07-21] MEDS: PARoxetine HCL 10 MG TABLET 5 MG PO (11:31)
[2021-07-21] MEDS: Propranolol HCL 10 MG TABLET PO (11:31)
[2021-07-21] MEDS: Nicotine 14 MG PATCH.TD24 TRANSDERMA (11:31)
[2021-07-21] MEDS: HaloperidoL 5 MG TABLET 10 MG PO ×2 (11:31→15:56)
[2021-07-21] MEDS: Omeprazole 20 MG CAPSULE.DR PO (11:31)
[2021-07-21] MEDS: Nicotine Polacrilex 2 MG GUM BUCCAL (11:33)
[2021-07-21] MEDS: Divalproex Sodium ER 500 MG TAB.ER.24H 1500 MG PO (15:56)
--- NOTE | 2021-07-21 17:28 | P.PNPSI_ITS ---
Subjective Subjective Date of Service: 07/21/21 Reason For Visit: Depression Interim History: Patient had a good night last night. However this morning after patient can meds shower she came out very irritable and angry, hardly closed yelling. She was in the kitchen with hospital gown on however exposed and very difficult to redirect. Patient did eventually calmed down. As travel writer met with her later on she said that when she came out of the shower her gown was wet and staff quickly approached her sternal eat telling her to wrap her gown up better which she found very triggering. Patient shared that over the course of her life and due to long history of trauma, she is easily put on the defensive and easily triggered in towards responding aggressively if she is feeling approach door cornered. She said this is the reason she had an outburst and explains that once she gets dysregulated takes time to calm down and she is not easily redirected. Patient says she is feeling fine now. She reports overall sleeping well, denies any auditory or visual hallucinations and denies any delusional thinking. She like to continue to plan to discharge early next week. Patient can accept that she may be over reacting to other people and gets defensive when no offense is given, however she is unaware of how much she misreads certain situations Mental Status Exam Mental Status Exam Narrative: Pt is alert and oriented; Behavior calm, cooperative but can intermittently get explosive if feeling triggered; dressed in casual cloths; adequate hygiene; mood is OK and affect calm; eye contact adequate; Speech is normal rate, volume and prosody; not pressured; no psychomotor agitation present but pt can intermittently erupt; thought process is goal directed; Thought content without paranoid ideations and on tx however, sometimes feels unnecessarily defensive towards others, misreading their tone or body language; denies any SI/HI. not witnessed responding to internal stimuli. Patients insight and judgment are impaired but much improved. Diagnostics Vital Signs (24Hr): Vital Signs - 24 hr 07/21/21 06:00 Temperature 98 F Pulse Rate 93 Respiratory Rate 14 Blood Pressure 119/67 Pulse Oximetry 95 BMI result Body Mass Index 30.4 Labs Results: 07/21/21 08:33 07/19/21 08:40 Labs: Laboratory Results - last 48 hr 07/21/21 08:33 WBC 6.1 RBC 3.48 L Hgb 11.1 L Hct 35.7 L MCV 102.6 H MCH 31.9 MCHC 31.1 RDW 12.8 Plt Count 125 L D MPV 12.3 Immature Gran % (Auto) 0.7 H Neut % (Auto) 51.3 Lymph % (Auto) 24.0 [place] % (Auto) 15.5 H Eos % (Auto) 7.2 H Baso % (Auto) 1.3 Lymph # (Auto) 1.5 [place] # (Auto) 1.0 Eos # (Auto) 0.4 Baso # (Auto) 0.1 Abs Immat Gran (auto) 0.04 H Absolute Neuts (auto) 3.1 Absolute Nucleated RBC 0.000 Nucleated RBC % (auto) 0.0 Imaging Radiology Impressions: ITS Impressions Chest X-Ray 07/11/21 21:02 IMPRESSION: Hypoinflated lungs. No acute intrathoracic disease. Head CT 07/11/21 21:12 IMPRESSION: No acute intracranial process seen Medications Medications Current Medications Acetaminophen (Acetaminophen 325 Mg Tablet) 650 mg PO Q6H PRN PRN Reason: Headache/Pain Mild Scale (1-3) Last Admin: 07/21/21 16:04 Dose: 650 mg Documented by: Al Hydroxide/Mg Hydroxide (Magnesium Hydrox/Alum Hydrox 30 Ml Oral.Susp) 30 ml PO Q6H PRN PRN Reason: Heartburn/Nausea Albuterol/Ipratropium (Albuterol/Iprat 2.5/0.5mg 3 Ml Ampul.Neb) 3 ml INHALE RQ4H PRN PRN Reason: Shortness of Breath/Wheezing Last Admin: 07/11/21 20:56 Dose: 3 ml Documented by: Chlorpromazine HCl (Chlorpromazine Hcl 25 Mg Tablet) 25 mg PO Q4H PRN PRN Reason: anxiety/agitation Last Admin: 07/13/21 17:37 Dose: 25 mg Documented by: Chlorpromazine HCl (Chlorpromazine Hcl 25 Mg Tablet) 50 mg PO TID PRN PRN Reason: mod -severe agitation Last Admin: 07/13/21 21:05 Dose: 50 mg Documented by: Chlorpromazine HCl (Chlorpromazine Hcl 25 Mg Tablet) 50 mg PO BEDTIME ISAÍAS Last Admin: 07/21/21 16:03 Dose: Not Given Documented by: Diphenhydramine HCl (Diphenhydramine Hcl 25 Mg Tablet) 50 mg PO BEDTIME PRN PRN Reason: sleep Last Admin: 07/21/21 02:54 Dose: 50 mg Documented by: Divalproex Sodium (Divalproex Sodium Er 500 Mg Tab.Er.24h) 1,500 mg PO DAILY@1700 [facility] Last Admin: 07/21/21 15:56 Dose: 1,000 mg Documented by: Haloperidol (Haloperidol 5 Mg Tablet) 10 mg PO BID@0900,1700 [facility] Last Admin: 07/21/21 15:56 Dose: 10 mg Documented by: Hydroxyzine HCl (Hydroxyzine Hcl 50 Mg Tablet) 50 mg PO Q6H PRN PRN Reason: Anxiety Last Admin: 07/18/21 20:54 Dose: 50 mg Documented by: Levothyroxine Sodium (Levothyroxine Sodium 50 Mcg Tablet) 50 mcg PO DAILY@0630 [facility] Loperamide HCl (Loperamide Hcl 2 Mg Capsule) 2 mg PO Q6H PRN PRN Reason: diarrhea Magnesium Hydroxide (Milk Of Magnesia 30 Ml Oral.Susp) 30 ml PO DAILY PRN PRN Reason: Constipation Nicotine (Nicotine 14 Mg Patch.Td24) 14 mg TRANSDERMA DAILY [facility] Last Admin: 07/21/21 11:31 Dose: 14 mg Documented by: Nicotine Polacrilex (Nicotine Polacrilex 2 Mg Gum) 2 mg BUCCAL Q2H PRN PRN Reason: Nicotine Cravings Last Admin: 07/21/21 11:33 Dose: 2 mg Documented by: Omeprazole (Omeprazole 20 Mg Capsule.) 20 mg PO DAILY [facility] Last Admin: 07/21/21 11:31 Dose: 20 mg Documented by: Paroxetine HCl (Paroxetine Hcl 10 Mg Tablet) 5 mg PO DAILY [facility] Last Admin: 07/21/21 11:31 Dose: 5 mg Documented by: Propranolol HCl (Propranolol Hcl 10 Mg Tablet) 10 mg PO BID [facility]; Protocol Last Admin: 07/21/21 16:03 Dose: Not Given Documented by: Allergies Allergies Allergy/AdvReac Type Severity Reaction Status Date / Time lithium AdvReac Intermediate CKD Verified 07/05/21 15:04 Assessment & Plan Assessment & Plan (1) Bipolar 1 disorder: Status: Acute Code(s): F31.9 - Bipolar disorder, unspecified Plan HPI: Jeri is a 60 yo female who carries a diagnosis of bipolar I DO. She presented to [facility] ED on 07/03/21 due to worsening depression and anxiety after she was at a convenience store and told the passenger booking clerk she needed help and they called 911. ED tiarra miller obtained records from [facility], pt has CKD, Cr 1.4 on 06/13. Pt was given 2L of IVF, Cr improved from 1.84 to 1.66. Precipitating factors include recent medication change where she was discontinued from Is[place] after developing CKD adn started on Depakote 250mg daily; she was left on Paxil. Pt reported worsening sx of mood lability, mary ellen, agitation, and increased activity level since stopping lithium, i.e. she walked for 14 hours one day. Utox negative. Working Formulation: History of severe bipolar disorder moderately well treated with lithium until developed CKD. Patient has tough daily insight and judgment to know she has bipolar disorder and needs to remain for treatment. She nearly daily demands discharge when she is dysregulated however when she calms down she agrees that she is not stable and agrees to remain for treatment. On current regimen patient continues to increasingly stabilize and she has overall become organized in speech and behavior. Intermittently she will get triggered and miss read some social interaction which can lead to intermittent explosive anger however patient is able to eventually calm down. Patient shares that this exists at baseline though seems to have been better treated with lithium. Working PLAN: CV 1:1 1. Bipolar disorder, severe: Resolving with Depakote and Haldol -Depakote ER 1500mg daily (will not increase); while patient may benefit from a higher dose, her platelets have decreased since starting Depakote; platelets have stabilized; since patient is behaviors and organization is also stabilizing, do not want to risk further lowering platelets -continue Haldol 10mg BID (0900 and 1700) -Platelets stable; Continue to monitor CBC, lytes, bun/cr -CONTINUE Paxil to 5mg; patient is overall stabilizing; given the risk for discontinuation syndrome, do not want to risk her continue to trend toward stability at this time. -Continue Thorazine 50mg qhs for insomnia (dc'd trazodone) -continue Thorazine 50 mg and Ativan 1 mg for moderate severe agitation (lowered dosing a little since sedating) -continue Thorazine 25mg qid prn for anxiety, mild agitation Evolving Medication decisions for this admission: Currently patient has become s table on Depakote and Haldol -on Admision, Depakote monotherapy tried; not effective (tried in combo with tegretol, then risperdal... eventually Dc'd) -Zyprexa as a p.r.n. not effective; DC'd -Risperidone (added to Depakote); not effective; DC'd -Thorazine PRN proves sedating even at low doses making it difficult to titrate to therapeutic dose. -Tegretol added to depakote caused side-effect: pt developed ataxia, tremor and was disoriented. Tegretol was dc'd and side-effects resolved. -[employer] Person discussed case with psychiatric team, Dr. Uribe, Dr. Leon, Dr. Rangel; one consideration is that the problem with Tegretol was that it was combined with Depakote, the combination being the cause of side effects; however given the fact that patient did have 3 good days over the weekend on Depakote, travel writer will continue with Depakote at this time, possibly increase it and instead just switch patient over to Haldol since Risperdal has not been helpful for delusions/AH. -prior to admission patient was started on Depakote 250 mg and left on Paxil 20 mg; to avoid discontinuation syndrome, travel writer lowered Paxil to 10 mg and increase Depakote to therapeutic level. At this time will taper and then discontinue Paxil out of concern for at being a barrier for resolution of mary ellen. DISCONTINUE Risperdal 2mg BID; not effective (dc'd on 07/18) DISCONTINUE Trazodone; used for sleep, but will dc on outside chance interferes with this mentally mary ellen; will use Thorazine instead) DC Risperdal Otherwise: Elevated Cr due CKD continue to avoid NSAIDs given CKD Chest x-ray negative for aspiration but did reveal hypoinflation: discussed with Dr. Castillo who says no need for follow up; finding due to pt not taking deep breath when image taken. Monitor response to medications. Monitor for safety in the milieu. Discharge on stabilization. Patient seen. Chart reviewed. Discussed with team. Obtain collateral contact info?as needed For day today details... HOSPITAL Course: 07/04 patient highly irritable this morning, posturing and aggressive with peers and staff however she was able to calm down and agreed to increase Depakote dose. Will also restart Paxil though at a lower dose to avoid discontinuation syndrome which could be further aggravated 07/05 Patient severely agitated off and on throughout the day, posturing at staff, threatening to hit, spitting on staff, breaking and throwing things and needing IM medication. Minimal insight -hopefully Depakote will start to help -will consider Tegretol since her sister who has severe bipolar disorder has been successfully treated with this medication 07/06 remains manic, irritated easily agitated; continue treatment plan however patient talked about Tegretol and this remains consideration 07/07 patient refused Depakote last night saying she wants Tegretol 07/10 some mild improvement but she remains manic, disorganized. Patient seems to be having side effect of hand tremor, some ataxia and lowered platelets; currently debating how to approach medication management as patient would like to be on Tegretol as a monotherapy, however initiation of this medication coincides with onset of side effects. Will continue to monitor for now. These medications side effects/risks were discussed with patient who understood and agrees to current regimen 07/11 patient agrees that side effects of unsteady gait and tremor have increased with increased dose of Tegretol and she agrees to discontinue this medication and see if Depakote alone or with another mood stabilizer will be helpful. 07/12 pt confused, disoriented, most likely due to medication Tegretol side effects. Staff reported to travel writer that patient had a choking episode and needed the Heimlich maneuver which was successful. Patient remained unsteady on her feet overnight, fell. Head CT done which was negative; Chest x-ray negative for aspiration but did reveal hypoinflation, travel writer placed internal medicine consult ; Because patient was confused last night her Depakote dose was held 07/13 Seems to be calmer since starting low-dose Risperdal; she says her mind is not racing as much. Will continue this medication and hopefully seek continued stabilization 07/14 remains manic; refused depakote last night; increasing Risperdal to 2 mg b.i.d. patient accepts that she has bipolar disorder and agrees that she is not at her baseline and that discharging would put her vulnerable in the community due to her agitated behaviors. She agrees to remain in the unit for continued treatment From evening of 07/14 to evening of 07/17 patient had good behaviors and was in good behavioral control only getting dysregulated the evening of 07/17 and possibly due to being triggered by the high acuity on the unit. 07/19 more calm, no problematic behaviors; agrees to stay for treatment.? Some confusion and auditory hallucinations but less so. 07/20 calm, cooperative, in good behavioral control; denies AVH and is no longer feeling confused, no longer entertaining delusional thoughts. Says she has an 8/10, 10 being her regular, baseline self 6/ outburst this morning from which patient says she was feeling triggered. Patient will come down. Patient intermittently over reacts but is overall continuing to trend towards increasing stability I spent minutes with the patient and/or on the patient floor today, greater than?50% of which was spent counseling/coordinating care. Patient educated on: diagnosis, medication risk/benefits and medical condition Informed Consent: understands Reason for contiued inpatient stay Substantial Risk for: other
[2021-07-21 19:54] VITALS: RESP 18
[2021-07-22] MEDS: hydrOXYzine HCL 50 MG TABLET PO ×3 (02:00→21:14)
[2021-07-22] MEDS: Levothyroxine Sodium 50 MCG TABLET PO (06:21)
[2021-07-22] MEDS: Nicotine 14 MG PATCH.TD24 TRANSDERMA (12:12)
[2021-07-22] MEDS: Omeprazole 20 MG CAPSULE.DR PO (12:13)
[2021-07-22] MEDS: HaloperidoL 5 MG TABLET 10 MG PO ×2 (12:14→18:51)
[2021-07-22] MEDS: PARoxetine HCL 10 MG TABLET 5 MG PO (12:15)
--- NOTE | 2021-07-22 16:47 | P.PNPSI_ITS ---
Subjective Subjective Date of Service: 07/22/21 Reason For Visit: Depression Interim History: Intermittent periods of agitation with screaming, explosive rage and abuse to others and poor boundaries-has a inability to modulate when stimuli are presented and cannot tolerate interactions at times. In need of consistent redirection by team with attention to managing her environment to contain stimuli. Medication Compliance: Intermittent (difficult for the pt-several negotiations) Side effects from medications: Yes ([facility]) Attending Groups: No Review of Systems Acute medical concerns: No Medical Review of Systems: unchanged Mental Status Exam Mental Status Exam Patient Appearance: Disheveled Patient Orientation: Person, Place, Time and Situation Level of Consciousness: Alert Patient Behavior: Guarded, Aggressive, Belligerent, Verbal Threats, Swearing, Resistive to Care, Fatigued, Distractible, Good Eye Contact, Uncooperative and Impulsive Mood Description: Labile and Angry Affect Description: Labile and Angry Patient Cognition Impaired: No Ability to Follow Directions: Fair Speech Pattern: Spontaneous Speech, Rambling, Excessive, Loud, Pressured and Includes Profanity Memory Description: Episodic Impaired Hallucinations: None Delusions: Paranoid Ideation Perceptual Disturbances: Depersonalization and Derealization Thought Content: positive for Mellen and positive for Circumstantial Depressive Symptoms: Increased Irritability Abnormal Motor Activity Signs and Symptoms: Agitation and Restlessness Judgement: Poor Diagnostics Vital Signs (24Hr): Vital Signs - 24 hr 07/21/21 19:54 Respiratory Rate 18 BMI result Body Mass Index 30.4 Labs Results: 07/21/21 08:33 07/19/21 08:40 Labs: Laboratory Results - last 48 hr 07/21/21 08:33 WBC 6.1 RBC 3.48 L Hgb 11.1 L Hct 35.7 L MCV 102.6 H MCH 31.9 MCHC 31.1 RDW 12.8 Plt Count 125 L D MPV 12.3 Immature Gran % (Auto) 0.7 H Neut % (Auto) 51.3 Lymph % (Auto) 24.0 Preston % (Auto) 15.5 H Eos % (Auto) 7.2 H Baso % (Auto) 1.3 Lymph # (Auto) 1.5 Preston # (Auto) 1.0 Eos # (Auto) 0.4 Baso # (Auto) 0.1 Abs Immat Gran (auto) 0.04 H Absolute Neuts (auto) 3.1 Absolute Nucleated RBC 0.000 Nucleated RBC % (auto) 0.0 Imaging Radiology Impressions: ITS Impressions Chest X-Ray 07/11/21 21:02 IMPRESSION: Hypoinflated lungs. No acute intrathoracic disease. Head CT 07/11/21 21:12 IMPRESSION: No acute intracranial process seen Medications Medications Current Medications Acetaminophen (Acetaminophen 325 Mg Tablet) 650 mg PO Q6H PRN PRN Reason: Headache/Pain Mild Scale (1-3) Last Admin: 07/21/21 23:08 Dose: 650 mg Documented by: Al Hydroxide/Mg Hydroxide (Magnesium Hydrox/Alum Hydrox 30 Ml Oral.Susp) 30 ml PO Q6H PRN PRN Reason: Heartburn/Nausea Albuterol/Ipratropium (Albuterol/Iprat 2.5/0.5mg 3 Ml Ampul.Neb) 3 ml INHALE RQ4H PRN PRN Reason: Shortness of Breath/Wheezing Last Admin: 07/11/21 20:56 Dose: 3 ml Documented by: Chlorpromazine HCl (Chlorpromazine Hcl 25 Mg Tablet) 25 mg PO Q4H PRN PRN Reason: anxiety/agitation Last Admin: 07/13/21 17:37 Dose: 25 mg Documented by: Chlorpromazine HCl (Chlorpromazine Hcl 25 Mg Tablet) 50 mg PO TID PRN PRN Reason: mod -severe agitation Last Admin: 07/13/21 21:05 Dose: 50 mg Documented by: Chlorpromazine HCl (Chlorpromazine Hcl 25 Mg Tablet) 50 mg PO BEDTIME [facility] Last Admin: 07/21/21 16:03 Dose: Not Given Documented by: Diphenhydramine HCl (Diphenhydramine Hcl 25 Mg Tablet) 50 mg PO BEDTIME PRN PRN Reason: sleep Last Admin: 07/21/21 23:08 Dose: 50 mg Documented by: Divalproex Sodium (Divalproex Sodium Er 500 Mg Tab.Er.24h) 1,500 mg PO DAILY@1700 [facility] Last Admin: 07/21/21 15:56 Dose: 1,000 mg Documented by: Haloperidol (Haloperidol 5 Mg Tablet) 10 mg PO BID@0900,1700 [facility] Last Admin: 07/22/21 12:14 Dose: 10 mg Documented by: Hydroxyzine HCl (Hydroxyzine Hcl 50 Mg Tablet) 50 mg PO Q6H PRN PRN Reason: Anxiety Last Admin: 07/22/21 13:50 Dose: 50 mg Documented by: Levothyroxine Sodium (Levothyroxine Sodium 50 Mcg Tablet) 50 mcg PO DAILY@0630 [facility] Last Admin: 07/22/21 06:21 Dose: 50 mcg Documented by: Loperamide HCl (Loperamide Hcl 2 Mg Capsule) 2 mg PO Q6H PRN PRN Reason: diarrhea Magnesium Hydroxide (Milk Of Magnesia 30 Ml Oral.Susp) 30 ml PO DAILY PRN PRN Reason: Constipation Nicotine (Nicotine 14 Mg Patch.Td24) 14 mg TRANSDERMA DAILY [facility] Last Admin: 07/22/21 12:12 Dose: 14 mg Documented by: Nicotine Polacrilex (Nicotine Polacrilex 2 Mg Gum) 2 mg BUCCAL Q2H PRN PRN Reason: Nicotine Cravings Last Admin: 07/21/21 11:33 Dose: 2 mg Documented by: Omeprazole (Omeprazole 20 Mg Capsule.Dr) 20 mg PO DAILY [facility] Last Admin: 07/22/21 12:13 Dose: 20 mg Documented by: Paroxetine HCl (Paroxetine Hcl 10 Mg Tablet) 5 mg PO DAILY [facility] Last Admin: 07/22/21 12:15 Dose: 5 mg Documented by: Propranolol HCl (Propranolol Hcl 10 Mg Tablet) 10 mg PO BID [facility]; Protocol Last Admin: 07/22/21 12:19 Dose: Not Given Documented by: Allergies Allergies Allergy/AdvReac Type Severity Reaction Status Date / Time lithium AdvReac Intermediate CKD Verified 07/05/21 15:04 Assessment & Plan Assessment & Plan (1) Bipolar 1 disorder: Status: Acute Code(s): F31.9 - Bipolar disorder, unspecified Plan HPI: Jeri is a 60 yo female who carries a diagnosis of bipolar I DO. She presented to [facility] ED on 07/03/21 due to worsening depression and anxiety after she was at a convenience store and told the route delivery clerk she needed help and they called 911. [place] provider [place] [facility] [place], Cr 1.4 on 06/13. Pt was given 2L of IVF, Cr improved from 1.84 to 1.66. Precipitating factors include recent medication change where she was discontinued from [facility] after developing CKD adn started on Depakote 250mg daily; she was left on Paxil. Pt reported worsening sx of mood lability, mary ellen, agitation, and increased activity level since stopping lithium, i.e. she walked for 14 hours one day. Utox negative. Working Formulation: History of severe bipolar disorder moderately well treated with lithium until developed CKD. Patient has tough daily insight and judgment to know she has bipolar disorder and needs to remain for treatment. She nearly daily demands discharge when she is dysregulated however when she calms down she agrees that she is not stable and agrees to remain for treatment. On current regimen patient continues to increasingly stabilize and she has overall become organized in speech and behavior. Intermittently she will get triggered and miss read some social interaction which can lead to intermittent explosive anger however patient is able to eventually calm down. Patient shares that this exists at baseline though seems to have been better treated with lithium. Working PLAN: CV 1:1 1. Bipolar disorder, severe: Resolving with Depakote and Haldol -Depakote ER 1500mg daily (will not increase); while patient may benefit from a higher dose, her platelets have decreased since starting Depakote; platelets have stabilized; since patient is behaviors and organization is also stabilizing, do not want to risk further lowering platelets -continue Haldol 10mg BID (0900 and 1700) -Platelets stable; Continue to monitor CBC, lytes, bun/cr -CONTINUE Paxil to 5mg; patient is overall stabilizing; given the risk for discontinuation syndrome, do not want to risk her continue to trend toward stability at this time. -Continue Thorazine 50mg qhs for insomnia (dc'd trazodone) -continue Thorazine 50 mg and Ativan 1 mg for moderate severe agitation (lowered dosing a little since sedating) -continue Thorazine 25mg qid prn for anxiety, mild agitation Evolving Medication decisions for this admission: Currently patient has become stable on Depakote and Haldol -on Admision, Depakote monotherapy tried; not effective (tried in combo with tegretol, then risperdal... eventually Dc'd) -Zyprexa as a p.r.n. not effective; DC'd -Risperidone (added to Depakote); not effective; DC'd -Thorazine PRN proves sedating even at low doses making it difficult to titrate to therapeutic dose. -Tegretol added to depakote caused side-effect: pt developed ataxia, tremor and was disoriented. Tegretol was dc'd and side-effects resolved. -[employer] discussed case with psychiatric team, Dr. Uribe, Dr. Leon, Dr. Rangel; one consideration is that the problem with Tegretol was that it was combined with Depakote, the combination being the cause of side effects; however given the fact that patient did have 3 good days over the weekend on Depakote, specification writer will continue with Depakote at this time, possibly increase it and instead just switch patient over to Haldol since Risperdal has not been helpful for delusions/AH. -prior to admission patient was started on Depakote 250 mg and left on Paxil 20 mg; to avoid discontinuation syndrome, specification writer lowered Paxil to 10 mg and increase Depakote to therapeutic level. At this time will taper and then discontinue Paxil out of concern for at being a barrier for resolution of mary ellen. DISCONTINUE Risperdal 2mg BID; not effective (dc'd on 07/18) DISCONTINUE Trazodone; used for sleep, but will dc on outside chance interferes with this mentally mary ellen; will use Thorazine instead) DC Risperdal Otherwise: Elevated Cr due CKD continue to avoid NSAIDs given CKD Chest x-ray negative for aspiration but did reveal hypoinflation: discussed with Dr. Castillo who says no need for follow up; finding due to pt not taking deep b reath when image taken. Monitor response to medications. Monitor for safety in the milieu. Discharge on stabilization. Patient seen. Chart reviewed. Discussed with team. Obtain collateral contact info?as needed For day today details... HOSPITAL Course: 07/04 patient highly irritable this morning, posturing and aggressive with peers and staff however she was able to calm down and agreed to increase Depakote dose. Will also restart Paxil though at a lower dose to avoid discontinuation syndrome which could be further aggravated 07/05 Patient severely agitated off and on throughout the day, posturing at staff, threatening to hit, spitting on staff, breaking and throwing things and needing IM medication. Minimal insight -hopefully Depakote will start to help -will consider Tegretol since her sister who has severe bipolar disorder has been successfully treated with this medication 07/06 remains manic, irritated easily agitated; continue treatment plan however patient talked about Tegretol and this remains consideration 07/07 patient refused Depakote last night saying she wants Tegretol 07/10 some mild improvement but she remains manic, disorganized. Patient seems to be having side effect of hand tremor, some ataxia and lowered platelets; currently debating how to approach medication management as patient would like to be on Tegretol as a monotherapy, however initiation of this medication coincides with onset of side effects. Will continue to monitor for now. These medications side effects/risks were discussed with patient who understood and agrees to current regimen 07/11 patient agrees that side effects of unsteady gait and tremor have increased with increased dose of Tegretol and she agrees to discontinue this medication a nd see if Depakote alone or with another mood stabilizer will be helpful. 07/12 pt confused, disoriented, most likely due to medication Tegretol side effects. Staff reported to specification writer that patient had a choking episode and needed the Heimlich maneuver which was successful. Patient remained unsteady on her feet overnight, fell. Head CT done which was negative; Chest x-ray negative for aspiration but did reveal hypoinflation, specification writer placed internal medicine consult; Because patient was confused last night her Depakote dose was held 07/13 Seems to be calmer since starting low-dose Risperdal; she says her mind is not racing as much. Will continue this medication and hopefully seek continued stabilization 07/14 remains manic; refused depakote last night; increasing Risperdal to 2 mg b.i.d. patient accepts that she has bipolar disorder and agrees that she is not at her baseline and that discharging would put her vulnerable in the community due to her agitated behaviors. She agrees to remain in the unit for continued treatment From evening of 07/14 to evening of 07/17 patient had good behaviors and was in good behavioral control only getting dysregulated the evening of 07/17 and possibly due to being triggered by the high acuity on the unit. 07/19 more calm, no problematic behaviors; agrees to stay for treatment.? Some confusion and auditory hallucinations but less so. / calm, cooperative, in good behavioral control; denies AVH and is no longer feeling confused, no longer entertaining delusional thoughts. Says she has an 8/10, 10 being her regular, baseline self 6/3 outburst this morning from which patient says she was feeling triggered. Patient will come down. Patient intermittently over reacts but is overall continuing to trend towards increasing stability 07/22/21- coverage- platlets 96-125, continue current regime I spent minutes with the patient and/or on the patient floor today, greater than?50% of which was spent counseling/coordinating care. Patient educated on: therapeutic strategies Informed Consent: further education needed Reason for contiued inpatient stay Substantial Risk for: inability to function and rapid decompensation
[2021-07-22] MEDS: Divalproex Sodium ER 500 MG TAB.ER.24H 1500 MG PO (18:51)
[2021-07-22] MEDS: Acetaminophen 325 MG TABLET 650 MG PO (19:03)
[2021-07-22 21:00] VITALS: BP 124/78; PULSE 96; TEMP 36.6; O2SAT 97
[2021-07-22] MEDS: Propranolol HCL 10 MG TABLET PO (21:07)
[2021-07-22] MEDS: chlorproMAZINE HCl 25 MG TABLET 50 MG PO (21:08)
[2021-07-23] MEDS: diphenhydrAMINE HCL 25 MG TABLET 50 MG PO (00:09)
[2021-07-23] MEDS: Acetaminophen 325 MG TABLET 650 MG PO ×4 (00:09→19:33)
[2021-07-23] MEDS: Levothyroxine Sodium 50 MCG TABLET PO (06:10)
[2021-07-23] MEDS: HaloperidoL 5 MG TABLET 10 MG PO ×2 (10:27→15:38)
[2021-07-23] MEDS: Propranolol HCL 10 MG TABLET PO ×2 (10:28→19:31)
[2021-07-23] MEDS: Omeprazole 20 MG CAPSULE.DR PO (10:29)
[2021-07-23] MEDS: PARoxetine HCL 10 MG TABLET 5 MG PO (10:29)
--- NOTE | 2021-07-23 10:50 | HO.PSYCHPN ---
Subjective Subjective Date of Service: 07/23/21 Reason For Visit: Depression Interim History: Continues with intermittent episodic periods of agitation, anger. Overall, appears calmer today. Team report difficulty in helping pt maintain medication compliance. Medication Compliance: Intermittent Side effects from medications: No Attending Groups: No Review of Systems Acute medical concerns: No Medical Review of Systems: unchanged Mental Status Exam Mental Status Exam Patient Appearance: Disheveled Patient Orientation: Person, Place, Time and Situation Level of Consciousness: Alert Patient Behavior: Guarded, Aggressive, Belligerent, Verbal Threats, Swearing, Resistive to Care, Fatigued, Distractible, Good Eye Contact, Uncooperative and Impulsive Mood Description: Labile and Angry Affect Description: Labile and Angry Patient Cognition Impaired: No Ability to Follow Directions: Fair Speech Pattern: Spontaneous Speech, Rambling, Excessive, Loud, Pressured and Includes Profanity Memory Description: Episodic Impaired Hallucinations: None Delusions: Paranoid Ideation Perceptual Disturbances: Depersonalization and Derealization Thought Content: positive for [place] and positive for Circumstantial Depressive Symptoms: Increased Irritability Abnormal Motor Activity Signs and Symptoms: Agitation and Restlessness Judgement: Poor Diagnostics Vital Signs (24Hr): Vital Signs - 24 hr 07/22/21 21:00 Temperature 97.8 F Pulse Rate 96 Blood Pressure 124/78 Pulse Oximetry 97 BMI result Body Mass Index 30.4 Labs Results: 07/21/21 08:33 07/19/21 08:40 Imaging Radiology Impressions: ITS Impressions Chest X-Ray 07/11/21 21:02 IMPRESSION: Hypoinflated lungs. No acute intrathoracic disease. Head CT 07/11/21 21:12 IMPRESSION: No acute intracranial process seen Medications Medications Current Medications Acetaminophen (Acetaminophen 325 Mg Tablet) 650 mg PO Q6H PRN PRN Reason: Headache/Pain Mild Scale (1-3) Last Admin: 07/23/21 06:10 Dose: 650 mg Documented by: Al Hydroxide/Mg Hydroxide (Magnesium Hydrox/Alum Hydrox 30 Ml Oral.Susp) 30 ml PO Q6H PRN PRN Reason: Heartburn/Nausea Albuterol/Ipratropium (Albuterol/Iprat 2.5/0.5mg 3 Ml Ampul.Neb) 3 ml INHALE RQ4H PRN PRN Reason: Shortness of Breath/Wheezing Last Admin: 07/11/21 20:56 Dose: 3 ml Documented by: Chlorpromazine HCl (Chlorpromazine Hcl 25 Mg Tablet) 25 mg PO Q4H PRN PRN Reason: anxiety/agitation Last Admin: 07/13/21 17:37 Dose: 25 mg Documented by: Chlorpromazine HCl (Chlorpromazine Hcl 25 Mg Tablet) 50 mg PO TID PRN PRN Reason: mod -severe agitation Last Admin: 07/13/21 21:05 Dose: 50 mg Documented by: Chlorpromazine HCl (Chlorpromazine Hcl 25 Mg Tablet) 50 mg PO BEDTIME [facility] Last Admin: 07/22/21 21:08 Dose: 50 mg Documented by: Diphenhydramine HCl (Diphenhydramine Hcl 25 Mg Tablet) 50 mg PO BEDTIME PRN PRN Reason: sleep Last Admin: 07/23/21 00:09 Dose: 50 mg Documented by: Divalproex Sodium (Divalproex Sodium Er 500 Mg Tab.Er.24h) 1,500 mg PO DAILY@1700 [facility] Last Admin: 07/22/21 18:51 Dose: 1,500 mg Documented by: Haloperidol (Haloperidol 5 Mg Tablet) 10 mg PO BID@0900,1700 [facility] Last Admin: 07/23/21 10:27 Dose: 10 mg Documented by: Hydroxyzine HCl (Hydroxyzine Hcl 50 Mg Tablet) 50 mg PO Q6H PRN PRN Reason: Anxiety Last Admin: 07/22/21 21:14 Dose: 50 mg Documented by: Levothyroxine Sodium (Levothyroxine Sodium 50 Mcg Tablet) 50 mcg PO DAILY@0630 [facility] Last Admin: 07/23/21 06:10 Dose: 50 mcg Documented by: Loperamide HCl (Loperamide Hcl 2 Mg Capsule) 2 mg PO Q6H PRN PRN Reason: diarrhea Magnesium Hydroxide (Milk Of Magnesia 30 Ml Oral.Susp) 30 ml PO DAILY PRN PRN Reason: Constipation Nicotine (Nicotine 14 Mg Patch.Td24) 14 mg TRANSDERMA DAILY [facility] Last Admin: 07/23/21 10:28 Dose: 14 mg Documented by: Nicotine Polacrilex (Nicotine Polacrilex 2 Mg Gum) 2 mg BUCCAL Q2H PRN PRN Reason: Nicotine Cravings Last Admin: 07/21/21 11:33 Dose: 2 mg Documented by: Omeprazole (Omeprazole 20 Mg Capsule.Dr) 20 mg PO DAILY [facility] Last Admin: 07/23/21 10:29 Dose: 20 mg Documented by: Paroxetine HCl (Paroxetine Hcl 10 Mg Tablet) 5 mg PO DAILY [facility] Last Admin: 07/23/21 10:29 Dose: 5 mg Documented by: Propranolol HCl (Propranolol Hcl 10 Mg Tablet) 10 mg PO BID [facility]; Protocol Last Admin: 07/23/21 10:28 Dose: 10 mg Documented by: Allergies Allergies Allergy/AdvReac Type Severity Reaction Status Date / Time lithium AdvReac Intermediate CKD Verified 07/05/21 15:04 Assessment & Plan Assessment & Plan (1) Bipolar 1 disorder: Status: Acute Code(s): F31.9 - Bipolar disorder, unspecified Plan HPI: Jeri is a 60 yo female who carries a diagnosis of bipolar I DO. She presented [place] [facility] on 07[place]21 due to worsening depression and anxiety after she was at a convenience store and told the coupon and bond collection clerk she needed help and they called 911. ED provider obtained records from [facility], pt has CKD, Cr 1.4 on 06/13. Pt was given 2L of IVF, Cr improved from 1.84 to 1.66. Precipitating factors include recent medication change where she was discontinued from [place] after developing CKD adn started on Depakote 250mg daily; she was left on Paxil. Pt reported worsening sx of mood lability, mary ellen, agitation, and increased activity level since stopping lithium, i.e. she walked for 14 hours one day. Utox negative. Working Formulation: History of severe bipolar disorder moderately well treated with lithium until developed CKD. Patient has tough daily insight and judgment to know she has bipolar disorder and needs to remain for treatment. She nearly daily demands discharge when she is dysregulated however when she calms down she agrees that she is not stable and agrees to remain for treatment. On current regimen patient continues to increasingly stabilize and she has overall become organized in speech and behavior. Intermittently she will get triggered and miss read some social interaction which can lead to intermittent explosive anger however patient is able to eventually calm down. Patient shares that this exists at baseline though seems to have been better treated with lithium. Working PLAN: CV 1:1 1. Bipolar disorder, severe: Resolving with Depakote and Haldol -Depakote ER 1500mg daily (will not increase); while patient may benefit from a higher dose, her platelets have decreased since starting Depakote; platelets have stabilized; since patient is behaviors and organization is also stabilizing, do not want to risk further lowering platelets -continue Haldol 10mg BID (0900 and 1700) -Platelets stable; Continue to monitor CBC, lytes, bun/cr -CONTINUE Paxil to 5mg; patient is overall stabilizing; given the risk for discontinuation syndrome, do not want to risk her continue to trend toward stability at this time. -Continue Thorazine 50mg qhs for insomnia (dc'd trazodone) -continue Thorazine 50 mg and Ativan 1 mg for moderate severe agitation (lowered dosing a little since sedating) -continue Thorazine 25mg qid prn for anxiety, mild agitation Evolving Medication decisions for this admission: Currently patient has become stable on Depakote and Haldol -on Admision, Depakote monotherapy tried; not effective (tried in combo with tegretol, then risperdal... eventually Dc'd) -Zyprexa as a p.r.n. not effective; DC'd -Risperidone (added to Depakote); not effective; DC'd -Thorazine PRN proves sedating even at low doses making it difficult to titrate to therapeutic dose. -Tegretol added to depakote caused side-effect: pt developed ataxia, tremor and was disoriented. Tegretol was dc'd and side-effects resolved. -[employer] discussed case with psychiatric team, Dr. Uribe, Dr. Leon, Dr. Rangel; one consideration is that the problem with Tegretol was that it was combined with Depakote, the combination being the cause of side effects; however given the fact that patient did have 3 good days over the weekend on Depakote, telegraphic typewriter operator chief will continue with Depakote at this time, possibly increase it and instead just switch patient over to Haldol since Risperdal has not been helpful for delusions/AH. -prior to admission patient was started on Depakote 250 mg and left on Paxil 20 mg; to avoid discontinuation syndrome, telegraphic typewriter operator chief lowered Paxil to 10 mg and increase Depakote to therapeutic level. At this time will taper and then discontinue Paxil out of concern for at being a barrier for resolution of mary ellen. DISCONTINUE Risperdal 2mg BID; not effective (dc'd on 5/31) DISCONTINUE Trazodone; used for sleep, but will dc on outside chance interferes with this mentally mary ellen; will use Thorazine instead) DC Risperdal Otherwise: Elevated Cr due CKD continue to avoid NSAIDs given CKD Chest x-ray negative for aspiration but did reveal hypoinflation: discussed with Dr. Castillo who says no need for follow up; finding due to pt not taking deep breath when image taken. Monitor response to medications. Monitor for safety in the milieu. Discharge on stabilization. Patient seen. Chart reviewed. Discussed with team. Obtain collateral contact info?as needed For day today details... HOSPITAL Course: 07/04 patient highly irritable this morning, posturing and aggressive with peers and staff however she was able to calm down and agreed to increase Depakote dose. Will also restart Paxil though at a lower dose to avoid discontinuation syndrome which could be further aggravated 07/05 Patient severely agitated off and on throughout the day, posturing at staff, threatening to hit, spitting on staff, breaking and throwing things and needing IM medication. Minimal insight -hopefully Depakote will start to help -will consider Tegretol since her sister who has severe bipolar disorder has been successfully treated with this medication 07/06 remains manic, irritated easily agitated; continue treatment plan however patient talked about Tegretol and this remains consideration 07/07 patient refused Depakote last night saying she wants Tegretol 07/10 some mild improvement but she remains manic, disorganized. Patient seems to be having side effect of hand tremor, some ataxia and lowered platelets; currently debating how to approach medication management as patient would like to be on Tegretol as a monotherapy, however initiation of this medication coincides with onset of side effects. Will continue to monitor for now. These medications side effects/risks were discussed with patient who understood and agrees to current regimen 07/11 patient agrees that side effects of unsteady gait and tremor have increased with increased dose of Tegretol and she agrees to discontinue this medication and see if Depakote alone or with another mood stabilizer will be helpful. 07/12 pt confused, disoriented, most likely due to medication Tegretol side effects. Staff reported to telegraphic typewriter operator chief that patient had a choking episode and needed the Heimlich maneuver which was successful. Patient remained unsteady on her feet overnight, fell. Head CT done which was negative; Chest x-ray negative for aspiration but did reveal hypoinflation, telegraphic typewriter operator chief placed internal medicine consult; Because patient was confused last night her Depakote dose was held 07/13 Seems to be calmer since starting low-dose Risperdal; she says her mind is not racing as much. Will continue this medication and hopefully seek continued stabilization 07/14 remains manic; refused depakote last night; increasing Risperdal to 2 mg b.i.d. patient accepts that she has bipolar disorder and agrees that she is not at her baseline and that discharging would put her vulnerable in the community due to her agitated behaviors. She agrees to remain in the unit for continued treatment From evening of 07/14 to evening of 07/17 patient had good behaviors and was in good behavioral control only getting dysregulated the evening of 07/17 and possibly due to being triggered by the high acuity on the unit. 07/19 more calm, no problematic behaviors; agrees to stay for treatment.? Some confusion and auditory hallucinations but less so. 07/20 calm, cooperative, in good behavioral control; denies AVH and is no longer feeling confused, no longer entertaining delusional thoughts. Says she has an 8/10, 10 being her regular, baseline self 6/3 outburst this morning from which patient says she was feeling triggered. Patient will come down. Patient intermittently over reacts but is overall continuing to trend towards increasing stability 07/23/21 Encourage regime compliance I spent minutes with the patient and/or on the patient floor today, greater than?50% of which was spent counseling/coordinating care. Patient educated on: therapeutic strategies Informed Consent: further education needed Reason for contiued inpatient stay Substantial Risk for: inability to function and rapid decompensation
[2021-07-23] MEDS: hydrOXYzine HCL 50 MG TABLET PO (15:41)
[2021-07-23] MEDS: Divalproex Sodium ER 500 MG TAB.ER.24H 1500 MG PO ×2 (16:00→16:19)
[2021-07-23 19:25] VITALS: BP 116/58; PULSE 76; TEMP 36.4; O2SAT 97
[2021-07-23] MEDS: chlorproMAZINE HCl 25 MG TABLET 50 MG PO (19:32)
--- NOTE | 2021-07-23 22:13 | PC.NURSE ---
Patient had been resting quietly in her room in NAD. At 2205 patient let this manual writer know that she is still having pain 7/10 on 0-10 pain scale with 10 being the worst. teacher physically impaired provider notified that Tylenol is not relieving her pain. Flexeril 5 mg po Now and may repeat x 1.
[2021-07-23] MEDS: Cyclobenzaprine HCl 5 MG TABLET PO (22:30)
[2021-07-24] MEDS: hydrOXYzine HCL 50 MG TABLET PO (03:48)
[2021-07-24] MEDS: Levothyroxine Sodium 50 MCG TABLET PO (03:48)
[2021-07-24] MEDS: PARoxetine HCL 10 MG TABLET 5 MG PO (09:08)
[2021-07-24] MEDS: HaloperidoL 5 MG TABLET 10 MG PO ×2 (09:08→17:06)
[2021-07-24] MEDS: Propranolol HCL 10 MG TABLET PO (09:08)
[2021-07-24] MEDS: Omeprazole 20 MG CAPSULE.DR PO (09:08)
[2021-07-24 09:36] LABS: MANUAL DIFF FLAG NO
[2021-07-24 09:43] LABS: Basophils Percent Auto 0.9 % (0-2); Eosinophils Absolute Auto 0.4 X10*3/uL (0.0-0.4); Eosinophils Percent Auto 8.9 % (0-4); Hematocrit 33.9 % (37.0-47.0); Hemoglobin 10.8 g/dl (12.0-16.0); Imm Gran Abs Auto 0.04 X10*3/uL (0.00-0.03); Imm Gran Pct Auto 0.9 % (0.0-0.4); Lymphocytes Absolute Auto 1.4 X10*3/uL (1.2-4.9); Mean Corpuscular HGB Conc 31.9 g/dl (31.0-35.0); Mean Corpuscular Hemoglobin 32.3 pg (27.0-33.0); Mean Corpuscular Volume 101.5 fL (80.0-98.0); Mean Platelet Volume 11.6 fL (9.4-12.3); Monocytes Absolute Auto 0.7 X10*3/uL (0.1-1.2); Monocytes Percent Auto 16.4 % (2-11); Neutrophils Absolute Auto 1.9 x10*3/uL (2.0-8.3); Neutrophils Percent Auto 41.9 % (45-73); Platelet Count 124 X10*3/uL (160-400); Red Blood Count 3.34 X10*6/uL (4.20-5.50); White Blood Count 4.5 X10*3/uL (4.8-10.8)
--- NOTE | 2021-07-24 11:16 | P.PNPSI_ITS ---
Subjective Subjective Date of Service: 07/24/21 Reason For Visit: Depression Interim History: On Saturday, patient got triggered and upset, threw water at staff member, swore and used racial slur in the day room prompting a peer to get angry with her. Patient calm this morning and explain to travel writer that there is a specific staff member who is triggering for her; to some degree staff agrees that there is a connection between patient's dysregulation and interacting with this staff member however the fine behaviors to intermittently be problematic even when this staff member is not present. Personal Computer Network Engineer trying to get a hold of patient's outpatient therapist who knows her well to see what her baseline is. Patient agrees to remain on the unit but is still focused on discharging soon. Patient wants off propranolol saying it makes her confused; BP and heart rate within normal limits so will discontinue Discussed case with Hemonc Dr. Howe who saw patient and finds lab values currently stable enough to continue current regimen. She recommends limiting Thorazine if possible and having patients CBC monitored [id number] as outpt until determined they are remaining stable. Mental Status Exam Mental Status Exam Narrative: Pt is alert and oriented; Behavior calm, cooperative but can intermittently get explosive if feeling triggered; dressed in casual cloths; adequate hygiene; mood is OK and affect calm; eye contact adequate; Speech is normal rate, volume and prosody; not pressured; no psychomotor agitation present but pt can intermittently erupt; thought process is goal directed; Thought content without paranoid ideations and on tx however, sometimes feels unnecessarily defensive towards others, misreading their tone or body language; denies any SI/HI. not witnessed responding to internal stimuli. Patients insight and judgment are impaired but much improved. Diagnostics Vital Signs (24Hr): Vital Signs - 24 hr 07/23/21 19:25 Temperature 97.5 F Pulse Rate 76 Blood Pressure 116/58 L Pulse Oximetry 97 BMI result Body Mass Index 30.4 Labs Results: 07/24/21 09:32 07/19/21 08:40 Labs: Laboratory Results - last 48 hr 07/24/21 09:32 WBC 4.5 L RBC 3.34 L Hgb 10.8 L Hct 33.9 L MCV 101.5 H MCH 32.3 MCHC 31.9 RDW 13.0 Plt Count 124 L MPV 11.6 Immature Gran % (Auto) 0.9 H Neut % (Auto) 41.9 L Lymph % (Auto) 31.0 [place] % (Auto) 16.4 H Eos % (Auto) 8.9 H Baso % (Auto) 0.9 Lymph # (Auto) 1.4 [place] # (Auto) 0.7 Eos # (Auto) 0.4 Baso # (Auto) 0.0 Abs Immat Gran (auto) 0.04 H Absolute Neuts (auto) 1.9 L Absolute Nucleated RBC 0.000 Nucleated RBC % (auto) 0.0 Imaging Radiology Impressions: ITS Impressions Chest X-Ray 07/11/21 21:02 IMPRESSION: Hypoinflated lungs. No acute intrathoracic disease. Head CT 07/11/21 21:12 IMPRESSION: No acute intracranial process seen Medications Medications Current Medications Acetaminophen (Acetaminophen 325 Mg Tablet) 650 mg PO Q6H PRN PRN Reason: Headache/Pain Mild Scale (1-3) Last Admin: 07/23/21 19:33 Dose: 650 mg Documented by: Al Hydroxide/Mg Hydroxide (Magnesium Hydrox/Alum Hydrox 30 Ml Oral.Susp) 30 ml PO Q6H PRN PRN Reason: Heartburn/Nausea Albuterol/Ipratropium (Albuterol/Iprat 2.5/0.5mg 3 Ml Ampul.Neb) 3 ml INHALE R Q4H PRN PRN Reason: Shortness of Breath/Wheezing Last Admin: 07/11/21 20:56 Dose: 3 ml Documented by: Chlorpromazine HCl (Chlorpromazine Hcl 25 Mg Tablet) 25 mg PO Q4H PRN PRN Reason: anxiety/agitation Last Admin: 07/13/21 17:37 Dose: 25 mg Documented by: Chlorpromazine HCl (Chlorpromazine Hcl 25 Mg Tablet) 50 mg PO TID PRN PRN Reason: mod -severe agitation Last Admin: 07/13/21 21:05 Dose: 50 mg Documented by: Chlorpromazine HCl (Chlorpromazine Hcl 25 Mg Tablet) 50 mg PO BEDTIME ISA[facility]AS Last Admin: 07/23/21 19:32 Dose: 50 mg Documented by: Cyclobenzaprine HCl (Cyclobenzaprine Hcl 5 Mg Tablet) 5 mg PO BEDTIME PRN PRN Reason: Pain, Moderate (Pain Scale 4-6 Last Admin: 07/23/21 22:30 Dose: 5 mg Documented by: Diphenhydramine HCl (Diphenhydramine Hcl 25 Mg Tablet) 50 mg PO BEDTIME PRN PRN Reason: sleep Last Admin: 07/23/21 00:09 Dose: 50 mg Documented by: Divalproex Sodium (Divalproex Sodium Er 500 Mg Tab.Er.24h) 1,500 mg PO DAILY@1700 [facility] Last Admin: 07/23/21 16:19 Dose: 1,000 mg Documented by: Haloperidol (Haloperidol 5 Mg Tablet) 10 mg PO BID@0900,1700 [facility] Last Admin: 07/24/21 09:08 Dose: 10 mg Documented by: Hydroxyzine HCl (Hydroxyzine Hcl 50 Mg Tablet) 50 mg PO Q6H PRN PRN Reason: Anxiety Last Admin: 07/24/21 03:48 Dose: 50 mg Documented by: Levothyroxine Sodium (Levothyroxine Sodium 50 Mcg Tablet) 50 mcg PO DAILY@0630 [facility] Last Admin: 07/24/21 03:48 Dose: 50 mcg Documented by: Loperamide HCl (Loperamide Hcl 2 Mg Capsule) 2 mg PO Q6H PRN PRN Reason: diarrhea Magnesium Hydroxide (Milk Of Magnesia 30 Ml Oral.Susp) 30 ml PO DAILY PRN PRN Reason: Constipation Nicotine (Nicotine 14 Mg Patch.Td24) 14 mg TRANSDERMA DAILY [facility] Last Admin: 07/24/21 09:11 Dose: Not Given Documented by: Nicotine Polacrilex (Nicotine Polacrilex 2 Mg Gum) 2 mg BUCCAL Q2H PRN PRN Reason: Nicotine Cravings Last Admin: 07/21/21 11:33 Dose: 2 mg Documented by: Omeprazole (Omeprazole 20 Mg Capsule.Dr) 20 mg PO DAILY [facility] Last Admin: 07/24/21 09:08 Dose: 20 mg Documented by: Allergies Allergies Allergy/AdvReac Type Severity Reaction Status Date / Time lithium AdvReac Intermediate CKD Verified 07/05/21 15:04 Assessment & Plan Assessment & Plan (1) Bipolar 1 disorder: Status: Acute Code(s): F31.9 - Bipolar disorder, unspecified Plan HPI: Jeri is a 60 yo female who carries a diagnosis of bipolar I DO. She presented [place] [facility] [place] 07[place]21 due to worsening depression and anxiety after she was at a convenience store and told the coding clerk she needed help and they called 911. ED provider obtained records from [facility], pt has CKD, Cr 1.4 on 06/13. Pt was given 2L of IVF, Cr improved from 1.84 to 1.66. Precipitating factors include recent medication change where she was discontinued from [place] after developing CKD adn started on Depakote 250mg daily; she was left on Paxil. Pt reported worsening sx of mood lability, mary ellen, agitation, and increased activity level since stopping lithium, i.e. she walked for 14 hours one day. Utox negative. Working Formulation: History of severe bipolar disorder moderately well treated with lithium until developed CKD. Patient has tough daily insight and judgment to know she has bipolar disorder and needs to remain for treatment. She nearly daily demands discharge when she is dysregulated however when she calms down she agrees that she is not stable and agrees to remain for treatment. On current regimen patient continues to increasingly stabilize and she has overall become organized in speech and behavior. Intermittently she will get triggered and miss read some social interaction which can lead to intermittent explosive anger however patient is able to eventually calm down. Patient shares that this exists at baseline though seems to have been better treated with lithium. Working PLAN: CV 1:1 1. Bipolar disorder, severe: Resolving with Depakote and Haldol -Depakote ER 1500mg daily (will not increase); while patient may benefit from a higher dose, her platelets have decreased since starting Depakote; platelets have stabilized; since patient is behaviors and organization is also stabilizing, do not want to risk further lowering platelets -continue Haldol 10mg BID (0900 and 1700) -Platelets stable; Continue to monitor CBC, lytes, bun/cr -DC Paxil to 5mg; for despite the fact that patient has improved considerably since admission, she remains intermittently eruptive and disorganized so will remove all barriers to mood stabilization -DC Thorazine 50mg qhs for insomnia and make PRN so as to limit contributions to leukocytopenia -continue Thorazine 50 mg and Ativan 1 mg for moderate severe agitation (lowered dosing a little since sedating) -continue Thorazine 25mg qid prn for anxiety, mild agitation -Dc'd propranolol: pt says contributing to her confusion 2. Pancytopenia: stable Medication induced; discussed with float remover Dr. Howe who agrees labs are stable and patient can continue on current medication regimen but should likely follow up Q 2 weeks for while to continue to demonstrate stable lab values -ordered B12/folate level Evolving Medication decisions for this admission: Currently patient has become stable on Depakote and Haldol -on Admision, Depakote monotherapy tried; not effective (tried in combo with tegretol, then risperdal... eventually Dc'd) -Zyprexa as a p.r.n. not effective; DC'd -Risperidone (added to Depakote); not effective; DC'd -Thorazine PRN proves sedating even at low doses making it difficult to titrate to therapeutic dose. -Tegretol added to depakote caused side-effect: pt developed ataxia, tremor and was disoriented. Tegretol was dc'd and side-effects resolved. -Personal Computer Network Engineer discussed case with psychiatric team, Dr. Uribe, Dr. Leon, Dr. Rangel; one consideration is that the problem with Tegretol was that it was combined with Depakote, the combination being the cause of side effects; however given the fact that patient did have 3 good days over the weekend on Depakote, travel writer will continue with Depakote at this time, possibly increase it and inst ead just switch patient over to Haldol since Risperdal has not been helpful for delusions/AH. -prior to admission patient was started on Depakote 250 mg and left on Paxil 20 mg; to avoid discontinuation syndrome, travel writer lowered Paxil to 10 mg and increase Depakote to therapeutic level. At this time will taper and then discontinue Paxil out of concern for at being a barrier for resolution of mary ellen. DISCONTINUE Risperdal 2mg BID; not effective (dc'd on 07/18) DISCONTINUE Trazodone; used for sleep, but will dc on outside chance interferes with this mentally mary ellen; will use Thorazine instead) DC Risperdal Otherwise: Elevated Cr due CKD continue to avoid NSAIDs given CKD Chest x-ray negative for aspiration but did reveal hypoinflation: discussed with Dr. Castillo who says no need for follow up; finding due to pt not taking deep breath when image taken. Monitor response to medications. Monitor for safety in the milieu. Discharge on stabilization. Patient seen. Chart reviewed. Discussed with team. Obtain collateral contact info?as needed For day today details... HOSPITAL Course: 07/04 patient highly irritable this morning, posturing and aggressive with peers and staff however she was able to calm down and agreed to increase Depakote dos e. Will also restart Paxil though at a lower dose to avoid discontinuation syndrome which could be further aggravated 07/05 Patient severely agitated off and on throughout the day, posturing at staff, threatening to hit, spitting on staff, breaking and throwing things and needing IM medication. Minimal insight -hopefully Depakote will start to help -will consider Tegretol since her sister who has severe bipolar disorder has been successfully treated with this medication 07/06 remains manic, irritated easily agitated; continue treatment plan however patient talked about Tegretol and this remains consideration 07/07 patient refused Depakote last night saying she wants Tegretol 07/10 some mild improvement but she remains manic, disorganized. Patient seems to be having side effect of hand tremor, some ataxia and lowered platelets; currently debating how to approach medication management as patient would like to be on Tegretol as a monotherapy, however initiation of this medication coincides with onset of side effects. Will continue to monitor for now. These medications side effects/risks were discussed with patient who understood and agrees to current regimen 07/11 patient agrees that side effects of unsteady gait and tremor have increased with increased dose of Tegretol and she agrees to discontinue this medication and see if Depakote alone or with another mood stabilizer will be helpful. 07/12 pt confused, disoriented, most likely due to medication Tegretol side effects. Staff reported to travel writer that patient had a choking episode and needed the Heimlich maneuver which was successful. Patient remained unsteady on her feet overnight, fell. Head CT done which was negative; Chest x-ray negative for aspiration but did reveal hypoinflation, travel writer placed internal medicine con sult; Because patient was confused last night her Depakote dose was held 07/13 Seems to be calmer since starting low-dose Risperdal; she says her mind is not racing as much. Will continue this medication and hopefully seek continued stabilization 07/14 remains manic; refused depakote last night; increasing Risperdal to 2 mg b.i.d. patient accepts that she has bipolar disorder and agrees that she is not at her baseline and that discharging would put her vulnerable in the community due to her agitated behaviors. She agrees to remain in the unit for continued treatment From evening of 07/14 to evening of 07/17 patient had good behaviors and was in good behavioral control only getting dysregulated the evening of 07/17 and possibly due to being triggered by the high acuity on the unit. 07/19 more calm, no problematic behaviors; agrees to stay for treatment.? Some confusion and auditory hallucinations but less so. 07/20 calm, cooperative, in good behavioral control; denies AVH and is no longer feeling confused, no longer entertaining delusional thoughts. Says she has an 8/10, 10 being her regular, baseline self 07/21 outburst this morning from which patient says she was feeling triggered. Patient will come down. Patient intermittently over reacts but is overall continuing to trend towards increasing stability 07/23/21 Encourage regime compliance 07/24 outburst yesterday; today calm; organized until get's dysregulated; struggles with insight into her behaviors I spent minutes with the patient and/or on the patient floor today, greater than?50% of which was spent counseling/coordinating care. Reason for contiued inpatient stay Substantial Risk for: rapid decompensation
[2021-07-24 13:49] LABS: Immature Retic Fraction 9.4 % (3.0-15.9); Retic HGB Equivalent 36.6 pg (30.0-35.0); Reticulocyte Percent 0.8 % (0.5-1.8); Reticulocytes Absolute 0.028 X10*6/uL (0.026-0.095)
--- NOTE | 2021-07-24 14:07 | PM.HEMONCCN ---
Subjective - Subjective Chief complaint: None reported Patient: new to practice Consult date: 07/24/21 Requesting Physician: Memo Alcantara MD Primary Care Provider: Aquiles Rivera DO, MD HPI - Consult Narrative Reason for consult: Pancytopenia Narrative: Jeri Stanford is a 60 year old female who was admitted on 07/03/2021 to for aggressive behaviors/mary ellen. She has history of bipolar disorder, she was recently taken off lithium because of kidney impairment. This appears to have aggravated her symptoms of depression as well as caused mood lability and agitation. Since admission to she has been started on Depakote and chlorpromazine at bedtime as well as p.r.n. agitation. Her CBC was normal on admission, but since 07/10/2021 she has developed gradually progressive pancytopenia. She denies any past history of anemia or cytopenias. She does not consume alcohol, she quit drinking 10 years ago. She reports loss of appetite and weight loss in the recent months which she attributes to her psychiatric symptoms. She has never had a screening colonoscopy. She is up-to-date with mammograms. Review of Systems - Constitutional Reports as per HPI, Reports lack of energy, Reports poor appetite, Reports weight loss - Cardiovascular Reports no additional cardiovascular complaints - Respiratory Reports no additional respiratory complaints - Gastrointestinal Reports no additional gastrointestinal complaints Oncology Screenings - ECOG Performance Status ECOG Performance Status: 0 [facility] Medical History: Medical History (Last Updated 07/03/21 @ 07:49 by Anne Machado DO) Anxiety CKD (chronic kidney disease) Depression GERD (gastroesophageal reflux disease) Hypothyroidism Social History: Social History (Last Updated 07/03/21 @ 07:48 by Anne Machado DO) Living Situation History: Household Members: Family Housing: House Do you presently have visiting nurse or other home services: No Alcohol History Details: 1. How often do you have a drink containing alcohol?: b. Monthly or less 2. How many drinks containing alcohol do you have on a typical day when you are drinking?: a. 1 or 2 3. How often do you have six or more drinks on one occasion?: a. Never AUDIT-C Alcohol total score: 1 Last drink: Days (ago) Currently Displaying Signs/Symptoms of Alcohol Withdrawal: No Tobacco History: Patient Tobacco Use Status: Current everyday Tobacco Tobacco use type: Cigarette Cigarette Packs Per Day: 0.5 Smoked in Last 30 Days: Yes Patient Interested in Nicotine Replacement: No Patient Given Instructions on How to Stop Smoking: Yes Date Education Initiated: 07/03/21 Second Hand Smoke Exposure: Yes Substance Use History: Use of substances other than those prescribed or required for medical reasons: No Currently Displaying Signs/Symptoms of Drug Intoxication Withdrawal: No Any prior treatment program specific to substance use: Yes Any prior treatment program specific to substance use comment: [facility] Domestic Abuse History: Have you been hit, kicked, punched, or otherwise hurt by someone within the past year? If so, by whom?: No Do you feel safe in your current relationship?: No Current Relationship Is there a partner from a previous relationship who is making you feel unsafe now?: No Are you made to feel afraid or neglected: No Healthcare Practices: Spiritual Healthcare Practices: none Shinto Healthcare Practices: none Cultural Healthcare Practices: none Advance Directives: Advance Directives: No Advance Directives Information Provided: No Advance Directives Information Provided comment: declined Advance Directives on File: No Healthcare Proxy: No Guardian: No Homicidal Assessment: Do you have thoughts of harming others: None Do you have a plan to hurt others: No Plan Nutrition Assessment: Recently lost weight without trying: No Nutrition Risks: No Nutritional Risk Patient : No : No Poor oral hygiene: No Occupation Assessmet: service: No Sex/Gender Assessment: Sexual orientation: Did not discuss Home Medications and Allergies Current Medications: Current Medications Acetaminophen (Acetaminophen 325 Mg Tablet) 650 mg PO Q6H PRN PRN Reason: Headache/Pain Mild Scale (1-3) Last Admin: 07/23/21 19:33 Dose: 650 mg Documented by: Al Hydroxide/Mg Hydroxide (Magnesium Hydrox/Alum Hydrox 30 Ml Oral.Susp) 30 ml PO Q6H PRN PRN Reason: Heartburn/Nausea Albuterol/Ipratropium (Albuterol/Iprat 2.5/0.5mg 3 Ml Ampul.Neb) 3 ml INHALE RQ4H PRN PRN Reason: Shortness of Breath/Wheezing Last Admin: 07/11/21 20:56 Dose: 3 ml Documented by: Chlorpromazine HCl (Chlorpromazine Hcl 25 Mg Tablet) 25 mg PO Q4H PRN PRN Reason: anxiety/agitation Last Admin: 07/13/21 17:37 Dose: 25 mg Documented by: Chlorpromazine HCl (Chlorpromazine Hcl 25 Mg Tablet) 50 mg PO TID PRN PRN Reason: mod -severe agitation Last Admin: 07/13/21 21:05 Dose: 50 mg Documented by: Chlorpromazine HCl (Chlorpromazine Hcl 25 Mg Tablet) 50 mg PO BEDTIME [facility] Last Admin: 07/23/21 19:32 Dose: 50 mg Documented by: Cyclobenzaprine HCl (Cyclobenzaprine Hcl 5 Mg Tablet) 5 mg PO BEDTIME PRN PRN Reason: Pain, Moderate (Pain Scale 4-6 Last Admin: 07/23/21 22:30 Dose: 5 mg Documented by: Diphenhydramine HCl (Diphenhydramine Hcl 25 Mg Tablet) 50 mg PO BEDTIME PRN PRN Reason: sleep Last Admin: 07/23/21 00:09 Dose: 50 mg Documented by: Divalproex Sodium (Divalproex Sodium Er 500 Mg Tab.Er.24h) 1,500 mg PO DAILY@1700 [facility] Last Admin: 07/23/21 16:19 Dose: 1,000 mg Documented by: Haloperidol (Haloperidol 5 Mg Tablet) 10 mg PO BID@0900,1700 [facility] Last Admin: 07/24/21 09:08 Dose: 10 mg Documented by: Hydroxyzine HCl (Hydroxyzine Hcl 50 Mg Tablet) 50 mg PO Q6H PRN PRN Reason: Anxiety Last Admin: 07/24/21 03:48 Dose: 50 mg Documented by: Levothyroxine Sodium (Levothyroxine Sodium 50 Mcg Tablet) 50 mcg PO DAILY@0630 [facility] Last Admin: 07/24/21 03:48 Dose: 50 mcg Documented by: Loperamide HCl (Loperamide Hcl 2 Mg Capsule) 2 mg PO Q6H PRN PRN Reason: diarrhea Magnesium Hydroxide (Milk Of Magnesia 30 Ml Oral.Susp) 30 ml PO DAILY PRN PRN Reason: Constipation Nicotine (Nicotine 14 Mg Patch.Td24) 14 mg TRANSDERMA DAILY [facility] Last Admin: 07/24/21 09:11 Dose: Not Given Documented by: Nicotine Polacrilex (Nicotine Polacrilex 2 Mg Gum) 2 mg BUCCAL Q2H PRN PRN Reason: Nicotine Cravings Last Admin: 07/21/21 11:33 Dose: 2 mg Documented by: Omeprazole (Omeprazole 20 Mg Capsule.) 20 mg PO DAILY [facility]AS Last Admin: 07/24/21 09:08 Dose: 20 mg Documented by: Home Medications Medication Instructions Recorded Confirmed Type divalproex 250 mg tablet,delayed 1 tab PO BEDTIME 07/03/21 07/03/21 History release hydroxyzine pamoate 25 mg capsule 1 - 2 cap PO BID PRN 07/03/21 07/03/21 History levothyroxine 50 mcg tablet 1 tab PO DAILY 07/03/21 07/03/21 History omeprazole 20 mg capsule,delayed 1 cap PO QAM 07/03/21 07/03/21 History release paroxetine HCl 20 mg tablet 1 tab PO DAILY 07/03/21 07/03/21 History propranolol 10 mg tablet 1 tab PO BID 07/03/21 07/03/21 History Allergies Allergy/AdvReac Type Severity Reaction Status Date / Time lithium AdvReac Intermediate CKD Verified 07/05/21 15:04 Physical Exam Vital signs: Vital Signs Temp 97.5 F 07/23/21 19:25 Pulse 76 07/23/21 19:25 Resp 18 07/21/21 19:54 BP 116/58 L 07/23/21 19:25 Pulse Ox 97 07/23/21 19:25 Weight 93.5 kg - Constitutional Present: no acute distress, cooperative - Routine HEENT Exam Head: Present: normal inspection Eye: Present: normal appearance, PERRL - Routine Neck Exam Present: supple. Absent: lymphadenopathy - Routine Respiratory Exam Absent: accessory muscle use - Routine Cardiovascular Exam Cardiovascular: Present: S1, S2 Hem/Onc Consult Result - Labs CBC & Chem 7: 07/24/21 09:32 07/19/21 08:40 Labs: Short CBC 07/24/21 Range/Units 09:32 WBC 4.5 L (4.8-10.8) X10*3/uL Hgb 10.8 L (12.0-16.0) g/dl Hct 33.9 L (37.0-47.0) % Plt Count 124 L (160-400) X10*3/uL Assessment and Plan Patient Active problem list reviewed?: Yes (1) Pancytopenia Status: Acute Assessment and plan: 1. This is a 60-year-old woman with bipolar disorder who was noted to have worsening pancytopenia. She has been started on Depakote as well as chlorpromazine both of which are associated with cytopenias including aplastic anemia, thrombocytopenia, agranulocytosis and bone marrow suppression. She has also developed macrocytosis. Blood work ordered today shows folic acid deficiency. I have started her on supplementation, folic acid 1 mg p.o. daily. 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 She has developed renal insufficiency secondary to lithium. She was told of this in January 2021. However she did not have anemia prior to this hospitalization, therefore kidney disease is probably not contributing to her anemia. There is no evidence of hemolysis or infectious etiology for her cytopenias. I would recommend continuing to monitor her CBC. If her ANC falls below 1000, it would be prudent to discontinue chlorpromazine. Further blood work to rule out plasma cell dyscrasia/lymphoma has been ordered and is pending. I thank you very much for this referral. - Time Spent With Patient Time Spent with Patient (in minutes): 20
[2021-07-24 15:31] LABS: Lactate Dehydrogenase 175 U/L (122-220)
[2021-07-24 16:06] LABS: Folate 3.5 ng/mL (> or = 4.0); Vitamin B12 761 pg/mL (200-900)
[2021-07-24] MEDS: Divalproex Sodium ER 500 MG TAB.ER.24H 1500 MG PO (17:06)
[2021-07-24 18:00] VITALS: BP 98/67; PULSE 84; RESP 14; TEMP 36.7; O2SAT 97
[2021-07-24] MEDS: chlorproMAZINE HCl 25 MG TABLET 50 MG PO (18:54)
[2021-07-24] MEDS: Folic Acid 1 MG TABLET PO (18:54)
[2021-07-24] MEDS: Acetaminophen 325 MG TABLET 650 MG PO (18:55)
[2021-07-25] MEDS: HaloperidoL 5 MG TABLET 10 MG PO ×2 (08:03→16:13)
[2021-07-25] MEDS: Nicotine 14 MG PATCH.TD24 TRANSDERMA (08:03)
[2021-07-25] MEDS: Folic Acid 1 MG TABLET PO (08:03)
[2021-07-25] MEDS: Omeprazole 20 MG CAPSULE.DR PO (08:03)
[2021-07-25] MEDS: Acetaminophen 325 MG TABLET 650 MG PO ×2 (14:40→21:30)
[2021-07-25] MEDS: Divalproex Sodium ER 500 MG TAB.ER.24H 1500 MG PO ×2 (16:24→18:51)
[2021-07-25 16:52] VITALS: RESP 16
--- NOTE | 2021-07-25 17:01 | HO.PSYCHPN ---
Subjective Subjective Date of Service: 07/25/21 Reason For Visit: Depression Interim History: Early this morning patient awake and saying that she is discharging today at 09:30 in the morning a matter what. She remained adamant and not open to discussion with staff. As auto service writer approached, patient was lying in her bed tearful. Initially she said it does not matter she wants to discharge but with more discussion patient agreed that she is still not at her baseline. She also was able to accept that even though she feels provoked by others, she is miss reading people's intentions and sometimes even reacting more to her past trauma then she is to present events. Patient however said that if she were home, she would have much more freedom to use coping skills such as taking walks, having her own space and not feeling confined, to which auto service writer agrees is a reasonable point. Patient asked if she could get back on lithium despite her kidney dysfunction. State Patrol Officer agrees that there are some cases where the benefit of lithium outweighs the risks to once kidney however auto service writer also explained that further kidney injury could occur and patient could even end up on dialysis which patient understood and is not sure if it is worth the risk. She would very much like to consult with a cytologist to get a better understanding of the risks of getting back on lithium since that seems to be the main medication that has helped her. State Patrol Officer also wondered with patient whether at this point a lower dose of lithium could be helpful. Patient agreed to remain on the unit for continued treatment. Talked with Jeri's outpatient therapist Meenakshi who reports at baseline, pt is mostly calm, cooperative, not combative. Mental Status Exam Mental Status Exam Narrative: Pt is alert and oriented; Behavior calm, cooperative but can intermittently get explosive if feeling triggered; dressed in casual cloths; adequate hygiene; mood is OK and affect calm; eye contact adequate; Speech is normal rate, volume and prosody; not pressured; no psychomotor agitation present but pt can intermittently erupt; thought process is goal directed; Thought content without paranoid ideations and on tx however, sometimes feels unnecessarily defensive towards others, misreading their tone or body language; denies any SI/HI. not witnessed responding to internal stimuli. Patients insight and judgment are impaired but much improved. Diagnostics Vital Signs (24Hr): Vital Signs - 24 hr 07/24/21 18:00 07/25/21 16:52 Temperature 98.1 F Pulse Rate 84 Respiratory Rate 14 16 Blood Pressure 98/67 Pulse Oximetry 97 BMI result Body Mass Index 30.4 Labs Results: 07/24/21 09:32 07/27/21 08:42 Labs: Laboratory Results - last 48 hr 07/24/21 07/24/21 07/24/21 09:32 15:01 15:01 WBC 4.5 L RBC 3.34 L Hgb 10.8 L Hct 33.9 L MCV 101.5 H MCH 32.3 MCHC 31.9 RDW 13.0 Plt Count 124 L MPV 11.6 Immature Gran % (Auto) 0.9 H Neut % (Auto) 41.9 L Lymph % (Auto) 31.0 [place] % (Auto) 16.4 H Eos % (Auto) 8.9 H Baso % (Auto) 0.9 Lymph # (Auto) 1.4 [place] # (Auto) 0.7 Eos # (Auto) 0.4 Baso # (Auto) 0.0 Abs Immat Gran (auto) 0.04 H Absolute Neuts (auto) 1.9 L Absolute Nucleated RBC 0.000 Nucleated RBC % (auto) 0.0 Absolute Retic 0.028 Percent Retic 0.8 Immature Retic Fraction 9.4 Retic Hgb Equivalent 36.6 H Lactate Dehydrogenase 175 Vitamin B12 761 Folate 3.5 L Imaging Radiology Impressions: ITS Impressions Chest X-Ray 07/11/21 21:02 IMPRESSION: Hypoinflated lungs. No acute intrathoracic disease. Head CT 07/11/21 21:12 IMPRESSION: No acute intracranial process seen Medications Medications Current Medications Acetaminophen (Acetaminophen 325 Mg Tablet) 650 mg PO Q6H PRN PRN Reason: Headache/Pain Mild Scale (1-3) Last Admin: 07/25/21 14:40 Dose: 650 mg Documented by: Al Hydroxide/Mg Hydroxide (Magnesium Hydrox/Alum Hydrox 30 Ml Oral.Susp) 30 ml PO Q6H PRN PRN Reason: Heartburn/Nausea Chlorpromazine HCl (Chlorpromazine Hcl 25 Mg Tablet) 25 mg PO Q4H PRN PRN Reason: anxiety/agitation Last Admin: 07/13/21 17:37 Dose: 25 mg Documented by: Chlorpromazine HCl (Chlorpromazine Hcl 25 Mg Tablet) 50 mg PO TID PRN PRN Reason: mod -severe agitation Last Admin: 07/13/21 21:05 Dose: 50 mg Documented by: Chlorpromazine HCl (Chlorpromazine Hcl 25 Mg Tablet) 50 mg PO BEDTIME [facility] Last Admin: 07/24/21 18:54 Dose: 50 mg Documented by: Cyclobenzaprine HCl (Cyclobenzaprine Hcl 5 Mg Tablet) 5 mg PO BEDTIME PRN PRN Reason: Pain, Moderate (Pain Scale 4-6 Last Admin: 07/23/21 22:30 Dose: 5 mg Documented by: Diphenhydramine HCl (Diphenhydramine Hcl 25 Mg Tablet) 50 mg PO BEDTIME PRN PRN Reason: sleep Last Admin: 07/23/21 00:09 Dose: 50 mg Documented by: Divalproex Sodium (Divalproex Sodium Er 500 Mg Tab.Er.24h) 1,500 mg PO DAILY@1700 [facility] Last Admin: 07/25/21 16:24 Dose: 1,000 mg Documented by: Folic Acid (Folic Acid 1 Mg Tablet) 1 mg PO DAILY [facility] Last Admin: 07/25/21 08:03 Dose: 1 mg Documented by: Haloperidol (Haloperidol 5 Mg Tablet) 10 mg PO BID@0900,1700 [facility] Last Admin: 07/25/21 16:13 Dose: 10 mg Documented by: Hydroxyzine HCl (Hydroxyzine Hcl 50 Mg Tablet) 50 mg PO Q6H PRN PRN Reason: Anxiety Last Admin: 07/24/21 03:48 Dose: 50 mg Documented by: Levothyroxine Sodium (Levothyroxine Sodium 50 Mcg Tablet) 50 mcg PO DAILY@0630 [facility] Last Admin: 07/25/21 06:41 Dose: Not Given Documented by: Loperamide HCl (Loperamide Hcl 2 Mg Capsule) 2 mg PO Q6H PRN PRN Reason: diarrhea Magnesium Hydroxide (Milk Of Magnesia 30 Ml Oral.Susp) 30 ml PO DAILY PRN PRN Reason: Constipation Nicotine (Nicotine 14 Mg Patch.Td24) 14 mg TRANSDERMA DAILY [facility] Last Admin: 07/25/21 08:03 Dose: 14 mg Documented by: Nicotine Polacrilex (Nicotine Polacrilex 2 Mg Gum) 2 mg BUCCAL Q2H PRN PRN Reason: Nicotine Cravings Last Admin: 07/21/21 11:33 Dose: 2 mg Documented by: Omeprazole (Omeprazole 20 Mg Capsule.) 20 mg PO DAILY [facility] Last Admin: 07/25/21 08:03 Dose: 20 mg Documented by: Allergies Allergies Allergy/AdvReac Type Severity Reaction Status Date / Time lithium AdvReac Intermediate CKD Verified 07/05/21 15:04 Assessment & Plan Assessment & Plan (1) Bipolar 1 disorder: Status: Acute Code(s): F31.9 - Bipolar disorder, unspecified Plan HPI: Jeri is a 60 yo female who carries a diagnosis of bipolar I DO. She presented to [facility] ED on 07/03/21 due to worsening depression and anxiety after she was at a convenience store and told the land leasing information clerk she needed help and they called 911. ED provider obtained records from [facility], pt has CKD, Cr 1.4 on 06/13. Pt was given 2L of IVF, Cr improved from 1.84 to 1.66. Precipitating factors include recent medication change where she was discontinued from [place] after developing CKD adn started on Depakote 250mg daily; she was left on Paxil. Pt reported worsening sx of mood lability, mary ellen, agitation, and increased activity level since stopping lithium, i.e. she walked for 14 hours one day. Utox negative. Working Formulation: History of severe bipolar disorder moderately well treated with lithium until developed CKD. Patient has tough daily insight and judgment to know she has bipolar disorder and needs to remain for treatment. She nearly daily demands discharge when she is dysregulated however when she calms down she agrees that she is not stable and agrees to remain for treatment. On current regimen patient continues to increasingly stabilize and she has overall become organized in speech and behavior. Intermittently she will get triggered and miss read some social interaction which can lead to intermittent explosive anger however patient is able to eventually calm down. Patient shares that this exists at baseline though seems to have been better treated with lithium. Working PLAN: CV 1:1 1. Bipolar disorder, severe: only Partially resolved with Depakote and Haldol -CONSIDERING retrial of [place] since mary ellen only partially resolved and behaviors still problematic -continue Depakote ER 1500mg daily (will not increase); while patient may benefit from a higher dose, her platelets have decreased since starting Depakote; platelets have stabilized; since patient is behaviors and organization is also stabilizing, do not want to risk further lowering platelets -continue Haldol 10mg BID (0900 and 1700) -Platelets stable; Continue to monitor CBC, lytes, bun/cr -DC Paxil to 5mg; for despite the fact that patient has improved considerably since admission, she remains intermittently eruptive and disorganized so will remove all barriers to mood stabilization -DC Thorazine 50mg qhs for insomnia and make PRN so as to limit contributions to leukocytopenia -continue Thorazine 50 mg and Ativan 1 mg for moderate severe agitation (lowered dosing a little since sedating) -continue Thorazine 25mg qid prn for anxiety, mild agitation 2. Pancytopenia: stable Medication induced; discussed with bias cutter Dr. Howe who agrees labs are stable and patient can continue on current medication regimen but should likely follow up Q 2 weeks for while to continue to demonstrate stable lab values -ordered B12/folate: level pending to review Evolving Medication decisions for this admission: -on Admision, Depakote monotherapy tried; not effective (tried in combo with tegretol, then risperdal... eventually Dc'd) -Zyprexa as a p.r.n. not effective; DC'd -Risperidone (added to Depakote); not effective; DC'd -Thorazine PRN proves sedating even at low doses making it difficult to titrate to therapeutic dose. -Tegretol added to depakote caused side-effect: pt developed ataxia, tremor and was disoriented. Tegretol was dc'd and side-effects resolved. -State Patrol Officer discussed case with psychiatric team, Dr. Uribe, Dr. Leon, Dr. Rangel; one consideration is that the problem with Tegretol was that it was combined with Depakote, the combination being the cause of side effects; however given the fact that patient did have 3 good days over the weekend on Depakote, auto service writer will continue with Depakote at this time, possibly increase it and instead just switch patient over to Haldol since Risperdal has not been helpful for delusions/AH. -prior to admission patient was started on Depakote 250 mg and left on Paxil 20 mg; to avoid discontinuation syndrome, auto service writer lowered Paxil to 10 mg and increase Depakote to therapeutic level. At this time will taper and then Discontinue Paxil out of concern for at being a barrier for resolution of mary ellen. Discontinued Risperdal 2mg BID; not effective (dc'd on 07/18) Discontinued Trazodone; used for sleep, but will dc on outside chance interferes with this mentally mary ellen; will use Thorazine instead) 07/25/21: Depakote and Haldol only partially helpful; Depakote cannot be increased given its caused his pancytopenia which is stable. Patient very much wants to get back on lithium; will discuss with Nephrology if this is an option. Patient and auto service writer discussed side effect risks of going back on lithium and patient feels that the benefit of this medication outweighs the risks given that she can not continue to live and this manic state. Otherwise: -Dc'd propranolol: pt says contributing to her confusion Elevated Cr due CKD continue to avoid NSAIDs given CKD Chest x-ray negative for aspiration but did reveal hypoinflation: discussed with Dr. Castillo who says no need for follow up; finding due to pt not taking deep breath when image taken. Monitor response to medications. Monitor for safety in the milieu. Discharge on stabilization. Patient seen. Chart reviewed. Discussed with team. Obtain collateral contact info?as needed For day today details... HOSPITAL Course: 07/04 patient highly irritable this morning, posturing and aggressive with peers and staff however she was able to calm down and agreed to increase Depakote dose. Will also restart Paxil though at a lower dose to avoid discontinuation syndrome which could be further aggravated 07/05 Patient severely agitated off and on throughout the day, posturing at staff, threatening to hit, spitting on staff, breaking and throwing things and needing IM medication. Minimal insight -hopefully Depakote will start to help -will consider Tegretol since her sister who has severe bipolar disorder has been successfully treated with this medication 07/06 remains manic, irritated easily agitated; continue treatment plan however patient talked about Tegretol and this remains consideration 07/07 patient refused Depakote last night saying she wants Tegretol 07/10 some mild improvement but she remains manic, disorganized. Patient seems to be having side effect of hand tremor, some ataxia and lowered platelets; currently debating how to approach medication management as patient would like to be on Tegretol as a monotherapy, however initiation of this medication coincides with onset of side effects. Will continue to monitor for now. These medications side effects/risks were discussed with patient who understood and agrees to current regimen 07/11 patient agrees that side effects of unsteady gait and tremor have increased with increased dose of Tegretol and she agrees to discontinue this medication and see if Depakote alone or with another mood stabilizer will be helpful. 07/12 pt confused, disoriented, most likely due to medication Tegretol side effects. Staff reported to auto service writer that patient had a choking episode and needed the Heimlich maneuver which was successful. Patient remained unsteady on her feet overnight, fell. Head CT done which was negative; Chest x-ray negative for aspiration but did reveal hypoinflation, auto service writer placed internal medicine consult; Because patient was confused last night her Depakote dose was held 07/13 Seems to be calmer since starting low-dose Risperdal; she says her mind is not racing as much. Will continue this medication and hopefully seek continued stabilization 07/14 remains manic; refused depakote last night; increasing Risperdal to 2 mg b.i.d. patient accepts that she has bipolar disorder and agrees that she is not at her baseline and that discharging would put her vulnerable in the community due to her agitated behaviors. She agrees to remain in the unit for continued treatment From evening of 07/14 to evening of 07/17 patient had good behaviors and was in good behavioral control only getting dysregulated the evening of 07/17 and possibly due to being triggered by the high acuity on the unit. 07/19 more calm, no problematic behaviors; agrees to stay for treatment.? Some confusion and auditory hallucinations but less so. 07/20 calm, cooperative, in good behavioral control; denies AVH and is no longer feeling confused, no longer entertaining delusional thoughts. Says she has an 8/10, 10 being her regular, baseline self 6/3 outburst this morning from which patient says she was feeling triggered. Patient will come down. Patient intermittently over reacts but is overall continuing to trend towards increasing stability 07/23/21 Encourage regime compliance / outburst yesterday; today calm; organized until get's dysregulated; struggles with insight into her behaviors 07/25 patient continues to have outbursts and makes threats and verbal assaults to staff. She wants to get back on lithium; auto service writer agreed to discuss with cytologist I spent minutes with the patient and/or on the patient floor today, greater than?50% of which was spent counseling/coordinating care. Patient educated on: diagnosis and medication risk/benefits Informed Consent: understands Reason for contiued inpatient stay Substantial Risk for: inability to function and rapid decompensation
[2021-07-25] MEDS: chlorproMAZINE HCl 25 MG TABLET 50 MG PO (19:36)
[2021-07-25] MEDS: Cyclobenzaprine HCl 5 MG TABLET PO (22:35)
[2021-07-26] MEDS: Levothyroxine Sodium 50 MCG TABLET PO (09:07)
[2021-07-26] MEDS: HaloperidoL 5 MG TABLET 10 MG PO ×2 (09:07→18:28)
[2021-07-26] MEDS: Nicotine 14 MG PATCH.TD24 TRANSDERMA (09:08)
[2021-07-26] MEDS: Folic Acid 1 MG TABLET PO (09:10)
[2021-07-26] MEDS: Omeprazole 20 MG CAPSULE.DR PO (09:10)
--- NOTE | 2021-07-26 10:38 | PM.CNNEP ---
History of Present Illness Reason for Consult Consult date: 07/26/21 Chief Complaint Chief complaint: Depression PMFSH Past Medical History Medical History (Updated 07/24/21 @ 18:25 by Enriqueta Howe MD) Anxiety CKD (chronic kidney disease) Depression GERD (gastroesophageal reflux disease) Hypothyroidism Social History Social History (Updated 07/03/21 @ 07:48 by Anne Machado DO) Household Members: Family Housing: House Do you presently have visiting nurse or other home services: No Patient Tobacco Use Status: Current everyday Tobacco user Tobacco use type: Cigarette Cigarette Packs Per Day: 0.5 Smoked in Last 30 Days: Yes Patient Interested in Nicotine Replacement: No Patient Given Instructions on How to Stop Smoking: Yes Date Education Initiated: 07/03/21 Second Hand Smoke Exposure: Yes Use of substances other than those prescribed or required for medical reasons: No Currently Displaying Signs/Symptoms of Drug Intoxication Withdrawal: No Any prior treatment program specific to substance use: Yes ([facility]) Have you been hit, kicked, punched, or otherwise hurt by someone within the past year? If so, by whom?: No Do you feel safe in your current relationship?: No Current Relationship Is there a partner from a previous relationship who is making you feel unsafe now?: No Are you made to feel afraid or neglected: No Spiritual Healthcare Practices: none Yarsanism Healthcare Practices: none Cultural Healthcare Practices: none Advance Directives: No Advance Directives Information Provided: No (declined) Advance Directives on File: No Healthcare Proxy: No Guardian: No Do you have thoughts of harming others: None Do you have a plan to hurt others: No Plan Recently lost weight without trying: No Nutrition Risks: No Nutritional Risk Patient : No : No Poor oral hygiene: No service: No Sexual orientation: Did not discuss Meds Allergies Allergy/AdvReac Type Severity Reaction Status Date / Time lithium AdvReac Intermediate CKD Verified 07/05/21 15:04 Active Medications: Current Medications Acetaminophen (Acetaminophen 325 Mg Tablet) 650 mg PO Q6H PRN PRN Reason: Headache/Pain Mild Scale (1-3) Last Admin: 07/25/21 21:30 Dose: 650 mg Al Hydroxide/Mg Hydroxide (Magnesium Hydrox/Alum Hydrox 30 Ml Oral.Susp) 30 ml PO Q6H PRN PRN Reason: Heartburn/Nausea Chlorpromazine HCl (Chlorpromazine Hcl 25 Mg Tablet) 25 mg PO Q4H PRN PRN Reason: anxiety/agitation Last Admin: 07/13/21 17:37 Dose: 25 mg Chlorpromazine HCl (Chlorpromazine Hcl 25 Mg Tablet) 50 mg PO TID PRN PRN Reason: mod -severe agitation Last Admin: 07/13/21 21:05 Dose: 50 mg Chlorpromazine HCl (Chlorpromazine Hcl 25 Mg Tablet) 50 mg PO BEDTIME [facility] Last Admin: 07/25/21 19:36 Dose: 50 mg Cyclobenzaprine HCl (Cyclobenzaprine Hcl 5 Mg Tablet) 5 mg PO BEDTIME PRN PRN Reason: Pain, Moderate (Pain Scale 4-6 Last Admin: 07/25/21 22:35 Dose: 5 mg Diphenhydramine HCl (Diphenhydramine Hcl 25 Mg Tablet) 50 mg PO BEDTIME PRN PRN Reason: sleep Last Admin: 07/23/21 00:09 Dose: 50 mg Divalproex Sodium (Divalproex Sodium Er 500 Mg Tab.Er.24h) 1,500 mg PO DAILY@1700 [facility] Last Admin: 07/25/21 18:51 Dose: 500 mg Folic Acid (Folic Acid 1 Mg Tablet) 1 mg PO DAILY [facility] Last Admin: 07/26/21 09:10 Dose: 1 mg Haloperidol (Haloperidol 5 Mg Tablet) 10 mg PO BID@0900,1700 [facility] Last Admin: 07/26/21 09:07 Dose: 10 mg Hydroxyzine HCl (Hydroxyzine Hcl 50 Mg Tablet) 50 mg PO Q6H PRN PRN Reason: Anxiety Last Admin: 07/24/21 03:48 Dose: 50 mg Levothyroxine Sodium (Levothyroxine Sodium 50 Mcg Tablet) 50 mcg PO DAILY@0630 [facility] Last Admin: 07/26/21 09:07 Dose: 50 mcg Loperamide HCl (Loperamide Hcl 2 Mg Capsule) 2 mg PO Q6H PRN PRN Reason: diarrhea Magnesium Hydroxide (Milk Of Magnesia 30 Ml Oral.Susp) 30 ml PO DAILY PRN PRN Reason: Constipation Nicotine (Nicotine 14 Mg Patch.Td24) 14 mg TRANSDERMA DAILY [facility] Last Admin: 07/26/21 09:08 Dose: 14 mg Nicotine Polacrilex (Nicotine Polacrilex 2 Mg Gum) 2 mg BUCCAL Q2H PRN PRN Reason: Nicotine Cravings Last Admin: 07/21/21 11:33 Dose: 2 mg Omeprazole (Omeprazole 20 Mg Capsule.) 20 mg PO DAILY [facility] Last Admin: 07/26/21 09:10 Dose: 20 mg Home Medications Medication Instructions Recorded Confirmed Last Taken Type divalproex 250 mg tablet,delayed 1 tab PO BEDTIME 07/03/21 07/03/21 Unknown History release hydroxyzine pamoate 25 mg capsule 1 - 2 cap PO BID PRN anxiety 07/03/21 07/03/21 Unknown History levothyroxine 50 mcg tablet 1 tab PO DAILY 07/03/21 07/03/21 Unknown History omeprazole 20 mg capsule,delayed 1 cap PO QAM 07/03/21 07/03/21 Unknown History release paroxetine HCl 20 mg tablet 1 tab PO DAILY 07/03/21 07/03/21 Unknown History propranolol 10 mg tablet 1 tab PO BID 07/03/21 07/03/21 Unknown History Physical Exam Vital Signs: Last Vital Signs Temp 98.1 F 07/24/21 18:00 Pulse 84 07/24/21 18:00 Resp 16 07/25/21 16:52 BP 98/67 07/24/21 18:00 Pulse Ox 97 07/24/21 18:00 O2 Del Method 07/23/21 19:25 BMI result Body Mass Index 30.4 Results Lab Results Result Diagrams: 07/24/21 09:32 07/19/21 08:40 Lab results: Hematology 07/24/21 09:32 WBC 4.5 L Hgb 10.8 L Plt Count 124 L Assessment and Plan (1) Acute kidney injury superimposed on chronic kidney disease: Status: Acute Plan Pt seen and examined CKD 3 most likely due to [place] Nephropathy She is at a risk for ongoing renal injury from [place]. However, if [place] is the only option to treat her bipolar disorder at this time, the risk and benefit should be evaluated.. Assuming that the benefits outweigh risk, [place] can be restarted and kidney function needs to be monitored closely Full consult dictated Thanks Procedures Date of Service Date of Service: 07/26/21
--- NOTE | 2021-07-26 11:54 | CONS_ITS ---
DATE OF SERVICE: 07/26/2021 REASON FOR CONSULTATION: I was called to see this patient today to assist with management of chronic kidney disease. HISTORY OF PRESENT ILLNESS: To summarize, Jeri is a 60-year-old woman with a history of bipolar disorder. 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 Serum creatinine is around 1.4 mg/dL. The urine specific gravity was less than 1.005, suggestive of a dilute urine. She is on various medications and apparently the only medication she has responded is lithium. This consult has been requested for possible initiation of lithium therapy. Ongoing medical problems include stage 3 chronic kidney disease, bipolar disorder, GERD, hypothyroidism. SOCIAL HISTORY: She consumes alcohol 1 or 2 drinks. Also smokes cigarettes almost every other day. No history of illicit drug abuse. HOME MEDICATIONS: Include Tylenol, albuterol, chlorpromazine, cyclobenzaprine, divalproex, Haldol, levothyroxine, magnesium oxide, omeprazole. ALLERGIES: NO KNOWN DRUG ALLERGIES, ALTHOUGH LITHIUM HAS BEEN LISTED ALLERGY. I BELIEVE IT IS NOT A TRUE ALLERGY. REVIEW OF SYSTEMS: No headache, nausea, or vomiting. She denies polyuria. No diarrhea or constipation. No polydipsia. All other systems were reviewed. PHYSICAL EXAMINATION: GENERAL: Patient is middle-age woman, obese, comfortable, not in distress. She is sleepy, but arousable. NECK: Supple. No JVD. HEENT: Mucosa moist. LUNGS: Air entry equal. No rales. HEART: S1, S2 heard. No gallop. ABDOMEN: Obese, soft, nontender. EXTREMITIES: No edema. All the blood pressure readings were reviewed and blood pressure has been in the normal range. LABORATORY DATA: Hemoglobin 10.8, platelets 124,000, WBC 4.5, sodium 143, potassium 4.1, BUN 57, creatinine 1.58 as of July 19. Urine studies back in June showed urine specific gravity of less than 1.005, no protein by dipstick. IMPRESSION: 60-year-old woman with bipolar disorder, currently has chronic kidney disease, stage 3. 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 At this point, restarting lithium puts her at risk for ongoing renal injury. However, it appears that lithium seems to be the only medication that is helping her bipolar disorder. The risks and benefits of restarting the lithium should be considered. I tried to discuss this with Jeri and she wants to get started with the lithium. Therefore, I suggest checking urine for sodium osmolality and a repeat urinalysis. [place] can be restarted and we can carefully monitor the kidney function. Check BUN, creatinine at least once a month. If the creatinine continues to increase or if she has polyuria or polydipsia, then we should revisit the usage of lithium. Thank you for allowing me to participate in the medical management of the patient. Hleder Hernández MD BPA/MODL / [phone]
[2021-07-26 14:10] LABS: Sodium Urine Random < 20.0 mmol/L
[2021-07-26 14:31] LABS: Osmolality Urine 210 mosm/kg (373-1093)
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
[2021-07-26] MEDS: Divalproex Sodium ER 500 MG TAB.ER.24H 1500 MG PO (18:28)
[2021-07-26] MEDS: chlorproMAZINE HCl 25 MG TABLET 50 MG PO (21:46)
[2021-07-26] MEDS: Cyclobenzaprine HCl 5 MG TABLET PO (21:47)
[2021-07-27] MEDS: Acetaminophen 325 MG TABLET 650 MG PO ×3 (00:49→20:21)
[2021-07-27] MEDS: diphenhydrAMINE HCL 25 MG TABLET 50 MG PO (00:50)
[2021-07-27] MEDS: Levothyroxine Sodium 50 MCG TABLET PO (06:40)
[2021-07-27] MEDS: HaloperidoL 5 MG TABLET 10 MG PO ×2 (08:34→15:58)
[2021-07-27] MEDS: Folic Acid 1 MG TABLET PO (08:34)
[2021-07-27] MEDS: Omeprazole 20 MG CAPSULE.DR PO (08:34)
[2021-07-27] MEDS: Nicotine 14 MG PATCH.TD24 TRANSDERMA (08:41)
[2021-07-27 09:43] LABS: Anion Gap 13 (12-20); Blood Urea Nitrogen 27 mg/dL (9-16); Calcium 8.2 mg/dL (8.4-10.2); Carbon Dioxide 20 mmol/L (22-29); Chloride 113 mmol/L (96-108); Creatinine Clr Calc Pharmacy 37.6; Estimated Glomerular Filt Rate 26; Glucose Random 214 mg/dL (60-115); Potassium 4.1 mmol/L (3.3-5.1); Sodium 142 mmol/L (135-145)
[2021-07-27 12:07] LABS: IgA 291 mg/dL (47-310); IgG 1598 mg/dL (600-1640); IgM 284 mg/dL (50-300)
[2021-07-27] MEDS: Lithium Carbonate 300 MG TABLET 150 MG PO (13:31)
[2021-07-27 14:21] VITALS: BP 128/62; PULSE 94; TEMP 36.4
[2021-07-27] MEDS: Divalproex Sodium ER 500 MG TAB.ER.24H 1500 MG PO (15:58)
[2021-07-27 16:24] VITALS: BP 106/62; PULSE 99
--- NOTE | 2021-07-27 18:05 | P.PNPSI_ITS ---
Subjective Subjective Date of Service: 07/27/21 Reason For Visit: Depression Interim History: Patient remains intermittently explosive and aggressive with staff and peers, verbally assaulting Circus Artist again discussed options with patient who very much wants to get back on lithium and agrees that the benefit outweighs the side effects.? Circus Artist reviewed side effects again and risks of getting back on lithium but patient is adamant that she is miserable feeling pushed around by manic symptoms, getting irritable and angry and feeling out of control. She agrees to start [place] today and to get blood work to monitor kidney function. Discussed case with Dr. Hernández, international first officer who saw patient.? Dr. Hernández reviewed risks and side effects of going back on lithium which include worsening kidney function and the worst outcome being eventual possible dialysis; also at risk is lithium toxicity.? However currently after assessing her labs he reports that she is still able to concentrate urine and that if risks and benefits are weighed it is possible she could tolerate lithium at lower doses.? Assuming she tolerates it on the unit, as an outpatient he recommends monthly labs drawn for BUN/creatinine, calcium, sodium and of course lithium level.? Circus Artist communicated this to her outpatient provider Christine Cote who agrees with this plan. Circus Artist spoke with Christine Cote her outpt psychiatric prescriber who said at baseline patient is calm, pleasant and functions well.? It she said patient used to be on lithium ER 1200 mg daily but back in February peak came lithium toxic and international first officer was consulted and patient dose was lowered to 600 mg.? On 600 mg she was moderately okay for while, however she started becoming manic.? Patient herself increased her dose to 900 mg and again became lithium toxic. Mental Status Exam Mental Status Exam Narrative: Pt is alert and oriented; Behavior calm, cooperative but can intermittently get explosive if feeling triggered; dressed in casual cloths; adequate hygiene; mood is OK and affect calm; eye contact adequate; Speech is normal rate, volume and prosody; not pressured; no psychomotor agitation present but pt can intermittently erupt; thought process is goal directed; Thought content without paranoid ideations and on tx however, sometimes feels unnecessarily defensive towards others, misreading their tone or body language; denies any SI/HI. not witnessed responding to internal stimuli. Patients insight and judgment are impa ired but much improved. Diagnostics Vital Signs (24Hr): BMI result Body Mass Index 30.4 Labs Results: 07/24/21 09:32 07/27/21 08:42 Labs: Laboratory Results - last 48 hr 07/24/21 07/27/21 07/27/21 15:01 08:42 08:42 Sodium 142 Potassium 4.1 Chloride 113 H Carbon Dioxide 20 L Anion Gap 13 BUN 27 H Creatinine 1.96 H Estim Creat Clear Calc 37.6 Estimated GFR 26 Random Glucose 214 H Calcium 8.2 L Total Protein (PEP) 6.8 Albumin (PEP) 3.5 L Anobn-9-Snketopsp 0.3 Pbolq-3-Msanhpvnj 0.6 Jjwg-7-Gllljwet 0.5 Hjsm-8-Iirbcbmk 0.4 Gamma Globulins 1.5 Abnorm Protein Band 1 TNP Abnorm Protein Band 2 TNP Abnorm Protein Band 3 TNP PEP Interpretation SEE NOTE PTH Intact 65 Calcium (PTH Intact) 8.7 IgG Total 1598 IgA Total 291 IgM 284 BERNARDINO Interpretation SEE NOTE Imaging Radiology Impressions: ITS Impressions Chest X-Ray 07/11/21 21:02 IMPRESSION: Hypoinflated lungs. No acute intrathoracic disease. Head CT 07/11/21 21:12 IMPRESSION: No acute intracranial process seen Medications Medications Current Medications Acetaminophen (Acetaminophen 325 Mg Tablet) 650 mg PO Q6H PRN PRN Reason: Headache/Pain Mild Scale (1-3) Last Admin: 07/28/21 09:02 Dose: 650 mg Al Hydroxide/Mg Hydroxide (Magnesium Hydrox/Alum Hydrox 30 Ml Oral.Susp) 30 ml PO Q6H PRN PRN Reason: Heartburn/Nausea Chlorpromazine HCl (Chlorpromazine Hcl 25 Mg Tablet) 25 mg PO Q4H PRN PRN Reason: anxiety/agitation Last Admin: 07/27/21 20:22 Dose: 25 mg Chlorpromazine HCl (Chlorpromazine Hcl 25 Mg Tablet) 50 mg PO TID PRN PRN Reason: mod -severe agitation Last Admin: 07/13/21 21:05 Dose: 50 mg Chlorpromazine HCl (Chlorpromazine Hcl 25 Mg Tablet) 50 mg PO BEDTIME ISAÍAS Last Admin: 07/27/21 18:20 Dose: 50 mg Cyclobenzaprine HCl (Cyclobenzaprine Hcl 5 Mg Tablet) 5 mg PO BEDTIME PRN PRN Reason: Pain, Moderate (Pain Scale 4-6 Last Admin: 07/27/21 20:22 Dose: 5 mg Diphenhydramine HCl (Diphenhydramine Hcl 25 Mg Tablet) 50 mg PO BEDTIME PRN PRN Reason: sleep Last Admin: 07/27/21 00:50 Dose: 50 mg Divalproex Sodium (Divalproex Sodium Er 500 Mg Tab.Er.24h) 1,500 mg PO DAILY@1700 [facility] Last Admin: 07/28/21 15:33 Dose: 1,500 mg Folic Acid (Folic Acid 1 Mg Tablet) 1 mg PO DAILY [facility] Last Admin: 07/28/21 09:03 Dose: 1 mg Haloperidol (Haloperidol 5 Mg Tablet) 10 mg PO BID@0900,1700 [facility] Last Admin: 07/28/21 15:33 Dose: 10 mg Hydroxyzine HCl (Hydroxyzine Hcl 50 Mg Tablet) 50 mg PO Q6H PRN PRN Reason: Anxiety Last Admin: 07/24/21 03:48 Dose: 50 mg Levothyroxine Sodium (Levothyroxine Sodium 50 Mcg Tablet) 50 mcg PO DAILY@0630 [facility] Last Admin: 07/28/21 09:03 Dose: 50 mcg [place] Carbonate ([place] Carbonate 300 Mg Tablet) 150 mg PO DAILY [facility] Last Admin: 07/28/21 09:01 Dose: 150 mg Loperamide HCl (Loperamide Hcl 2 Mg Capsule) 2 mg PO Q6H PRN PRN Reason: diarrhea Magnesium Hydroxide (Milk Of Magnesia 30 Ml Oral.Susp) 30 ml PO DAILY PRN PRN Reason: Constipation Nicotine (Nicotine 14 Mg Patch.Td24) 14 mg TRANSDERMA DAILY [facility] Last Admin: 07/28/21 09:03 Dose: 14 mg Nicotine Polacrilex (Nicotine Polacrilex 2 Mg Gum) 2 mg BUCCAL Q2H PRN PRN Reason: Nicotine Cravings Last Admin: 07/21/21 11:33 Dose: 2 mg Omeprazole (Omeprazole 20 Mg Capsule.Dr) 20 mg PO DAILY [facility] Last Admin: 07/28/21 09:03 Dose: 20 mg Allergies Allergies Allergy/AdvReac Type Severity Reaction Status Date / Time lithium AdvReac Intermediate CKD Verified 07/05/21 15:04 Assessment & Plan Assessment & Plan (1) Bipolar 1 disorder: Status: Acute Code(s): F31.9 - Bipolar disorder, unspecified (2) Acute kidney injury superimposed on chronic kidney disease: Status: Acute Code(s): N17.9 - Acute kidney failure, unspecified; N18.9 - Chronic kidney disease, unspecified Assessment and Plan: Pt seen and examined CKD 3 most likely due to [place] Nephropathy She is at a risk for ongoing renal injury from [place]. However, if [place] is the only option to treat her bipolar disorder at this time, the risk and benefit should be evaluated.. Assuming that the benefits outweigh risk, [place] can be restarted and kidney function needs to be monitored closely (3) Pancytopenia: Status: Acute Code(s): D61.818 - Other pancytopenia Plan HPI: Jeri is a 60 yo female who carries a diagnosis of bipolar I DO. She presented to [facility] ED on 07/03/21 due to worsening depression and anxiety after she was at a convenience store and told the flat sorting machine clerk she needed help and they called 911. ED provider [place] [facility] [place], Cr 1.4 on 06/13. Pt was given 2L of IVF, Cr improved from 1.84 to 1.66. Precipitating factors include recent medication change where she was discontinued from [place] after developing CKD adn started on Depakote 250mg daily; she was left on Paxil. Pt reported worsening sx of mood lability, mary ellen, agitation, and increased activity level since stopping lithium, i.e. she walked for 14 hours one day. Utox negative. Working Formulation: History of severe bipolar disorder moderately well treated with lithium until developed CKD. Patient has tough daily insight and judgment to know she has bipolar disorder and needs to remain for treatment. She nearly daily demands discharge when she is dysregulated however when she calms down she agrees that she is not stable and agrees to remain for treatment. On current regimen patient continues to increasingly stabilize and she has overall become organized in speech and be havior. Intermittently she will get triggered and miss read some social interaction which can lead to intermittent explosive anger however patient is able to eventually calm down. Patient shares that this exists at baseline though seems to have been better treated with lithium. Working PLAN: CV 1:1 1. Bipolar disorder, severe: only Partially resolved with Depakote and Haldol START LITHIUM 150mg (since mary ellen only partially resolved and behaviors still problematic) MONITOR BUN CREATININE, LYTES, CALCIUM -continue Depakote ER 1500mg daily (will not increase); while patient may benefit from a higher dose, her platelets have decreased since starting Depakote; platelets have stabilized; since patient is behaviors and organization is also stabilizing, do not want to risk further lowering platelets -continue Haldol 10mg BID (0900 and 1700) -Platelets stable; Continue to monitor CBC, lytes, bun/cr -DC Paxil to 5mg; for despite the fact that patient has improved considerably since admission, she remains intermittently eruptive and disorganized so will remove all barriers to mood stabilization -DC Thorazine 50mg qhs for insomnia and make PRN so as to limit contributions to leukocytopenia -continue Thorazine 50 mg and Ativan 1 mg for moderate severe agitation (lowered dosing a little since sedating) -continue Thorazine 25mg qid prn for anxiety, mild agitation 2. Pancytopenia: stable Medication induced; discussed with communication center coordinator Dr. Howe who agrees labs are stable and patient can continue on current medication regimen but should likely follow up Q 2 weeks for while to continue to demonstrate stable lab values -ordered B12/folate: level pending to review Evolving Medication decisions for this admission: -on Admision, Depakote monotherapy tried; not effective (tried in combo with tegretol, then risperdal... eventually Dc'd) -Zyprexa as a p.r.n. not effective; DC'd -Risperidone (added to Depakote); not effective; DC'd -Thorazine PRN proves sedating even at low doses making it difficult to titrate to therapeutic dose. -Tegretol added to depakote caused side-effect: pt developed ataxia, tremor and was disoriented. Tegretol was dc'd and side-effects resolved. -Circus Artist discussed case with psychiatric team, Dr. Uribe, Dr. Leon, Dr. Rangel; one consideration is that the problem with Tegretol was that it was combined with Depakote, the combination being the cause of side effects; however given the fact that patient did have 3 good days over the weekend on Depakote, technical publications writer will continue with Depakote at this time, possibly increase it and instead just switch patient over to Haldol since Risperdal has not been helpful for delusions/AH. -prior to admission patient was started on Depakote 250 mg and left on Paxil 20 mg; to avoid discontinuation syndrome, technical publications writer lowered Paxil to 10 mg and increase Depakote to therapeutic level. At this time will taper and then Discontinue Paxil out of concern for at being a barrier for resolution of mary ellen. Discontinued Risperdal 2mg BID; not effective (dc'd on 07/18) Discontinued Trazodone; used for sleep, but will dc on outside chance interferes with this mentally mary ellen; will use Thorazine instead) 07/25/21: Depakote and Haldol only partially helpful; Depakote cannot be increased given its caused his pancytopenia which is stable. Patient very much wants to get back on lithium; will discuss with Nephrology if this is an option. Patient and technical publications writer discussed side effect risks of going back on lithium and patient feels that the benefit of this medication outweighs the risks given that she can not continue to live and this manic state. Otherwise: -Dc'd propranolol: pt says contributing to her confusion Elevated Cr due CKD continue to avoid NSAIDs given CKD Chest x-ray negative for aspiration but did reveal hypoinflation: discussed with Dr. Castillo who says no need for follow up; finding due to pt not taking deep breath when image taken. Monitor response to medications. Monitor for safety in the milieu. Discharge on stabilization. Patient seen. Chart reviewed. Discussed with team. Obtain collateral contact info?as needed For day today details... HOSPITAL Course: 07/04 patient highly irritable this morning, posturing and aggressive with peers and staff however she was able to calm down and agreed to increase Depakote dose. Will also restart Paxil though at a lower dose to avoid discontinuation syndrome which could be further aggravated 07/05 Patient severely agitated off and on throughout the day, posturing at staff, threatening to hit, spitting on staff, breaking and throwing things and needing IM medication. Minimal insight -hopefully Depakote will start to help -will consider Tegretol since her sister who has severe bipolar disorder has been successfully treated with this medication 07/06 remains manic, irritated easily agitated; continue treatment plan however patient talked about Tegretol and this remains consideration 07/07 patient refused Depakote last night saying she wants Tegretol 07/10 some mild improvement but she remains manic, disorganized. Patient seems to be having side effect of hand tremor, some ataxia and lowered platelets; currently debating how to approach medication management as patient would like to be on Tegretol as a monotherapy, however initiation of this medication coincides with onset of side effects. Will continue to monitor for now. These medications side effects/risks were discussed with patient who understood and agrees to current regimen 07/11 patient agrees that side effects of unsteady gait and tremor have increased with increased dose of Tegretol and she agrees to discontinue this medication and see if Depakote alone or with another mood stabilizer will be helpful. 07/12 pt confused, disoriented, most likely due to medication Tegretol side effects. Staff reported to technical publications writer that patient had a choking episode and needed the Heimlich maneuver which was successful. Patient remained unsteady on her feet overnight, fell. Head CT done which was negative; Chest x-ray negative for aspiration but did reveal hypoinflation, technical publications writer placed internal medicine consult; Because patient was confused last night her Depakote dose was held 07/13 Seems to be calmer since starting low-dose Risperdal; she says her mind is not racing as much. Will continue this medication and hopefully seek continued stabilization 07/14 remains manic; refused depakote last night; increasing Risperdal to 2 mg b .i.d. patient accepts that she has bipolar disorder and agrees that she is not at her baseline and that discharging would put her vulnerable in the community due to her agitated behaviors. She agrees to remain in the unit for continued treatment From evening of 07/14 to evening of 07/17 patient had good behaviors and was in good behavioral control only getting dysregulated the evening of 07/17 and p ossibly due to being triggered by the high acuity on the unit. 07/19 more calm, no problematic behaviors; agrees to stay for treatment.? Some confusion and auditory hallucinations but less so. 07/20 calm, cooperative, in good behavioral control; denies AVH and is no longer feeling confused, no longer entertaining delusional thoughts. Says she has an 8/10, 10 being her regular, baseline self / outburst this morning from which patient says she was feeling triggered. Patient will come down. Patient intermittently over reacts but is overall continuing to trend towards increasing stability 07/23/21 Encourage regime compliance 07/24 outburst yesterday; today calm; organized until get's dysregulated; struggles with insight into her behaviors 07/25 patient continues to have outbursts and makes threats and verbal assaults to staff. She wants to get back on lithium; technical publications writer agreed to discuss with nephr ologist 07/27 start lithium RISKS, SIDE EFFECTS of going back on lithium thoroughly discussed with patient and with international first officer. Patient understands the potential risks of being on lithium both in terms of be coming lithium toxic and of worsening kidney function; however she wants to continue with this treatment plan feeling that the benefit outweighs the risks. She is encouraged to know that perhaps a low dose of lithium in combination with her other medications could be a ne foot to help her turn the corner into safe functioning. I spent minutes with the patient and/or on the patient floor today, greater than?50% of which was spent counseling/coordinating care. Patient educated on: diagnosis and medication risk/benefits Informed Consent: understands Reason for contiued inpatient stay Substantial Risk for: rapid decompensation
[2021-07-27] MEDS: chlorproMAZINE HCl 25 MG TABLET 50 MG PO (18:20)
[2021-07-27] MEDS: chlorproMAZINE HCl 25 MG TABLET PO (20:22)
[2021-07-27] MEDS: Cyclobenzaprine HCl 5 MG TABLET PO (20:22)
[2021-07-27 22:42] LABS: Prot Elec - Albumin 3.5 g/dL (3.8-4.8); Prot Elec - Alpha1 0.3 g/dL (0.2-0.3); Prot Elec - Alpha2 0.6 g/dL (0.5-0.9); Prot Elec - Beta 1 0.5 g/dL (0.4-0.6); Prot Elec - Beta 2 0.4 g/dL (0.2-0.5); Prot Elec - Gamma 1.5 g/dL (0.8-1.7); Prot Elec - Total Protein 6.8 g/dL (6.1-8.1)
[2021-07-28] MEDS: Lithium Carbonate 300 MG TABLET 150 MG PO (09:01)
[2021-07-28] MEDS: HaloperidoL 5 MG TABLET 10 MG PO ×2 (09:01→15:33)
[2021-07-28] MEDS: Acetaminophen 325 MG TABLET 650 MG PO (09:02)
[2021-07-28] MEDS: Levothyroxine Sodium 50 MCG TABLET PO (09:03)
[2021-07-28] MEDS: Nicotine 14 MG PATCH.TD24 TRANSDERMA (09:03)
[2021-07-28] MEDS: Omeprazole 20 MG CAPSULE.DR PO (09:03)
[2021-07-28] MEDS: Folic Acid 1 MG TABLET PO (09:03)
[2021-07-28 13:56] LABS: Calcium (PTHI) 8.7 mg/dL (8.6-10.4); PTHI 65 pg/mL (16-77)
[2021-07-28] MEDS: Divalproex Sodium ER 500 MG TAB.ER.24H 1500 MG PO (15:33)
--- NOTE | 2021-07-28 18:10 | HO.PSYCHPN ---
Subjective Subjective Date of Service: 07/28/21 Reason For Visit: Depression Interim History: Patient reports feeling better today and says she's good. She said she feels less irritable towards others and more in control of herself. Staff agrees that patient is in better control and though there have been moments where she has verbally snapped and others, they are short-lived and she quickly is self redirected. Patient agrees to continue on unit for lab work but very much wants to discharge by early next week. Mental Status Exam Mental Status Exam Narrative: Pt is alert and oriented; Behavior calm, cooperative but can intermittently get explosive if feeling triggered; dressed in casual cloths; adequate hygiene; mood is good and affect calm; eye contact adequate; Speech is normal rate, volume and prosody; not pressured; no psychomotor agitation present but pt can intermittently erupt; thought process is goal directed; Thought content without paranoid ideations and on tx however, sometimes feels unnecessarily defensive towards others, misreading their tone or body language; denies any SI/HI. not witnessed responding to internal stimuli. Patients insight and judgment are impaired but much improved. Diagnostics Vital Signs (24Hr): BMI result Body Mass Index 30.4 Labs Results: 07/24/21 09:32 07/27/21 08:42 Labs: Laboratory Results - last 48 hr 07/24/21 07/27/21 07/27/21 15:01 08:42 08:42 Sodium 142 Potassium 4.1 Chloride 113 H Carbon Dioxide 20 L Anion Gap 13 BUN 27 H Creatinine 1.96 H Estim Creat Clear Calc 37.6 Estimated GFR 26 Random Glucose 214 H Calcium 8.2 L Total Protein (PEP) 6.8 Albumin (PEP) 3.5 L Faenn-3-Mjkdvwwmc 0.3 Dgzsc-3-Euocoxcti 0.6 Jsrs-2-Nbbdkvpm 0.5 Qwbk-0-Ihuwbzni 0.4 Gamma Globulins 1.5 Abnorm Protein Band 1 TNP Abnorm Protein Band 2 TNP Abnorm Protein Band 3 TNP PEP Interpretation SEE NOTE PTH Intact 65 Calcium (PTH Intact) 8.7 IgG Total 1598 IgA Total 291 IgM 284 BERNARDINO Interpretation SEE NOTE Imaging Radiology Impressions: ITS Impressions Chest X-Ray 07/11/21 21:02 IMPRESSION: Hypoinflated lungs. No acute intrathoracic disease. Head CT 07/11/21 21:12 IMPRESSION: No acute intracranial process seen Medications Medications Current Medications Acetaminophen (Acetaminophen 325 Mg Tablet) 650 mg PO Q6H PRN PRN Reason: Headache/Pain Mild Scale (1-3) Last Admin: 07/28/21 09:02 Dose: 650 mg Al Hydroxide/Mg Hydroxide (Magnesium Hydrox/Alum Hydrox 30 Ml Oral.Susp) 30 ml PO Q6H PRN PRN Reason: Heartburn/Nausea Chlorpromazine HCl (Chlorpromazine Hcl 25 Mg Tablet) 25 mg PO Q4H PRN PRN Reason: anxiety/agitation Last Admin: 07/27/21 20:22 Dose: 25 mg Chlorpromazine HCl (Chlorpromazine Hcl 25 Mg Tablet) 50 mg PO TID PRN PRN Reason: mod -severe agitation Last Admin: 07/13/21 21:05 Dose: 50 mg Chlorpromazine HCl (Chlorpromazine Hcl 25 Mg Tablet) 50 mg PO BEDTIME [facility] Last Admin: 07/27/21 18:20 Dose: 50 mg Cyclobenzaprine HCl (Cyclobenzaprine Hcl 5 Mg Tablet) 5 mg PO BEDTIME PRN PRN Reason: Pain, Moderate (Pain Scale 4-6 Last Admin: 07/27/21 20:22 Dose: 5 mg Diphenhydramine HCl (Diphenhydramine Hcl 25 Mg Tablet) 50 mg PO BEDTIME PRN PRN Reason: sleep Last Admin: 07/27/21 00:50 Dose: 50 mg Divalproex Sodium (Divalproex Sodium Er 500 Mg Tab.Er.24h) 1,500 mg PO DAILY@1700 [facility] Last Admin: 07/28/21 15:33 Dose: 1,500 mg Folic Acid (Folic Acid 1 Mg Tablet) 1 mg PO DAILY [facility] Last Admin: 07/28/21 09:03 Dose: 1 mg Haloperidol (Haloperidol 5 Mg Tablet) 10 mg PO BID@0900,1700 [facility] Last Admin: 07/28/21 15:33 Dose: 10 mg Hydroxyzine HCl (Hydroxyzine Hcl 50 Mg Tablet) 50 mg PO Q6H PRN PRN Reason: Anxiety Last Admin: 07/24/21 03:48 Dose: 50 mg Levothyroxine Sodium (Levothyroxine Sodium 50 Mcg Tablet) 50 mcg PO DAILY@0630 [facility] Last Admin: 07/28/21 09:03 Dose: 50 mcg Eckley Carbonate (Eckley Carbonate 300 Mg Tablet) 150 mg PO DAILY [facility] Last Admin: 07/28/21 09:01 Dose: 150 mg Loperamide HCl (Loperamide Hcl 2 Mg Capsule) 2 mg PO Q6H PRN PRN Reason: diarrhea Magnesium Hydroxide (Milk Of Magnesia 30 Ml Oral.Susp) 30 ml PO DAILY PRN PRN Reason: Constipation Nicotine (Nicotine 14 Mg Patch.Td24) 14 mg TRANSDERMA DAILY [facility] Last Admin: 07/28/21 09:03 Dose: 14 mg Nicotine Polacrilex (Nicotine Polacrilex 2 Mg Gum) 2 mg BUCCAL Q2H PRN PRN Reason: Nicotine Cravings Last Admin: 07/21/21 11:33 Dose: 2 mg Omeprazole (Omeprazole 20 Mg Capsule.Dr) 20 mg PO DAILY [facility] Last Admin: 07/28/21 09:03 Dose: 20 mg Allergies Allergies Allergy/AdvReac Type Severity Reaction Status Date / Time lithium AdvReac Intermediate CKD Verified 07/05/21 15:04 Assessment & Plan Assessment & Plan (1) Bipolar 1 disorder: Status: Acute Code(s): F31.9 - Bipolar disorder, unspecified (2) Acute kidney injury superimposed on chronic kidney disease: Status: Acute Code(s): N17.9 - Acute kidney failure, unspecified; N18.9 - Chronic kidney disease, unspecified Assessment and Plan: Pt seen and examined 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 However, if Eckley is the only option to treat her bipolar disorder at this time, the risk and benefit should be evaluated.. Assuming that the benefits outweigh risk, Eckley can be restarted and kidney function needs to be monitored closely (3) Pancytopenia: Status: Acute Code(s): D61.818 - Other pancytopenia Plan HPI: Jeri is a 60 yo female who carries a diagnosis of bipolar I DO. She presented to [facility] on 07/03/21 due to worsening depression and anxiety after she was at a convenience store and told the interviewing clerk she needed help and they called 911. ED provider obtained records from [facility], pt has CKD, Cr 1.4 on 06/13. Pt was given 2L of IVF, Cr improved from 1.84 to 1.66. Precipitating factors include recent medication change where she was discontinued from Eckley after developing CKD adn started on Depakote 250mg daily; she was left on Paxil. Pt reported worsening sx of mood lability, mary ellen, agitation, and increased activity level since stopping lithium, i.e. she walked for 14 hours one day. Utox negative. Working Formulation: History of severe bipolar disorder moderately well treated with lithium until developed CKD. Patient has tough daily insight and judgment to know she has bipolar disorder and needs to remain for treatment. She nearly daily demands discharge when she is dysregulated however when she calms down she agrees that she is not stable and agrees to remain for treatment. On current regimen patient continues to increasingly stabilize and she has overall become organized in speech and behavior. Intermittently she will get triggered and miss read some social interaction which can lead to intermittent explosive anger however patient is able to eventually calm down. Patient shares that this exists at baseline though seems to have been better treated with lithium. Working PLAN: CV 1:1 1. Bipolar disorder, severe: only Partially resolved with Depakote and Haldol CONTINUE LITHIUM 150mg (since mary ellen only partially resolved and behaviors still problematic) -Cr increased to 1.96 -continue to monitor bun, creatinine, lytes, calcium CONTINUE Depakote ER 1500mg daily (will not increase); while patient may benefit from a higher dose, her platelets have decreased since starting Depakote; platelets have stabilized; since patient is behaviors and organization is also stabilizing, do not want to risk further lowering platelets -Platelets stable; Continue to monitor CBC, lytes, bun/cr CONTINUE Haldol 10mg BID (0900 and 1700) -DC Paxil to 5mg; for despite the fact that patient has improved considerably since admission, she remains intermittently eruptive and disorganized so will remove all barriers to mood stabilization -DC scheduled Thorazine for insomnia and make PRN so as to limit contributions to leukocytopenia -continue Thorazine 50 mg and Ativan 1 mg for moderate severe agitation (lowered dosing a little since sedating) -continue Thorazine 25mg qid prn for anxiety, mild agitation 2. Pancytopenia: stable Medication induced; discussed with partnership development manager Dr. Howe who agrees labs are stable and patient can continue on current medication regimen but should likely follow up Q 2 weeks for while to continue to demonstrate stable lab values -ordered B12/folate: level pending to review Evolving Medication decisions for this admission: -on Admision, Depakote monotherapy tried; not effective (tried in combo with tegretol, then risperdal... eventually Dc'd) -Zyprexa as a p.r.n. not effective; DC'd -Risperidone (added to Depakote); not effective; DC'd -Thorazine PRN proves sedating even at low doses making it difficult to titrate to therapeutic dose. -Tegretol added to depakote caused side-effect: pt developed ataxia, tremor and was disoriented. Tegretol was dc'd and side-effects resolved. -Cardiograph Operator discussed case with psychiatric team, Dr. Uribe, Dr. Leon, Dr. Rangel; one consideration is that the problem with Tegretol was that it was combined with Depakote, the combination being the cause of side effects; however given the fact that patient did have 3 good days over the weekend on Depakote, principal technical writer will continue with Depakote at this time, possibly increase it and instead just switch patient over to Haldol since Risperdal has not been helpful for delusions/AH. -prior to admission patient was started on Depakote 250 mg and left on Paxil 20 mg; to avoid discontinuation syndrome, principal technical writer lowered Paxil to 10 mg and increase Depakote to therapeutic level. At this time will taper and then Discontinue Paxil out of concern for at being a barrier for resolution of mary ellen. Discontinued Risperdal 2mg BID; not effective (dc'd on 07/18) Discontinued Trazodone; used for sleep, but will dc on outside chance interferes with this mentally mary ellen; will use Thorazine instead) 07/25/21: Depakote and Haldol only partially helpful; Depakote cannot be increased given its caused his pancytopenia which is stable. Patient very much wants to get back on lithium; will discuss with Nephrology if this is an option. Patient and principal technical writer discussed side effect risks of going back on lithium and patient feels that the benefit of this medication outweighs the risks given that she can not continue to live and this manic state. 07/28 read trying lithium but at low dose to see if can help patient stabilize; so lithium plus Depakote plus Haldol Otherwise: -Dc'd propranolol: pt says contributing to her confusion Elevated Cr due CKD continue to avoid NSAIDs given CKD Chest x-ray negative for aspiration but did reveal hypoinflation: discussed with Dr. Castillo who says no need for follow up; finding due to pt not taking deep breath when image taken. Monitor response to medications. Monitor for safety in the milieu. Discharge on stabilization. Patient seen. Chart reviewed. Discussed with team. Obtain collateral contact info?as needed For day today details... HOSPITAL Course: 07/04 patient highly irritable this morning, posturing and aggressive with peers and staff however she was able to calm down and agreed to increase Depakote dose. Will also restart Paxil though at a lower dose to avoid discontinuation syndrome which could be further aggravated 07/05 Patient severely agitated off and on throughout the day, posturing at staff, threatening to hit, spitting on staff, breaking and throwing things and needing IM medication. Minimal insight -hopefully Depakote will start to help -will consider Tegretol since her sister who has severe bipolar disorder has been successfully treated with this medication 07/06 remains manic, irritated easily agitated; continue treatment plan however patient talked about Tegretol and this remains consideration 07/07 patient refused Depakote last night saying she wants Tegretol 07/10 some mild improvement but she remains manic, disorganized. Patient seems to be having side effect of hand tremor, some ataxia and lowered platelets; currently debating how to approach medication management as patient would like to be on Tegretol as a monotherapy, however initiation of this medication coincides with onset of side effects. Will continue to monitor for now. These medications side effects/risks were discussed with patient who understood and agrees to current regimen 07/11 patient agrees that side effects of unsteady gait and tremor have increased with increased dose of Tegretol and she agrees to discontinue this medication and see if Depakote alone or with another mood stabilizer will be helpful. 07/12 pt confused, disoriented, most likely due to medication Tegretol side effects. Staff reported to principal technical writer that patient had a choking episode and needed the Heimlich maneuver which was successful. Patient remained unsteady on her feet overnight, fell. Head CT done which was negative; Chest x-ray negative for aspiration but did reveal hypoinflation, principal technical writer placed internal medicine consult; Because patient was confused last night her Depakote dose was held 07/13 Seems to be calmer since starting low-dose Risperdal; she says her mind is not racing as much. Will continue this medication and hopefully seek continued stabilization 07/14 remains manic; refused depakote last night; increasing Risperdal to 2 mg b.i.d. patient accepts that she has bipolar disorder and agrees that she is not at her baseline and that discharging would put her vulnerable in the community due to her agitated behaviors. She agrees to remain in the unit for continued treatment From evening of 07/14 to evening of 07/17 patient had good behaviors and was in good behavioral control only getting dysregulated the evening of 07/17 and possibly due to being triggered by the high acuity on the unit. 07/19 more calm, no problematic behaviors; agrees to stay for treatment.? Some confusion and auditory hallucinations but less so. 07/20 calm, cooperative, in good behavioral control; denies AVH and is no longer feeling confused, no longer entertaining delusional thoughts. Says she has an 8/10, 10 being her regular, baseline self 07/21 outburst this morning from which patient says she was feeling triggered. Patient will come down. Patient intermittently over reacts but is overall continuing to trend towards increasing stability 07/23/21 Encourage regime compliance 07/24 outburst yesterday; today calm; organized until get's dysregulated; struggles with insight into her behaviors 07/25 patient continues to have outbursts and makes threats and verbal assaults to staff. She wants to get back on lithium; principal technical writer agreed to discuss with battery service technician 07/27 start lithium RISKS, SIDE EFFECTS of going back on lithium thoroughly discussed with patient and with battery service technician. Patient understands the potential risks of being on lithium both in terms of be coming lithium toxic and of worsening kidney function; however she wants to continue with this treatment plan feeling that the benefit outweighs the risks. She is encouraged to know that perhaps a low dose of lithium in combination with her other medications could be enough to help her turn the corner into safe functioning. 07/28 appears to be some improved functioning, less irritable and less prone towards feeling slighted by others and responding with verbal insults. I spent minutes with the patient and/or on the patient floor today, greater than?50% of which was spent counseling/coordinating care. Patient educated on: diagnosis Informed Consent: understands Reason for contiued inpatient stay Substantial Risk for: stable for discharge
[2021-07-28] MEDS: chlorproMAZINE HCl 25 MG TABLET 50 MG PO (18:28)
[2021-07-28] MEDS: chlorproMAZINE HCl 25 MG TABLET PO (22:56)
[2021-07-29] MEDS: Levothyroxine Sodium 50 MCG TABLET PO (06:21)
[2021-07-29] MEDS: HaloperidoL 5 MG TABLET 10 MG PO ×2 (10:53→15:43)
[2021-07-29] MEDS: Lithium Carbonate 300 MG TABLET 150 MG PO (10:53)
[2021-07-29] MEDS: Omeprazole 20 MG CAPSULE.DR PO (10:54)
[2021-07-29] MEDS: Nicotine 14 MG PATCH.TD24 TRANSDERMA (10:56)
[2021-07-29] MEDS: Acetaminophen 325 MG TABLET 650 MG PO (10:58)
[2021-07-29] MEDS: Folic Acid 1 MG TABLET PO (10:59)
[2021-07-29] MEDS: Divalproex Sodium ER 500 MG TAB.ER.24H 1500 MG PO (15:43)
[2021-07-29] MEDS: chlorproMAZINE HCl 25 MG TABLET 50 MG PO (20:00)
[2021-07-29 20:36] VITALS: RESP 18
--- NOTE | 2021-07-29 23:48 | HO.PSYCHPN ---
Subjective Subjective Date of Service: 07/29/21 Reason For Visit: Depression Interim History: Patient reports feeling better today and says she's good. She is tolerating her medication regimen well. She has improved with the addition of [place] per reports. No SI. Review of Systems Constitutional: Reports as per HPI, Reports lethargy, Reports poor appetite and Reports weight loss Cardiovascular: Reports no additional cardiovascular complaints Respiratory: Reports no additional respiratory complaints Gastrointestinal: Reports no additional gastrointestinal complaints Mental Status Exam Mental Status Exam Narrative: Pt is alert and oriented; Behavior calm, cooperative but can intermittently get explosive if feeling triggered; dressed in casual cloths; adequate hygiene; mood is good and affect calm; eye contact adequate; Speech is normal rate, volume and prosody; not pressured; no psychomotor agitation present but pt can intermittently erupt; thought process is goal directed; Thought content without paranoid ideations and on tx however, sometimes feels unnecessarily defensive towards others, misreading their tone or body language; denies any SI/HI. not witnessed responding to internal stimuli. Patients insight and judgment are impaired but much improved. Patient Appearance: Disheveled Patient Orientation: Person, Place, Time and Situation Level of Consciousness: Alert Patient Behavior: Guarded, Aggressive, Belligerent, Verbal Threats, Swearing, Resistive to Care, Fatigued, Distractible, Good Eye Contact, Uncooperative and Impulsive Mood Description: Labile and Angry Affect Description: Labile and Angry Patient Cognition Impaired: No Ability to Follow Directions: Fair Speech Pattern: Spontaneous Speech, Rambling, Excessive, Loud, Pressured and Includes Profanity Memory Description: Episodic Impaired Diagnostics Vital Signs (24Hr): Vital Signs - 24 hr 07/29/21 20:36 Respiratory Rate 18 BMI result Body Mass Index 30.4 Labs Results: 07/24/21 09:32 07/27/21 08:42 Labs: Laboratory Results - last 48 hr 07/24/21 07/27/21 15:01 08:42 Abnorm Protein Band 1 TNP Abnorm Protein Band 2 TNP Abnorm Protein Band 3 TNP PTH Intact 65 Calcium (PTH Intact) 8.7 Imaging Radiology Impressions: ITS Impressions Chest X-Ray 07/11/21 21:02 IMPRESSION: Hypoinflated lungs. No acute intrathoracic disease. Head CT 07/11/21 21:12 IMPRESSION: No acute intracranial process seen Medications Medications Current Medications Acetaminophen (Acetaminophen 325 Mg Tablet) 650 mg PO Q6H PRN PRN Reason: Headache/Pain Mild Scale (1-3) Last Admin: 07/29/21 10:58 Dose: 325 mg Al Hydroxide/Mg Hydroxide (Magnesium Hydrox/Alum Hydrox 30 Ml Oral.Susp) 30 ml PO Q6H PRN PRN Reason: Heartburn/Nausea Chlorpromazine HCl (Chlorpromazine Hcl 25 Mg Tablet) 25 mg PO Q4H PRN PRN Reason: anxiety/agitation Last Admin: 07/28/21 22:56 Dose: 25 mg Chlorpromazine HCl (Chlorpromazine Hcl 25 Mg Tablet) 50 mg PO TID PRN PRN Reason: mod -severe agitation Last Admin: 07/13/21 21:05 Dose: 50 mg Chlorpromazine HCl (Chlorpromazine Hcl 25 Mg Tablet) 50 mg PO BEDTIME [facility] Last Admin: 07/29/21 20:00 Dose: 50 mg Cyclobenzaprine HCl (Cyclobenzaprine Hcl 5 Mg Tablet) 5 mg PO BEDTIME PRN PRN Reason: Pain, Moderate (Pain Scale 4-6 Last Admin: 07/27/21 20:22 Dose: 5 mg Diphenhydramine HCl (Diphenhydramine Hcl 25 Mg Tablet) 50 mg PO BEDTIME PRN PRN Reason: sleep Last Admin: 07/27/21 00:50 Dose: 50 mg Divalproex Sodium (Divalproex Sodium Er 500 Mg Tab.Er.24h) 1,500 mg PO DAILY@1700 [facility] Last Admin: 07/29/21 15:43 Dose: 1,500 mg Folic Acid (Folic Acid 1 Mg Tablet) 1 mg PO DAILY [facility] Last Admin: 07/29/21 10:59 Dose: 1 mg Haloperidol (Haloperidol 5 Mg Tablet) 10 mg PO BID@0900,1700 [facility] Last Admin: 07/29/21 15:43 Dose: 10 mg Hydroxyzine HCl (Hydroxyzine Hcl 50 Mg Tablet) 50 mg PO Q6H PRN PRN Reason: Anxiety Last Admin: 07/24/21 03:48 Dose: 50 mg Levothyroxine Sodium (Levothyroxine Sodium 50 Mcg Tablet) 50 mcg PO DAILY@0630 [facility] Last Admin: 07/29/21 06:21 Dose: 50 mcg [place] Carbonate ([place] Carbonate 300 Mg Tablet) 150 mg PO DAILY [facility] Last Admin: 07/29/21 10:53 Dose: 150 mg Loperamide HCl (Loperamide Hcl 2 Mg Capsule) 2 mg PO Q6H PRN PRN Reason: diarrhea Magnesium Hydroxide (Milk Of Magnesia 30 Ml Oral.Susp) 30 ml PO DAILY PRN PRN Reason: Constipation Nicotine (Nicotine 14 Mg Patch.Td24) 14 mg TRANSDERMA DAILY [facility] Last Admin: 07/29/21 10:56 Dose: 14 mg Nicotine Polacrilex (Nicotine Polacrilex 2 Mg Gum) 2 mg BUCCAL Q2H PRN PRN Reason: Nicotine Cravings Last Admin: 07/21/21 11:33 Dose: 2 mg Omeprazole (Omeprazole 20 Mg Capsule.Dr) 20 mg PO DAILY [facility] Last Admin: 07/29/21 10:54 Dose: 20 mg Allergies Allergies Allergy/AdvReac Type Severity Reaction Status Date / Time lithium AdvReac Intermediate CKD Verified 07/05/21 15:04 Assessment & Plan Assessment & Plan (1) Bipolar 1 disorder: Status: Acute Code(s): F31.9 - Bipolar disorder, unspecified (2) Acute kidney injury superimposed on chronic kidney disease: Status: Acute Code(s): N17.9 - Acute kidney failure, unspecified; N18.9 - Chronic kidney disease, unspecified Assessment and Plan: Pt seen and examined CKD 3 most likely due to [place] Nephropathy She is at a risk for ongoing renal injury from [place]. However, if [place] is the only option to treat her bipolar disorder at this time, the risk and benefit should be evaluated.. Assuming that the benefits outweigh risk, [place] can be restarted and kidney function needs to be monitored closely (3) Pancytopenia: Status: Acute Code(s): D61.818 - Other pancytopenia Plan HPI: Jeri is a 60 yo female who carries a diagnosis of bipolar I DO. She presented to [facility] ED on 07/03/21 due to worsening depression and anxiety after she was at a convenience store and told the receivable clerk she needed help and they called 911. ED provider obtained records from [facility], pt has CKD, Cr 1.4 on 06/13. Pt was given 2L of IVF, Cr improved from 1.84 to 1.66. Precipitating factors include recent medication change where she was discontinued from [place] after developing CKD adn started on Depakote 250mg daily; she was left on Paxil. Pt reported worsening sx of mood lability, mary ellen, agitation, and increased activity level since stopping lithium, i.e. she walked for 14 hours one day. Utox negative. Working Formulation: History of severe bipolar disorder moderately well treated with lithium until developed CKD. Patient has tough daily insight and judgment to know she has bipolar disorder and needs to remain for treatment. She nearly daily demands discharge when she is dysregulated however when she calms down she agrees that she is not stable and agrees to remain for treatment. On current regimen patient continues to increasingly stabilize and she has overall become organized in speech and behavior. Intermittently she will get triggered and miss read some social interaction which can lead to intermittent explosive anger however patient is able to eventually calm down. Patient shares that this exists at baseline though seems to have been better treated with lithium. Working PLAN: CV 1:1 1. Bipolar disorder, severe: only Partially resolved with Depakote and Haldol CONTINUE LITHIUM 150mg (since mary ellen only partially resolved and behaviors still problematic) -Cr increased to 1.96 -continue to monitor bun, creatinine, lytes, calcium CONTINUE Depakote ER 1500mg daily (will not increase); while patient may benefit from a higher dose, her platelets have decreased since starting Depakote; platelets have stabilized; since patient is behaviors and organization is also stabilizing, do not want to risk further lowering platelets -Platelets stable; Continue to monitor CBC, lytes, bun/cr CONTINUE Haldol 10mg BID (0900 and 1700) -DC Paxil to 5mg; for despite the fact that patient has improved considerably since admission, she remains intermittently eruptive and disorganized so will remove all barriers to mood stabilization -DC scheduled Thorazine for insomnia and make PRN so as to limit contributions to leukocytopenia -continue Thorazine 50 mg and Ativan 1 mg for moderate severe agitation (lowered dosing a little since sedating) -continue Thorazine 25mg qid prn for anxiety, mild agitation 2. Pancytopenia: stable Medication induced; discussed with fiber product cutting machine operator Dr. Howe who agrees labs are stable and patient can continue on current medication regimen but should likely follow up Q 2 weeks for while to continue to demonstrate stable lab values -ordered B12/folate: level pending to review Evolving Medication decisions for this admission: -on Admision, Depakote monotherapy tried; not effective (tried in combo with tegretol, then risperdal... eventually Dc'd) -Zyprexa as a p.r.n. not effective; DC'd -Risperidone (added to Depakote); not effective; DC'd -Thorazine PRN proves sedating even at low doses making it difficult to titrate to therapeutic dose. -Tegretol added to depakote caused side-effect: pt developed ataxia, tremor and was disoriented. Tegretol was dc'd and side-effects resolved. -Combat Control Manager discussed case with psychiatric team, Dr. Uribe, Dr. Leon, Dr. Rangel; one consideration is that the problem with Tegretol was that it was combined with Depakote, the combination being the cause of side effects; however given the fact that patient did have 3 good days over the weekend on Depakote, gag writer will continue with Depakote at this time, possibly increase it and instead just switch patient over to Haldol since Risperdal has not been helpful for delusions/AH. -prior to admission patient was started on Depakote 250 mg and left on Paxil 20 mg; to avoid discontinuation syndrome, gag writer lowered Paxil to 10 mg and increase Depakote to therapeutic level. At this time will taper and then Discontinue Paxil out of concern for at being a barrier for resolution of mary ellen. Discontinued Risperdal 2mg BID; not effective (dc'd on 07/18) Discontinued Trazodone; used for sleep, but will dc on outside chance interferes with this mentally mary ellen; will use Thorazine instead) 07/25/21: Depakote and Haldol only partially helpful; Depakote cannot be increased given its caused his pancytopenia which is stable. Patient very much wants to get back on lithium; will discuss with Nephrology if this is an option. Patient and gag writer discussed side effect risks of going back on lithium and patient feels that the benefit of this medication outweighs the risks given that she can not continue to live and this manic state. 07/28 read trying lithium but at low dose to see if can help patient stabilize; so lithium plus Depakote plus Haldol 07/29 Continue treatment plan. Otherwise: -Dc'd propranolol: pt says contributing to her confusion Elevated Cr due CKD continue to avoid NSAIDs given CKD Chest x-ray negative for aspiration but did reveal hypoinflation: discussed with Dr. Castillo who says no need for follow up; finding due to pt not taking deep breath when image taken. Monitor response to medications. Monitor for safety in the milieu. Discharge on stabilization. Patient seen. Chart reviewed. Discussed with team. Obtain collateral contact info?as needed For day today details... HOSPITAL Course: 07/04 patient highly irritable this morning, posturing and aggressive with peers and staff however she was able to calm down and agreed to increase Depakote dose. Will also restart Paxil though at a lower dose to avoid discontinuation syndrome which could be further aggravated 07/05 Patient severely agitated off and on throughout the day, posturing at staff, threatening to hit, spitting on staff, breaking and throwing things and needing IM medication. Minimal insight -hopefully Depakote will start to help -will consider Tegretol since her sister who has severe bipolar disorder has been successfully treated with this medication 07/06 remains manic, irritated easily agitated; continue treatment plan however patient talked about Tegretol and this remains consideration 07/07 patient refused Depakote last night saying she wants Tegretol 07/10 some mild improvement but she remains manic, disorganized. Patient seems to be having side effect of hand tremor, some ataxia and lowered platelets; currently debating how to approach medication management as patient would like to be on Tegretol as a monotherapy, however initiation of this medication coincides with onset of side effects. Will continue to monitor for now. These medications side effects/risks were discussed with patient who understood and agrees to current regimen 07/11 patient agrees that side effects of unsteady gait and tremor have increased with increased dose of Tegretol and she agrees to discontinue this medication and see if Depakote alone or with another mood stabilizer will be helpful. 07/12 pt confused, disoriented, most likely due to medication Tegretol side effects. Staff reported to gag writer that patient had a choking episode and needed the Heimlich maneuver which was successful. Patient remained unsteady on her feet overnight, fell. Head CT done which was negative; Chest x-ray negative for aspiration but did reveal hypoinflation, gag writer placed internal medicine consult; Because patient was confused last night her Depakote dose was held 07/13 Seems to be calmer since starting low-dose Risperdal; she says her mind is not racing as much. Will continue this medication and hopefully seek continued stabilization 07/14 remains manic; refused depakote last night; increasing Risperdal to 2 mg b.i.d. patient accepts that she has bipolar disorder and agrees that she is not at her baseline and that discharging would put her vulnerable in the community due to her agitated behaviors. She agrees to remain in the unit for continued treatment From evening of 07/14 to evening of 07/17 patient had good behaviors and was in good behavioral control only getting dysregulated the evening of 07/17 and possibly due to being triggered by the high acuity on the unit. 07/19 more calm, no problematic behaviors; agrees to stay for treatment.? Some confusion and auditory hallucinations but less so. 07/20 calm, cooperative, in good behavioral control; denies AVH and is no longer feeling confused, no longer entertaining delusional thoughts. Says she has an 8/10, 10 being her regular, baseline self 07/21 outburst this morning from which patient says she was feeling triggered. Patient will come down. Patient intermittently over reacts but is overall continuing to trend towards increasing stability 07/23/21 Encourage regime compliance 07/24 outburst yesterday; today calm; organized until get's dysregulated; struggles with insight into her behaviors 07/25 patient continues to have outbursts and makes threats and verbal assaults to staff. She wants to get back on lithium; gag writer agreed to discuss with patternmaker sample 07/27 start lithium RISKS, SIDE EFFECTS of going back on lithium thoroughly discussed with patient and with patternmaker sample. Patient understands the potential risks of being on lithium both in terms of be coming lithium toxic and of worsening kidney function; however she wants to continue with this treatment plan feeling that the benefit outweighs the risks. She is encouraged to know that perhaps a low dose of lithium in combination with her other medications could be enough to help her turn the corner into safe functioning. 07/28 appears to be some improved functioning, less irritable and less prone towards feeling slighted by others and responding with verbal insults. I spent minutes with the patient and/or on the patient floor today, greater than?50% of which was spent counseling/coordinating care. Reason for contiued inpatient stay Substantial Risk for: inability to function and rapid decompensation
[2021-07-30] MEDS: Acetaminophen 325 MG TABLET 650 MG PO ×3 (01:20→23:10)
[2021-07-30] MEDS: diphenhydrAMINE HCL 25 MG TABLET 50 MG PO (03:07)
[2021-07-30] MEDS: Lithium Carbonate 300 MG TABLET 150 MG PO (08:03)
[2021-07-30] MEDS: Nicotine 14 MG PATCH.TD24 TRANSDERMA (08:03)
[2021-07-30] MEDS: HaloperidoL 5 MG TABLET 10 MG PO ×2 (08:03→15:27)
[2021-07-30] MEDS: Folic Acid 1 MG TABLET PO (08:03)
[2021-07-30] MEDS: Levothyroxine Sodium 50 MCG TABLET PO (08:03)
[2021-07-30] MEDS: Omeprazole 20 MG CAPSULE.DR PO (08:03)
[2021-07-30 08:22] LABS: Lithium 0.11 mmol/L (0.60-1.20)
[2021-07-30 08:24] LABS: Hemoglobin 10.3 g/dl (12.0-16.0); Imm Gran Abs Auto 0.09 X10*3/uL (0.00-0.03); Imm Gran Pct Auto 1.7 % (0.0-0.4); PLT CLUMP 1; SCAN SMEAR FLAG 1
[2021-07-30 08:25] LABS: Basophils Percent Auto 0.4 % (0-2); Eosinophils Absolute Auto 0.3 X10*3/uL (0.0-0.4); Eosinophils Percent Auto 6.4 % (0-4); Hematocrit 32.3 % (37.0-47.0); Lymphocytes Absolute Auto 1.7 X10*3/uL (1.2-4.9); Lymphocytes Percent Auto 32.6 % (20-40); Mean Corpuscular HGB Conc 31.9 g/dl (31.0-35.0); Mean Corpuscular Hemoglobin 31.9 pg (27.0-33.0); Mean Platelet Volume 11.4 fL (9.4-12.3); Monocytes Absolute Auto 0.8 X10*3/uL (0.1-1.2); Monocytes Percent Auto 14.9 % (2-11); Neutrophils Absolute Auto 2.3 x10*3/uL (2.0-8.3); Red Blood Count 3.23 X10*6/uL (4.20-5.50); Red Cell Distribution Width 13.3 % (11.0-16.0)
[2021-07-30 08:31] LABS: Platelet Count 95 X10*3/uL (160-400); White Blood Count 5.2 X10*3/uL (4.8-10.8)
[2021-07-30 08:32] LABS: MANUAL DIFF FLAG NO
[2021-07-30 08:34] LABS: Anion Gap 13 (12-20); Blood Urea Nitrogen 17 mg/dL (9-16); Calcium 8.8 mg/dL (8.4-10.2); Carbon Dioxide 23 mmol/L (22-29); Chloride 109 mmol/L (96-108); Creatinine Clr Calc Pharmacy 42.6; Estimated Glomerular Filt Rate 30; Potassium 4.8 mmol/L (3.3-5.1); Sodium 140 mmol/L (135-145)
[2021-07-30 11:34] VITALS: BP 122/72; PULSE 89; RESP 18; TEMP 36.6; O2SAT 98
--- NOTE | 2021-07-30 12:57 | P.PNPSI_ITS ---
Subjective Subjective Date of Service: 07/30/21 Reason For Visit: Depression Interim History: Patient seen and discussed. Patient's Li level came in at 0.11 but it was 24 hours after the dose yesterday. Will repeat Li level tonight at 8. Patient reports she is feeling good. She reports her outside senior control systems engineer took her off the [place]. She says the Li is helpful for her. She is tolerating her medication regimen well. She has improved with the addition of [place] per reports. No SI. Review of Systems Constitutional: Reports as per HPI, Reports lethargy, Reports poor appetite and Reports weight loss Cardiovascular: Reports no additional cardiovascular complaints Respiratory: Reports no additional respiratory complaints Gastrointestinal: Reports no additional gastrointestinal complaints Mental Status Exam Mental Status Exam Narrative: Pt is alert and oriented; Behavior calm, cooperative but can intermittently get explosive if feeling triggered; dressed in casual cloths; adequate hygiene; mood is good and affect calm; eye contact adequate; Speech is normal rate, volume and prosody; not pressured; no psychomotor agitation present but pt can intermi ttently erupt; thought process is goal directed; Thought content without paranoid ideations and on tx however, sometimes feels unnecessarily defensive towards others, misreading their tone or body language; denies any SI/HI. not witnessed responding to internal stimuli. Patients insight and judgment are improved. Patient Appearance: Disheveled Patient Orientation: Person, Place, Time and Situation Level of Consciousness: Alert Patient Behavior: Guarded, Aggressive, Belligerent, Verbal Threats, Swearing, Resistive to Care, Fatigued, Distractible, Good Eye Contact, Uncooperative and Impulsive Mood Description: Labile and Angry Affect Description: Labile and Angry Patient Cognition Impaired: No Ability to Follow Directions: Fair Speech Pattern: Spontaneous Speech, Rambling, Excessive, Loud, Pressured and Includes Profanity Memory Description: Episodic Impaired Diagnostics Vital Signs (24Hr): Vital Signs - 24 hr 07/29/21 20:36 07/30/21 11:34 Temperature 97.9 F Pulse Rate 89 Respiratory Rate 18 18 Blood Pressure 122/72 Pulse Oximetry 98 Oxygen Delivery Method Room Air BMI result Body Mass Index 30.4 Labs Results: 07/30/21 07:35 07/30/21 07:35 Labs: Laboratory Results - last 48 hr 07/27/21 07/30/21 07/30/21 08:42 07:35 07:35 WBC RBC Hgb Hct MCV MCH MCHC RDW Plt Count MPV Immature Gran % (Auto) Neut % (Auto) Lymph % (Auto) [place] % (Auto) Eos % (Auto) Baso % (Auto) Lymph # (Auto) [place] # (Auto) Eos # (Auto) Baso # (Auto) Abs Immat Gran (auto) Absolute Neuts (auto) Absolute Nucleated RBC Nucleated RBC % (auto) Sodium 140 Potassium 4.8 Chloride 109 H Carbon Dioxide 23 Anion Gap 13 BUN 17 H Creatinine 1.73 H Estim Creat Clear Calc 42.6 Estimated GFR 30 Calcium 8.8 D PTH Intact 65 Calcium (PTH Intact) 8.7 [place] 0.11 L 07/30/21 07:35 WBC 5.2 RBC 3.23 L Hgb 10.3 L Hct 32.3 L MCV 100.0 H MCH 31.9 MCHC 31.9 RDW 13.3 Plt Count 95 L MPV 11.4 Immature Gran % (Auto) 1.7 H Neut % (Auto) 44.0 L Lymph % (Auto) 32.6 [place] % (Auto) 14.9 H Eos % (Auto) 6.4 H Baso % (Auto) 0.4 Lymph # (Auto) 1.7 [place] # (Auto) 0.8 Eos # (Auto) 0.3 Baso # (Auto) 0.0 Abs Immat Gran (auto) 0.09 H Absolute Neuts (auto) 2.3 Absolute Nucleated RBC 0.000 Nucleated RBC % (auto) 0.0 Sodium Potassium Chloride Carbon Dioxide Anion Gap BUN Creatinine Estim Creat Clear Calc Estimated GFR Calcium PTH Intact Calcium (PTH Intact) [place] Imaging Radiology Impressions: ITS Impressions Chest X-Ray 07/11/21 21:02 IMPRESSION: Hypoinflated lungs. No acute intrathoracic disease. Head CT 07/11/21 21:12 IMPRESSION: No acute intracranial process seen Medications Medications Current Medications Acetaminophen (Acetaminophen 325 Mg Tablet) 650 mg PO Q6H PRN PRN Reason: Headache/Pain Mild Scale (1-3) Last Admin: 07/30/21 01:20 Dose: 650 mg Al Hydroxide/Mg Hydroxide (Magnesium Hydrox/Alum Hydrox 30 Ml Oral.Susp) 30 ml PO Q6H PRN PRN Reason: Heartburn/Nausea Chlorpromazine HCl (Chlorpromazine Hcl 25 Mg Tablet) 25 mg PO Q4H PRN PRN Reason: anxiety/agitation Last Admin: 07/28/21 22:56 Dose: 25 mg Chlorpromazine HCl (Chlorpromazine Hcl 25 Mg Tablet) 50 mg PO TID PRN PRN Reason: mod -severe agitation Last Admin: 07/13/21 21:05 Dose: 50 mg Chlorpromazine HCl (Chlorpromazine Hcl 25 Mg Tablet) 50 mg PO BEDTIME [facility] Last Admin: 07/29/21 20:00 Dose: 50 mg Cyclobenzaprine HCl (Cyclobenzaprine Hcl 5 Mg Tablet) 5 mg PO BEDTIME PRN PRN Reason: Pain, Moderate (Pain Scale 4-6 Last Admin: 07/27/21 20:22 Dose: 5 mg Diphenhydramine HCl (Diphenhydramine Hcl 25 Mg Tablet) 50 mg PO BEDTIME PRN PRN Reason: sleep Last Admin: 07/30/21 03:07 Dose: 50 mg Divalproex Sodium (Divalproex Sodium Er 500 Mg Tab.Er.24h) 1,500 mg PO DAILY@1700 [facility] Last Admin: 07/29/21 15:43 Dose: 1,500 mg Folic Acid (Folic Acid 1 Mg Tablet) 1 mg PO DAILY [facility] Last Admin: 07/30/21 08:03 Dose: 1 mg Haloperidol (Haloperidol 5 Mg Tablet) 10 mg PO BID@0900,1700 [facility] Last Admin: 07/30/21 08:03 Dose: 10 mg Hydroxyzine HCl (Hydroxyzine Hcl 50 Mg Tablet) 50 mg PO Q6H PRN PRN Reason: Anxiety Last Admin: 07/24/21 03:48 Dose: 50 mg Levothyroxine Sodium (Levothyroxine Sodium 50 Mcg Tablet) 50 mcg PO DAILY@0630 [facility] Last Admin: 07/30/21 08:03 Dose: 50 mcg [place] Carbonate ([place] Carbonate 300 Mg Tablet) 150 mg PO DAILY [facility] Last Admin: 07/30/21 08:03 Dose: 150 mg Loperamide HCl (Loperamide Hcl 2 Mg Capsule) 2 mg PO Q6H PRN PRN Reason: diarrhea Magnesium Hydroxide (Milk Of Magnesia 30 Ml Oral.Susp) 30 ml PO DAILY PRN PRN Reason: Constipation Nicotine (Nicotine 14 Mg Patch.Td24) 14 mg TRANSDERMA DAILY [facility] Last Admin: 07/30/21 08:03 Dose: 14 mg Nicotine Polacrilex (Nicotine Polacrilex 2 Mg Gum) 2 mg BUCCAL Q2H PRN PRN Reason: Nicotine Cravings Last Admin: 07/21/21 11:33 Dose: 2 mg Omeprazole (Omeprazole 20 Mg Capsule.Dr) 20 mg PO DAILY [facility] Last Admin: 07/30/21 08:03 Dose: 20 mg Allergies Allergies Allergy/AdvReac Type Severity Reaction Status Date / Time lithium AdvReac Intermediate CKD Verified 07/05/21 15:04 Assessment & Plan Assessment & Plan (1) Bipolar 1 disorder: Status: Acute Code(s): F31.9 - Bipolar disorder, unspecified (2) Acute kidney injury superimposed on chronic kidney disease: Status: Acute Code(s): N17.9 - Acute kidney failure, unspecified; N18.9 - Chronic kidney disease, unspecified Assessment and Plan: Pt seen and examined CKD 3 most likely due to [place] Nephropathy She is at a risk for ongoing renal injury from [place]. However, if [place] is the only option to treat her bipolar disorder at this time, the risk and benefit should be evaluated.. Assuming that the benefits outweigh risk, [place] can be restarted and kidney function needs to be monitored closely (3) Pancytopenia: Status: Acute Code(s): D61.818 - Other pancytopenia Plan HPI: Jeri is a 60 yo female who carries a diagnosis of bipolar I DO. She presented to [facility] ED on 07/03/21 due to worsening depression and anxiety after she was at a convenience store and told the mortgage loan processing clerk she needed help and they called 911. ED provider [place] [facility] [place] has CKD, Cr 1.4 on 06/13. Pt was given 2L of IVF, Cr improved from 1.84 to 1.66. Precipitating factors include recent medication change where she was discontinued from [place] after developing CKD adn started on Depakote 250mg daily; she was left on Paxil. Pt reported worsening sx of mood lability, mary ellen, agitation, and increased activity level since stopping lithium, i.e. she walked for 14 hours one day. Utox negative. Working Formulation: History of severe bipolar disorder moderately well treated with lithium until developed CKD. Patient has tough daily insight and judgment to know she has bipolar disorder and needs to remain for treatment. She nearly daily demands discharge when she is dysregulated however when she calms down she agrees that she is not stable and agrees to remain for treatment. On current regimen patient continues to increasingly stabilize and she has overall become organized in speech and behavior. Intermittently she will get triggered and miss read some social interaction which can lead to intermittent explosive anger however patient is able to eventually calm down. Patient shares that this exists at baseline though seems to have been better treated with lithium. Working PLAN: CV 1:1 1. Bipolar disorder, severe: only Partially resolved with Depakote and Haldol CONTINUE LITHIUM 150mg (since mary ellen only partially resolved and behaviors still problematic) -Cr increased to 1.96 -continue to monitor bun, creatinine, lytes, calcium CONTINUE Depakote ER 1500mg daily (will not increase); while patient may benefit from a higher dose, her platelets have decreased since starting Depakote; platelets have stabilized; since patient is behaviors and organization is also stabilizing, do not want to risk further lowering platelets -Platelets stable; Continue to monitor CBC, lytes, bun/cr CONTINUE Haldol 10mg BID (0900 and 1700) -DC Paxil to 5mg; for despite the fact that patient has improved considerably since admission, she remains intermittently eruptive and disorganized so will remove all barriers to mood stabilization -DC scheduled Thorazine for insomnia and make PRN so as to limit contributions to leukocytopenia -continue Thorazine 50 mg and Ativan 1 mg for moderate severe agitation (lowered dosing a little since sedating) -continue Thorazine 25mg qid prn for anxiety, mild agitation 2. Pancytopenia: stable Medication induced; discussed with lead worker of housekeeping and laundry Dr. Howe who agrees labs are stable and patient can continue on current medication regimen but should likely follow up Q 2 weeks for while to continue to demonstrate stable lab values -ordered B12/folate: level pending to review Evolving Medication decisions for this admission: -on Admision, Depakote monotherapy tried; not effective (tried in combo with tegretol, then risperdal... eventually Dc'd) -Zyprexa as a p.r.n. not effective; DC'd -Risperidone (added to Depakote); not effective; DC'd -Thorazine PRN proves sedating even at low doses making it difficult to titrate to therapeutic dose. -Tegretol added to depakote caused side-effect: pt developed ataxia, tremor and was disoriented. Tegretol was dc'd and side-effects resolved. -Vegetable Cutter discussed case with psychiatric team, Dr. Uribe, Dr. Leon, Dr. Rangel; one consideration is that the problem with Tegretol was that it was combined with Depakote, the combination being the cause of side effects; however given the fact that patient did have 3 good days over the weekend on Depakote, signwriter will continue with Depakote at this time, possibly increase it and instead just switch patient over to Haldol since Risperdal has not been helpful for delusions/AH. -prior to admission patient was started on Depakote 250 mg and left on Paxil 20 mg; to avoid discontinuation syndrome, signwriter lowered Paxil to 10 mg and increase Depakote to therapeutic level. At this time will taper and then Discontinue Paxil out of concern for at being a barrier for resolution of mray ellen. Discontinued Risperdal 2mg BID; not effective (dc'd on 07/18) Discontinued Trazodone; used for sleep, but will dc on outside chance interferes with this mentally mary ellen; will use Thorazine instead) 07/25/21: Depakote and Haldol only partially helpful; Depakote cannot be increased given its caused his pancytopenia which is stable. Patient very much wants to get back on lithium; will discuss with Nephrology if this is an option. Patient and signwriter discussed side effect risks of going back on lithium and patient feels that the benefit of this medication outweighs the risks given that she can not continue to live and this manic state. 07/28 read trying lithium but at low dose to see if can help patient stabilize; so lithium plus Depakote plus Haldol 07/29 Continue treatment plan. Otherwise: -Dc'd propranolol: pt says contributing to her confusion Elevated Cr due CKD continue to avoid NSAIDs given CKD Chest x-ray negative for aspiration but did reveal hypoinflation: discussed with Dr. Castillo who says no need for follow up; finding due to pt not taking deep breath when image taken. Monitor response to medications. Monitor for safety in the milieu. Discharge on stabilization. Patient seen. Chart reviewed. Discussed with team. Obtain collateral contact info?as needed For day today details... HOSPITAL Course: 07/04 patient highly irritable this morning, posturing and aggressive with peers and staff however she was able to calm down and agreed to increase Depakote dose. Will also restart Paxil though at a lower dose to avoid discontinuation syndrome which could be further aggravated 07/05 Patient severely agitated off and on throughout the day, posturing at staff, threatening to hit, spitting on staff, breaking and throwing things and needing IM medication. Minimal insight -hopefully Depakote will start to help -will consider Tegretol since her sister who has severe bipolar disorder has been successfully treated with this medication 07/06 remains manic, irritated easily agitated; continue treatment plan however patient talked about Tegretol and this remains consideration 07/07 patient refused Depakote last night saying she wants Tegretol 07/10 some mild improvement but she remains manic, disorganized. Patient seems to be having side effect of hand tremor, some ataxia and lowered platelets; currently debating how to approach medication management as patient would like to be on Tegretol as a monotherapy, however initiation of this medication coincides with onset of side effects. Will continue to monitor for now. These medications side effects/risks were discussed with patient who understood and agrees to current regimen 07/11 patient agrees that side effects of unsteady gait and tremor have increased with increased dose of Tegretol and she agrees to discontinue this medication and see if Depakote alone or with another mood stabilizer will be helpful. 07/12 pt confused, disoriented, most likely due to medication Tegretol side effects. Staff reported to signwriter that patient had a choking episode and needed the Heimlich maneuver which was successful. Patient remained unsteady on her feet overnight, fell. Head CT done which was negative; Chest x-ray negative for aspiration but did reveal hypoinflation, signwriter placed internal medicine consult; Because patient was confused last night her Depakote dose was held 07/13 Seems to be calmer since starting low-dose Risperdal; she says her mind is not racing as much. Will continue this medication and hopefully seek continued stabilization 07/14 remains manic; refused depakote last night; increasing Risperdal to 2 mg b.i.d. patient accepts that she has bipolar disorder and agrees that she is not at her baseline and that discharging would put her vulnerable in the community due to her agitated behaviors. She agrees to remain in the unit for continued treatment From evening of 07/14 to evening of 07/17 patient had good behaviors and was in good behavioral control only getting dysregulated the evening of 07/17 and possibly due to being triggered by the high acuity on the unit. 07/19 more calm, no problematic behaviors; agrees to stay for treatment.? Some confusion and auditory hallucinations but less so. 07/20 calm, cooperative, in good behavioral control; denies AVH and is no longer feeling confused, no longer entertaining delusional thoughts. Says she has an 8/10, 10 being her regular, baseline self 07/21 outburst this morning from which patient says she was feeling triggered. Patient will come down. Patient intermittently over reacts but is overall continuing to trend towards increasing stability 07/23/21 Encourage regime compliance 07/24 outburst yesterday; today calm; organized until get's dysregulated; struggles with insight into her behaviors 07/25 patient continues to have outbursts and makes threats and verbal assaults to staff. She wants to get back on lithium; signwriter agreed to discuss with java developer with security clearance 07/27 start lithium RISKS, SIDE EFFECTS of going back on lithium thoroughly discussed with patient and with java developer with security clearance. Patient understands the potential risks of being on lithium both in terms of be coming lithium toxic and of worsening kidney function; however she wants to continue with this treatment plan feeling that the benefit outweighs the risks. She is encouraged to know that perhaps a low dose of lithium in combination with her other medications could be enough to help her turn the corner into safe functioning. 07/28 appears to be some improved functioning, less irritable and less prone towards feeling slighted by others and responding with verbal insults. 07/30 Repeat Li level 12 hours after her dose tonight at 8 as the level drawn this morning isn't accurate. I spent minutes with the patient and/or on the patient floor today, greater than?50% of which was spent counseling/coordinating care. Reason for contiued inpatient stay Substantial Risk for: inability to function and rapid decompensation
[2021-07-30] MEDS: Divalproex Sodium ER 500 MG TAB.ER.24H 1500 MG PO (15:27)
[2021-07-30] MEDS: chlorproMAZINE HCl 25 MG TABLET 50 MG PO (19:19)
[2021-07-30 20:27] LABS: Lithium 0.11 mmol/L (0.60-1.20)
[2021-07-31 06:00] VITALS: BP 126/76; PULSE 96; RESP 18; TEMP 36.7; O2SAT 97
[2021-07-31] MEDS: HaloperidoL 5 MG TABLET 10 MG PO (08:45)
[2021-07-31] MEDS: Lithium Carbonate 300 MG TABLET 150 MG PO (08:45)
[2021-07-31] MEDS: Omeprazole 20 MG CAPSULE.DR PO (08:46)
[2021-07-31] MEDS: Folic Acid 1 MG TABLET PO (08:46)
--- NOTE | 2021-07-31 11:41 | P.DS_ITS ---
DS: Providers Provider Date of Service: 07/31/21 Date of admission: 07/03/21 17:17 Date of discharge: 07/31/21 Primary care physician: Aquiles Rivera DO, MD Admitting clinician: Sabrina Killian Consults: 07/12/21 10:28 Consult to Hospitalist Routine Consulting Provider: Hospitalist Reason For Exam: The lungs are markedly hypoexpanded 07/24/21 11:47 Consult to Hematology / Oncology Routine Consulting Provider: Enriqueta Howe Reason for consultation: pancytopenia? likely due to Valproic acid; assess and recs 07/25/21 12:36 Consult to Nephrology Routine Consulting Provider: Helder Hernández Reason for consultation: lithium caused CKD; but only lithium works; risks of continuing Attending physician on discharge: Memo Alcantara DS: Diagnosis Discharge Diagnosis (1) Bipolar 1 disorder: Status: Acute (2) Acute kidney injury superimposed on chronic kidney disease: Status: Acute (3) Pancytopenia: Status: Acute DS: Medications Discharge Medications Home Medications: Previous Rx's Medication Instructions Recorded chlorpromazine 25 mg tablet 50 mg PO BEDTIME PRN 07/31/21 insomnia/agitation 30 days #90 tabs cyclobenzaprine 5 mg tablet 5 mg PO BEDTIME PRN Pain, Moderate 07/31/21 (Pain Scale 4-6 30 days #20 tabs diphenhydramine HCl 25 mg tablet 50 mg PO BEDTIME PRN sleep 30 days 07/31/21 (Allergy Relief (diphenhydramine)) #60 tabs divalproex 500 mg tablet,extended 1,500 mg PO DAILY@1700 30 days #90 07/31/21 release 24 hr tabs folic acid 1 mg tablet 1 mg PO DAILY 30 days #30 tabs 07/31/21 haloperidol 10 mg tablet 10 mg PO BID 30 days #60 tabs 07/31/21 levothyroxine 50 mcg tablet 50 mcg PO DAILY 30 days #30 tabs 07/31/21 lithium carbonate 150 mg capsule 150 mg PO DAILY 30 days #30 caps 07/31/21 nicotine (polacrilex) 2 mg gum 2 mg buccal Q2H PRN Nicotine 07/31/21 Cravings 30 days #50 ea nicotine 14 mg/24 hr daily 14 mg transdermal DAILY PRN 07/31/21 transdermal patch smoking cessation 28 days #28 ea omeprazole 20 mg capsule,delayed 20 mg PO DAILY 30 days #30 caps 07/31/21 release Mental Status Exam Mental Status Exam Narrative: Pt is alert and oriented; Behavior calm, cooperative; dressed in casual cloths; adequate hygiene; mood is good and affect calm; eye contact adequate; Speech is normal rate, volume and prosody; not pressured; no psychomotor agitation present; thought process is goal directed and linear; Thought content on treatment, discharge, no paranoid ideations; denies any SI/HI. No AVH; Patients insight and judgment are fair and adequate. Data Data Completed and Pending Completed studies during hospitalization [Text1]: 07/24/21 07/24/21 07/24/21 09:32 15:01 15:01 WBC RBC Hgb Hct MCV MCH MCHC RDW Plt Count MPV Immature Gran % (Auto) Neut % (Auto) Lymph % (Auto) [place] % (Auto) Eos % (Auto) Baso % (Auto) Lymph # (Auto) [place] # (Auto) Eos # (Auto) Baso # (Auto) Abs Immat Gran (auto) Absolute Neuts (auto) Absolute Nucleated RBC Nucleated RBC % (auto) Absolute Retic 0.028 Percent Retic 0.8 Immature Retic Fraction 9.4 Retic Hgb Equivalent 36.6 H Sodium Potassium Chloride Carbon Dioxide Anion Gap BUN Creatinine Estim Creat Clear Calc Estimated GFR Random Glucose Calcium Lactate Dehydrogenase 175 Total Protein (PEP) Albumin (PEP) Uiwuo-4-Anmceahso Neqak-7-Qvviouyoh Fsak-0-Vityjbqk Jjor-2-Pjzcswjj Gamma Globulins Abnorm Protein Band 1 Abnorm Protein Band 2 Abnorm Protein Band 3 PEP Interpretation Vitamin B12 761 Folate 3.5 L PTH Intact Calcium (PTH Intact) Urine Osmolality Ur Random Sodium [employer] [facility] IgG Total IgA Total IgM BERNARDINO Interpretation 07/24/21 07/26/21 07/26/21 15:01 13:41 13:41 WBC RBC Hgb Hct MCV MCH MCHC RDW Plt Count MPV Immature Gran % (Auto) Neut % (Auto) Lymph % (Auto) [place] % (Auto) Eos % (Auto) Baso % (Auto) Lymph # (Auto) [place] # (Auto) Eos # (Auto) Baso # (Auto) Abs Immat Gran (auto) Absolute Neuts (auto) Absolute Nucleated RBC Nucleated RBC % (auto) Absolute Retic Percent Retic Immature Retic Fraction Retic Hgb Equivalent Sodium Potassium Chloride Carbon Dioxide Anion Gap BUN Creatinine Estim Creat Clear Calc Estimated GFR Random Glucose Calcium Lactate Dehydrogenase Total Protein (PEP) 6.8 Albumin (PEP) 3.5 L Kkvaf-9-Wqaklszwz 0.3 Qsuma-7-Qyzdxmjeo 0.6 Ipmf-7-Sprwlttl 0.5 Uttu-3-Lidhaafp 0.4 Gamma Globulins 1.5 Abnorm Protein Band 1 TNP Abnorm Protein Band 2 TNP Abnorm Protein Band 3 TNP PEP Interpretation SEE NOTE Vitamin B12 Folate PTH Intact Calcium (PTH Intact) Urine Osmolality 210 L Ur Random Sodium < 20.0 [employer] [facility] IgG Total 1598 IgA Total 291 IgM 284 BERNARDINO Interpretation SEE NOTE 07/27/21 07/27/21 07/30/21 08:42 08:42 07:35 WBC RBC Hgb Hct MCV MCH MCHC RDW Plt Count MPV Immature Gran % (Auto) Neut % (Auto) Lymph % (Auto) [place] % (Auto) Eos % (Auto) Baso % (Auto) Lymph # (Auto) [place] # (Auto) Eos # (Auto) Baso # (Auto) Abs Immat Gran (auto) Absolute Neuts (auto) Absolute Nucleated RBC Nucleated RBC % (auto) Absolute Retic Percent Retic Immature Retic Fraction Retic Hgb Equivalent Sodium 142 140 Potassium 4.1 4.8 Chloride 113 H 109 H Carbon Dioxide 20 L 23 Anion Gap 13 13 BUN 27 H 17 H Creatinine 1.96 H 1.73 H Estim Creat Clear Calc 37.6 42.6 Estimated GFR 26 30 Random Glucose 214 H Calcium 8.2 L 8.8 D Lactate Dehydrogenase Total Protein (PEP) Albumin (PEP) Vluso-3-Xwkbibujj Tyres-8-Ccibqblbg Jktc-5-Koznggex Ugtw-3-Bminufws Gamma Globulins Abnorm Protein Band 1 Abnorm Protein Band 2 Abnorm Protein Band 3 PEP Interpretation Vitamin B12 Folate PTH Intact 65 Calcium (PTH Intact) 8.7 Urine Osmolality Ur Random Sodium [employer] [facility] IgG Total IgA Total IgM BERNARDINO Interpretation 07/30/21 07/30/21 07/30/21 07:35 07:35 20:09 WBC 5.2 RBC 3.23 L Hgb 10.3 L Hct 32.3 L MCV 100.0 H MCH 31.9 MCHC 31.9 RDW 13.3 Plt Count 95 L MPV 11.4 Immature Gran % (Auto) 1.7 H Neut % (Auto) 44.0 L Lymph % (Auto) 32.6 [place] % (Auto) 14.9 H Eos % (Auto) 6.4 H Baso % (Auto) 0.4 Lymph # (Auto) 1.7 [place] # (Auto) 0.8 Eos # (Auto) 0.3 Baso # (Auto) 0.0 Abs Immat Gran (auto) 0.09 H Absolute Neuts (auto) 2.3 Absolute Nucleated RBC 0.000 Nucleated RBC % (auto) 0.0 Absolute Retic Percent Retic Immature Retic Fraction Retic Hgb Equivalent Sodium Potassium Chloride Carbon Dioxide Anion Gap BUN Creatinine Estim Creat Clear Calc Estimated GFR Random Glucose Calcium Lactate Dehydrogenase Total Protein (PEP) Albumin (PEP) Xdhnh-4-Uxqmhnkxv Vnmid-4-Plhleazok Fqoo-1-Dmpumafu Fdif-2-Qfeizbey Gamma Globulins Abnorm Protein Band 1 Abnorm Protein Band 2 Abnorm Protein Band 3 PEP Interpretation Vitamin B12 Folate PTH Intact Calcium (PTH Intact) Urine Osmolality Ur Random Sodium [employer] [facility] 0.11 L 0.11 L IgG Total IgA Total IgM BERNARDINO Interpretation Imaging Diagnostic Imaging Impressions Chest X-Ray 07/11/21 21:02 IMPRESSION: Hypoinflated lungs. No acute intrathoracic disease. Head CT 07/11/21 21:12 IMPRESSION: No acute intracranial process seen DS: Summary Hospital Course Hospital Course: HPI: Jeri is a 60 yo female who carries a diagnosis of bipolar I DO. She presented to [facility] ED on 07/03/21 due to worsening mood lability, and anxiety, mary ellen and agitation, and increased activity after she was at a convenience store and told the human resources file clerk she needed help and they called 911. Precipitating factors are that she her lithium, which she had been on for years, was discontinued due to developing CKD; patient was subsequently started on Depakote 250 mg daily Hospital course was complicated. On admission patient was manic, highly irritable and intrusive and easily agita rosa towards others often threatening others, posturing and requiring multiple redirections which included help from security and Thorazine which was the only medication that seemed to sedate her. Medication progression: -Patient's Depakote was increased to 1500 mg; while this was partially helpful she remained manic, irritable and threatening towards others. It could not be increased further because she developed pancytopenia. -To address her continued mary ellen she was started on Tegretol however this worsened the pancytopenia and also caused delirium and tremor which resolved once it was discontinued (pt had choking episode and received Hemlich maneuver which was successful; swallow eval temporarily changed diet but this resolved; follow up labs negative). -As patient remained with manic symptoms, irritable, threatening and also with auditory hallucinations, she was started on Zyprexa, then Risperdal neither of which were effective. -She was then started on Haldol which was mildly helpful. -After some time on both Depakote and Haldol patient's symptoms did improve however not enough and she remained intermittently explosive, threatening and posturing towards others. Patient was miserable and though somewhat paranoid feeling that others were purposely provoking her, she also had enough insight to know that many or most of her symptoms were caused by her bipolar disorder. Patient very much wanted to get back on lithium. Given that nothing else was helpful and that her behaviors remain dangerous, sheet writer agreed to discuss this with Nephrology. Dr. Hernández met with patient and reviewed labs. Both sheet writer and Nephrology discussed risks/side effects of going back on lithium and patient who expressed understanding of these risks, continued to strongly feel that the potential benefit outweighed the risks given that her bipolar is dose remains debilitating (discussion included was not limited to lithium toxicity, worsening kidney function and eventual risk for kidney failure and dialysis). -Patient was started on low-dose immediate release lithium 150 mg which rapidly resolved almost all patients remaining manic symptoms. Patient was minimally irritable and these moments were short-lived and she was able to redirect herself not needing any intervention. Patient said she felt so much more clear minded and that she was close to being back to her normal self. She reported sleeping well and eager for discharge. Corrugated Box Machine Operator again discussed the risks/side effects of going back on lithium as well as being on her current medication r egimen. Patient asked questions and understood these risks and wanted to continue with current treatment. She agrees to get labs drawn once a week for the next 2 weeks and then if stable, once a month to monitor her kidney function, electrolytes, calcium, CBC and lithium levels. Corrugated Box Machine Operator discussed her case with her outpatient prescriber Christine Cote who agrees with plan. Patient and Christine Cote also agree that it is possible for patient to at some point see if she can tolerate a lower dose of Haldol. Patient's Paxil was eventually discontinued out of concern that it might be interfering with resolving manic symptoms. This was also discussed with patient who agrees to remain off it for now but will discuss whether not to go back on it with outpatient provider. Patient was eager for discharge. She was in a good mood, clear minded and with linear thinking; she was also able to continue demonstrating good behavior and impulse control. Patient reports that she has been sleeping well she also showed sheet writer her water bottle and that she continues to stay hydrated. Patient understood her medication regimen and her need for getting labs and following up with her outpatient provider. She was not in imminent risk for harm to self or others and her request for discharge honored. 1. Bipolar disorder, severe:? resolved Only Partially resolved with Depakote ER 1500mg and Haldol 10mg BID Resolved once patient is started on low-dose lithium 150 mg Patient has CKD however BUN, creatinine remained stable (discussed with rheumatology nurse who agrees; discussed with patient understands) Patient developed pancytopenia from Depakote however lab values also remained stable (discussed with clay products machine operator agrees; discussed with patient understands) For now discontinued Paxil out of concern it could be contributing to the difficulty in resolving mary ellen; patient's anxiety remained under control; she will discuss with outpatient provider whether to restart PRN Thorazine 50mg for insomnia and 25mg for agitation helpful Time spent discussing smoking cessation with patient: 3 to 10 minutes Status at Discharge Functional status at discharge: independent ambulation Overall status at discharge: patient is progressing back to baseline Time Spent with Patient Time attestation: Total time spent providing and/or coordinating discharge services: Time spent: Greater than 30 minutes Discharge Plan Discharge Patient Disposition: Home, Self-Care Discharge Diagnosis: Bipolar disorder, Type I, recurrent, severe, with psychotic features in full remission Referrals: Therapy: Meenakshi Flor [Other] - 08/02/21 11:30 am (This is a Telehealth appointment) Psychiatric Med Management: Christine Rosales [Other] - 08/25/21 11:00 am (This is a virtual Telehealth appointment. A link will be sent to your email to connect to the video appointment) Aquiles Rivera DO, MD [Primary Care Provider] - 1 Week (PCP notified, office will call patient with an appointment) Discharge Medications: New diphenhydramine HCl [Allergy Relief(diphenhydramin)] 25 mg Tablet 50 mg PO BEDTIME PRN (Reason: sleep) 30 Days Qty: 60 0RF cyclobenzaprine 5 mg Tablet 5 mg PO BEDTIME PRN (Reason: Pain, Moderate (Pain Scale 4-6) 30 Days Qty: 20 1RF nicotine 14 mg/24 hr Patch 24 Hour 14 mg transdermal DAILY PRN (Reason: smoking cessation) 28 Days Qty: 28 0RF Rx Instructions: remove at bedtime nicotine (polacrilex) 2 mg Gum 2 mg buccal Q2H PRN (Reason: Nicotine Cravings) 30 Days Qty: 50 0RF chlorpromazine 25 mg Tablet 50 mg PO BEDTIME PRN (Reason: insomnia/agitation) 30 Days Qty: 90 0RF Rx Instructions: take 1-2 tabs as needed for insomnia and for anxiety/agitation divalproex 500 mg Tablet Extended Release 24 Hr 1,500 mg PO DAILY@1700 30 Days Qty: 90 0RF haloperidol 10 mg tablet 10 mg PO BID 30 Days Qty: 60 0RF lithium carbonate 150 mg capsule 150 mg PO DAILY 30 Days Qty: 30 0RF folic acid 1 mg Tablet 1 mg PO DAILY 30 Days Qty: 30 0RF Changed levothyroxine 50 mcg tablet 50 mcg PO DAILY 30 Days Qty: 30 0RF omeprazole 20 mg capsule,delayed release(DR/EC) 20 mg PO DAILY 30 Days Qty: 30 0RF Discontinued divalproex 250 mg tablet,delayed release (DR/EC) 1 tab PO BEDTIME paroxetine HCl 20 mg tablet 1 tab PO DAILY hydroxyzine pamoate 25 mg capsule 1 - 2 cap PO BID PRN (Reason: anxiety) propranolol 10 mg tablet 1 tab PO BID Discharge Orders: Discharge Order (Routine); Ordered 07/31/21 Ordered By: Memo Alcantara Diet: diabetic diet Activity on Discharge: As tolerated Stand Alone Forms: Patient Portal Discharge page, Community Support Other Ambulatory Orders: Blood Urea Nitrogen (Routine) Timeframe: [id number] Facility: [facility] - Location: Laboratory Ordered By: Memo Alcantara Blood Urea Nitrogen (Routine) Timeframe: [id number] Facility: [facility] - Location: Laboratory Ordered By: Memo Alcantara Calcium (Routine) Timeframe: [id number] Facility: [facility] - Location: Laboratory Ordered By: Memo Alcantara Calcium (Routine) Timeframe: [id number] Facility: [facility] - Location: Laboratory Ordered By: Memo Alcantara Complete Blood Count Auto Diff (Routine) Timeframe: [id number] Facility: [facility] - Location: Laboratory Ordered By: Memo Alcantara Creatine Kinase Total (Routine) Timeframe: [id number] Facility: [facility] - Location: Laboratory Ordered By: Memo Alcantara Creatinine (Routine) Timeframe: [id number] Facility: [facility] - Location: Laboratory Ordered By: Memo Alcantara [facility] (Routine) Timeframe: [id number] Facility: [facility] - Location: Laboratory Ordered By: Memo Alcantara [facility] (Routine) Timeframe: [id number] Facility: [facility] - Location: Laboratory Ordered By: Memo Alcantara Electrolytes (Routine) Timeframe: [id number] Facility: [facility] - Location: Laboratory Ordered By: Memo Alcantara Electrolytes (Routine) Timeframe: [id number] Facility: [facility] - Location: Laboratory Ordered By: Memo Alcantara Care Plan Goals: Maintain mood and safe behaviors Take medications as prescribed, includin. Depakote: for mood stability 2. Haldol: for mood stability 3. [employer] [facility]: for mood stability 4. Thorazine: as needed for sleep and anxiety/agitation Practice coping skills Continue with outpatient providers and reach out to them as needed Health Concerns: Mood stability and behaviors Chronic Kidney Disease Pancytopenia, currently stable: medication related (Depakote) Hypothyroid Plan of Treatment: Follow up with your PCP, psychiatric provider and other outpatient providers regarding above concerns *Get lab work done on 08/03/2021 and again on 08/10/2021 and discussed results with Christine Cote, outpatient provider; then get lab work at least once a month (kidney function, electrolytes, calcium, lithium level, CBC with diff) Stay well-hydrated Take medications as prescribed, includin. Depakote: for mood stability 2. Haldol: for mood stability 3. [employer] [facility]: for mood stability 4. Thorazine: as needed for sleep and anxiety/agitation Paxil was stopped on this admission: Discuss with outpatient provider whether or not to go back on Paxil Haldol was started on this admission: Discuss with outpatient provider if possible to lower Haldol dose Depakote was increased on this admission [employer] at very low dose was restarted on this admission Thorazine started on this admission Propanolol stopped on this admission (patient did not want; blood pressures normal) Assessment: Risk assessment at time of discharge:? Patient was interviewed prior to discharge and found to be fully oriented and without any SI or HI. Patient has insight and demonstrates good judgment in terms of wanting to pursue treatment. Patient is not in imminent risk of harm to self or others and has a safety plan that includes presenting to the closest ER or calling 911 if feeling unsafe.? Patient has been observed closely by nursing and unit staff throughout admission; once stabilized patient has not engaged in any behaviors that suggest dangerousness to self or others.
== END 2021-07-31 01:15 | disposition home or self-care (01) | DRG 885 ==
LOC: HO.ED 13:00 → HO.PM5 17:43
PROVIDERS: Emergency Medicine; Hospitalist; Internal Medicine; Internal Medicine Hypertension Specialist; Psychiatry & Neurology Psychiatry; Student in an Organized Health Care Education/Training Program; Admitting Provider Psychiatry & Neurology Psychiatry; Emergency Provider Emergency Medicine Emergency Medical Services; PCP Internal Medicine; Visit Provider Psychiatry & Neurology Psychiatry
DX: F31.9 Bipolar disorder, unspecified (principal); N17.9 Acute kidney failure, unspecified; D61.818 Other pancytopenia; E03.9 Hypothyroidism, unspecified; N18.30 Chronic kidney disease, stage 3 unspecified; N14.1 Nephropathy induced by other drugs, medicaments and biological substances; T43.595A Adverse effect of other antipsychotics and neuroleptics, initial encounter; K21.9 Gastro-esophageal reflux disease without esophagitis; F17.210 Nicotine dependence, cigarettes, uncomplicated; Z20.822 Contact with and (suspected) exposure to COVID-19; Z71.6 Tobacco abuse counseling; Z88.8 Allergy status to other drugs, medicaments and biological substances; Z79.890 Hormone replacement therapy; Z79.899 Other long term (current) drug therapy
CPT/HCPCS: 36415; 70450; 71045; 80048; 80051; 80076; 80143; 80164; 80178; 80179; 80307; 81001; 82077; 82140; 82310; 82565; 82607; 82746; 82784; 83615; 83735; 83935; 83970; 84165; 84300; 84520; 85025; 85045; 85379; 86334; 87635; 92526; 92610; 92950; 94640; 96360; 99285; J2060; J3230; Q0163

== ENCOUNTER 2021-08-05 09:12 | Emergency (ER) | payer OTHER, SELFPAY ==
--- NOTE | 2021-08-05 09:21 | ED_ITS ---
HPI - General Adult General Chief complaint: Weakness Stated complaint: diff walking Time Seen by Provider: 08/05/21 09:20 Source: patient and EMS Mode of arrival: EMS Limitations: no limitations History of Present Illness HPI narrative: Patient is a 60 year old female presenting to the emergency department today with an increase in racing thoughts and pain secondary to her psoriatic arthritis. Patient states that she was here for 3 weeks while being switched from [place] to another anti-psychotic medication. Patient states that while she was here, she wasn't getting her psoriatic arthritis shots and so she had some increased pain. Patient states that she did use a shot at home, today. Patient s tates that she is having much worse thoughts and would like to talk to someone about those thoughts. Patient declines and homicidal or suicidal ideation. Patient denies any dizziness, lightheadedness, abdominal pain, nausea, vomiting, fever, chills, blurry vision, double vision, loss of vision, chest pain, difficulty breathing, shortness of breath, back pain, night sweats, pain with urination, increased urinary frequency, increased urinary urgency, blood in her urine or stool, syncope or a near syncopal episode, recent trauma or falls, bowel incontinence, bladder incontinence, bowel retention, bladder retention, or any other complaints at this time. Onset (ago): day(s) Severity: mild Severity scale (1-10): 2 Relieving factors: none Exacerbating factors: none Associated symptoms: denies other symptoms Treatments prior to arrival: none Related Data Previous Rx's Medication Instructions Recorded chlorpromazine 25 mg tablet 50 mg PO BEDTIME PRN 07/31/21 insomnia/agitation 30 days #90 tabs cyclobenzaprine 5 mg tablet 5 mg PO BEDTIME PRN Pain, Moderate 07/31/21 (Pain Scale 4-6 30 days #20 tabs diphenhydramine HCl 25 mg tablet 50 mg PO BEDTIME PRN sleep 30 days 07/31/21 (Allergy Relief (diphenhydramine)) #60 tabs divalproex 500 mg tablet,extended 1,500 mg PO DAILY@1700 30 days #90 07/31/21 release 24 hr tabs folic acid 1 mg tablet 1 mg PO DAILY 30 days #30 tabs 07/31/21 haloperidol 10 mg tablet 10 mg PO BID 30 days #60 tabs 06/13/22 levothyroxine 50 mcg tablet 50 mcg PO DAILY 30 days #30 tabs 07/31/21 lithium carbonate 150 mg capsule 150 mg PO DAILY 30 days #30 caps 07/31/21 nicotine (polacrilex) 2 mg gum 2 mg buccal Q2H PRN Nicotine 07/31/21 Cravings 30 days #50 ea nicotine 14 mg/24 hr daily 14 mg transdermal DAILY PRN 07/31/21 transdermal patch smoking cessation 28 days #28 ea omeprazole 20 mg capsule,delayed 20 mg PO DAILY 30 days #30 caps 07/31/21 release Allergies Allergy/AdvReac Type Severity Reaction Status Date / Time lithium AdvReac Intermediate CKD Verified 07/05/21 15:04 Review of Systems Constitutional: Constitutional: Reports no additional constitutional complaints, Denies chills, Denies fever(s) and Denies night sweats Eyes: Eyes: Reports no additional eye complaints, Denies blurry vision, Denies change in vision, Denies diplopia, Denies eye discharge, Denies loss of vision and Denies eye pain ENT: Denies dizziness Cardiovascular: Cardiovascular: Reports no additional cardiovascular complaints, Denies chest pain, Denies lightheadedness, Denies Loss of Consciousness and Denies dyspnea Respiratory: Respiratory: Reports no additional respiratory complaints and Denies dyspnea Gastrointestinal: Gastrointestinal: Reports no additional gastrointestinal complaints, Denies abdominal pain, Denies melena, Denies hematochezia, Denies change in bowel habits and Denies change in stool character Genitourinary: Genitourinary: Denies hematuria, Denies urinary frequency, Denies dysuria, Denies urinary incontinence, Denies urinary hesitancy and Denies urinary urgency Musculoskeletal: Musculoskeletal: Reports no additional musculoskeletal complaints, Denies numbness and Denies tingling Neurologic: Denies dizziness, Denies loss of vision, Denies numbness and Markie es tingling Psychiatric: Psychiatric: Reports no additional psychiatric complaints Comments: racing thoughts Endocrine: Endocrine: Reports no additional endocrine complaints Hematologic/Lymphatic: Hematologic/Lymphatic: Reports no additional hematologic/lymphatic complaints Allergic/Immunologic: Allergic/Immunologic: Reports no additional allergic/immunologic complaints PMFSH Past Medical History Attestation statement: The following information was validated with the patient. Source: old records reviewed Medical History Anxiety CKD (chronic kidney disease) Depression GERD (gastroesophageal reflux disease) Hypothyroidism Social History Social History Household Members: Family Housing: House Do you presently have visiting nurse or other home services: No Patient Tobacco Use Status: Current everyday Tobacco user Tobacco use type: Cigarette Cigarette Packs Per Day: 0.5 Second Hand Smoke Exposure: Yes Advance Directives: Yes Advance Directives Information Provided: Yes Advance Directives on File: No Patient : No service: No Sexual orientation: Did not discuss Physical Exam ED Vital Signs: Vital Signs - 24 hr 08/05/21 09:22 08/05/21 11:22 08/05/21 12:40 Temperature 98.0 F 97.7 F Pulse Rate 92 66 88 Respiratory Rate 18 18 16 Blood Pressure 150/70 H 101/65 132/71 Pulse Oximetry 98 99 93 Oxygen Delivery Method Room Air Room Air Room Air BMI result Body Mass Index 32.8 Const General: cooperative, no acute distress, alert and awake Nutritional Appearance: well nourished Orientation/consciousness: patient oriented x3 Limitations: no limitations HENMT Head: Yes normal to inspection and Yes atraumatic Ears: hearing grossly normal bilaterally and external ears normal General nose exam: Normal external nose present, no nasal discharge noted and no epistaxis Face and sinus: Yes normal facial exam, No abrasion and No laceration Mouth: Normal oral and palatal mucosa present, no drooling and no muffled voice Eyes General: appearance normal, both eyes and all related structures Periorbital: periorbital findings normal Eyelids: Yes eyelids normal Conjunctivae: conjunctivae normal Pupils: Equal, round and reactive pupils present EOM: EOMs intact bilaterally Neck Neck: Yes normal visual inspection, Yes full ROM and Yes no lymphadenopathy Chest Chest palpation & inspection: normal inspection of the chest Resp Effort & Inspection: normal respiratory effort and able to speak in complete sentences Auscultation: clear to auscultation bilaterally Cardio Rate: regular rate Rhythm: regular rhythm GI Inspection: Yes normal to inspection Neuro General: patient oriented x3 and moves all extremities Cranial nerves: Yes Equal, round and reactive pupils present Cognition (Neuro): normal cognition Motor exam (neuro): 5/5 motor strength present throughout Sensory Exam: Normal double simultaneous stimulation for sensation Coordination: [id number] test normal Extrem General: Yes normal to inspection, Yes full ROM and Yes capillary refill normal Psych Appearance: grossly normal Mental Status: mental status grossly normal Affect: normal affect Attitude: cooperative Thought process: Normal thought process present Thought content: Normal thought content present Insight: Good insight present (Psych) Medical Decision Making MDM Narrative Medical decision making narrative: Patient is a 60 year old female presenting to the emergency department today with increased racing thoughts. Patient's physical exam was unremarkable. Patient's blood work was unchanged from previous. I explained my physical exam findings as well as all test results to the patient. I answered all questions asked by the patient. Patient received PO Ativan which she stated helped her symptoms significantly. I spoke to Dr. Alcantara who recommended the patient have her lithium increased to 300mg daily, and that she have her labs (BUN/CR + [place] level) repeated on 08/07/2021. I stressed the importance of the patient taking her medication as directed. I stressed the importance of the patient following up with her primary care provider and psychiatrist. I stressed the importance of the patient returning to the emergency department immediately if her symptoms were to worsen or if she were to develop any dizziness, shortnes s of breath, difficulty breathing, chest pain, blurry vision, loss of vision, nausea, vomiting, abdominal pain, fever, chills, back pain, or any other complaints. Patient verbalized agreement and understanding with this treatment plan and discharge. Differential Diagnosis Differential Diagnosis: crisis, anxiety Medical Records Medical records reviewed: Yes I reviewed the patient's medical records. Lab Data Lab results reviewed: Yes I reviewed the patient's lab results. Result diagrams: 08/05/21 10:57 08/05/21 10:57 Labs: Lab Results 08/05/21 08/05/21 08/05/21 Range/Units 10:57 10:57 10:57 WBC 6.4 (4.8-10.8) X10*3/uL RBC 3.27 L (4.20-5.50) X10*6/uL Hgb 10.4 L (12.0-16.0) g/dl Hct 31.8 L (37.0-47.0) % MCV 97.2 (80.0-98.0) fL MCH 31.8 (27.0-33.0) pg MCHC 32.7 (31.0-35.0) g/dl RDW 13.2 (11.0-16.0) % Plt Count 132 L D (160-400) X10*3/uL MPV 9.8 (9.4-12.3) fL Immature Gran % (Auto) 0.5 H (0.0-0.4) % Neut % (Auto) 55.8 (45-73) % Lymph % (Auto) 20.3 (20-40) % [place] % (Auto) 15.7 H (2-11) % Eos % (Auto) 6.8 H (0-4) % Baso % (Auto) 0.9 (0-2) % Lymph # (Auto) 1.3 (1.2-4.9) X10*3/uL [place] # (Auto) 1.0 (0.1-1.2) X10*3/uL Eos # (Auto) 0.4 (0.0-0.4) X10*3/uL Baso # (Auto) 0.1 (0.0-0.2) X10*3/uL Abs Immat Gran (auto) 0.03 (0.00-0.03) X10*3/uL Absolute Neuts (auto) 3.6 (2.0-8.3) x10*3/uL Absolute Nucleated RBC 0.000 (0.0-0.012) X10*3/uL Nucleated RBC % (auto) 0.0 (0.0-0.2) /100WBC Sodium 141 (135-145) mmol/L Potassium 4.6 (3.3-5.1) mmol/L Chloride 111 H (96-108) mmol/L Carbon Dioxide 24 (22-29) mmol/L Anion Gap 11 L (12-20) BUN 11 (9-16) mg/dL Creatinine 1.80 H (0.5-1.4) mg/dL Estim Creat Clear Calc 41.1 Estimated GFR 29 Random Glucose 112 (60-115) mg/dL Calcium 8.4 (8.4-10.2) mg/dL Total Bilirubin 0.3 (0.0-1.0) mg/dL AST 14 (5-31) U/L ALT 8 (0-31) U/L Alkaline Phosphatase 118 H D (39-117) U/L Ammonia 32 (13-55) umol/L Total Protein 6.9 (6.5-8.0) g/dL Albumin 3.3 L (3.5-5.0) g/dL Valproic Acid (50.0-100.0) mcg/mL [place] (0.60-1.20) mmol/L 08/05/21 08/05/21 Range/Units 10:57 11:13 WBC (4.8-10.8) X10*3/uL RBC (4.20-5.50) X10*6/uL Hgb (12.0-16.0) g/dl Hct (37.0-47.0) % MCV (80.0-98.0) fL MCH (27.0-33.0) pg MCHC (31.0-35.0) g/dl RDW (11.0-16.0) % Plt Count (160-400) X10*3/uL MPV (9.4-12.3) fL Immature Gran % (Auto) (0.0-0.4) % Neut % (Auto) (45-73) % Lymph % (Auto) (20-40) % [place] % (Auto) (2-11) % Eos % (Auto) (0-4) % Baso % (Auto) (0-2) % Lymph # (Auto) (1.2-4.9) X10*3/uL [place] # (Auto) (0.1-1.2) X10*3/uL Eos # (Auto) (0.0-0.4) X10*3/uL Baso # (Auto) (0.0-0.2) X10*3/uL Abs Immat Gran (auto) (0.00-0.03) X10*3/uL Absolute Neuts (auto) (2.0-8.3) x10*3/uL Absolute Nucleated RBC (0.0-0.012) X10*3/uL Nucleated RBC % (auto) (0.0-0.2) /100WBC Sodium (135-145) mmol/L Potassium (3.3-5.1) mmol/L Chloride (96-108) mmol/L Carbon Dioxide (22-29) mmol/L Anion Gap (12-20) BUN (9-16) mg/dL Creatinine (0.5-1.4) mg/dL Estim Creat Clear Calc Estimated GFR Random Glucose (60-115) mg/dL Calcium (8.4-10.2) mg/dL Total Bilirubin (0.0-1.0) mg/dL AST (5-31) U/L ALT (0-31) U/L Alkaline Phosphatase (39-117) U/L Ammonia (13-55) umol/L Total Protein (6.5-8.0) g/dL Albumin (3.5-5.0) g/dL Valproic Acid 43.6 L (50.0-100.0) mcg/mL [place] < 0.44 L (0.60-1.20) mmol/L Discharge Plan Discharge Clinical Impression: Medication monitoring encounter, Depression Patient Disposition: Home, Self-Care Instructions: Depression (ED) Additional Instructions: Increase your [place] to 300mg daily. Have your labs (BUN/CR and [place] level) repeated on Saturday08/07/2021. Follow up with your primary care provider. Return to the emergency department immediately if your symptoms worsen or if you develop any dizziness, shortness of breath, difficulty breathing, chest pain, blurry vision, loss of vision, nausea, vomiting, abdominal pain, fever, chills, back pain, or any other complaints. Prescriptions: No Action diphenhydramine HCl [Allergy Relief(diphenhydramin)] 25 mg Tablet 50 mg PO BEDTIME PRN (Reason: sleep) 30 Days Qty: 60 0RF cyclobenzaprine 5 mg Tablet 5 mg PO BEDTIME PRN (Reason: Pain, Moderate (Pain Scale 4-6) 30 Days Qty: 20 1RF nicotine 14 mg/24 hr Patch 24 Hour 14 mg transdermal DAILY PRN (Reason: smoking cessation) 28 Days Qty: 28 0RF Rx Instructions: remove at bedtime nicotine (polacrilex) 2 mg Gum 2 mg buccal Q2H PRN (Reason: Nicotine Cravings) 30 Days Qty: 50 0RF chlorpromazine 25 mg Tablet 50 mg PO BEDTIME PRN (Reason: insomnia/agitation) 30 Days Qty: 90 0RF Rx Instructions: take 1-2 tabs as needed for insomnia and for anxiety/agitation divalproex 500 mg Tablet Extended Release 24 Hr 1,500 mg PO DAILY@1700 30 Days Qty: 90 0RF haloperidol 10 mg tablet 10 mg PO BID 30 Days Qty: 60 0RF lithium carbonate 150 mg capsule 150 mg PO DAILY 30 Days Qty: 30 0RF levothyroxine 50 mcg tablet 50 mcg PO DAILY 30 Days Qty: 30 0RF omeprazole 20 mg capsule,delayed release(DR/EC) 20 mg PO DAILY 30 Days Qty: 30 0RF folic acid 1 mg Tablet 1 mg PO DAILY 30 Days Qty: 30 0RF Referrals: Aquiles Rivera DO, MD [Primary Care Provider] - Print Language: Urdu
[2021-08-05 09:22] VITALS: BP 150/70; PULSE 92; RESP 18; TEMP 36.7; O2SAT 98; BMI 32.8
[2021-08-05] MEDS: LORazepam 1 MG TABLET 2 MG PO (09:41)
[2021-08-05 11:03] LABS: MANUAL DIFF FLAG NO
[2021-08-05 11:04] LABS: Basophils Absolute Auto 0.1 X10*3/uL (0.0-0.2); Basophils Percent Auto 0.9 % (0-2); Eosinophils Absolute Auto 0.4 X10*3/uL (0.0-0.4); Eosinophils Percent Auto 6.8 % (0-4); Hematocrit 31.8 % (37.0-47.0); Hemoglobin 10.4 g/dl (12.0-16.0); Imm Gran Abs Auto 0.03 X10*3/uL (0.00-0.03); Imm Gran Pct Auto 0.5 % (0.0-0.4); Lymphocytes Absolute Auto 1.3 X10*3/uL (1.2-4.9); Lymphocytes Percent Auto 20.3 % (20-40); Mean Corpuscular HGB Conc 32.7 g/dl (31.0-35.0); Mean Corpuscular Hemoglobin 31.8 pg (27.0-33.0); Mean Corpuscular Volume 97.2 fL (80.0-98.0); Mean Platelet Volume 9.8 fL (9.4-12.3); Monocytes Percent Auto 15.7 % (2-11); Neutrophils Absolute Auto 3.6 x10*3/uL (2.0-8.3); Neutrophils Percent Auto 55.8 % (45-73); Platelet Count 132 X10*3/uL (160-400); Red Blood Count 3.27 X10*6/uL (4.20-5.50); Red Cell Distribution Width 13.2 % (11.0-16.0); White Blood Count 6.4 X10*3/uL (4.8-10.8)
--- NOTE | 2021-08-05 11:04 | PC.NURSE ---
Labs sent, pt resting in stretcher offering no complaints at this time.
[2021-08-05 11:18] LABS: Ammonia 32 umol/L (13-55)
[2021-08-05 11:22] VITALS: BP 101/65; PULSE 66; RESP 18; TEMP 36.5; O2SAT 99
[2021-08-05 11:29] LABS: Alanine Aminotransferase 8 U/L (0-31); Albumin Level 3.3 g/dL (3.5-5.0); Alkaline Phosphatase 118 U/L (39-117); Anion Gap 11 (12-20); Aspartate Amino Transferase 14 U/L (5-31); Bilirubin Total 0.3 mg/dL (0.0-1.0); Blood Urea Nitrogen 11 mg/dL (9-16); Calcium 8.4 mg/dL (8.4-10.2); Carbon Dioxide 24 mmol/L (22-29); Chloride 111 mmol/L (96-108); Creatinine Clr Calc Pharmacy 41.1; Estimated Glomerular Filt Rate 29; Glucose Random 112 mg/dL (60-115); Potassium 4.6 mmol/L (3.3-5.1); Sodium 141 mmol/L (135-145); Total Protein 6.9 g/dL (6.5-8.0)
[2021-08-05 11:48] LABS: Lithium < 0.44 mmol/L (0.60-1.20)
[2021-08-05 11:53] LABS: Valproate 43.6 mcg/mL (50.0-100.0)
[2021-08-05 12:40] VITALS: BP 132/71; PULSE 88; RESP 16; O2SAT 93
== END 2021-08-05 13:11 | disposition home or self-care (01) ==
PROVIDERS: Physician Assistant Medical; Emergency Provider Student in an Organized Health Care Education/Training Program; PCP Internal Medicine
DX: R26.2 Difficulty in walking, not elsewhere classified (principal); F33.1 Major depressive disorder, recurrent, moderate; F17.210 Nicotine dependence, cigarettes, uncomplicated; Z71.6 Tobacco abuse counseling; Z79.899 Other long term (current) drug therapy
CPT/HCPCS: 36415; 80053; 80164; 80178; 82140; 85025; 99284

== ENCOUNTER 2021-08-07 07:52 | Emergency (ER) | payer OTHER, SELFPAY ==
--- NOTE | ~2021-08-07 | XR_ITS ---
EXAMINATION: XR CHEST CLINICAL INFORMATION: Cough. COMPARISON: 07/11/2021 chest radiograph. TECHNIQUE: Frontal view of the chest was obtained. FINDINGS: No significant abnormality is noted involving the heart, lungs, mediastinum, bony thorax or soft tissues. XR/XR chest 1V IMPRESSION: No acute cardiopulmonary process.
[2021-08-07 07:59] VITALS: BP 117/58; BP 140/90; PULSE 76; PULSE 89; RESP 13; TEMP 36.8; O2SAT 100; O2SAT 99; BMI 29.6
[2021-08-07 08:11] VITALS: BP 117/58; PULSE 89; RESP 13; TEMP 36.8; O2SAT 100
--- NOTE | 2021-08-07 08:29 | ED_ITS ---
HPI - General Adult General Chief complaint: Weakness Stated complaint: BACK PAIN,WEAKNESS Time Seen by Provider: 08/07/21 08:26 History of Present Illness HPI narrative: 60-year-old female with a past medical history of bipolar 1, pancytopenia, depression, chronic kidney disease, psoriatic arthritis, anxiety and depression, presents for worsening body aches. Patient has pain in her bilateral shoulders, her low back, her knees, states she has body aches everywhere. No fevers, she is vaccinated for COVID. States she took her Enbrel prescribed from her rheumatologis this morning. States she has a cough, but this happens when she tries to stop smoking. Has had an intermittent cough no fevers patient is not suicidal, not homicidal, no hallucinations. Patient was here 2 days ago for psoriatic arthritis pain, her lithium was adjusted to 300 mg, and she was told to repeat labs for BUN and creatinine today. Patient does not seem to know she was supposed to do that. Patient states she has a giant bag of medications, she feels overwhelmed by all the medications she has at home. Patient had a month long psychiatric stay for her bipolar 1, she was discharged on 150 of lithium, Depakote, and Haldol per Dr. Alcantara on July 31 patient was seen August 05, BÁRBARA Menon discussed increasing patient's lithium to 300 mg at that time. Patient tells me she did not take any lithium yesterday, that she took 300 mg lithium today at 06:30, patient is confused about her lithium dosing. Related Data Previous Rx's Medication Instructions Recorded chlorpromazine 25 mg tablet 50 mg PO BEDTIME PRN 07/31/21 insomnia/agitation 30 days #90 tabs cyclobenzaprine 5 mg tablet 5 mg PO BEDTIME PRN Pain, Moderate 07/31/21 (Pain Scale 4-6 30 days #20 tabs diphenhydramine HCl 25 mg tablet 50 mg PO BEDTIME PRN sleep 30 days 07/31/21 (Allergy Relief (diphenhydramine)) #60 tabs divalproex 500 mg tablet,extended 1,500 mg PO DAILY@1700 30 days #90 07/31/21 release 24 hr tabs folic acid 1 mg tablet 1 mg PO DAILY 30 days #30 tabs 07/31/21 haloperidol 10 mg tablet 10 mg PO BID 30 days #60 tabs 07/31/21 levothyroxine 50 mcg tablet 50 mcg PO DAILY 30 days #30 tabs 07/31/21 lithium carbonate 150 mg capsule 150 mg PO DAILY 30 days #30 caps 07/31/21 nicotine (polacrilex) 2 mg gum 2 mg buccal Q2H PRN Nicotine 07/31/21 Cravings 30 days #50 ea nicotine 14 mg/24 hr daily 14 mg transdermal DAILY PRN 07/31/21 transdermal patch smoking cessation 28 days #28 ea omeprazole 20 mg capsule,delayed 20 mg PO DAILY 30 days #30 caps 07/31/21 release acetaminophen 650 mg 650 mg PO Q8H PRN pain #90 tabs 08/07/21 tablet,extended release (Tylenol Arthritis Pain) cephalexin 500 mg capsule 500 mg PO QID 5 days #20 caps 08/07/21 lithium carbonate 300 mg capsule 300 mg PO DAILY #30 caps 08/07/21 Allergies Allergy/AdvReac Type Severity Reaction Status Date / Time lithium AdvReac Intermediate CKD Verified 07/05/21 15:04 Review of Systems Constitutional: Constitutional: Reports body ache(s), Denies chills, Denies fatigue, Denies fever(s), Denies headache(s), Denies malaise and Denies weakness Eyes: Eyes: Denies diplopia ENT: Denies vertigo, Denies dizziness, Denies otalgia, Denies headache(s), Denies mouth pain, Denies post nasal drip, Denies sinus pain, Denies sinus pressure, Denies sore throat and Denies throat swelling Cardiovascular: Cardiovascular: Denies chest pain, Denies syncope, Denies leg edema, Denies lightheadedness, Denies Loss of Consciousness, Denies palpitations and Denies dyspnea Respiratory: Respiratory: Denies chest congestion, Denies cough and Denies dyspnea Gastrointestinal: Gastrointestinal: Denies abdominal pain, Denies hematochezia, Denies constipation, Denies diarrhea, Denies nausea and Denies vomiting Musculoskeletal: Musculoskeletal: Reports no additional musculoskeletal complaints Neurologic: Denies confusion, Denies vertigo, Denies dizziness, Denies syncope, Denies headache(s) and Denies weakness Psychiatric: Psychiatric: Denies anxiety, Denies confusion, Denies depression, Denies auditory hallucinations, Denies hopelessness, Denies visual hallucinations, Denies hallucinations, Denies homicidal ideation and Denies suicidal ideation Endocrine: Endocrine: Denies fatigue and Denies palpitations Allergic/Immunologic: Allergic/Immunologic: Denies throat swelling PMFSH Past Medical History Medical History Anxiety CKD (chronic kidney disease) Depression GERD (gastroesophageal reflux disease) Hypothyroidism Social History Social History Household Members: Family Housing: House Do you presently have visiting nurse or other home services: No Alcohol intake: current Alcohol intake frequency: other Patient Tobacco Use Status: Current everyday Tobacco user Tobacco use type: Cigarette Cigarette Packs Per Day: 0.5 Smoked in Last 30 Days: Yes Second Hand Smoke Exposure: Yes Use of substances other than those prescribed or required for medical reasons: No Advance Directives: Yes Advance Directives Information Provided: No Advance Directives on File: No Patient : No service: No Sexual orientation: Did not discuss Physical Exam ED Vital Signs: Vital Signs - 24 hr 08/07/21 07:59 08/07/21 08:11 Temperature 98.3 F 98.3 F Pulse Rate 89 89 Respiratory Rate 13 13 Blood Pressure 117/58 L 117/58 L Pulse Oximetry 100 100 Oxygen Delivery Method Room Air Room Air BMI result Body Mass Index 29.6 Const General: No confusion Nutritional Appearance: well nourished Orientation/consciousness: No confusion Limitations: no limitations HENMT Head: Yes normal to inspection, Yes normocephalic and Yes atraumatic Ears: hearing grossly normal bilaterally, external ears normal, TM's normal bilaterally and EAC's normal General nose exam: Normal external nose present Face and sinus: Yes normal facial exam and Yes sinuses nontender Mouth: Normal oral and palatal mucosa present Throat: Yes posterior oropharynx normal Eyes Conjunctivae: conjunctivae normal Pupils: Equal, round and reactive pupils present EOM: EOMs intact bilaterally Neck Neck: Yes full ROM, Yes no lymphadenopathy and Yes supple Resp Effort & Inspection: normal respiratory effort and able to speak in complete sentences Auscultation: clear to auscultation bilaterally, no crackles, no rales, no rhonc hi and no wheezes Cardio Rate: regular rate Rhythm: regular rhythm Heart sounds: S1 normal heart sound present and S2 normal heart sound present GI Inspection: Yes normal to inspection Palpation (GI): Soft to palpation, nontender, no guarding and not rigid Percussion: Yes normal to percussion Auscultation: normal bowel sounds Skin General skin exam: no rashes or lesions noted Neuro General: No confusion Cranial nerves: Yes Equal, round and reactive pupils present Extrem General: Yes normal to inspection and Yes full ROM Psych Appearance: grossly normal Affect: normal affect Attitude: cooperative Thought process: Normal thought process present Course Course Course Narrative: 60-year-old female presents for worsening body aches which she attributes to psoriatic arthritis. As patient was discharged from a month long psychiatric stay July 31, she is confused about her lithium dosing. Patient was instructed to follow up for BUN and creatinine and lithium level labs today, patient was not aware of this. Patient states feeling overwhelmed by managing her medications at home. On exam, patient is pleasant and cooperative, denies SI or HI, no concerning signs on exam patient is COVID positive, which most likely explains her body aches, she has UTI, her lithium level is 0.21, this is not therapeutic Her creatinine today is 1.82, basically the same as it was 2 days ago. Her BU N is mildly elevated at 23, 2 days ago her BUN was [address] Alcantara over tiger text, he counseled she should continue her Depakote, Haldol, and should take 300 mg lithium daily. He will follow-up with her outpatient provider to clarify her psych doses. I consulted Case ManagementKimberlee, as patient is confused about her medications, Case Management will reach out to her [facility] provider, hopefully patient can get medications and bubble pack or get [facility] into the home to help sort out her medications. Patient had a clear chest x-ray, is afebrile, satting 100% on room air. counseled patient she must follow up with her primary care provider for labs for lithium, creatinine, and BUN by the end of the week. cephalexin for UTI, I did prescribed 300 mg lithium daily per 's request, prescribed Tylenol. Gave instructions on quarantine with COVID and return precautions, told patient she must get labs drawn before the end of the week to check her lithium level, creatinine, and BUN. Medical Decision Making Lab Data Result diagrams: 08/07/21 09:18 08/07/21 09:18 Labs: Lab Results 08/07/21 08/07/21 08/07/21 Range/Units 09:18 09:18 09:18 WBC 9.8 (4.8-10.8) X10*3/uL RBC 3.64 L (4.20-5.50) X10*6/uL Hgb 11.4 L (12.0-16.0) g/dl Hct 35.4 L (37.0-47.0) % MCV 97.3 (80.0-98.0) fL MCH 31.3 (27.0-33.0) pg MCHC 32.2 (31.0-35.0) g/dl RDW 13.2 (11.0-16.0) % Plt Count 175 D (160-400) X10*3/uL MPV 10.0 (9.4-12.3) fL Immature Gran % (Auto) 0.4 (0.0-0.4) % Neut % (Auto) 55.3 (45-73) % Lymph % (Auto) 24.7 (20-40) % [place] % (Auto) 14.4 H (2-11) % Eos % (Auto) 4.2 H (0-4) % Baso % (Auto) 1.0 (0-2) % Lymph # (Auto) 2.4 (1.2-4.9) X10*3/uL [place] # (Auto) 1.4 H (0.1-1.2) X10*3/uL Eos # (Auto) 0.4 (0.0-0.4) X10*3/uL Baso # (Auto) 0.1 (0.0-0.2) X10*3/uL Abs Immat Gran (auto) 0.04 H (0.00-0.03) X10*3/uL Absolute Neuts (auto) 5.4 (2.0-8.3) x10*3/uL Absolute Nucleated RBC 0.000 (0.0-0.012) X10*3/uL Nucleated RBC % (auto) 0.0 (0.0-0.2) /100WBC Sodium 139 (135-145) mmol/L Potassium 4.3 (3.3-5.1) mmol/L Chloride 108 (96-108) mmol/L Carbon Dioxide 24 (22-29) mmol/L Anion Gap 11 L (12-20) BUN 23 H D (9-16) mg/dL Creatinine 1.82 H (0.5-1.4) mg/dL Estim Creat Clear Calc 38.7 Estimated GFR 28 Random Glucose 87 (60-115) mg/dL Calcium 8.9 (8.4-10.2) mg/dL Total Bilirubin 0.4 (0.0-1.0) mg/dL AST 18 (5-31) U/L ALT 7 (0-31) U/L Alkaline Phosphatase 111 (39-117) U/L Total Protein 7.8 (6.5-8.0) g/dL Albumin 3.8 (3.5-5.0) g/dL Urine Color Urine Appearance Urine pH (5.0-8.0) Ur Specific [place] (1.005-1.025) Urine Protein (NEG-TRACE) MG/DL Urine Glucose (UA) (NEG) MG/DL Urine Ketones (NEG) MG/DL Urine Blood (NEG) Urine Nitrite (NEG) Ur Leukocyte Esterase (NEG) Urine RBC (0) /HPF Urine WBC (0-4) /HPF Ur Squamous Epith Cells /LPF Urine Bacteria /LPF [place] (0.60-1.20) mmol/L COVID-19 (KEIRA) (Negative) COVID-19 Clin Com Influenza Type A (ABY) Negative (Negative) Influenza Type B (ABY) Negative (Negative) Influenza A & B Note See Note 08/07/21 08/07/21 08/07/21 Range/Units 09:18 09:18 09:36 WBC (4.8-10.8) X10*3/uL RBC (4.20-5.50) X10*6/uL Hgb (12.0-16.0) g/dl Hct (37.0-47.0) % MCV (80.0-98.0) fL MCH (27.0-33.0) pg MCHC (31.0-35.0) g/dl RDW (11.0-16.0) % Plt Count (160-400) X10*3/uL MPV (9.4-12.3) fL Immature Gran % (Auto) (0.0-0.4) % Neut % (Auto) (45-73) % Lymph % (Auto) (20-40) % [place] % (Auto) (2-11) % Eos % (Auto) (0-4) % Baso % (Auto) (0-2) % Lymph # (Auto) (1.2-4.9) X10*3/uL [place] # (Auto) (0.1-1.2) X10*3/uL Eos # (Auto) (0.0-0.4) X10*3/uL Baso # (Auto) (0.0-0.2) X10*3/uL Abs Immat Gran (auto) (0.00-0.03) X10*3/uL Absolute Neuts (auto) (2.0-8.3) x10*3/uL Absolute Nucleated RBC (0.0-0.012) X10*3/uL Nucleated RBC % (auto) (0.0-0.2) /100WBC Sodium (135-145) mmol/L Potassium (3.3-5.1) mmol/L Chloride (96-108) mmol/L Carbon Dioxide (22-29) mmol/L Anion Gap (12-20) BUN (9-16) mg/dL Creatinine (0.5-1.4) mg/dL Estim Creat Clear Calc Estimated GFR Random Glucose (60-115) mg/dL Calcium (8.4-10.2) mg/dL Total Bilirubin (0.0-1.0) mg/dL AST (5-31) U/L ALT (0-31) U/L Alkaline Phosphatase (39-117) U/L Total Protein (6.5-8.0) g/dL Albumin (3.5-5.0) g/dL Urine Color YELLOW Urine Appearance HAZY Urine pH 6.0 (5.0-8.0) Ur Specific [place] <= 1.005 (1.005-1.025) Urine Protein NEG (NEG-TRACE) MG/DL Urine Glucose (UA) NEG (NEG) MG/DL Urine Ketones NEG (NEG) MG/DL Urine Blood NEG (NEG) Urine Nitrite NEG (NEG) Ur Leukocyte Esterase TRACE H (NEG) Urine RBC 0-2 (0) /HPF Urine WBC 10-14 H (0-4) /HPF Ur Squamous Epith Cells 2+ /LPF Urine Bacteria TRACE /LPF [place] 0.21 L (0.60-1.20) mmol/L COVID-19 (KEIRA) Positive A (Negative) COVID-19 Clin Com See Note Influenza Type A (ABY) (Negative) Influenza Type B (ABY) (Negative) Influenza A & B Note Discharge Plan Discharge Clinical Impression: COVID-19, UTI (urinary tract infection), [place] use Patient Disposition: Home, Self-Care Instructions: [place] (By mouth), Urinary Tract Infection in Women (ED), COVID- 19 (Coronavirus Disease 2019) (ED) Additional Instructions: you have COVID. Please isolate at home for 5 days, quarantine in your room, and wear mask in the house. After 5 days you can go into public, but you must wear mask for and an additional 5 days. Please drink plenty of fluids, I have prescribed Tylenol for your body aches. As we discussed, your liver labs were normal, it is okay for you to take Tylenol. In addition, you have a urinary tract infection, I have prescribed an antibiotic to your pharmacy that I would like you to take starting today. Your lithium level today was 0.21, this is not therapeutic. I discussed what you should be taking with Dr. Alcantara, our psychiatrist, he states you should continue on your Depakote, Haldol 10 mg twice a day, and lithium [address] a [address] Alcantara says you need a new prescription for lithium, which I have sent to your pharmacy AGAIN, YOU ARE SUPPOSED TO TAKE 300 MG OF LITHIUM ONCE A DAY please call your primary care provider today, I want you to have labs done including your lithium level and creatinine and BUN by the end of the week. In other words, you must have labs redrawn within 4 days from now. also please discuss with your primary care provider how you can make taking your medications more systematically and how to make it feel less overwhelming Please return to the emergency room for any new or concerning symptoms Prescriptions: New cephalexin 500 mg capsule 500 mg PO QID 5 Days Qty: 20 0RF acetaminophen [Tylenol Arthritis Pain] 650 mg tablet extended release 650 mg PO Q8H PRN (Reason: pain) Qty: 90 0RF lithium carbonate 300 mg capsule 300 mg PO DAILY Qty: 30 0RF No Action diphenhydramine HCl [Allergy Relief(diphenhydramin)] 25 mg Tablet 50 mg PO BEDTIME PRN (Reason: sleep) 30 Days Qty: 60 0RF cyclobenzaprine 5 mg Tablet 5 mg PO BEDTIME PRN (Reason: Pain, Moderate (Pain Scale 4-6) 30 Days Qty: 20 1RF nicotine 14 mg/24 hr Patch 24 Hour 14 mg transdermal DAILY PRN (Reason: smoking cessation) 28 Days Qty: 28 0RF Rx Instructions: remove at bedtime nicotine (polacrilex) 2 mg Gum 2 mg buccal Q2H PRN (Reason: Nicotine Cravings) 30 Days Qty: 50 0RF chlorpromazine 25 mg Tablet 50 mg PO BEDTIME PRN (Reason: insomnia/agitation) 30 Days Qty: 90 0RF Rx Instructions: take 1-2 tabs as needed for insomnia and for anxiety/agitation divalproex 500 mg Tablet Extended Release 24 Hr 1,500 mg PO DAILY@1700 30 Days Qty: 90 0RF haloperidol 10 mg tablet 10 mg PO BID 30 Days Qty: 60 0RF lithium carbonate 150 mg capsule 150 mg PO DAILY 30 Days Qty: 30 0RF levothyroxine 50 mcg tablet 50 mcg PO DAILY 30 Days Qty: 30 0RF omeprazole 20 mg capsule,delayed release(DR/EC) 20 mg PO DAILY 30 Days Qty: 30 0RF folic acid 1 mg Tablet 1 mg PO DAILY 30 Days Qty: 30 0RF Referrals: [facility] [Provider Group] - 1 Week Aquiles Rivera DO, MD [Primary Care Provider] - 1 Week Interventions: ED Discharge Assessment Last Done: 08/07/21 12:39 Discharge Date/Time: 08/07/21 12:39
[2021-08-07] MEDS: Acetaminophen 325 MG TABLET 650 MG PO (09:11)
[2021-08-07 09:22] LABS: MANUAL DIFF FLAG NO
[2021-08-07 09:24] LABS: Basophils Absolute Auto 0.1 X10*3/uL (0.0-0.2); Eosinophils Absolute Auto 0.4 X10*3/uL (0.0-0.4); Eosinophils Percent Auto 4.2 % (0-4); Hematocrit 35.4 % (37.0-47.0); Hemoglobin 11.4 g/dl (12.0-16.0); Imm Gran Abs Auto 0.04 X10*3/uL (0.00-0.03); Imm Gran Pct Auto 0.4 % (0.0-0.4); Lymphocytes Absolute Auto 2.4 X10*3/uL (1.2-4.9); Lymphocytes Percent Auto 24.7 % (20-40); Mean Corpuscular HGB Conc 32.2 g/dl (31.0-35.0); Mean Corpuscular Hemoglobin 31.3 pg (27.0-33.0); Mean Corpuscular Volume 97.3 fL (80.0-98.0); Monocytes Absolute Auto 1.4 X10*3/uL (0.1-1.2); Monocytes Percent Auto 14.4 % (2-11); Neutrophils Absolute Auto 5.4 x10*3/uL (2.0-8.3); Neutrophils Percent Auto 55.3 % (45-73); Platelet Count 175 X10*3/uL (160-400); Red Blood Count 3.64 X10*6/uL (4.20-5.50); Red Cell Distribution Width 13.2 % (11.0-16.0); White Blood Count 9.8 X10*3/uL (4.8-10.8)
[2021-08-07 09:36] LABS: COVID-19 Test Positive (Negative); IDNOW Serial# 16C4AD1C; Lithium 0.21 mmol/L (0.60-1.20)
[2021-08-07 09:39] LABS: IDNOW Serial# 9DD0AD1C; Influenza A Negative (Negative); Influenza B2 Negative (Negative)
[2021-08-07 09:44] LABS: Alanine Aminotransferase 7 U/L (0-31); Albumin Level 3.8 g/dL (3.5-5.0); Alkaline Phosphatase 111 U/L (39-117); Anion Gap 11 (12-20); Aspartate Amino Transferase 18 U/L (5-31); Bilirubin Total 0.4 mg/dL (0.0-1.0); Blood Urea Nitrogen 23 mg/dL (9-16); Calcium 8.9 mg/dL (8.4-10.2); Carbon Dioxide 24 mmol/L (22-29); Chloride 108 mmol/L (96-108); Creatinine Clr Calc Pharmacy 38.7; Estimated Glomerular Filt Rate 28; Glucose Random 87 mg/dL (60-115); Potassium 4.3 mmol/L (3.3-5.1); Sodium 139 mmol/L (135-145); Total Protein 7.8 g/dL (6.5-8.0)
[2021-08-07 09:44] LABS: Appearance Urine HAZY; Color Urine YELLOW; Glucose Urine UA NEG (NEG); Leukocyte Esterase Urine TRACE (NEG); Nitrite Urine NEG (NEG); Specific Gravity - Urine <= 1.005 (1.005-1.025); Urine Blood NEG (NEG); Urine Ketones NEG (NEG); Urine Protein NEG (NEG-TRACE)
[2021-08-07 09:51] LABS: Bacteria Urine TRACE /LPF; RBC Urine 0-2 /HPF (0); Squamous Epithelial Cell Urine 2+ /LPF
--- NOTE | 2021-08-07 12:07 | MHC.CM.ED ---
Received consult for assessment of d/c needs: concerned with pt's ability to self manage medications: Met with pt who states she lives alone and has a SW through [facility] in [place] named Meenakshi. She has televisits once weekly. Pt states she has a PT-1 for assistance with medical appt transportation and uses [facility] as well. Pt states she needs to organize her meds and clean her apartment She feels this would be helpful for her to be successful with self care management. Instructed pt to call [facility] and inquire on community case management to assist with medication organization. CM attempted to contact [facility] but could not d/t federal holiday. Will include [facility] number on pt d/c instructions. Pt requesting a taxi voucher to return to home. CM to assist.
== END 2021-08-07 12:39 | disposition home or self-care (01) ==
PROVIDERS: Physician Assistant; Emergency Provider Emergency Medicine; PCP Internal Medicine
DX: U07.1 COVID-19 (principal); N39.0 Urinary tract infection, site not specified; M54.50 Low back pain, unspecified; Z79.899 Other long term (current) drug therapy; F17.210 Nicotine dependence, cigarettes, uncomplicated; Z71.6 Tobacco abuse counseling
CPT/HCPCS: 71045; 80053; 80178; 81001; 85025; 87086; 87502; 87635; 99284

== ENCOUNTER 2021-08-16 15:16 | Emergency (ER) | payer OTHER, SELFPAY ==
--- NOTE | ~2021-08-16 | XR_ITS ---
EXAMINATION: XR CHEST CLINICAL INFORMATION: Shortness of breath. Covid diagnosis 10 days ago. COMPARISON: Chest x-ray 08/07/2021 TECHNIQUE: Frontal portable view of the chest was obtained. 1549 hours FINDINGS: No significant abnormality is noted involving the heart, lungs, mediastinum, bony thorax or soft tissues. XR/XR chest 1V IMPRESSION: Unremarkable examination.
[2021-08-16 15:28] VITALS: BP 120/90; BP 151/89; PULSE 60; PULSE 62; RESP 18; TEMP 36.5; O2SAT 100; BMI 31.4
--- NOTE | 2021-08-16 15:36 | PC.NURSE ---
pt passed ambulation trial 99% RA approximately 200 ft.
--- NOTE | 2021-08-16 15:41 | ECG_ITS ---
Test Reason : DYSPNEA Blood Pressure : / mmHG Vent. Rate : 055 BPM Atrial Rate : 055 BPM P-R Int : 170 ms QRS Dur : 080 ms QT Int : 428 ms P-R-T Axes : 039 019 039 degrees QTc Int : 409 ms Sinus bradycardia Otherwise normal ECG No previous ECGs available Referred By: Keiry Dejesus Electronically Signed By:BERT DILLON
--- NOTE | 2021-08-16 15:43 | ED.SOB ---
HPI - SOB/Dyspnea General Chief Complaint: Dyspnea Stated Complaint: shortness of breath Time Seen by Provider: 08/16/21 15:28 Source: patient and EMS Mode of arrival: ambulatory Limitations: no limitations History of Present Illness HPI Narrative: patient comes emergency room complaining of weakness and shortness of breath on exertion for about 3-4 days. Patient was diagnosed with COVID approximately 10 days ago. Patient denies coughing, no chest pain, no lower extremity pain Or swelling. Related Data Previous Rx's Medication Instructions Recorded chlorpromazine 25 mg tablet 50 mg PO BEDTIME PRN 07/31/21 insomnia/agitation 30 days #90 tabs cyclobenzaprine 5 mg tablet 5 mg PO BEDTIME PRN Pain, Moderate 07/31/21 (Pain Scale 4-6 30 days #20 tabs diphenhydramine HCl 25 mg tablet 50 mg PO BEDTIME PRN sleep 30 days 07/31/21 (Allergy Relief (diphenhydramine)) #60 tabs divalproex 500 mg tablet,extended 1,500 mg PO DAILY@1700 30 days #90 07/31/21 release 24 hr tabs folic acid 1 mg tablet 1 mg PO DAILY 30 days #30 tabs 07/31/21 haloperidol 10 mg tablet 10 mg PO BID 30 days #60 tabs 07/31/21 levothyroxine 50 mcg tablet 50 mcg PO DAILY 30 days #30 tabs 07/31/21 lithium carbonate 150 mg capsule 150 mg PO DAILY 30 days #30 caps 07/31/21 nicotine (polacrilex) 2 mg gum 2 mg buccal Q2H PRN Nicotine 07/31/21 Cravings 30 days #50 ea nicotine 14 mg/24 hr daily 14 mg transdermal DAILY PRN 07/31/21 transdermal patch smoking cessation 28 days #28 ea omeprazole 20 mg capsule,delayed 20 mg PO DAILY 30 days #30 caps 07/31/21 release acetaminophen 650 mg 650 mg PO Q8H PRN pain #90 tabs 08/07/21 tablet,extended release (Tylenol Arthritis Pain) cephalexin 500 mg capsule 500 mg PO QID 5 days #20 caps 08/07/21 lithium carbonate 300 mg capsule 300 mg PO DAILY #30 caps 08/07/21 Allergies Allergy/AdvReac Type Severity Reaction Status Date / Time lithium AdvReac Intermediate CKD Verified 07/05/21 15:04 Review of Systems Review of Systems: Constitutional : No Weight loss, No Fever, No Chills, No Night Sweats, No Fatigue, No Malaise ENT/Mouth : No Hearing loss, No Ear Pain, No Nasal Congestion, No Sinus Pain, No Hoarseness, No sore throat, No Rhinorrhea, No Swallowing Difficulty Eyes: No Eye Pain, No Swelling, No Redness, No Foreign Body, No Discharge, No Vision Changes Cardiovascular : No Chest Pain, No SOB, No Dyspnea on Exertion, No Orthopnea, No Edema, No Palpitations Respiratory : No Cough, No Sputum, No Wheezing, No Smoke Exposure, No Dyspnea Gastrointestinal : No Nausea, No Vomiting, No Diarrhea, No Constipation, No abdominal Pain, No Hematochezia, No Melena Genitourinary : no irregular bleeding, No Dysuria, No Urinary Frequency, No Hematuria, No Urinary Incontinence, No Urgency, No Flank Pain, No Urinary Flow Changes, No Hesitancy Musculoskeletal : No joint pain, No Myalgias, No Joint Swelling Skin : No Skin Lesions, No rash Neuro : No Weakness, No Numbness, No Paresthesias, No Loss of Consciousness, No Dizziness, No Headache Psych : No Anxiety/Panic, No Depression, No SI/HI/AH/VH, No Social Issues, Heme/Lymph: No Bruising, No Bleeding,No Lymphadenopathy Endocrine : No Polyuria, No Polydipsia, No Temperature Intolerance [facility] Past Medical History Medical History Anxiety CKD (chronic kidney disease) Depression GERD (gastroesophageal reflux disease) Hypothyroidism Social History Social History Household Members: Family Housing: House Do you presently have visiting nurse or other home services: No Alcohol intake: current Alcohol intake frequency: other Patient Tobacco Use Status: Current everyday Tobacco user Tobacco use type: Cigarette Cigarette Packs Per Day: 0.5 Second Hand Smoke Exposure: Yes Advance Directives: No Advance Directives Information Provided: No service: No Sexual orientation: Did not discuss Physical Exam Vital Signs: Vital Signs: Last Vital Signs Temp 98.3 F 08/16/21 16:47 Pulse 60 08/16/21 16:47 Resp 20 08/16/21 16:47 BP 173/80 H 08/16/21 16:47 Pulse Ox 98 08/16/21 16:47 O2 Del Method 08/16/21 16:47 BMI result Body Mass Index 31.4 Course Course Course Narrative: medically patient is cleared, patient is requesting to be seen by [facility], states she needs help with her psychiatric meds. [facility] Pending physician observation started at 19:00 MDM - SOB/Dyspnea Lab Data Result diagrams: 08/16/21 16:28 08/16/21 16:28 Labs: Lab Results 08/16/21 08/16/21 08/16/21 Range/Units 16:28 16:28 16:28 WBC 8.5 (4.8-10.8) X10*3/uL RBC 3.68 L (4.20-5.50) X10*6/uL Hgb 11.9 L (12.0-16.0) g/dl Hct 35.6 L (37.0-47.0) % MCV 96.7 (80.0-98.0) fL MCH 32.3 (27.0-33.0) pg MCHC 33.4 (31.0-35.0) g/dl RDW 13.6 (11.0-16.0) % Plt Count 181 (160-400) X10*3/uL MPV 10.5 (9.4-12.3) fL Immature Gran % (Auto) 0.4 (0.0-0.4) % Neut % (Auto) 59.5 (45-73) % Lymph % (Auto) 26.1 (20-40) % Trinity % (Auto) 7.1 (2-11) % Eos % (Auto) 5.4 H (0-4) % Baso % (Auto) 1.5 (0-2) % Lymph # (Auto) 2.2 (1.2-4.9) X10*3/uL Trinity # (Auto) 0.6 (0.1-1.2) X10*3/uL Eos # (Auto) 0.5 H (0.0-0.4) X10*3/uL Baso # (Auto) 0.1 (0.0-0.2) X10*3/uL Abs Immat Gran (auto) 0.03 (0.00-0.03) X10*3/uL Absolute Neuts (auto) 5.1 (2.0-8.3) x10*3/uL Absolute Nucleated RBC 0.000 (0.0-0.012) X10*3/uL Nucleated RBC % (auto) 0.0 (0.0-0.2) /100WBC PT (10.0-13.1) SEC INR (0.9-1.1) Sodium 140 (135-145) mmol/L Potassium 4.6 (3.3-5.1) mmol/L Chloride 109 H (96-108) mmol/L Carbon Dioxide 24 (22-29) mmol/L Anion Gap 12 (12-20) BUN 16 (9-16) mg/dL Creatinine 1.57 H (0.5-1.4) mg/dL Estim Creat Clear Calc 46.2 Estimated GFR 34 Random Glucose 77 (60-115) mg/dL Lactic Acid 0.7 (0.5-2.0) mmol/L Calcium 9.1 (8.4-10.2) mg/dL Total Bilirubin 0.5 (0.0-1.0) mg/dL Direct Bilirubin 0.2 (0.0-0.5) mg/dL AST 45 H D (5-31) U/L ALT 17 (0-31) U/L Alkaline Phosphatase 117 (39-117) U/L Troponin I High Sens (<3.5-17.0) ng/L Total Protein 8.3 H (6.5-8.0) g/dL Albumin 4.3 (3.5-5.0) g/dL Urine Color Urine Appearance Urine pH (5.0-8.0) Ur Specific Merino (1.005-1.025) Urine Protein (NEG-TRACE) MG/DL Urine Glucose (UA) (NEG) MG/DL Urine Ketones (NEG) MG/DL Urine Blood (NEG) Urine Nitrite (NEG) Ur Leukocyte Esterase (NEG) Urine RBC (0) /HPF Urine WBC (0-4) /HPF Ur Squamous Epith Cells /LPF Urine Bacteria /LPF Urine Opiates Screen (Not Detect) Urine Fentanyl Screen (Not Detect) Ur Barbiturates Screen (Not Detect) Ur Phencyclidine Scrn (Not Detect) Ur Amphetamines Screen (Not Detect) Urine Cocaine Screen (Not Detect) U Marijuana (THC) Screen (Not Detect) COVID-19 ([facility]) (Negative) COVID-19 Clin Com 08/16/21 08/16/21 08/16/21 Range/Units 16:28 16:28 16:28 WBC (4.8-10.8) X10*3/uL RBC (4.20-5.50) X10*6/uL Hgb (12.0-16.0) g/dl Hct (37.0-47.0) % MCV (80.0-98.0) fL MCH (27.0-33.0) pg MCHC (31.0-35.0) g/dl RDW (11.0-16.0) % Plt Count (160-400) X10*3/uL MPV (9.4-12.3) fL Immature Gran % (Auto) (0.0-0.4) % Neut % (Auto) (45-73) % Lymph % (Auto) (20-40) % Trinity % (Auto) (2-11) % Eos % (Auto) (0-4) % Baso % (Auto) (0-2) % Lymph # (Auto) (1.2-4.9) X10*3/uL Trinity # (Auto) (0.1-1.2) X10*3/uL Eos # (Auto) (0.0-0.4) X10*3/uL Baso # (Auto) (0.0-0.2) X10*3/uL Abs Immat Gran (auto) (0.00-0.03) X10*3/uL Absolute Neuts (auto) (2.0-8.3) x10*3/uL Absolute Nucleated RBC (0.0-0.012) X10*3/uL Nucleated RBC % (auto) (0.0-0.2) /100WBC PT 12.0 (10.0-13.1) SEC INR 1.0 (0.9-1.1) Sodium (135-145) mmol/L Potassium (3.3-5.1) mmol/L Chloride (96-108) mmol/L Carbon Dioxide (22-29) mmol/L Anion Gap (12-20) BUN (9-16) mg/dL Creatinine (0.5-1.4) mg/dL Estim Creat Clear Calc Estimated GFR Random Glucose (60-115) mg/dL Lactic Acid (0.5-2.0) mmol/L Calcium (8.4-10.2) mg/dL Total Bilirubin (0.0-1.0) mg/dL Direct Bilirubin (0.0-0.5) mg/dL AST (5-31) U/L ALT (0-31) U/L Alkaline Phosphatase (39-117) U/L Troponin I High Sens < 3.5 (<3.5-17.0) ng/L Total Protein (6.5-8.0) g/dL Albumin (3.5-5.0) g/dL Urine Color Urine Appearance Urine pH (5.0-8.0) Ur Specific Merino (1.005-1.025) Urine Protein (NEG-TRACE) MG/DL Urine Glucose (UA) (NEG) MG/DL Urine Ketones (NEG) MG/DL Urine Blood (NEG) Urine Nitrite (NEG) Ur Leukocyte Esterase (NEG) Urine RBC (0) /HPF Urine WBC (0-4) /HPF Ur Squamous Epith Cells /LPF Urine Bacteria /LPF Urine Opiates Screen (Not Detect) Urine Fentanyl Screen (Not Detect) Ur Barbiturates Screen (Not Detect) Ur Phencyclidine Scrn (Not Detect) Ur Amphetamines Screen (Not Detect) Urine Cocaine Screen (Not Detect) U Marijuana (THC) Screen (Not Detect) COVID-19 ([facility]) Positive A (Negative) COVID-19 Clin Com See Note 08/16/21 08/16/21 Range/Units 16:28 16:28 WBC (4.8-10.8) X10*3/uL RBC (4.20-5.50) X10*6/uL Hgb (12.0-16.0) g/dl Hct (37.0-47.0) % MCV (80.0-98.0) fL MCH (27.0-33.0) pg MCHC (31.0-35.0) g/dl RDW (11.0-16.0) % Plt Count (160-400) X10*3/uL MPV (9.4-12.3) fL Immature Gran % (Auto) (0.0-0.4) % Neut % (Auto) (45-73) % Lymph % (Auto) (20-40) % Trinity % (Auto) (2-11) % Eos % (Auto) (0-4) % Baso % (Auto) (0-2) % Lymph # (Auto) (1.2-4.9) X10*3/uL Trinity # (Auto) (0.1-1.2) X10*3/uL Eos # (Auto) (0.0-0.4) X10*3/uL Baso # (Auto) (0.0-0.2) X10*3/uL Abs Immat Gran (auto) (0.00-0.03) X10*3/uL Absolute Neuts (auto) (2.0-8.3) x10*3/uL Absolute Nucleated RBC (0.0-0.012) X10*3/uL Nucleated RBC % (auto) (0.0-0.2) /100WBC PT (10.0-13.1) SEC INR (0.9-1.1) Sodium (135-145) mmol/L Potassium (3.3-5.1) mmol/L Chloride (96-108) mmol/L Carbon Dioxide (22-29) mmol/L Anion Gap (12-20) BUN (9-16) mg/dL Creatinine (0.5-1.4) mg/dL Estim Creat Clear Calc Estimated GFR Random Glucose (60-115) mg/dL Lactic Acid (0.5-2.0) mmol/L Calcium (8.4-10.2) mg/dL Total Bilirubin (0.0-1.0) mg/dL Direct Bilirubin (0.0-0.5) mg/dL AST (5-31) U/L ALT (0-31) U/L Alkaline Phosphatase (39-117) U/L Troponin I High Sens (<3.5-17.0) ng/L Total Protein (6.5-8.0) g/dL Albumin (3.5-5.0) g/dL Urine Color YELLOW Urine Appearance HAZY Urine pH 5.5 (5.0-8.0) Ur Specific Merino 1.010 (1.005-1.025) Urine Protein NEG (NEG-TRACE) MG/DL Urine Glucose (UA) NEG (NEG) MG/DL Urine Ketones NEG (NEG) MG/DL Urine Blood NEG (NEG) Urine Nitrite NEG (NEG) Ur Leukocyte Esterase 1+ H (NEG) Urine RBC 0 (0) /HPF Urine WBC 5-9 H (0-4) /HPF Ur Squamous Epith Cells 3+ /LPF Urine Bacteria 2+ /LPF Urine Opiates Screen Not Detected (Not Detect) Urine Fentanyl Screen POSITIVE H (Not Detect) Ur Barbiturates Screen Not Detected (Not Detect) Ur Phencyclidine Scrn Not Detected (Not Detect) Ur Amphetamines Screen Not Detected (Not Detect) Urine Cocaine Screen Not Detected (Not Detect) U Marijuana (THC) Screen Not Detected (Not Detect) COVID-19 ([facility]) (Negative) COVID-19 Clin Com Discharge Plan Discharge Clinical Impression: COVID-19, Bipolar 1 disorder Patient Disposition: Still a Patient Prescriptions: No Action diphenhydramine HCl [Allergy Relief(diphenhydramin)] 25 mg Tablet 50 mg PO BEDTIME PRN (Reason: sleep) 30 Days Qty: 60 0RF cyclobenzaprine 5 mg Tablet 5 mg PO BEDTIME PRN (Reason: Pain, Moderate (Pain Scale 4-6) 30 Days Qty: 20 1RF nicotine 14 mg/24 hr Patch 24 Hour 14 mg transdermal DAILY PRN (Reason: smoking cessation) 28 Days Qty: 28 0RF Rx Instructions: remove at bedtime nicotine (polacrilex) 2 mg Gum 2 mg buccal Q2H PRN (Reason: Nicotine Cravings) 30 Days Qty: 50 0RF chlorpromazine 25 mg Tablet 50 mg PO BEDTIME PRN (Reason: insomnia/agitation) 30 Days Qty: 90 0RF Rx Instructions: take 1-2 tabs as needed for insomnia and for anxiety/agitation divalproex 500 mg Tablet Extended Release 24 Hr 1,500 mg PO DAILY@1700 30 Days Qty: 90 0RF haloperidol 10 mg tablet 10 mg PO BID 30 Days Qty: 60 0RF lithium carbonate 150 mg capsule 150 mg PO DAILY 30 Days Qty: 30 0RF levothyroxine 50 mcg tablet 50 mcg PO DAILY 30 Days Qty: 30 0RF omeprazole 20 mg capsule,delayed release(DR/EC) 20 mg PO DAILY 30 Days Qty: 30 0RF folic acid 1 mg Tablet 1 mg PO DAILY 30 Days Qty: 30 0RF cephalexin 500 mg capsule 500 mg PO QID 5 Days Qty: 20 0RF acetaminophen [Tylenol Arthritis Pain] 650 mg tablet extended release 650 mg PO Q8H PRN (Reason: pain) Qty: 90 0RF lithium carbonate 300 mg capsule 300 mg PO DAILY Qty: 30 0RF
[2021-08-16 16:39] LABS: MANUAL DIFF FLAG NO
[2021-08-16 16:47] VITALS: BP 173/80; PULSE 60; RESP 20; TEMP 36.8; O2SAT 98
[2021-08-16 16:49] LABS: Appearance Urine HAZY; Color Urine YELLOW; Glucose Urine UA NEG (NEG); Leukocyte Esterase Urine 1+ (NEG); Nitrite Urine NEG (NEG); PH 5.5 (5.0-8.0); UACC Culture Trigger YES; Urine Blood NEG (NEG); Urine Ketones NEG (NEG); Urine Protein NEG (NEG-TRACE)
[2021-08-16 16:50] LABS: Basophils Absolute Auto 0.1 X10*3/uL (0.0-0.2); Basophils Percent Auto 1.5 % (0-2); COVID-19 Test Positive (Negative); Eosinophils Absolute Auto 0.5 X10*3/uL (0.0-0.4); Eosinophils Percent Auto 5.4 % (0-4); Hematocrit 35.6 % (37.0-47.0); Hemoglobin 11.9 g/dl (12.0-16.0); Imm Gran Abs Auto 0.03 X10*3/uL (0.00-0.03); Imm Gran Pct Auto 0.4 % (0.0-0.4); Lymphocytes Absolute Auto 2.2 X10*3/uL (1.2-4.9); Lymphocytes Percent Auto 26.1 % (20-40); Mean Corpuscular HGB Conc 33.4 g/dl (31.0-35.0); Mean Corpuscular Hemoglobin 32.3 pg (27.0-33.0); Mean Corpuscular Volume 96.7 fL (80.0-98.0); Mean Platelet Volume 10.5 fL (9.4-12.3); Monocytes Absolute Auto 0.6 X10*3/uL (0.1-1.2); Monocytes Percent Auto 7.1 % (2-11); Neutrophils Absolute Auto 5.1 x10*3/uL (2.0-8.3); Neutrophils Percent Auto 59.5 % (45-73); Platelet Count 181 X10*3/uL (160-400); Red Blood Count 3.68 X10*6/uL (4.20-5.50); Red Cell Distribution Width 13.6 % (11.0-16.0); White Blood Count 8.5 X10*3/uL (4.8-10.8)
[2021-08-16 16:55] LABS: Bacteria Urine 2+ /LPF; RBC Urine 0 /HPF (0); Squamous Epithelial Cell Urine 3+ /LPF
[2021-08-16 16:58] LABS: Lactic Acid 0.7 mmol/L (0.5-2.0)
[2021-08-16 17:08] LABS: Alanine Aminotransferase 17 U/L (0-31); Albumin Level 4.3 g/dL (3.5-5.0); Alkaline Phosphatase 117 U/L (39-117); Anion Gap 12 (12-20); Aspartate Amino Transferase 45 U/L (5-31); Bilirubin Direct 0.2 mg/dL (0.0-0.5); Bilirubin Total 0.5 mg/dL (0.0-1.0); Blood Urea Nitrogen 16 mg/dL (9-16); Calcium 9.1 mg/dL (8.4-10.2); Carbon Dioxide 24 mmol/L (22-29); Chloride 109 mmol/L (96-108); Creatinine Clr Calc Pharmacy 46.2; Estimated Glomerular Filt Rate 34; Fentanyl, urine POSITIVE (Not Detect); Glucose Random 77 mg/dL (60-115); Potassium 4.6 mmol/L (3.3-5.1); Sodium 140 mmol/L (135-145); Total Protein 8.3 g/dL (6.5-8.0); Troponin-I High Sensitivity < 3.5 ng/L (<3.5-17.0)
[2021-08-16 17:10] LABS: Amphetamine Screen Urine Not Detected (Not Detect); Barbiturates, Urine Not Detected (Not Detect); Cannabinoid Screen Urine Not Detected (Not Detect); Cocaine Screen Urine Not Detected (Not Detect); Opiate Screen Urine Not Detected (Not Detect); Phencyclidine Screen Urine Not Detected (Not Detect)
--- NOTE | 2021-08-16 19:17 | PC.NURSE ---
contact made to care team for eval to make sure pt is safe to return home. Pt continues to deny SI/HI
[2021-08-16 21:57] LABS: Lithium < 0.04 mmol/L (0.60-1.20)
[2021-08-16] MEDS: Acetaminophen 325 MG TABLET 650 MG PO (22:02)
[2021-08-16 22:15] LABS: Valproate < 2.0 mcg/mL (50.0-100.0)
[2021-08-17] MEDS: Acetaminophen 325 MG TABLET 650 MG PO ×2 (04:37→16:16)
[2021-08-17 06:19] VITALS: BP 164/82; PULSE 60; RESP 17; O2SAT 98
[2021-08-17] MEDS: Omeprazole 20 MG CAPSULE.DR PO (06:26)
--- NOTE | 2021-08-17 06:34 | PC.NURSE ---
Patient slept through the night, no distress observed/reported at this time, patient reported general body ache, Tylenol 650 mg administered X 2 with positive, care team assessed the patient disposition penning psych evaluation in am, VSS, behavior appropriate, med rec completed/pending provider's approval, will continue to monitor.
--- NOTE | 2021-08-17 07:00 | PC.NURSE ---
patient appears to remain asleep respirations are even and unlabored patient appears in no distress,
[2021-08-17 08:52] LABS: Benzodiazepines Screen Urine NOT DETECTED (Not Detect)
[2021-08-17] MEDS: Nicotine 14 MG PATCH.TD24 TRANSDERMA (09:38)
[2021-08-17] MEDS: Folic Acid 1 MG TABLET PO (09:39)
[2021-08-17] MEDS: Lithium Carbonate ER 300 MG TABLET.ER PO (09:39)
[2021-08-17] MEDS: Levothyroxine Sodium 50 MCG TABLET PO (09:39)
[2021-08-17] MEDS: HaloperidoL 5 MG TABLET 10 MG PO (09:39)
--- NOTE | 2021-08-17 13:09 | PC.NURSE ---
Pt up requesting to access personal property to obtain phone number. ERT assisting pt at this time.
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
[2021-08-17] MEDS: Divalproex Sodium ER 500 MG TAB.ER.24H 1500 MG PO (16:16)
== END 2021-08-17 16:26 | disposition home or self-care (01) ==
PROVIDERS: Emergency Provider Emergency Medicine
DX: U07.1 COVID-19 (principal); R06.02 Shortness of breath; F31.9 Bipolar disorder, unspecified; F17.200 Nicotine dependence, unspecified, uncomplicated; Z79.899 Other long term (current) drug therapy
CPT/HCPCS: 36415; 71045; 80048; 80076; 80164; 80178; 80307; 81001; 83605; 84484; 85025; 85610; 87040; 87086; 87635; 93005; 99284; 99285

== ENCOUNTER 2021-09-20 15:29 | Emergency (ER) | payer OTHER, SELFPAY ==
[2021-09-20 17:10] VITALS: BP 140/80; PULSE 84; O2SAT 98
[2021-09-20 17:13] VITALS: BP 126/74; PULSE 79; RESP 18; TEMP 36.6; O2SAT 97; BMI 28.8
--- NOTE | 2021-09-20 20:32 | PC.NURSE ---
pt became verbally abusive when informed that the hospital was unable to provide transportation home. pt stated fuck this, i've waited long enough .
== END 2021-09-20 20:34 | disposition left against medical advice (07) ==
PROVIDERS: Emergency Provider Emergency Medicine
DX: M79.642 Pain in left hand (principal); M79.641 Pain in right hand
CPT/HCPCS: 99281

== ENCOUNTER 2021-09-27 12:12 | Emergency (ER) | payer OTHER, SELFPAY ==
--- NOTE | ~2021-09-27 | XR_ITS ---
EXAMINATION: XR CHEST CLINICAL INFORMATION: Shortness of breath COMPARISON: Chest radiographs 08/16/2021, 08/07/2021 TECHNIQUE: Semiupright AP view of the chest is performed. FINDINGS: The lungs are clear. No pneumothorax, airspace consolidation, or effusion. Heart size normal. Vascularity normal. The hilar and mediastinal contours and visualized bony structures are unremarkable. XR/XR chest 1V IMPRESSION: Unremarkable examination.
[2021-09-27 12:47] VITALS: BP 119/78; BP 124/77; PULSE 75; PULSE 80; RESP 20; TEMP 36.5; O2SAT 97; O2SAT 98; BMI 26.8
--- NOTE | 2021-09-27 12:48 | ECG_ITS ---
Test Reason : sob Blood Pressure : / mmHG Vent. Rate : 071 BPM Atrial Rate : 071 BPM P-R Int : 148 ms QRS Dur : 084 ms QT Int : 406 ms P-R-T Axes : 025 029 044 degrees QTc Int : 441 ms Normal sinus rhythm Normal ECG When compared with ECG of 16-AUG-2021 16:34, No significant change was found Referred By: Gina Alarcon Electronically Signed By:BERT DILLON
--- NOTE | 2021-09-27 12:56 | ED.GENADULT ---
HPI - General Adult General Chief complaint: Dyspnea <BÁRBARA Luna Last Filed: 09/27/21 17:03> Stated complaint: DYSPNEA,DIZZINESS <BÁRBARA Luna Last Filed: 09/27/21 17:03> Time Seen by Provider: 09/27/21 12:37 <BÁRBARA Luna - Last Filed: 09/27/21 17:03> Source: patient and EMS <BÁRBARA Luna Last Filed: 09/27/21 17:03> Mode of arrival: EMS <BÁRBARA Luna Last Filed: 09/27/21 17:03> History of Present Illness HPI narrative: 60-year-old female with a past medical history anxiety, CKD, depression, GERD, hypothyroidism, bipolar 1, psoriatic arthritis, BIBA complaining of increased anxiety with associated SOB, chest tightness, and diffuse myalgias since this morning. Reports intermittent lightheadedness and nausea. Per EMS patient coming from the [facility], was recently incarcerated, patient reports being off her medications x2 weeks. States her dog is dying and she cannot handle this anymore. Denies SI/HI, visual/auditory hallucinations, abdominal pain, fever, cough <BÁRBARA Luna Last Filed: 09/27/21 17:03> Onset (ago): unknown <BÁRBARA Luna - Last Filed: 09/27/21 17:03> Related Data Home medications: Home Medications Medication Instructions Recorded Confirmed chlorpromazine 25 mg tablet 50 mg PO BEDTIME PRN Agitation 08/16/21 09/27/21 cyclobenzaprine 5 mg tablet 1 tab PO BEDTIME PRN pain 08/16/21 09/27/21 folic acid 1 mg tablet 1 tab PO DAILY 08/16/21 09/27/21 haloperidol 10 mg tablet 1 tab PO BID 08/16/21 09/27/21 omeprazole 20 mg capsule,delayed 1 cap PO QAM 08/16/21 09/27/21 release diphenhydramine HCl 12.5 mg/5 mL 5 - 20 ml PO BEDTIME PRN insomnia 09/27/21 09/27/21 oral liquid divalproex 500 mg tablet,delayed 3 tab PO DAILY@1700 09/27/21 09/27/21 release lithium carbonate 150 mg capsule 1 cap PO BEDTIME 09/27/21 09/27/21 paroxetine HCl 20 mg tablet 1 tab PO DAILY 09/27/21 09/27/21 Previous Rx's Medication Instructions Recorded levothyroxine 50 mcg tablet 50 mcg PO DAILY 30 days #30 tabs 07/31/21 <BÁRBARA Luna - Last Filed: 09/27/21 17:03> Allergies/adverse reactions: Allergies Allergy/AdvReac Type Severity Reaction Status Date / Time lithium AdvReac Intermediate CKD Verified 09/20/21 17:13 <BÁRBARA Luna - Last Filed: 09/27/21 17:03> Review of Systems Review of Systems: Constitutional: No Fever, No Chills, + Fatigue, No Malaise ENT/Mouth: No Hearing loss, No Ear Pain, No Nasal Congestion, No sore throat, No Rhinorrhea, No Swallowing Difficulty Eyes: No Eye Pain, No Swelling, No Redness, No Vision Changes Cardiovascular: + Chest Pain, + SOB, No Edema, No Palpitations Respiratory: No Cough, No Sputum, No Wheezing, No Smoke Exposure, No Dyspnea Gastrointestinal: + Nausea, No Vomiting, No Diarrhea, No Constipation, No Abdominal pain Genitourinary: No Dysuria, No Urinary Frequency, No Hematuria, No Urgency, No Flank Pain Musculoskeletal: No joint pain, + Myalgias, No Joint Swelling Skin: No Skin Lesions, No rash Neuro: No Weakness, No Numbness, No Loss of Consciousness, + intermittent lightheadedness, No Headache Psych: + Anxiety/Panic, No Depression, No SI/HI/AH/VH, + Social Issues <BÁRBARA Luna Last Filed: 09/27/21 17:03> Yes all other systems are reviewed and are negative <BÁRBARA Luna Last Filed: 09/27/21 17:03> Constitutional: Constitutional: Reports as per HPI <BÁRBARA Luna Last Filed: 09/27/21 17:03> PMFSH Past Medical History Attestation statement: The following information was validated with the patient. <BÁRBARA Luna Last Filed: 09/27/21 17:03> Medical History: Medical History Anxiety CKD (chronic kidney disease) Depression GERD (gastroesophageal reflux disease) Hypothyroidism <BÁRBARA Luna - Last Filed: 09/27/21 17:03> Social History Social History: Social History Household Members: Family Housing: House Do you presently have visiting nurse or other home services: No Alcohol intake: current Alcohol intake frequency: other Patient Tobacco Use Status: Current everyday Tobacco user Tobacco use type: Cigarette Cigarette Packs Per Day: 0.5 Second Hand Smoke Exposure: Yes Advance Directives: No Advance Directives Information Provided: No service: No Sexual orientation: Did not discuss <BÁRBARA Luna - Last Filed: 09/27/21 17:03> Physical Exam ED Vital Signs: Vital Signs - 24 hr 09/27/21 12:47 Temperature 97.7 F Pulse Rate 75 Respiratory Rate 20 Blood Pressure 124/77 Pulse Oximetry 97 Oxygen Delivery Method Room Air BMI result Body Mass Index 26.8 <BÁRBARA Luna - Last Filed: 09/27/21 17:03> Vital Signs - 24 hr 09/27/21 12:47 Temperature 97.7 F Pulse Rate 75 Respiratory Rate 20 Blood Pressure 124/77 Pulse Oximetry 97 Oxygen Delivery Method Room Air BMI result Body Mass Index 26.8 <Ludy Rob NP - Last Filed: 09/27/21 20:40> Const Other: anxious, Tearful, flight of ideas <BÁRBARA Luna - Last Filed: 09/27/21 17:03> General: cooperative, no acute distress and anxious <BÁRBARA Luna - Last Filed: 09/27/21 17:03> Orientation/consciousness: patient oriented x3 <BÁRBARA Luna - Last Filed: 09/27/21 17:03> Limitations: no limitations <BÁRBARA Luna - Last Filed: 09/27/21 17:03> HENMT Head: Yes normal to inspection and Yes atraumatic <BÁRBARA Luna - Last Filed: 09/27/21 17:03> Ears: hearing grossly normal bilaterally <BÁRBARA Luna - Last Filed: 09/27/21 17:03> General nose exam: Normal external nose present <BÁRBARA Luna - Last Filed: 09/27/21 17:03> Face and sinus: Yes normal facial exam <BÁRBARA Luna - Last Filed: 09/27/21 17:03> Throat: Yes posterior oropharynx normal, Yes tonsils normal and Yes uvula midline <Gina Alarcon PA - Last Filed: 09/27/21 17:03> Eyes General: appearance normal, both eyes and all related structures <Gina Alarcon PA - Last Filed: 09/27/21 17:03> Pupils: Equal, round and reactive pupils present <Gina Alarcon PA - Last Filed: 09/27/21 17:03> EOM: EOMs intact bilaterally <Gina Alarcon PA - Last Filed: 09/27/21 17:03> Neck Neck: Yes normal visual inspection and Yes no meningeal signs <Gina Alarcon PA - Last Filed: 09/27/21 17:03> Resp Effort & Inspection: normal respiratory effort and no respiratory distress <Gina Alarcon PA - Last Filed: 09/27/21 17:03> Auscultation: clear to auscultation bilaterally, no crackles, no rales, no rhonchi and no wheezes <Gina Alarcon PA - Last Filed: 09/27/21 17:03> Cardio Rate: regular rate <Gina Alarcon PA - Last Filed: 09/27/21 17:03> Heart sounds: S1 normal heart sound present and S2 normal heart sound present <Gina Alarcon PA - Last Filed: 09/27/21 17:03> GI Inspection: Yes normal to inspection <Gina Alarcon PA - Last Filed: 09/27/21 17:03> Palpation (GI): Soft to palpation, nontender, no guarding and not rigid <Gina Alarcon PA - Last Filed: 09/27/21 17:03> General: Yes no CVA tenderness <Gina Alarcon PA - Last Filed: 09/27/21 17:03> Back/Spine/Pelvis Back: no CVA tenderness <Gina Alarcon PA - Last Filed: 09/27/21 17:03> Skin Rashes: no rashes <BÁRBARA Luna - Last Filed: 09/27/21 17:03> Wounds: no wounds <BÁRBARA Luna - Last Filed: 09/27/21 17:03> Neuro General: patient oriented x3, tone normal, moves all extremities, no meningeal signs, no focal motor deficits and CN's II-XI intact bilaterally <BÁRBARA Luna - Last Filed: 09/27/21 17:03> Cranial nerves: Yes CN's II-XII intact bilaterally, Yes Equal, round and reactive pupils present and Yes Bilaterally intact EOM present <BÁRBARA uLna - Last Filed: 09/27/21 17:03> Motor exam (neuro): 5/5 motor strength present throughout <BÁRBARA Luna - Last Filed: 09/27/21 17:03> Extrem General: Yes normal to inspection <BÁRBARA Luna - Last Filed: 09/27/21 17:03> Psych Affect: Sad affect present and Anxious affect present <BÁRBARA Luna - Last Filed: 09/27/21 17:03> Thought process: Flight of ideas present and Racing thoughts present <BÁRBARA Luna Last Filed: 09/27/21 17:03> Thought content: suicidality, no homicidality and Depressive thoughts present <BÁRBARA Luna - Last Filed: 09/27/21 17:03> Insight: Poor insight present (Psych) <BÁRBARA Luna - Last Filed: 09/27/21 17:03> Judgement: Poor judgement present (Psych) <BÁRBARA Luna - Last Filed: 09/27/21 17:03> Course Course Course Narrative: -1554--patient's lower than baseline 9.3/27.2 >> patient denies melena/hematochezia or hematemesis. Will obtain occult stool -chronic CKD. Troponin negative. [place] and Depakote levels low XR chest 1V IMPRESSION: Unremarkable examination. -1600--on re-evaluation patient calm and cooperative, drinking water. Denies complaints at present. -1700--occult blood stool negative. Patient is medically cleared for crisis evaluation. Physician observation initiated as patient needs more time to be evaluated by care team -1800-ED care transferred to [employer] Ludy isbell CARE team ausytn <BÁRBARA Luna - Last Filed: 09/27/21 17:03> Reevaluation(s) Reevaluation #1: patient was seen by N crisis. plan for discharge to the living room <Ludy Rob NP - Last Filed: 09/27/21 20:40> Medical Decision Making MDM Narrative Medical decision making narrative: 60-year-old female with a past medical history anxiety, CKD, depression, GERD, hypothyroidism, bipolar 1, psoriatic arthritis, BIBA complaining of increased anxiety with associated SOB, chest tightness, and diffuse myalgias since this morning. Reports intermittent lightheadedness and nausea. On exam vital signs stable, anxious, tearful, flight of ideas, history difficult to fully ascertain due to patient's acute mental status. Concern for anxiety reaction/panic attack vs mood disorder secondary to medication noncompliance vs viral illness. Lower suspicion for ACS/PE or pneumonia Plan: EKG, labs, UA, CXR, crisis consult <BÁRBARA Luna - Last Filed: 09/27/21 17:03> Medical Records Medical records reviewed: Yes I reviewed the patient's medical records. <BÁRBARA Luna - Last Filed: 09/27/21 17:03> Lab Data Lab results reviewed: Yes I reviewed the patient's lab results. <BÁRBARA Luna - Last Filed: 09/27/21 17:03> Result diagrams: : 09/27/21 13:11 09/27/21 13:11 <BÁRBARA Luna - Last Filed: 09/27/21 17:03> Labs: Lab Results 09/27/21 09/27/21 09/27/21 Range/Units 13:11 13:11 13:11 WBC 6.1 (4.8-10.8) X10*3/uL RBC 2.90 L D (4.20-5.50) X10*6/uL Hgb 9.3 L D (12.0-16.0) g/dl Hct 27.2 L D (37.0-47.0) % MCV 93.8 (80.0-98.0) fL MCH 32.1 (27.0-33.0) pg MCHC 34.2 (31.0-35.0) g/dl RDW 13.0 (11.0-16.0) % Plt Count 241 D (160-400) X10*3/uL MPV 9.6 (9.4-12.3) fL Immature Gran % (Auto) 0.3 (0.0-0.4) % Neut % (Auto) 59.8 (45-73) % Lymph % (Auto) 25.4 (20-40) % [place] % (Auto) 11.9 H (2-11) % Eos % (Auto) 1.3 (0-4) % Baso % (Auto) 1.3 (0-2) % Lymph # (Auto) 1.6 (1.2-4.9) X10*3/uL [place] # (Auto) 0.7 (0.1-1.2) X10*3/uL Eos # (Auto) 0.1 (0.0-0.4) X10*3/uL Baso # (Auto) 0.1 (0.0-0.2) X10*3/uL Abs Immat Gran (auto) 0.02 (0.00-0.03) X10*3/uL Absolute Neuts (auto) 3.7 (2.0-8.3) x10*3/uL Absolute Nucleated RBC 0.000 (0.0-0.012) X10*3/uL Nucleated RBC % (auto) 0.0 (0.0-0.2) /100WBC Sodium 138 (135-145) mmol/L Potassium 3.3 D (3.3-5.1) mmol/L Chloride 107 (96-108) mmol/L Carbon Dioxide 18 L (22-29) mmol/L Anion Gap 16 (12-20) BUN 23 H (9-16) mg/dL Creatinine 1.66 H (0.5-1.4) mg/dL Estim Creat Clear Calc 40.5 Estimated GFR 32 Random Glucose 98 (60-115) mg/dL Calcium 9.2 (8.4-10.2) mg/dL Magnesium 1.7 (1.6-2.6) mg/dL Total Bilirubin 0.6 (0.0-1.0) mg/dL Direct Bilirubin 0.3 (0.0-0.5) mg/dL AST 27 (5-31) U/L ALT 8 (0-31) U/L Alkaline Phosphatase 89 D (39-117) U/L Troponin I High Sens < 3.5 (<3.5-17.0) ng/L Total Protein 7.5 (6.5-8.0) g/dL Albumin 3.8 (3.5-5.0) g/dL Stool Occult Blood (NEGATIVE) Valproic Acid (50.0-100.0) mcg/mL [place] (0.60-1.20) mmol/L COVID-19 ([facility]) (Negative) COVID-19 Clin Com 09/27/21 09/27/21 09/27/21 Range/Units 13:11 13:11 13:11 WBC (4.8-10.8) X10*3/uL RBC (4.20-5.50) X10*6/uL Hgb (12.0-16.0) g/dl Hct (37.0-47.0) % MCV (80.0-98.0) fL MCH (27.0-33.0) pg MCHC (31.0-35.0) g/dl RDW (11.0-16.0) % Plt Count (160-400) X10*3/uL MPV (9.4-12.3) fL Immature Gran % (Auto) (0.0-0.4) % Neut % (Auto) (45-73) % Lymph % (Auto) (20-40) % [place] % (Auto) (2-11) % Eos % (Auto) (0-4) % Baso % (Auto) (0-2) % Lymph # (Auto) (1.2-4.9) X10*3/uL [place] # (Auto) (0.1-1.2) X10*3/uL Eos # (Auto) (0.0-0.4) X10*3/uL Baso # (Auto) (0.0-0.2) X10*3/uL Abs Immat Gran (auto) (0.00-0.03) X10*3/uL Absolute Neuts (auto) (2.0-8.3) x10*3/uL Absolute Nucleated RBC (0.0-0.012) X10*3/uL Nucleated RBC % (auto) (0.0-0.2) /100WBC Sodium (135-145) mmol/L Potassium (3.3-5.1) mmol/L Chloride (96-108) mmol/L Carbon Dioxide (22-29) mmol/L Anion Gap (12-20) BUN (9-16) mg/dL Creatinine (0.5-1.4) mg/dL Estim Creat Clear Calc Estimated GFR Random Glucose (60-115) mg/dL Calcium (8.4-10.2) mg/dL Magnesium (1.6-2.6) mg/dL Total Bilirubin (0.0-1.0) mg/dL Direct Bilirubin (0.0-0.5) mg/dL AST (5-31) U/L ALT (0-31) U/L Alkaline Phosphatase (39-117) U/L Troponin I High Sens (<3.5-17.0) ng/L Total Protein (6.5-8.0) g/dL Albumin (3.5-5.0) g/dL Stool Occult Blood (NEGATIVE) Valproic Acid < 2.0 L (50.0-100.0) mcg/mL [place] 0.06 L (0.60-1.20) mmol/L COVID-19 ([facility]) Negative (Negative) COVID-19 Clin Com See Note 09/27/21 Range/Units 16:47 WBC (4.8-10.8) X10*3/uL RBC (4.20-5.50) X10*6/uL Hgb (12.0-16.0) g/dl Hct (37.0-47.0) % MCV (80.0-98.0) fL MCH (27.0-33.0) pg MCHC (31.0-35.0) g/dl RDW (11.0-16.0) % Plt Count (160-400) X10*3/uL MPV (9.4-12.3) fL Immature Gran % (Auto) (0.0-0.4) % Neut % (Auto) (45-73) % Lymph % (Auto) (20-40) % [place] % (Auto) (2-11) % Eos % (Auto) (0-4) % Baso % (Auto) (0-2) % Lymph # (Auto) (1.2-4.9) X10*3/uL [place] # (Auto) (0.1-1.2) X10*3/uL Eos # (Auto) (0.0-0.4) X10*3/uL Baso # (Auto) (0.0-0.2) X10*3/uL Abs Immat Gran (auto) (0.00-0.03) X10*3/uL Absolute Neuts (auto) (2.0-8.3) x10*3/uL Absolute Nucleated RBC (0.0-0.012) X10*3/uL Nucleated RBC % (auto) (0.0-0.2) /100WBC Sodium (135-145) mmol/L Potassium (3.3-5.1) mmol/L Chloride (96-108) mmol/L Carbon Dioxide (22-29) mmol/L Anion Gap (12-20) BUN (9-16) mg/dL Creatinine (0.5-1.4) mg/dL Estim Creat Clear Calc Estimated GFR Random Glucose (60-115) mg/dL Calcium (8.4-10.2) mg/dL Magnesium (1.6-2.6) mg/dL Total Bilirubin (0.0-1.0) mg/dL Direct Bilirubin (0.0-0.5) mg/dL AST (5-31) U/L ALT (0-31) U/L Alkaline Phosphatase (39-117) U/L Troponin I High Sens (<3.5-17.0) ng/L Total Protein (6.5-8.0) g/dL Albumin (3.5-5.0) g/dL Stool Occult Blood NEGATIVE (NEGATIVE) Valproic Acid (50.0-100.0) mcg/mL [place] (0.60-1.20) mmol/L COVID-19 ([facility]) (Negative) COVID-19 Clin Com <BÁRBARA Luna - Last Filed: 09/27/21 17:03> Lab Results 09/27/21 09/27/2122 Range/Units 13:11 13:11 13:11 WBC 6.1 (4.8-10.8) X10*3/uL RBC 2.90 L D (4.20-5.50) X10*6/uL Hgb 9.3 L D (12.0-16.0) g/dl Hct 27.2 L D (37.0-47.0) % MCV 93.8 (80.0-98.0) fL MCH 32.1 (27.0-33.0) pg MCHC 34.2 (31.0-35.0) g/dl RDW 13.0 (11.0-16.0) % Plt Count 241 D (160-400) X10*3/uL MPV 9.6 (9.4-12.3) fL Immature Gran % (Auto) 0.3 (0.0-0.4) % Neut % (Auto) 59.8 (45-73) % Lymph % (Auto) 25.4 (20-40) % [place] % (Auto) 11.9 H (2-11) % Eos % (Auto) 1.3 (0-4) % Baso % (Auto) 1.3 (0-2) % Lymph # (Auto) 1.6 (1.2-4.9) X10*3/uL [place] # (Auto) 0.7 (0.1-1.2) X10*3/uL Eos # (Auto) 0.1 (0.0-0.4) X10*3/uL Baso # (Auto) 0.1 (0.0-0.2) X10*3/uL Abs Immat Gran (auto) 0.02 (0.00-0.03) X10*3/uL Absolute Neuts (auto) 3.7 (2.0-8.3) x10*3/uL Absolute Nucleated RBC 0.000 (0.0-0.012) X10*3/uL Nucleated RBC % (auto) 0.0 (0.0-0.2) /100WBC Sodium 138 (135-145) mmol/L Potassium 3.3 D (3.3-5.1) mmol/L Chloride 107 (96-108) mmol/L Carbon Dioxide 18 L (22-29) mmol/L Anion Gap 16 (12-20) BUN 23 H (9-16) mg/dL Creatinine 1.66 H (0.5-1.4) mg/dL Estim Creat Clear Calc 40.5 Estimated GFR 32 Random Glucose 98 (60-115) mg/dL Calcium 9.2 (8.4-10.2) mg/dL Magnesium 1.7 (1.6-2.6) mg/dL Total Bilirubin 0.6 (0.0-1.0) mg/dL Direct Bilirubin 0.3 (0.0-0.5) mg/dL AST 27 (5-31) U/L ALT 8 (0-31) U/L Alkaline Phosphatase 89 D (39-117) U/L Troponin I High Sens < 3.5 (<3.5-17.0) ng/L Total Protein 7.5 (6.5-8.0) g/dL Albumin 3.8 (3.5-5.0) g/dL Stool Occult Blood (NEGATIVE) Valproic Acid (50.0-100.0) mcg/mL [place] (0.60-1.20) mmol/L COVID-19 ([facility]) (Negative) COVID-19 Clin Com 09/27/21 09/27/21 09/27/21 Range/Units 13:11 13:11 13:11 WBC (4.8-10.8) X10*3/uL RBC (4.20-5.50) X10*6/uL Hgb (12.0-16.0) g/dl Hct (37.0-47.0) % MCV (80.0-98.0) fL MCH (27.0-33.0) pg MCHC (31.0-35.0) g/dl RDW (11.0-16.0) % Plt Count (160-400) X10*3/uL MPV (9.4-12.3) fL Immature Gran % (Auto) (0.0-0.4) % Neut % (Auto) (45-73) % Lymph % (Auto) (20-40) % [place] % (Auto) (2-11) % Eos % (Auto) (0-4) % Baso % (Auto) (0-2) % Lymph # (Auto) (1.2-4.9) X10*3/uL [place] # (Auto) (0.1-1.2) X10*3/uL Eos # (Auto) (0.0-0.4) X10*3/uL Baso # (Auto) (0.0-0.2) X10*3/uL Abs Immat Gran (auto) (0.00-0.03) X10*3/uL Absolute Neuts (auto) (2.0-8.3) x10*3/uL Absolute Nucleated RBC (0.0-0.012) X10*3/uL Nucleated RBC % (auto) (0.0-0.2) /100WBC Sodium (135-145) mmol/L Potassium (3.3-5.1) mmol/L Chloride (96-108) mmol/L Carbon Dioxide (22-29) mmol/L Anion Gap (12-20) BUN (9-16) mg/dL Creatinine (0.5-1.4) mg/dL Estim Creat Clear Calc Estimated GFR Random Glucose (60-115) mg/dL Calcium (8.4-10.2) mg/dL Magnesium (1.6-2.6) mg/dL Total Bilirubin (0.0-1.0) mg/dL Direct Bilirubin (0.0-0.5) mg/dL AST (5-31) U/L ALT (0-31) U/L Alkaline Phosphatase (39-117) U/L Troponin I High Sens (<3.5-17.0) ng/L Total Protein (6.5-8.0) g/dL Albumin (3.5-5.0) g/dL Stool Occult Blood (NEGATIVE) Valproic Acid < 2.0 L (50.0-100.0) mcg/mL [place] 0.06 L (0.60-1.20) mmol/L COVID-19 ([facility]) Negative (Negative) COVID-19 Clin Com See Note 09/27/21 Range/Units 16:47 WBC (4.8-10.8) X10*3/uL RBC (4.20-5.50) X10*6/uL Hgb (12.0-16.0) g/dl Hct (37.0-47.0) % MCV (80.0-98.0) fL MCH (27.0-33.0) pg MCHC (31.0-35.0) g/dl RDW (11.0-16.0) % Plt Count (160-400) X10*3/uL MPV (9.4-12.3) fL Immature Gran % (Auto) (0.0-0.4) % Neut % (Auto) (45-73) % Lymph % (Auto) (20-40) % [place] % (Auto) (2-11) % Eos % (Auto) (0-4) % Baso % (Auto) (0-2) % Lymph # (Auto) (1.2-4.9) X10*3/uL [place] # (Auto) (0.1-1.2) X10*3/uL Eos # (Auto) (0.0-0.4) X10*3/uL Baso # (Auto) (0.0-0.2) X10*3/uL Abs Immat Gran (auto) (0.00-0.03) X10*3/uL Absolute Neuts (auto) (2.0-8.3) x10*3/uL Absolute Nucleated RBC (0.0-0.012) X10*3/uL Nucleated RBC % (auto) (0.0-0.2) /100WBC Sodium (135-145) mmol/L Potassium (3.3-5.1) mmol/L Chloride (96-108) mmol/L Carbon Dioxide (22-29) mmol/L Anion Gap (12-20) BUN (9-16) mg/dL Creatinine (0.5-1.4) mg/dL Estim Creat Clear Calc Estimated GFR Random Glucose (60-115) mg/dL Calcium (8.4-10.2) mg/dL Magnesium (1.6-2.6) mg/dL Total Bilirubin (0.0-1.0) mg/dL Direct Bilirubin (0.0-0.5) mg/dL AST (5-31) U/L ALT (0-31) U/L Alkaline Phosphatase (39-117) U/L Troponin I High Sens (<3.5-17.0) ng/L Total Protein (6.5-8.0) g/dL Albumin (3.5-5.0) g/dL Stool Occult Blood NEGATIVE (NEGATIVE) Valproic Acid (50.0-100.0) mcg/mL [place] (0.60-1.20) mmol/L COVID-19 ([facility]) (Negative) COVID-19 Clin Com <Ludy Rob NP - Last Filed: 09/27/21 20:40> ECG Data Attestation: I personally reviewed and interpreted this ECG as follows: <BÁRBARA Luna - Last Filed: 09/27/21 17:03> Interpretation: EKG normal sinus rhythm at a rate of 71. Pr interval 148. QTC 441. Inverted T-wave in V1. No STEMI <BÁRBARA Luna - Last Filed: 09/27/21 17:03> Discharge Plan Discharge Clinical Impression: Noncompliance with medication regimen, Myalgia, Anxiety, Depression <BÁRBARA Luna - Last Filed: 09/27/21 17:03> Patient Disposition: Xfer Other <BÁRBARA Luna - Last Filed: 09/27/21 17:03> Transfer Details: living room <BÁRBARA Luna - Last Filed: 09/27/21 17:03> living room <Ludy Rob NP - Last Filed: 09/27/21 20:40> Instructions: Depression (ED), Anxiety (ED) <BÁRBARA Luna Last Filed: 09/27/21 17:03> Prescriptions: No Action haloperidol 10 mg tablet 1 tab PO BID omeprazole 20 mg capsule,delayed release(DR/EC) 1 cap PO QAM folic acid 1 mg tablet 1 tab PO DAILY cyclobenzaprine 5 mg tablet 1 tab PO BEDTIME PRN (Reason: pain) chlorpromazine 25 mg Tablet 50 mg PO BEDTIME PRN (Reason: Agitation) levothyroxine 50 mcg tablet 50 mcg PO DAILY 30 Days Qty: 30 0RF diphenhydramine HCl 12.5 mg/5 mL liquid 5 - 20 ml PO BEDTIME PRN (Reason: insomnia) lithium carbonate 150 mg capsule 1 cap PO BEDTIME divalproex 500 mg tablet,delayed release (DR/EC) 3 tab PO DAILY@1700 paroxetine HCl 20 mg tablet 1 tab PO DAILY <BÁRBARA Luna - Last Filed: 09/27/21 17:03>
[2021-09-27 13:28] LABS: MANUAL DIFF FLAG NO
[2021-09-27 13:41] LABS: Basophils Absolute Auto 0.1 X10*3/uL (0.0-0.2); Basophils Percent Auto 1.3 % (0-2); Eosinophils Absolute Auto 0.1 X10*3/uL (0.0-0.4); Eosinophils Percent Auto 1.3 % (0-4); Hematocrit 27.2 % (37.0-47.0); Hemoglobin 9.3 g/dl (12.0-16.0); Imm Gran Abs Auto 0.02 X10*3/uL (0.00-0.03); Imm Gran Pct Auto 0.3 % (0.0-0.4); Lymphocytes Absolute Auto 1.6 X10*3/uL (1.2-4.9); Lymphocytes Percent Auto 25.4 % (20-40); Mean Corpuscular HGB Conc 34.2 g/dl (31.0-35.0); Mean Corpuscular Hemoglobin 32.1 pg (27.0-33.0); Mean Corpuscular Volume 93.8 fL (80.0-98.0); Mean Platelet Volume 9.6 fL (9.4-12.3); Monocytes Absolute Auto 0.7 X10*3/uL (0.1-1.2); Monocytes Percent Auto 11.9 % (2-11); Neutrophils Absolute Auto 3.7 x10*3/uL (2.0-8.3); Neutrophils Percent Auto 59.8 % (45-73); Platelet Count 241 X10*3/uL (160-400)
[2021-09-27 13:45] LABS: White Blood Count 6.1 X10*3/uL (4.8-10.8)
[2021-09-27 13:53] LABS: Alanine Aminotransferase 8 U/L (0-31); Albumin Level 3.8 g/dL (3.5-5.0); Alkaline Phosphatase 89 U/L (39-117); Anion Gap 16 (12-20); Aspartate Amino Transferase 27 U/L (5-31); Bilirubin Direct 0.3 mg/dL (0.0-0.5); Bilirubin Total 0.6 mg/dL (0.0-1.0); Blood Urea Nitrogen 23 mg/dL (9-16); Calcium 9.2 mg/dL (8.4-10.2); Carbon Dioxide 18 mmol/L (22-29); Chloride 107 mmol/L (96-108); Creatinine Clr Calc Pharmacy 40.5; Estimated Glomerular Filt Rate 32; Glucose Random 98 mg/dL (60-115); Magnesium 1.7 mg/dL (1.6-2.6); Potassium 3.3 mmol/L (3.3-5.1); Sodium 138 mmol/L (135-145); Total Protein 7.5 g/dL (6.5-8.0)
[2021-09-27 13:59] LABS: COVID-19 Test Negative (Negative); Troponin-I High Sensitivity < 3.5 ng/L (<3.5-17.0)
[2021-09-27 14:00] LABS: Lithium 0.06 mmol/L (0.60-1.20)
[2021-09-27 14:06] LABS: Valproate < 2.0 mcg/mL (50.0-100.0)
[2021-09-27 16:52] LABS: OBS Int Ctl Valid YES; OBS1 NEGATIVE (NEGATIVE)
[2021-09-27] MEDS: Acetaminophen 325 MG TABLET 650 MG PO (16:58)
--- NOTE | 2021-09-27 18:30 | PC.NURSE ---
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
== END 2021-09-27 21:22 | disposition home or self-care (01) ==
PROVIDERS: Physician Assistant; Emergency Provider Internal Medicine; PCP Internal Medicine
DX: M79.10 Myalgia, unspecified site (principal); F41.9 Anxiety disorder, unspecified; F32.A Depression, unspecified; Z91.14 Patient's other noncompliance with medication regimen; Z20.822 Contact with and (suspected) exposure to COVID-19; F17.210 Nicotine dependence, cigarettes, uncomplicated
CPT/HCPCS: 36415; 71045; 80048; 80076; 80164; 80178; 82272; 83735; 84484; 85025; 87635; 93005; 99284

== ENCOUNTER 2021-09-28 11:01 | Inpatient (IN) | payer OTHER, SELFPAY ==
--- NOTE | 2021-09-28 11:26 | MHC.CARE ---
Call from [facility] staff (Pranay) that was working with patient at the [facility], is due for a rheumatoid arthritis shot, appt. was cancelled today. [facility] [phone]
--- NOTE | 2021-09-28 11:29 | ED_ITS ---
HPI - Psych General Chief Complaint: Psychiatric Symptoms Stated Complaint: section 12 Time Seen by Provider: 09/28/21 11:13 Source: patient Mode of arrival: EMS Limitations: no limitations History of Present Illness HPI Narrative: Patient presents emergency department to [facility]. She was evaluated by [facility] and in the community, was placed on a Section 12 for an inpatient bed search. Patient has been experiencing mood instability. She states she has not been able to sleep. Has not been taking her medications for at least 1 week per N. Patient unaware of when she last took her medications. She denies suicidal or homicidal ideation. Denies dizziness, lightheadedness, chest pain, shortness of breath, difficulty breathing, abdominal pain, weakness. Related Data Home Medications Medication Instructions Recorded Confirmed folic acid 1 mg tablet 1 tab PO DAILY 08/16/21 09/28/21 haloperidol 10 mg tablet 1 tab PO BID 08/16/21 09/28/21 omeprazole 20 mg capsule,delayed 1 cap PO DAILY@0630 08/16/21 09/28/21 release diphenhydramine HCl 12.5 mg/5 mL 5 - 20 ml PO BEDTIME PRN Sleep 09/27/21 09/28/21 oral liquid divalproex 500 mg tablet,delayed 3 tab PO DAILY@1700 09/27/21 09/28/21 release lithium carbonate 150 mg capsule 1 cap PO BEDTIME 09/27/21 09/28/21 paroxetine HCl 20 mg tablet 1 tab PO DAILY 09/27/21 09/28/21 chlorpromazine 50 mg tablet 1 tab PO BEDTIME PRN Sleep 09/28/21 09/28/21 etanercept 50 mg/mL (1 mL) ea subcut 09/28/21 subcutaneous pen injector (Enbrel SureClick) Previous Rx's Medication Instructions Recorded levothyroxine 50 mcg tablet 50 mcg PO DAILY 30 days #30 tabs 07/31/21 Allergies Allergy/AdvReac Type Severity Reaction Status Date / Time lithium AdvReac Intermediate CKD Verified 09/28/21 11:34 Review of Systems Review of Systems: Constitutional : No Fever, No Chills ENT/Mouth : No Ear Pain, No Nasal Congestion, No sore throat Eyes: No Eye Pain, No Swelling, No Redness Cardiovascular : No Chest Pain, No SOB Respiratory : No Cough, No Sputum, No Dyspnea Gastrointestinal : No Nausea, No Vomiting, No Diarrhea, No Hematochezia, No Melena Genitourinary : No Dysuria, No Urinary Frequency, No Hematuria Musculoskeletal : No Myalgias Skin : No Skin Lesions, No rash Neuro : No Weakness, No Numbness, No Paresthesias, No Dizziness, No Headache Psych : positive Anxiety, positive Depression, no SI/HI Heme/Lymph: No Lymphadenopathy Endocrine : No Polyuria, No Polydipsia Yes all other systems are reviewed and are negative [facility] Past Medical History Attestation statement: The following information was validated with the patient. Source: old records reviewed Medical History Anxiety CKD (chronic kidney disease) Depression GERD (gastroesophageal reflux disease) Hypothyroidism Social History Social History Household Members: Family Housing: House Do you presently have visiting nurse or other home services: No Alcohol intake: former Patient Tobacco Use Status: Former Tobacco user Tobacco use type: Cigarette Cigarette Packs Per Day: 0.5 Second Hand Smoke Exposure: Yes Use of substances other than those prescribed or required for medical reasons: No Advance Directives: No Advance Directives Information Provided: No service: No Sexual orientation: Did not discuss Physical Exam Vital Signs: Vital Signs: Last Vital Signs Temp 97.3 F 09/28/21 11:30 Pulse 84 09/28/21 11:30 Resp 18 09/28/21 11:30 BP 148/78 H 09/28/21 11:30 Pulse Ox 99 09/28/21 11:30 O2 Del Method 09/28/21 11:30 BMI result Body Mass Index 26.2 Appearance: Alert.?Oriented to person, place and time. No acute distress.?Normal affect. Eyes: Pupils equal, round and reactive to light.? ENT: Pharynx normal.?? Neck: Normal inspection.? Neck supple.?? CVS: Heart sounds normal. Normal heart rate and rhythm.? Pulses normal.?? Respiratory: No respiratory distress.? Lung sounds clear to auscultation bilaterally?? Abdomen: Soft and non-tender. Normoactive bowel sounds. Skin: Skin warm and dry.? Normal skin color.? Extremities: No lower extremity edema.? Neuro: Moves all extremities spontaneously. Sensation intact bilaterally. CN II- XII intact. No focal neuro deficits. Ambulates with normal steady gait. Course Course Course Narrative: Patient is a 60-year-old female with a past medical history of anxiety, CKD, depression, GERD, hypothyroidism, bipolar 1, psoriatic arthritis. She presents emergency department on a Section 12 from [facility] in the community for an inpatient bed search. She was seen in the emergency department yesterday, had a full workup for shortness of breath chest tightness and diffuse myalgias, workup overall unremarkable. She was discharged to [facility]. She is overall well-appearing, she is reporting myalgias and requesting ibuprofen, given her CKD will treat with Tylenol. Vital signs are stable. She is, cooperative. No apparent distress. She will be placed under physician observation as she will require additional time for inpatient bed search. Reevaluation(s) Reevaluation #1: Patient to be admitted inpatient psych to by Dr. Alcantara Time: 15:30 [facility] - Psych Medical Records Attestation: I reviewed the patient's medical records. Lab Data Attestation: I reviewed the patient's lab results. Labs: Lab Results 09/28/21 09/28/21 Range/Units 11:24 13:19 Urine Opiates Screen Not Detected (Not Detect) Urine Fentanyl Screen Not Detected (Not Detect) Ur Barbiturates Screen Not Detected (Not Detect) Ur Phencyclidine Scrn Not Detected (Not Detect) Ur Amphetamines Screen Not Detected (Not Detect) U Benzodiazepines Scrn Not Detected (Not Detect) Urine Cocaine Screen Not Detected (Not Detect) U Marijuana (THC) Screen Not Detected (Not Detect) COVID-19 ([facility]) Negative (Negative) COVID-19 Clin Com See Note Discharge Plan Discharge Clinical Impression: Bipolar 1 disorder, Depression Patient Disposition: Admitted As Inpatient
[2021-09-28 11:30] VITALS: BP 148/78; PULSE 84; RESP 18; TEMP 36.3; O2SAT 99; BMI 26.2
[2021-09-28] MEDS: Acetaminophen 325 MG TABLET 975 MG PO (11:47)
[2021-09-28 11:56] LABS: COVID-19 Test Negative (Negative); IDNOW Serial# 16C4AD1C
--- NOTE | 2021-09-28 12:24 | PC.NURSE ---
Patient complaining of burning under breasts and anxiety. PROFESSOR OF LEGAL STUDIES Janeth Garcia notified.
[2021-09-28] MEDS: LORazepam 1 MG TABLET PO (12:36)
[2021-09-28 13:40] LABS: Amphetamine Screen Urine Not Detected (Not Detect); Barbiturates, Urine Not Detected (Not Detect); Benzodiazepines Screen Urine Not Detected (Not Detect); Cannabinoid Screen Urine Not Detected (Not Detect); Cocaine Screen Urine Not Detected (Not Detect); Fentanyl, urine Not Detected (Not Detect); Opiate Screen Urine Not Detected (Not Detect); Phencyclidine Screen Urine Not Detected (Not Detect)
--- NOTE | 2021-09-28 14:44 | PC.NURSE ---
Pharmacy called about med rec. Pharmacy notified this RN that they are working on med rec and are trying to contact Pretty.
--- NOTE | 2021-09-28 16:43 | PHA.MEDREC ---
Pharmacy Consult ? Medication Reconciliation Pharmacy has completed the medication reconciliation. med list from [facility]
[2021-09-28] MEDS: hydrOXYzine HCL 25 MG TABLET PO (17:16)
[2021-09-28 18:00] VITALS: BP 117/76; PULSE 86; RESP 16; TEMP 35.9; O2SAT 99
[2021-09-28 18:36] VITALS: BP 117/76; PULSE 86; RESP 16; TEMP 35.9; O2SAT 99; BMI 26.4
[2021-09-28] MEDS: Magnesium Hydrox/Alum Hydrox 30 ML ORAL.SUSP PO (19:15)
[2021-09-28] MEDS: chlorproMAZINE HCl 25 MG TABLET 50 MG PO (19:15)
[2021-09-28] MEDS: traZODone HCL 50 MG TABLET PO (19:15)
--- NOTE | 2021-09-28 22:50 | PC.ADMIT ---
Pt is a 60 years old female admitted on CV for Bipolar 1. Pt was evaluated by NINA johnston at [facility] after she came in complaining of chest pains and increased anxiety. Pt is alert and oriented X4. Covid negative, Tox screen negative. Pt presents as anxious and tearful. Pt uses a walker and presents with unstable gait when using a walker. Speech is normal with normal tone and rhythm. Pt was restless during assessment and complaints of anxiety. Admission orders obtained.
[2021-09-29] MEDS: hydrOXYzine HCL 25 MG TABLET PO (04:43)
[2021-09-29] MEDS: Acetaminophen 325 MG TABLET 650 MG PO ×4 (04:43→23:00)
[2021-09-29 10:08] LABS: Cholesterol 224 mg/dL; Estimated Average Glucose 88 mg/dL; HDL Cholesterol 27 mg/dL; Hemoglobin A1c % 4.7 %; LDL Cholesterol Calculated 139 mg/dl; Triglycerides 291 mg/dL
[2021-09-29 10:28] LABS: Free T4 (Free Thyroxine) 1.13 ng/dL (0.71-1.85); Thyroid Stimulating Hormone 0.83 uIU/mL (0.32-4.0)
[2021-09-29 10:53] LABS: Folate 12.4 ng/mL (> or = 4.0); Vitamin B12 675 pg/mL (200-900)
[2021-09-29] MEDS: Cyclobenzaprine HCl 5 MG TABLET PO ×2 (12:43→16:20)
[2021-09-29] MEDS: Folic Acid 1 MG TABLET PO (12:45)
[2021-09-29] MEDS: chlorproMAZINE HCl 25 MG TABLET 50 MG PO (16:37)
--- NOTE | 2021-09-29 17:23 | PC.NURSE ---
PT reporting 10/10 full body pain. The only relief she gets is from Enbrel injection and unfortunately did not order it from [facility] in time to receive it. RX sent to her regular pharmacy [facility] on day shift. This contract writer called [facility] and pharmacist stated the med would need to be ordered and would not be available until next week however he could fax directly to [facility]. [facility] confirmed they could fill RX, staff on way to picker/puller.
[2021-09-29 18:30] VITALS: BP 118/66; PULSE 108; RESP 14; TEMP 36.4; O2SAT 99
[2021-09-29] MEDS: Magnesium Hydrox/Alum Hydrox 30 ML ORAL.SUSP PO (18:33)
[2021-09-29] MEDS: Divalproex Sodium ER 500 MG TAB.ER.24H PO (18:34)
[2021-09-29] MEDS: Propranolol HCL 10 MG TABLET PO (18:36)
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
[2021-09-29] MEDS: HaloperidoL 5 MG TABLET 10 MG PO (19:40)
[2021-09-29] MEDS: diphenhydrAMINE HCL 25 MG TABLET 50 MG PO (19:41)
[2021-09-29] MEDS: Trolamine Salicylate 10 % Cream 85 GM TUBE 1 APPL TOPICAL (22:41)
[2021-09-30] MEDS: HaloperidoL 5 MG TABLET 10 MG PO ×2 (07:53→19:40)
[2021-09-30] MEDS: Omeprazole 20 MG CAPSULE.DR PO (07:53)
[2021-09-30] MEDS: Folic Acid 1 MG TABLET PO (07:54)
[2021-09-30] MEDS: Levothyroxine Sodium 50 MCG TABLET PO (07:54)
[2021-09-30] MEDS: Cyclobenzaprine HCl 5 MG TABLET PO (07:54)
[2021-09-30] MEDS: Acetaminophen 325 MG TABLET 650 MG PO ×2 (07:54→13:59)
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
[2021-09-30] MEDS: Gabapentin 300 MG CAPSULE PO ×3 (14:42→17:35)
[2021-09-30 18:00] VITALS: BP 120/78; PULSE 89; RESP 16; O2SAT 99
[2021-09-30] MEDS: Lithium Carbonate 300 MG TABLET 150 MG PO (19:40)
[2021-10-01] MEDS: Acetaminophen 325 MG TABLET 650 MG PO ×3 (02:17→19:41)
[2021-10-01] MEDS: traZODone HCL 50 MG TABLET PO (03:08)
[2021-10-01] MEDS: Cyclobenzaprine HCl 5 MG TABLET PO (08:20)
[2021-10-01] MEDS: Gabapentin 300 MG CAPSULE PO ×4 (08:20→19:43)
[2021-10-01] MEDS: Folic Acid 1 MG TABLET PO (08:20)
[2021-10-01] MEDS: Levothyroxine Sodium 50 MCG TABLET PO (08:20)
[2021-10-01] MEDS: HaloperidoL 5 MG TABLET 10 MG PO ×2 (08:20→19:43)
[2021-10-01] MEDS: Omeprazole 20 MG CAPSULE.DR PO (08:20)
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
[2021-10-01 15:53] VITALS: BP 96/58; PULSE 116; TEMP 37.1
[2021-10-01] MEDS: Lithium Carbonate 300 MG TABLET 150 MG PO (19:43)
[2021-10-02] MEDS: Trolamine Salicylate 10 % Cream 85 GM TUBE 1 APPL TOPICAL ×2 (00:45→21:34)
[2021-10-02] MEDS: Acetaminophen 325 MG TABLET 650 MG PO ×4 (01:44→21:28)
[2021-10-02 06:00] VITALS: BP 113/58; PULSE 88; RESP 16; TEMP 36.6; O2SAT 98
[2021-10-02] MEDS: HaloperidoL 5 MG TABLET 10 MG PO ×2 (08:00→21:30)
[2021-10-02] MEDS: Folic Acid 1 MG TABLET PO (08:00)
[2021-10-02] MEDS: Omeprazole 20 MG CAPSULE.DR PO (08:00)
[2021-10-02] MEDS: Gabapentin 300 MG CAPSULE PO ×4 (08:00→21:28)
[2021-10-02] MEDS: Levothyroxine Sodium 50 MCG TABLET PO (08:01)
[2021-10-02] MEDS: Cyclobenzaprine HCl 5 MG TABLET PO (08:04)
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
[2021-10-02] MEDS: Divalproex Sodium ER 500 MG TAB.ER.24H 1000 MG PO (16:35)
[2021-10-02 18:00] VITALS: BP 111/58; PULSE 96; RESP 18; TEMP 36.6; O2SAT 100
[2021-10-02] MEDS: Lithium Carbonate 300 MG TABLET 150 MG PO (21:29)
[2021-10-02] MEDS: Docusate Sodium 100 MG CAPSULE PO (21:30)
[2021-10-02] MEDS: Sennosides 8.6 MG TABLET 17.2 MG PO (21:30)
[2021-10-02] MEDS: traZODone HCL 50 MG TABLET PO (23:10)
[2021-10-03] MEDS: diphenhydrAMINE HCL 25 MG TABLET 50 MG PO (00:38)
[2021-10-03] MEDS: chlorproMAZINE HCl 25 MG TABLET 50 MG PO (02:35)
[2021-10-03] MEDS: Acetaminophen 325 MG TABLET 650 MG PO ×3 (03:55→20:02)
[2021-10-03] MEDS: Omeprazole 20 MG CAPSULE.DR PO (04:08)
[2021-10-03] MEDS: Levothyroxine Sodium 50 MCG TABLET PO (04:08)
[2021-10-03 05:26] VITALS: BP 126/63; PULSE 102; RESP 16; TEMP 36.3; O2SAT 99
[2021-10-03 08:55] VITALS: BP 126/63; PULSE 102; O2SAT 99
[2021-10-03] MEDS: Cyclobenzaprine HCl 5 MG TABLET PO ×2 (09:10→20:03)
[2021-10-03] MEDS: Docusate Sodium 100 MG CAPSULE PO ×2 (09:10→20:03)
[2021-10-03] MEDS: Gabapentin 300 MG CAPSULE PO ×3 (09:10→20:03)
[2021-10-03] MEDS: HaloperidoL 5 MG TABLET 10 MG PO ×2 (09:10→20:02)
[2021-10-03] MEDS: Folic Acid 1 MG TABLET PO (09:10)
[2021-10-03 09:52] LABS: Anion Gap 16 (12-20); Blood Urea Nitrogen 21 mg/dL (9-16); Calcium 9.9 mg/dL (8.4-10.2); Carbon Dioxide 21 mmol/L (22-29); Chloride 107 mmol/L (96-108); Creatinine Clr Calc Pharmacy 43.4; Estimated Glomerular Filt Rate 33; Glucose Random 110 mg/dL (60-115); Potassium 4.4 mmol/L (3.3-5.1); Sodium 140 mmol/L (135-145)
[2021-10-03] MEDS: hydrOXYzine HCL 25 MG TABLET PO (13:04)
[2021-10-03] MEDS: Cyclobenzaprine HCl 10 MG TABLET PO (13:04)
[2021-10-03] MEDS: Divalproex Sodium ER 500 MG TAB.ER.24H 1000 MG PO (16:08)
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
[2021-10-03 18:00] VITALS: BP 126/79; PULSE 78; RESP 16; TEMP 36.4; O2SAT 97
[2021-10-03] MEDS: Lithium Carbonate 300 MG TABLET 150 MG PO (20:06)
[2021-10-03] MEDS: Sennosides 8.6 MG TABLET 17.2 MG PO (20:11)
[2021-10-04] MEDS: hydrOXYzine HCL 25 MG TABLET PO (04:02)
[2021-10-04] MEDS: Acetaminophen 325 MG TABLET 650 MG PO ×2 (04:02→13:17)
[2021-10-04] MEDS: Docusate Sodium 100 MG CAPSULE PO ×2 (09:15→22:53)
[2021-10-04] MEDS: Omeprazole 20 MG CAPSULE.DR PO (09:15)
[2021-10-04] MEDS: HaloperidoL 5 MG TABLET 10 MG PO ×2 (09:15→22:53)
[2021-10-04] MEDS: Cyclobenzaprine HCl 5 MG TABLET PO (09:15)
[2021-10-04] MEDS: Levothyroxine Sodium 50 MCG TABLET PO (09:15)
[2021-10-04] MEDS: Gabapentin 400 MG CAPSULE PO ×3 (09:16→22:53)
[2021-10-04] MEDS: Folic Acid 1 MG TABLET PO (09:16)
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
[2021-10-04] MEDS: chlorproMAZINE HCl 25 MG TABLET 50 MG PO (17:15)
[2021-10-04] MEDS: Divalproex Sodium ER 500 MG TAB.ER.24H PO (18:22)
[2021-10-04] MEDS: Lithium Carbonate 300 MG TABLET 150 MG PO (22:53)
[2021-10-04] MEDS: Sennosides 8.6 MG TABLET 17.2 MG PO (22:54)
[2021-10-05] MEDS: Acetaminophen 325 MG TABLET 650 MG PO ×2 (02:36→11:58)
[2021-10-05] MEDS: Gabapentin 300 MG CAPSULE PO (02:36)
[2021-10-05 08:47] LABS: MANUAL DIFF FLAG NO
[2021-10-05 08:52] LABS: Basophils Absolute Auto 0.1 X10*3/uL (0.0-0.2); Basophils Percent Auto 0.9 % (0-2); Eosinophils Absolute Auto 0.3 X10*3/uL (0.0-0.4); Eosinophils Percent Auto 4.7 % (0-4); Hematocrit 28.2 % (37.0-47.0); Hemoglobin 9.2 g/dl (12.0-16.0); Imm Gran Abs Auto 0.01 X10*3/uL (0.00-0.03); Imm Gran Pct Auto 0.2 % (0.0-0.4); Lymphocytes Absolute Auto 1.7 X10*3/uL (1.2-4.9); Mean Corpuscular HGB Conc 32.6 g/dl (31.0-35.0); Mean Corpuscular Hemoglobin 31.4 pg (27.0-33.0); Mean Corpuscular Volume 96.2 fL (80.0-98.0); Mean Platelet Volume 10.2 fL (9.4-12.3); Monocytes Absolute Auto 0.5 X10*3/uL (0.1-1.2); Monocytes Percent Auto 7.4 % (2-11); Neutrophils Absolute Auto 4.1 x10*3/uL (2.0-8.3); Neutrophils Percent Auto 60.8 % (45-73); Platelet Count 238 X10*3/uL (160-400); Red Blood Count 2.93 X10*6/uL (4.20-5.50); Red Cell Distribution Width 12.8 % (11.0-16.0); White Blood Count 6.7 X10*3/uL (4.8-10.8)
[2021-10-05 09:25] LABS: Iron 21 mcg/dL (30-160); Percent Iron Saturation 9 % (15-50); Total Iron Binding Capacity 239 mcg/dL (228-428); Unsaturated Iron Binding 218 ug/dL
[2021-10-05] MEDS: Cyclobenzaprine HCl 5 MG TABLET PO (11:57)
[2021-10-05] MEDS: Docusate Sodium 100 MG CAPSULE PO ×2 (11:58→19:58)
[2021-10-05] MEDS: Levothyroxine Sodium 50 MCG TABLET PO (11:58)
[2021-10-05] MEDS: HaloperidoL 5 MG TABLET 10 MG PO ×2 (11:58→19:57)
[2021-10-05] MEDS: Gabapentin 400 MG CAPSULE PO ×3 (11:58→19:58)
[2021-10-05] MEDS: Omeprazole 20 MG CAPSULE.DR PO (11:58)
[2021-10-05] MEDS: Folic Acid 1 MG TABLET PO (11:58)
[2021-10-05] MEDS: Divalproex Sodium ER 500 MG TAB.ER.24H PO (15:49)
[2021-10-05 18:00] VITALS: BP 122/82; PULSE 98; RESP 16; TEMP 36.5; O2SAT 99
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
[2021-10-05] MEDS: Sennosides 8.6 MG TABLET 17.2 MG PO (19:57)
[2021-10-05] MEDS: Lithium Carbonate 300 MG TABLET 150 MG PO (19:58)
[2021-10-06] MEDS: Acetaminophen 325 MG TABLET 650 MG PO (03:53)
[2021-10-06] MEDS: traZODone HCL 50 MG TABLET PO ×2 (03:53→23:34)
[2021-10-06] MEDS: Docusate Sodium 100 MG CAPSULE PO ×2 (09:53→18:51)
[2021-10-06] MEDS: Ferrous Sulfate 324 MG TABLET.DR 325 MG PO (09:53)
[2021-10-06] MEDS: Omeprazole 20 MG CAPSULE.DR PO (09:54)
[2021-10-06] MEDS: HaloperidoL 5 MG TABLET 10 MG PO (09:54)
[2021-10-06] MEDS: Folic Acid 1 MG TABLET PO (09:54)
[2021-10-06] MEDS: Levothyroxine Sodium 50 MCG TABLET PO (09:54)
[2021-10-06] MEDS: Gabapentin 400 MG CAPSULE PO ×3 (09:54→18:54)
[2021-10-06 16:07] VITALS: BP 106/59; PULSE 96; TEMP 37.1
[2021-10-06] MEDS: Cyclobenzaprine HCl 5 MG TABLET PO (16:23)
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
[2021-10-06] MEDS: Sennosides 8.6 MG TABLET 17.2 MG PO (18:52)
[2021-10-06] MEDS: Lithium Carbonate 300 MG TABLET 150 MG PO (18:52)
[2021-10-06] MEDS: HaloperidoL 5 MG TABLET PO (18:53)
[2021-10-06] MEDS: hydrOXYzine HCL 25 MG TABLET PO (23:34)
[2021-10-07] MEDS: Levothyroxine Sodium 50 MCG TABLET PO (05:23)
[2021-10-07] MEDS: Omeprazole 20 MG CAPSULE.DR PO (05:23)
[2021-10-07 05:28] VITALS: BP 136/63; PULSE 104; RESP 18; TEMP 36.2; O2SAT 96
[2021-10-07 08:00] VITALS: BP 130/68; PULSE 102; RESP 16; TEMP 36.3; O2SAT 97
[2021-10-07] MEDS: Propranolol HCL 10 MG TABLET PO (09:23)
[2021-10-07] MEDS: HaloperidoL 5 MG TABLET PO ×2 (09:23→18:33)
[2021-10-07] MEDS: Folic Acid 1 MG TABLET PO (09:23)
[2021-10-07] MEDS: Gabapentin 400 MG CAPSULE PO ×3 (09:23→18:35)
[2021-10-07] MEDS: Cyclobenzaprine HCl 5 MG TABLET PO (09:23)
[2021-10-07] MEDS: Acetaminophen 325 MG TABLET 650 MG PO (09:23)
[2021-10-07] MEDS: hydrOXYzine HCL 25 MG TABLET PO ×2 (09:23→22:10)
[2021-10-07] MEDS: Ferrous Sulfate 324 MG TABLET.DR 325 MG PO (09:24)
[2021-10-07] MEDS: Docusate Sodium 100 MG CAPSULE PO ×2 (09:24→18:34)
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
[2021-10-07 16:39] LABS: Lithium 0.22 mmol/L (0.60-1.20)
[2021-10-07 16:41] VITALS: BP 112/62; PULSE 97; RESP 16; TEMP 36.6; O2SAT 98
[2021-10-07 16:45] LABS: Anion Gap 17 (12-20); Blood Urea Nitrogen 26 mg/dL (9-16); Carbon Dioxide 22 mmol/L (22-29); Chloride 103 mmol/L (96-108); Creatinine Clr Calc Pharmacy 45.1; Estimated Glomerular Filt Rate 35; Potassium 4.2 mmol/L (3.3-5.1); Sodium 138 mmol/L (135-145)
[2021-10-07 17:08] LABS: Valproate 21.4 mcg/mL (50.0-100.0)
[2021-10-07] MEDS: Lithium Carbonate 300 MG TABLET 150 MG PO (18:33)
[2021-10-07] MEDS: Sennosides 8.6 MG TABLET 17.2 MG PO (18:35)
[2021-10-08] MEDS: Levothyroxine Sodium 50 MCG TABLET PO (03:59)
[2021-10-08] MEDS: Omeprazole 20 MG CAPSULE.DR PO (03:59)
[2021-10-08] MEDS: Gabapentin 300 MG CAPSULE PO ×2 (04:00→22:27)
[2021-10-08 04:03] VITALS: BP 137/79; PULSE 109; RESP 18; TEMP 36.4; O2SAT 97
[2021-10-08] MEDS: Acetaminophen 325 MG TABLET 650 MG PO ×3 (04:58→22:27)
[2021-10-08] MEDS: Cyclobenzaprine HCl 5 MG TABLET PO ×2 (04:59→13:46)
--- NOTE | 2021-10-08 05:07 | PC.NURSE ---
Pt has been experiencing increased arthritic pain involving joints of extremities 1. her affect is angry and upset d/t persistant pain 2. she has been medicated with the following gabapentin 400 mg/tylenol 650 mg/flexeril 5 mg and she is still waiting for reduction of the pain 3. pts left 3rd finger has swelling d/t ring/ring may need to be cut off 4. pt needs 2 assists to commode and is bearing almost no weight 5. vital signs 97.5 p 109 rr 18 sao2 97% b/p 137/79
[2021-10-08 08:00] VITALS: BP 137/79; PULSE 105; RESP 16; TEMP 36.4; O2SAT 97
[2021-10-08] MEDS: Gabapentin 400 MG CAPSULE PO ×3 (09:43→18:37)
[2021-10-08] MEDS: Docusate Sodium 100 MG CAPSULE PO ×2 (09:43→18:37)
[2021-10-08] MEDS: HaloperidoL 5 MG TABLET PO (09:43)
[2021-10-08] MEDS: Propranolol HCL 10 MG TABLET PO (09:43)
[2021-10-08] MEDS: Ferrous Sulfate 324 MG TABLET.DR 325 MG PO (09:44)
[2021-10-08] MEDS: Folic Acid 1 MG TABLET PO (09:44)
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
[2021-10-08 17:33] VITALS: BP 128/78; PULSE 82; RESP 16; TEMP 36.7; O2SAT 95
[2021-10-08] MEDS: Lithium Carbonate 300 MG TABLET 150 MG PO (18:37)
[2021-10-08] MEDS: Sennosides 8.6 MG TABLET 17.2 MG PO (18:37)
[2021-10-08] MEDS: HaloperidoL 5 MG TABLET 10 MG PO (18:37)
[2021-10-08] MEDS: Nystatin Cream 15 GM TUBE 1 APPL TOPICAL (20:36)
--- NOTE | 2021-10-08 20:58 | PC.NURSE ---
This nurse assisted in giving pt a bed bath and discovered a stage I pressure injury on coccyx. MD made aware, air loss bed ordered, MD to order wound consult. PT to be put on 1:1 with medical bed until air loss mattress can be delivered tomorrow.
[2021-10-08] MEDS: diphenhydrAMINE HCL 25 MG TABLET 50 MG PO (22:27)
[2021-10-09] MEDS: traZODone HCL 50 MG TABLET PO (02:41)
[2021-10-09] MEDS: Cyclobenzaprine HCl 10 MG TABLET PO ×2 (03:58→13:53)
[2021-10-09] MEDS: hydrOXYzine HCL 25 MG TABLET PO (03:59)
[2021-10-09] MEDS: Acetaminophen 325 MG TABLET 650 MG PO ×2 (05:57→13:59)
[2021-10-09] MEDS: Omeprazole 20 MG CAPSULE.DR PO (05:57)
[2021-10-09] MEDS: Levothyroxine Sodium 50 MCG TABLET PO (05:57)
[2021-10-09] MEDS: Docusate Sodium 100 MG CAPSULE PO ×2 (09:55→18:29)
[2021-10-09] MEDS: Gabapentin 400 MG CAPSULE PO ×3 (09:55→18:29)
[2021-10-09] MEDS: Ferrous Sulfate 324 MG TABLET.DR 325 MG PO (09:55)
[2021-10-09] MEDS: Folic Acid 1 MG TABLET PO (09:55)
[2021-10-09] MEDS: HaloperidoL 5 MG TABLET PO (09:56)
[2021-10-09 11:30] VITALS: BP 127/79; PULSE 106; RESP 20; TEMP 36.4; O2SAT 98
[2021-10-09 12:10] LABS: Ammonia 22 umol/L (13-55)
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
[2021-10-09] MEDS: predniSONE 20 MG TABLET 5 MG PO (15:25)
--- NOTE | 2021-10-09 16:03 | P.PNPSI_ITS ---
Subjective Subjective Date of Service: 10/09/21 Reason For Visit: Manic Subjective Notes: Conditional Voluntary Healthcare Proxy: No Guardianship: No Medical Problems Affecting Mental Status: No Interim History: Stage I decubiti on buttock, wound care consulted. Jeri reports no real improvement in pain after second Enbrel injection on 10/06. Hospitalist consult appreciated. They recommend Prednisone and Physical Therapy which were implemented. Pt requires 2:1 nursing for transfers, ambulation and changing. Slept some of the shift today as she reports poor sleep last evening. Medication Compliance: Yes Side effects from medications: No Attending Groups: No Review of Systems Acute medical concerns: No Medical Review of Systems: unchanged Review of Systems Musculoskeletal: Reports abnormal gait, Reports back pain, Reports myalgias, Reports arthralgias, Reports limited range of motion, Reports muscle weakness and Reports other (2:1 nursing care secondary to pain/deconditioning) Reports abnormal gait and Reports behavioral changes Psychiatric: Reports abnormal sleep pattern, Reports behavioral changes, Reports irritability, Reports anhedonia and Reports mood swings Mental Status Exam Mental Status Exam Patient Appearance: Fatigued Patient Orientation: Person, Place, Time and Situation Level of Consciousness: Drowsy, Sedated and Alert Patient Behavior: Talkative and Cooperative Mood Description: Labile and Flat Affect Description: Labile and Flat Patient Cognition Impaired: No Ability to Follow Directions: Good Speech Pattern: Spontaneous Speech and Soft-Spoken Memory Description: Remote Impaired and Episodic Impaired Hallucinations: None Delusions: Not Present Thought Process: Distracted Thought Content: positive for Circumstantial Depressive Symptoms: Insomnia, Muscle Tension, Increased Irritability, Difficulty Sleeping, Muscle Pain, Unhappiness, Increased Fatigue and Loss of Energy Judgement: Fair Diagnostics Vital Signs (24Hr): Vital Signs - 24 hr 10/08/21 17:33 10/09/21 11:30 Temperature 98.0 F 97.6 F Pulse Rate 82 106 H Respiratory Rate 16 20 Blood Pressure 128/78 127/79 Pulse Oximetry 95 98 Oxygen Delivery Method Room Air Room Air BMI result Body Mass Index 26.4 Labs Results: 10/05/21 08:06 10/07/21 16:14 Labs: Laboratory Results - last 48 hr 10/07/21 10/07/21 10/09/21 16:14 16:14 11:58 Sodium 138 Potassium 4.2 Chloride 103 Carbon Dioxide 22 Anion Gap 17 BUN 26 H Creatinine 1.53 H Estim Creat Clear Calc 45.1 Estimated GFR 35 Ammonia 22 Valproic Acid 21.4 L [place] 0.22 L Medications Medications Current Medications Acetaminophen (Acetaminophen 325 Mg Tablet) 650 mg PO Q6H PRN PRN Reason: Headache/Pain Mild Scale (1-3) Last Admin: 10/09/21 13:59 Dose: 650 mg Al Hydroxide/Mg Hydroxide (Magnesium Hydrox/Alum Hydrox 30 Ml Oral.Susp) 30 ml PO Q6H PRN PRN Reason: Heartburn/Nausea Last Admin: 09/29/21 18:33 Dose: 30 ml Chlorpromazine HCl (Chlorpromazine Hcl 25 Mg Tablet) 50 mg PO BEDTIME PRN PRN Reason: anxiety, agitation Last Admin: 10/04/21 17:15 Dose: 50 mg Cyclobenzaprine HCl (Cyclobenzaprine Hcl 10 Mg Tablet) 10 mg PO TID PRN PRN Reason: Pain, Moderate (Pain Scale 4-6 Last Admin: 10/09/21 13:53 Dose: 10 mg Diphenhydramine HCl (Diphenhydramine Hcl 25 Mg Tablet) 50 mg PO BEDTIME PRN PRN Reason: Sleep Last Admin: 10/08/21 22:27 Dose: 50 mg Divalproex Sodium (Divalproex Sodium Er 500 Mg Tab.Er.24h) 500 mg PO 1700 [facility] Last Admin: 10/08/21 15:28 Dose: Not Given Docusate Sodium (Docusate Sodium 100 Mg Capsule) 100 mg PO BID [facility] Last Admin: 10/09/21 09:55 Dose: 100 mg Ferrous Sulfate (Ferrous Sulfate 324 Mg Tablet.Dr) 325 mg PO DAILY [facility] Last Admin: 10/09/21 09:55 Dose: 324 mg Folic Acid (Folic Acid 1 Mg Tablet) 1 mg PO DAILY [facility] Last Admin: 10/09/21 09:55 Dose: 1 mg Gabapentin (Gabapentin 400 Mg Capsule) 400 mg PO TID [facility] Last Admin: 10/09/21 15:26 Dose: 400 mg Gabapentin (Gabapentin 300 Mg Capsule) 300 mg PO BID PRN PRN Reason: mod pain Last Admin: 10/08/21 22:27 Dose: 300 mg Haloperidol (Haloperidol 5 Mg Tablet) 5 mg PO DAILY [facility] Last Admin: 10/09/21 09:56 Dose: 5 mg Haloperidol (Haloperidol 5 Mg Tablet) 10 mg PO BEDTIME [facility] Last Admin: 10/08/21 18:37 Dose: 10 mg Hydroxyzine HCl (Hydroxyzine Hcl 25 Mg Tablet) 25 mg PO Q6H PRN PRN Reason: anxiety Last Admin: 10/09/21 03:59 Dose: 25 mg Levothyroxine Sodium (Levothyroxine Sodium 50 Mcg Tablet) 50 mcg PO DAILY@0600 [facility] Last Admin: 10/09/21 05:57 Dose: 50 mcg [place] Carbonate ([place] Carbonate 300 Mg Tablet) 150 mg PO BEDTIME [facility] Last Admin: 10/08/21 18:37 Dose: 150 mg Magnesium Hydroxide (Milk Of Magnesia 30 Ml Oral.Susp) 30 ml PO DAILY PRN PRN Reason: Constipation Nicotine (Nicotine 14 Mg Patch.Td24) 14 mg TRANSDERMA DAILY [facility] Last Admin: 10/09/21 09:56 Dose: Not Given Nicotine Polacrilex (Nicotine Polacrilex Lozenge 2 Mg Lozenge) 2 mg BUCCAL Q2H PRN PRN Reason: Nicotine Cravings Pt Own Enbrel ( (Etanercept 50 Mg)) 50 mg SUBCUT Q7D [facility] Last Admin: 10/06/21 16:47 Dose: 50 mg Nystatin (Nystatin Cream 15 Gm Tube) 1 appl TOPICAL BID [facility]; Protocol Last Admin: 10/09/21 10:02 Dose: Not Given Omeprazole (Omeprazole 20 Mg Capsule.Dr) 20 mg PO DAILY@0630 [facility] Last Admin: 10/09/21 05:57 Dose: 20 mg Prednisone (Prednisone 20 Mg Tablet) 20 mg PO DAILY [facility]; Taper Stop: 10/24/21 14:44 Last Admin: 10/09/21 15:25 Dose: 20 mg Propranolol HCl (Propranolol Hcl 10 Mg Tablet) 10 mg PO TID PRN; Protocol PRN Reason: anxiety, akathesia Last Admin: 10/08/21 09:43 Dose: 10 mg Senna (Sennosides 8.6 Mg Tablet) 17.2 mg PO BEDTIME [facility] Last Admin: 10/08/21 18:37 Dose: 17.2 mg Trazodone HCl (Trazodone Hcl 50 Mg Tablet) 50 mg PO BEDTIME PRN PRN Reason: Insomnia Last Admin: 10/09/21 02:41 Dose: 50 mg Trolamine Salicylate (Trolamine Salicylate 10 % Cream 85 Gm Tube) 1 appl TOPICAL TID PRN; Protocol PRN Reason: arthtiric pain Last Admin: 10/02/21 21:34 Dose: 1 appl Allergies Allergies Allergy/AdvReac Type Severity Reaction Status Date / Time lithium AdvReac Intermediate CKD Verified 09/28/21 11:34 Assessment & Plan Assessment & Plan (1) Psoriatic arthritis: Status: Acute Code(s): L40.50 - Arthropathic psoriasis, unspecified (2) Bipolar 1 disorder: Status: Acute Code(s): F31.9 - Bipolar disorder, unspecified Assessment and Plan: Continue current regime and plan of care. Plan 60 year old female with history significant for bipolar illness, hypothyroidism, pancytopenia, GERD, stable CKD stage 3 secondary to lithium use, and rheumatoid arthritis admitted to psychiatry being consulted on for intractable pain, stage 1 pressure ulcer of buttock, and decreased level of functioning. 1- Psoriatic arthritis/Rheumatoid arthritis -Polyarthralgia related to acute flare up following several months without enbrel, which was resumed last week but can take several weeks to become eff ective. Suspect pain and inability to walk is not solely related to the psoriatic/rheumatoid arthritis but also current psychiatric state. She needs to get out of bed. -Recommend PT consult to assist with this which will also help prevent ulceration of the coccyx. Possible stage 1 pressure ulcer of coccyx has been evaluated by wound care. Recommend repositioning and getting OOB -Discussed patient with rheumatology. Recommend prednisone 20mg x 5 days, then 10mg x5 days, then 5mg x 5 days for acute RA flareup which is ordered. Discharge with remainder of taper if not completed during admission. Can continue tylenol prn -Continue enbrel weekly per rheumatology 2- CKD stage 3- stable -Continue monitoring renal function with lithium use 3- Hypothyroidism- stable -Continue levothyroxine 4-Pancytopenia- chronic and stable -Recommend discussion with rheumatology regarding CBC monitoring with enbrel being resumed 5-Bipolar disorder -continue plan as outlined by psychiatry I spent minutes with the patient and/or on the patient floor today, greater than?50% of which was spent counseling/coordinating care. Patient educated on: therapeutic strategies Informed Consent: understands and further education needed Reason for contiued inpatient stay Substantial Risk for: inability to function, rapid decompensation and med/psych decompensation
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
[2021-10-09 17:45] VITALS: BP 135/82; PULSE 100; TEMP 36.6
[2021-10-09] MEDS: Gabapentin 300 MG CAPSULE PO (18:28)
[2021-10-09] MEDS: HaloperidoL 5 MG TABLET 10 MG PO (18:29)
[2021-10-09] MEDS: Sennosides 8.6 MG TABLET 17.2 MG PO (18:29)
[2021-10-09] MEDS: Lithium Carbonate 300 MG TABLET 150 MG PO (18:29)
[2021-10-10 06:00] VITALS: BP 138/80; PULSE 97; RESP 18; TEMP 36.6; O2SAT 98
[2021-10-10 08:00] VITALS: RESP 16
[2021-10-10 08:50] VITALS: BP 135/82; PULSE 100
[2021-10-10] MEDS: HaloperidoL 5 MG TABLET PO (09:34)
[2021-10-10] MEDS: Folic Acid 1 MG TABLET PO (09:34)
[2021-10-10] MEDS: Gabapentin 400 MG CAPSULE PO ×2 (09:34→19:55)
[2021-10-10] MEDS: Cyclobenzaprine HCl 10 MG TABLET PO ×2 (09:34→19:54)
[2021-10-10] MEDS: Propranolol HCL 10 MG TABLET PO (09:34)
[2021-10-10] MEDS: Levothyroxine Sodium 50 MCG TABLET PO (09:35)
[2021-10-10] MEDS: Omeprazole 20 MG CAPSULE.DR PO (09:35)
[2021-10-10] MEDS: Ferrous Sulfate 324 MG TABLET.DR 325 MG PO (09:35)
[2021-10-10] MEDS: Acetaminophen 325 MG TABLET 650 MG PO ×2 (09:35→19:55)
[2021-10-10] MEDS: predniSONE 20 MG TABLET 5 MG PO (09:35)
[2021-10-10] MEDS: Docusate Sodium 100 MG CAPSULE PO (09:35)
--- NOTE | 2021-10-10 10:43 | P.PNPSI_ITS ---
Subjective Subjective Date of Service: 10/10/21 Reason For Visit: Manic Subjective Notes: Conditional Voluntary Healthcare Proxy: No Guardianship: No Medical Problems Affecting Mental Status: No Interim History: Team reports pt is more irritable, confrontive, labile with increasing strength, voice and action. She continues to require one to one for assist and continues with some urinary incontinence. Pt is angry with confusion when we meet- why can't I have Enbrel shots every day? You are a ------- doctor, you can do anything you want, give me the shot. Discussed weekly dosing schedule with pt and her previous Saturday doses on Sep 29 and . Pt reports some minor improvement in pain mgt with steroid assistance, however, pain is still present. Medication Compliance: Yes Side effects from medications: No Attending Groups: No Review of Systems Acute medical concerns: No Medical Review of Systems: unchanged Review of Systems Musculoskeletal: Reports abnormal gait, Reports back pain and Reports arthralgias Reports abnormal gait, Reports behavioral changes and Reports confusion Psychiatric: Reports behavioral changes, Reports confusion, Reports depression, Reports difficulty concentrating, Reports hopelessness, Reports irritability, Reports mood swings and Reports paranoia Mental Status Exam Mental Status Exam Patient Appearance: Fatigued Patient Orientation: Person, Place, Time and Situation Level of Consciousness: Drowsy, Sedated and Alert Patient Behavior: Talkative and Cooperative Mood Description: Labile and Flat Affect Description: Labile and Flat Patient Cognition Impaired: No Ability to Follow Directions: Good Speech Pattern: Spontaneous Speech and Soft-Spoken Memory Description: Remote Impaired and Episodic Impaired Hallucinations: None Delusions: Not Present Thought Process: Distracted Thought Content: positive for Circumstantial Depressive Symptoms: Insomnia, Muscle Tension, Increased Irritability, Difficulty Sleeping, Muscle Pain, Unhappiness, Increased Fatigue and Loss of Energy Judgement: Fair Diagnostics Vital Signs (24Hr): Vital Signs - 24 hr 10/09/21 11:30 10/09/21 17:45 10/10/21 08:50 Temperature 97.6 F 98 F Pulse Rate 106 H 100 100 Respiratory Rate 20 Blood Pressure 127/79 135/82 135/82 Pulse Oximetry 98 Oxygen Delivery Method Room Air 10/10/21 06:00 10/10/21 08:00 Temperature 98 F Pulse Rate 97 Respiratory Rate 18 16 Blood Pressure 138/80 Pulse Oximetry 98 Oxygen Delivery Method Room Air BMI result Body Mass Index 26.4 Labs Results: 10/05/21 08:06 10/07/21 16:14 Labs: Laboratory Results - last 48 hr 10/09/21 11:58 Ammonia 22 Medications Medications Current Medications Acetaminophen (Acetaminophen 325 Mg Tablet) 650 mg PO Q6H PRN PRN Reason: Headache/Pain Mild Scale (1-3) Last Admin: 10/10/21 09:35 Dose: 650 mg Al Hydroxide/Mg Hydroxide (Magnesium Hydrox/Alum Hydrox 30 Ml Oral.Susp) 30 ml PO Q6H PRN PRN Reason: Heartburn/Nausea Last Admin: 09/29/21 18:33 Dose: 30 ml Chlorpromazine HCl (Chlorpromazine Hcl 25 Mg Tablet) 50 mg PO BEDTIME PRN PRN Reason: anxiety, agitation Last Admin: 10/04/21 17:15 Dose: 50 mg Cyclobenzaprine HCl (Cyclobenzaprine Hcl 10 Mg Tablet) 10 mg PO TID PRN PRN Reason: Pain, Moderate (Pain Scale 4-6 Last Admin: 10/10/21 09:34 Dose: 10 mg Diphenhydramine HCl (Diphenhydramine Hcl 25 Mg Tablet) 50 mg PO BEDTIME PRN PRN Reason: Sleep Last Admin: 10/08/21 22:27 Dose: 50 mg Divalproex Sodium (Divalproex Sodium Er 500 Mg Tab.Er.24h) 500 mg PO 1700 [facility] Last Admin: 10/09/21 16:20 Dose: Not Given Docusate Sodium (Docusate Sodium 100 Mg Capsule) 100 mg PO BID [facility] Last Admin: 10/10/21 09:35 Dose: 100 mg Ferrous Sulfate (Ferrous Sulfate 324 Mg Tablet.Dr) 325 mg PO DAILY [facility] Last Admin: 10/10/21 09:35 Dose: 324 mg Folic Acid (Folic Acid 1 Mg Tablet) 1 mg PO DAILY [facility] Last Admin: 10/10/21 09:34 Dose: 1 mg Gabapentin (Gabapentin 400 Mg Capsule) 400 mg PO TID [facility] Last Admin: 10/10/21 09:34 Dose: 400 mg Gabapentin (Gabapentin 300 Mg Capsule) 300 mg PO BID PRN PRN Reason: mod pain Last Admin: 10/09/21 18:28 Dose: 300 mg Haloperidol (Haloperidol 5 Mg Tablet) 5 mg PO DAILY [facility] Last Admin: 10/10/21 09:34 Dose: 5 mg Haloperidol (Haloperidol 5 Mg Tablet) 10 mg PO BEDTIME [facility] Last Admin: 10/09/21 18:29 Dose: 10 mg Hydroxyzine HCl (Hydroxyzine Hcl 25 Mg Tablet) 25 mg PO Q6H PRN PRN Reason: anxiety Last Admin: 10/09/21 03:59 Dose: 25 mg Levothyroxine Sodium (Levothyroxine Sodium 50 Mcg Tablet) 50 mcg PO DAILY@0600 [facility] Last Admin: 10/10/21 09:35 Dose: 50 mcg [place] Carbonate ([place] Carbonate 300 Mg Tablet) 150 mg PO BEDTIME [facility] Last Admin: 10/09/21 18:29 Dose: 150 mg Magnesium Hydroxide (Milk Of Magnesia 30 Ml Oral.Susp) 30 ml PO DAILY PRN PRN Reason: Constipation Nicotine (Nicotine 14 Mg Patch.Td24) 14 mg TRANSDERMA DAILY [facility] Last Admin: 10/10/21 09:46 Dose: Not Given Nicotine Polacrilex (Nicotine Polacrilex Lozenge 2 Mg Lozenge) 2 mg BUCCAL Q2H PRN PRN Reason: Nicotine Cravings Pt Own Enbrel ( (Etanercept 50 Mg)) 50 mg SUBCUT Q7D [facility] Last Admin: 10/06/21 16:47 Dose: 50 mg Nystatin (Nystatin Cream 15 Gm Tube) 1 appl TOPICAL BID [facility]; Protocol Last Admin: 10/10/21 09:45 Dose: Not Given Omeprazole (Omeprazole 20 Mg Capsule.Dr) 20 mg PO DAILY@0630 [facility] Last Admin: 10/10/21 09:35 Dose: 20 mg Prednisone (Prednisone 20 Mg Tablet) 20 mg PO DAILY [facility]; Taper Stop: 10/24/21 14:44 Last Admin: 10/10/21 09:35 Dose: 20 mg Propranolol HCl (Propranolol Hcl 10 Mg Tablet) 10 mg PO TID PRN; Protocol PRN Reason: anxiety, akathesia Last Admin: 10/10/21 09:34 Dose: 10 mg Senna (Sennosides 8.6 Mg Tablet) 17.2 mg PO BEDTIME [facility] Last Admin: 10/09/21 18:29 Dose: 17.2 mg Trazodone HCl (Trazodone Hcl 50 Mg Tablet) 50 mg PO BEDTIME PRN PRN Reason: Insomnia Last Admin: 10/09/21 02:41 Dose: 50 mg Trolamine Salicylate (Trolamine Salicylate 10 % Cream 85 Gm Tube) 1 appl TOPICAL TID PRN; Protocol PRN Reason: arthtiric pain Last Admin: 10/02/21 21:34 Dose: 1 appl Allergies Allergies Allergy/AdvReac Type Severity Reaction Status Date / Time lithium AdvReac Intermediate CKD Verified 09/28/21 11:34 Assessment & Plan Assessment & Plan (1) Psoriatic arthritis: Status: Acute Code(s): L40.50 - Arthropathic psoriasis, unspecified (2) Bipolar 1 disorder: Status: Acute Code(s): F31.9 - Bipolar disorder, unspecified Assessment and Plan: Continue current regime and plan of care. 10/10/21- Increase Depakote to 1000 mg daily Increase Haldol to 10 mg bid Plan 60 year old female with history significant for bipolar illness, hypothyroidism, pancytopenia, GERD, stable CKD stage 3 secondary to lithium use, and rheumatoid arthritis admitted to psychiatry being consulted on for intractable pain, stage 1 pressure ulcer of buttock, and decreased level of functioning. 1- Psoriatic arthritis/Rheumatoid arthritis -Polyarthralgia related to acute flare up following several months without enbrel, which was resumed last week but can take several weeks to become effective. Suspect pain and inability to walk is not solely related to the psoriatic/rheumatoid arthritis but also current psychiatric state. She needs to get out of bed. -Recommend PT consult to assist with this which will also help prevent ulceration of the coccyx. Possible stage 1 pressure ulcer of coccyx has been evaluated by wound care. Recommend repositioning and getting OOB -Discussed patient with rheumatology. Recommend prednisone 20mg x 5 days, then 10mg x5 days, then 5mg x 5 days for acute RA flareup which is ordered. Discharge with remainder of taper if not completed during admission. Can continue tylenol prn -Continue enbrel weekly per rheumatology 2- CKD stage 3- stable -Continue monitoring renal function with lithium use 3- Hypothyroidism- stable -Continue levothyroxine 4-Pancytopenia- chronic and stable -Recommend discussion with rheumatology regarding CBC monitoring with enbrel being resumed 5-Bipolar disorder -continue plan as outlined by psychiatry I spent minutes with the patient and/or on the patient floor today, greater than?50% of which was spent counseling/coordinating care. Patient educated on: medication risk/benefits and therapeutic strategies Informed Consent: further education needed Reason for contiued inpatient stay Substantial Risk for: rapid decompensation
[2021-10-10 12:25] LABS: Vitamin B6 2.9 ng/mL (2.1-21.7)
[2021-10-10] MEDS: Divalproex Sodium 500 MG TABLET.DR 1000 MG PO (16:47)
[2021-10-10] MEDS: Gabapentin 300 MG CAPSULE PO (16:48)
[2021-10-10] MEDS: hydrOXYzine HCL 25 MG TABLET PO (16:48)
[2021-10-10 18:00] VITALS: BP 133/72; PULSE 82; RESP 18; TEMP 36.4; O2SAT 98
[2021-10-10] MEDS: HaloperidoL 5 MG TABLET 10 MG PO (19:54)
[2021-10-10] MEDS: Lithium Carbonate 300 MG TABLET 150 MG PO (19:54)
[2021-10-10] MEDS: traZODone HCL 50 MG TABLET PO (19:55)
[2021-10-10] MEDS: Nystatin Cream 15 GM TUBE 1 APPL TOPICAL (20:10)
[2021-10-11] MEDS: hydrOXYzine HCL 25 MG TABLET PO (01:40)
[2021-10-11] MEDS: Gabapentin 300 MG CAPSULE PO (01:41)
[2021-10-11] MEDS: Acetaminophen 325 MG TABLET 650 MG PO ×3 (01:42→17:18)
[2021-10-11] MEDS: diphenhydrAMINE HCL 25 MG TABLET 50 MG PO (02:57)
[2021-10-11] MEDS: traZODone HCL 50 MG TABLET PO (03:59)
[2021-10-11] MEDS: HaloperidoL 5 MG TABLET 10 MG PO ×2 (09:12→20:05)
[2021-10-11] MEDS: Docusate Sodium 100 MG CAPSULE PO ×2 (09:12→20:05)
[2021-10-11] MEDS: Cyclobenzaprine HCl 10 MG TABLET PO (09:12)
[2021-10-11] MEDS: predniSONE 20 MG TABLET 5 MG PO (09:12)
[2021-10-11] MEDS: Gabapentin 400 MG CAPSULE PO ×3 (09:12→20:05)
[2021-10-11] MEDS: Ferrous Sulfate 324 MG TABLET.DR 325 MG PO (09:12)
[2021-10-11] MEDS: Folic Acid 1 MG TABLET PO (09:12)
[2021-10-11] MEDS: Levothyroxine Sodium 50 MCG TABLET PO (09:12)
[2021-10-11] MEDS: Omeprazole 20 MG CAPSULE.DR PO (09:13)
[2021-10-11] MEDS: Nystatin Cream 15 GM TUBE 1 APPL TOPICAL (09:59)
[2021-10-11 10:07] VITALS: BP 97/57; PULSE 81; RESP 16; TEMP 36; O2SAT 99
--- NOTE | 2021-10-11 13:38 | MHC.CLN ---
NUTRITION PATIENT CONSULT DUE TO NOT EATING WELL. PATIENT ASLEEP AT TIME OF VISIT. STAFF REPORTS THAT ATE 100% OF BREAKFAST AND 50% OF LUNCH. HAS STAGE I WOUND TO COCCYX. IN HOSPITAL BED AND SUSPECT THAT EATING BETTER WHILE POSITIONED IN BED. NO NEW NUTRITION INTERVENTIONS AT THIS TIME.
[2021-10-11 16:00] VITALS: BP 118/60; PULSE 77; TEMP 36.9; O2SAT 98
--- NOTE | 2021-10-11 16:27 | P.PNPSI_ITS ---
Subjective Subjective Date of Service: 10/11/21 Reason For Visit: Manic Subjective Notes: Conditional Voluntary Healthcare Proxy: No Guardianship: No Medical Problems Affecting Mental Status: No Interim History: Jeri is reporting and demonstrating some improvement. She has had some breakthrough irritability but reports some pain relief and feeling stronger physically. She is tolerating increase of Haldol and Depakote. She denies new sx today and reports she feels she has been through a war with her body. Medication Compliance: Yes Side effects from medications: No Attending Groups: No Review of Systems Acute medical concerns: No Medical Review of Systems: unchanged Review of Systems Musculoskeletal: Reports abnormal gait, Reports back pain and Reports arthralgias Reports abnormal gait, Reports behavioral changes and Reports confusion Psychiatric: Reports behavioral changes, Reports confusion, Reports depression, Reports difficulty concentrating, Reports hopelessness, Reports irritability, Reports mood swings and Reports paranoia Mental Status Exam Mental Status Exam Patient Appearance: Fatigued Patient Orientation: Person, Place, Time and Situation Level of Consciousness: Drowsy, Sedated and Alert Patient Behavior: Talkative and Cooperative Mood Description: Labile and Flat Affect Description: Labile and Flat Patient Cognition Impaired: No Ability to Follow Directions: Good Speech Pattern: Spontaneous Speech and Soft-Spoken Memory Description: Remote Impaired and Episodic Impaired Hallucinations: None Delusions: Not Present Thought Process: Distracted Thought Content: positive for Circumstantial Depressive Symptoms: Insomnia, Muscle Tension, Increased Irritability, Difficulty Sleeping, Muscle Pain, Unhappiness, Increased Fatigue and Loss of Energy Judgement: Fair Diagnostics Vital Signs (24Hr): Vital Signs - 24 hr 10/10/21 18:00 10/11/21 10:07 Temperature 97.6 F 96.8 F Pulse Rate 82 81 Respiratory Rate 18 16 Blood Pressure 133/72 97/57 L Pulse Oximetry 98 99 Oxygen Delivery Method Room Air Room Air BMI result Body Mass Index 26.4 Labs Results: 10/05/21 08:06 10/07/21 16:14 Labs: Laboratory Results - last 48 hr 10/05/21 08:06 Vitamin B6 2.9 Medications Medications Current Medications Acetaminophen (Acetaminophen 325 Mg Tablet) 650 mg PO Q6H PRN PRN Reason: Headache/Pain Mild Scale (1-3) Last Admin: 10/11/21 11:19 Dose: 650 mg Al Hydroxide/Mg Hydroxide (Magnesium Hydrox/Alum Hydrox 30 Ml Oral.Susp) 30 ml PO Q6H PRN PRN Reason: Heartburn/Nausea Last Admin: 09/29/21 18:33 Dose: 30 ml Chlorpromazine HCl (Chlorpromazine Hcl 25 Mg Tablet) 50 mg PO BEDTIME PRN PRN Reason: anxiety, agitation Last Admin: 10/04/21 17:15 Dose: 50 mg Cyclobenzaprine HCl (Cyclobenzaprine Hcl 10 Mg Tablet) 10 mg PO TID PRN PRN Reason: Pain, Moderate (Pain Scale 4-6 Last Admin: 10/11/21 09:12 Dose: 10 mg Diphenhydramine HCl (Diphenhydramine Hcl 25 Mg Tablet) 50 mg PO BEDTIME PRN PRN Reason: Sleep Last Admin: 10/11/21 02:57 Dose: 50 mg Divalproex Sodium (Divalproex Sodium 500 Mg Tablet.) 1,000 mg PO 1700 [facility] Last Admin: 10/10/21 16:47 Dose: 1,000 mg Docusate Sodium (Docusate Sodium 100 Mg Capsule) 100 mg PO BID [facility] Last Admin: 10/11/21 09:12 Dose: 100 mg Ferrous Sulfate (Ferrous Sulfate 324 Mg Tablet.) 325 mg PO DAILY [facility] Last Admin: 10/11/21 09:12 Dose: 324 mg Folic Acid (Folic Acid 1 Mg Tablet) 1 mg PO DAILY [facility] Last Admin: 10/11/21 09:12 Dose: 1 mg Gabapentin (Gabapentin 400 Mg Capsule) 400 mg PO TID [facility] Last Admin: 10/11/21 14:31 Dose: 400 mg Gabapentin (Gabapentin 300 Mg Capsule) 300 mg PO BID PRN PRN Reason: mod pain Last Admin: 10/11/21 01:41 Dose: 300 mg Haloperidol (Haloperidol 5 Mg Tablet) 10 mg PO BID [facility] Last Admin: 10/11/21 09:12 Dose: 10 mg Hydroxyzine HCl (Hydroxyzine Hcl 25 Mg Tablet) 25 mg PO Q6H PRN PRN Reason: anxiety Last Admin: 10/11/21 01:40 Dose: 25 mg Levothyroxine Sodium (Levothyroxine Sodium 50 Mcg Tablet) 50 mcg PO DAILY@0600 [facility] Last Admin: 10/11/21 09:12 Dose: 50 mcg [place] Carbonate ([place] Carbonate 300 Mg Tablet) 150 mg PO BEDTIME [facility] Last Admin: 10/10/21 19:54 Dose: 150 mg Magnesium Hydroxide (Milk Of Magnesia 30 Ml Oral.Susp) 30 ml PO DAILY PRN PRN Reason: Constipation Nicotine (Nicotine 14 Mg Patch.Td24) 14 mg TRANSDERMA DAILY [facility] Last Admin: 10/11/21 09:17 Dose: Not Given Nicotine Polacrilex (Nicotine Polacrilex Lozenge 2 Mg Lozenge) 2 mg BUCCAL Q2H PRN PRN Reason: Nicotine Cravings Pt Own Enbrel ( (Etanercept 50 Mg)) 50 mg SUBCUT Q7D [facility] Last Admin: 10/06/21 16:47 Dose: 50 mg Nystatin (Nystatin Cream 15 Gm Tube) 1 appl TOPICAL BID [facility]; Protocol Last Admin: 10/11/21 09:59 Dose: 1 appl Omeprazole (Omeprazole 20 Mg Capsule.Dr) 20 mg PO DAILY@0630 [facility] Last Admin: 10/11/21 09:13 Dose: 20 mg Prednisone (Prednisone 20 Mg Tablet) 20 mg PO DAILY [facility]; Taper Stop: 10/24/21 14:44 Last Admin: 10/11/21 09:12 Dose: 20 mg Propranolol HCl (Propranolol Hcl 10 Mg Tablet) 10 mg PO TID PRN; Protocol PRN Reason: anxiety, akathesia Last Admin: 10/10/21 09:34 Dose: 10 mg Senna (Sennosides 8.6 Mg Tablet) 17.2 mg PO BEDTIME [facility] Last Admin: 10/10/21 20:12 Dose: Not Given Trazodone HCl (Trazodone Hcl 50 Mg Tablet) 50 mg PO BEDTIME PRN PRN Reason: Insomnia Last Admin: 10/11/21 03:59 Dose: 50 mg Trolamine Salicylate (Trolamine Salicylate 10 % Cream 85 Gm Tube) 1 appl TOPICAL TID PRN; Protocol PRN Reason: arthtiric pain Last Admin: 10/02/21 21:34 Dose: 1 appl Allergies Allergies Allergy/AdvReac Type Severity Reaction Status Date / Time lithium AdvReac Intermediate CKD Verified 09/28/21 11:34 Assessment & Plan Assessment & Plan (1) Psoriatic arthritis: Status: Acute Code(s): L40.50 - Arthropathic psoriasis, unspecified (2) Bipolar 1 disorder: Status: Acute Code(s): F31.9 - Bipolar disorder, unspecified Assessment and Plan: Continue current regime and plan of care. 10/10/21- Increase Depakote to 1000 mg daily Increase Haldol to 10 mg bid 10/11/21- Continue current regime Plan 60 year old female with history significant for bipolar illness, hypothyroidism, pancytopenia, GERD, stable CKD stage 3 secondary to lithium use, and rheumatoid arthritis admitted to psychiatry being consulted on for intractable pain, stage 1 pressure ulcer of buttock, and decreased level of functioning. 1- Psoriatic arthritis/Rheumatoid arthritis -Polyarthralgia related to acute flare up following several months without enbrel, which was resumed last week but can take several weeks to become effective. Suspect pain and inability to walk is not solely related to the psoriatic/rheumatoid arthritis but also current psychiatric state. She needs to get out of bed. -Recommend PT consult to assist with this which will also help prevent ulceration of the coccyx. Possible stage 1 pressure ulcer of coccyx has been evaluated by wound care. Recommend repositioning and getting OOB -Discussed patient with rheumatology. Recommend prednisone 20mg x 5 days, then 10mg x5 days, then 5mg x 5 days for acute RA flareup which is ordered. Discharge with remainder of taper if not completed during admission. Can continue tylenol prn -Continue enbrel weekly per rheumatology 2- CKD stage 3- stable -Continue monitoring renal function with lithium use 3- Hypothyroidism- stable -Continue levothyroxine 4-Pancytopenia- chronic and stable -Recommend discussion with rheumatology regarding CBC monitoring with enbrel being resumed 5-Bipolar disorder -continue plan as outlined by psychiatry I spent minutes with the patient and/or on the patient floor today, greater than?50% of which was spent counseling/coordinating care. Patient educated on: therapeutic strategies Informed Consent: understands and further education needed Reason for contiued inpatient stay Substantial Risk for: harm to self, harm to others, inability to function, rapid decompensation and med/psych decompensation
[2021-10-11] MEDS: Divalproex Sodium 500 MG TABLET.DR 1000 MG PO (17:29)
--- NOTE | 2021-10-11 17:32 | PC.NURSE ---
Patient had ring on left middle finger. Finger swollen, painful, redness with scant bleeding. Patient agreed to have ring cut off. Ring cutter obtained from ED and ring was cut off. Ring placed in pt belongings at her request.
[2021-10-11 19:52] VITALS: BP 124/65; PULSE 95; RESP 16; TEMP 36.1; O2SAT 97
[2021-10-11] MEDS: Sennosides 8.6 MG TABLET 17.2 MG PO (20:05)
[2021-10-11] MEDS: Lithium Carbonate 300 MG TABLET 150 MG PO (20:07)
[2021-10-11] MEDS: Trolamine Salicylate 10 % Cream 85 GM TUBE 1 APPL TOPICAL (20:50)
[2021-10-12 07:00] VITALS: BMI 25.5
[2021-10-12 08:00] VITALS: BP 110/75; PULSE 96; RESP 18
[2021-10-12] MEDS: Acetaminophen 325 MG TABLET 650 MG PO ×2 (08:23→18:15)
[2021-10-12] MEDS: predniSONE 20 MG TABLET 5 MG PO (08:23)
[2021-10-12] MEDS: Levothyroxine Sodium 50 MCG TABLET PO (08:23)
[2021-10-12] MEDS: Docusate Sodium 100 MG CAPSULE PO ×2 (08:23→18:42)
[2021-10-12] MEDS: HaloperidoL 5 MG TABLET 10 MG PO ×2 (08:23→18:42)
[2021-10-12] MEDS: Omeprazole 20 MG CAPSULE.DR PO (08:23)
[2021-10-12] MEDS: Folic Acid 1 MG TABLET PO (08:23)
[2021-10-12] MEDS: Ferrous Sulfate 324 MG TABLET.DR 325 MG PO (08:24)
[2021-10-12] MEDS: Gabapentin 400 MG CAPSULE PO ×3 (08:24→18:42)
--- NOTE | 2021-10-12 15:43 | P.PNPSI_ITS ---
Subjective Subjective Date of Service: 10/12/21 Reason For Visit: Manic Subjective Notes: Conditional Voluntary Healthcare Proxy: No Guardianship: No Medical Problems Affecting Mental Status: No Interim History: Jeri is in control of the walker today and appears much improved with increase ROM, mobility and mood improvement. She states I will not stop my medications again and reflects upon this very difficult set back being caused by stopping medicines, especially Enbrel. Gradual improvement noted. Medication Compliance: Yes Side effects from medications: No Attending Groups: Intermittent Review of Systems Acute medical concerns: No Medical Review of Systems: unchanged Review of Systems Musculoskeletal: Reports myalgias, Reports arthralgias and Reports stiffness Psychiatric: Reports no additional psychiatric complaints Mental Status Exam Mental Status Exam Patient Appearance: Fatigued Patient Orientation: Person, Place, Time and Situation Level of Consciousness: Alert Patient Behavior: Appropriate, Talkative, Cooperative and Good Eye Contact Mood Description: Flat Affect Description: Flat Patient Cognition Impaired: No Ability to Follow Directions: Good Speech Pattern: Spontaneous Speech Memory Description: Episodic Impaired Hallucinations: None Delusions: Not Present Thought Process: Goal Oriented Thought Content: positive for Goal Oriented Depressive Symptoms: Increased Fatigue and Loss of Energy Judgement: Fair Diagnostics Vital Signs (24Hr): Vital Signs - 24 hr 10/11/21 16:00 10/11/21 19:52 10/12/21 08:00 Temperature 98.4 F 96.9 F Pulse Rate 77 95 96 Respiratory Rate 16 18 Blood Pressure 118/60 124/65 110/75 Pulse Oximetry 98 97 Oxygen Delivery Method Room Air Room Air BMI result Body Mass Index 25.5 Labs Results: 10/05/21 08:06 10/07/21 16:14 Medications Medications Current Medications Acetaminophen (Acetaminophen 325 Mg Tablet) 650 mg PO Q6H PRN PRN Reason: Headache/Pain Mild Scale (1-3) Last Admin: 10/12/21 08:23 Dose: 650 mg Al Hydroxide/Mg Hydroxide (Magnesium Hydrox/Alum Hydrox 30 Ml Oral.Susp) 30 ml PO Q6H PRN PRN Reason: Heartburn/Nausea Last Admin: 09/29/21 18:33 Dose: 30 ml Chlorpromazine HCl (Chlorpromazine Hcl 25 Mg Tablet) 50 mg PO BEDTIME PRN PRN Reason: anxiety, agitation Last Admin: 10/04/21 17:15 Dose: 50 mg Cyclobenzaprine HCl (Cyclobenzaprine Hcl 10 Mg Tablet) 10 mg PO TID PRN PRN Reason: Pain, Moderate (Pain Scale 4-6 Last Admin: 10/11/21 09:12 Dose: 10 mg Diphenhydramine HCl (Diphenhydramine Hcl 25 Mg Tablet) 50 mg PO BEDTIME PRN PRN Reason: Sleep Last Admin: 10/11/21 02:57 Dose: 50 mg Divalproex Sodium (Divalproex Sodium 500 Mg Tablet.) 1,000 mg PO 1700 [facility] Last Admin: 10/11/21 17:29 Dose: 1,000 mg Docusate Sodium (Docusate Sodium 100 Mg Capsule) 100 mg PO BID [facility] Last Admin: 10/12/21 08:23 Dose: 100 mg Ferrous Sulfate (Ferrous Sulfate 324 Mg Tablet.) 325 mg PO DAILY [facility] Last Admin: 10/12/21 08:24 Dose: 324 mg Folic Acid (Folic Acid 1 Mg Tablet) 1 mg PO DAILY [facility] Last Admin: 10/12/21 08:23 Dose: 1 mg Gabapentin (Gabapentin 400 Mg Capsule) 400 mg PO TID [facility] Last Admin: 10/12/21 14:18 Dose: 400 mg Gabapentin (Gabapentin 300 Mg Capsule) 300 mg PO BID PRN PRN Reason: mod pain Last Admin: 10/11/21 01:41 Dose: 300 mg Haloperidol (Haloperidol 5 Mg Tablet) 10 mg PO BID [facility] Last Admin: 10/12/21 08:23 Dose: 10 mg Hydroxyzine HCl (Hydroxyzine Hcl 25 Mg Tablet) 25 mg PO Q6H PRN PRN Reason: anxiety Last Admin: 10/11/21 01:40 Dose: 25 mg Levothyroxine Sodium (Levothyroxine Sodium 50 Mcg Tablet) 50 mcg PO DAILY@0600 [facility] Last Admin: 10/12/21 08:23 Dose: 50 mcg [place] Carbonate ([place] Carbonate 300 Mg Tablet) 150 mg PO BEDTIME [facility] Last Admin: 10/11/21 20:07 Dose: 150 mg Magnesium Hydroxide (Milk Of Magnesia 30 Ml Oral.Susp) 30 ml PO DAILY PRN PRN Reason: Constipation Nicotine (Nicotine 14 Mg Patch.Td24) 14 mg TRANSDERMA DAILY [facility] Last Admin: 10/12/21 08:24 Dose: Not Given Nicotine Polacrilex (Nicotine Polacrilex Lozenge 2 Mg Lozenge) 2 mg BUCCAL Q2H PRN PRN Reason: Nicotine Cravings Pt Own Enbrel ( (Etanercept 50 Mg)) 50 mg SUBCUT Q7D [facility] Last Admin: 10/06/21 16:47 Dose: 50 mg Nystatin (Nystatin Cream 15 Gm Tube) 1 appl TOPICAL BID [facility]; Protocol Last Admin: 10/12/21 08:24 Dose: Not Given Omeprazole (Omeprazole 20 Mg Capsule.Dr) 20 mg PO DAILY@0630 [facility] Last Admin: 10/12/21 08:23 Dose: 20 mg Prednisone (Prednisone 20 Mg Tablet) 20 mg PO DAILY [facility]; Taper Stop: 10/24/21 14:44 Last Admin: 10/12/21 08:23 Dose: 20 mg Propranolol HCl (Propranolol Hcl 10 Mg Tablet) 10 mg PO TID PRN; Protocol PRN Reason: anxiety, akathesia Last Admin: 10/10/21 09:34 Dose: 10 mg Senna (Sennosides 8.6 Mg Tablet) 17.2 mg PO BEDTIME [facility] Last Admin: 10/11/21 20:05 Dose: 17.2 mg Trazodone HCl (Trazodone Hcl 50 Mg Tablet) 50 mg PO BEDTIME PRN PRN Reason: Insomnia Last Admin: 10/11/21 03:59 Dose: 50 mg Trolamine Salicylate (Trolamine Salicylate 10 % Cream 85 Gm Tube) 1 appl TOPICAL TID PRN; Protocol PRN Reason: arthtiric pain Last Admin: 10/11/21 20:50 Dose: 1 appl Allergies Allergies Allergy/AdvReac Type Severity Reaction Status Date / Time lithium AdvReac Intermediate CKD Verified 09/28/21 11:34 Assessment & Plan Assessment & Plan (1) Psoriatic arthritis: Status: Acute Code(s): L40.50 - Arthropathic psoriasis, unspecified (2) Bipolar 1 disorder: Status: Acute Code(s): F31.9 - Bipolar disorder, unspecified Assessment and Plan: Continue current regime and plan of care. 10/10/21- Increase Depakote to 1000 mg daily Increase Haldol to 10 mg bid 10/12/21- Continue current regime Plan 60 year old female with history significant for bipolar illness, hypothyroidism, pancytopenia, GERD, stable CKD stage 3 secondary to lithium use, and rheumatoid arthritis admitted to psychiatry being consulted on for intractable pain, stage 1 pressure ulcer of buttock, and decreased level of functioning. 1- Psoriatic arthritis/Rheumatoid arthritis -Polyarthralgia related to acute flare up following several months without enbrel, which was resumed last week but can take several weeks to become effective. Suspect pain and inability to walk is not solely related to the psoriatic/rheumatoid arthritis but also current psychiatric state. She needs to get out of bed. -Recommend PT consult to assist with this which will also help prevent ulceration of the coccyx. Possible stage 1 pressure ulcer of coccyx has been evaluated by wound care. Recommend repositioning and getting OOB -Discussed patient with rheumatology. Recommend prednisone 20mg x 5 days, then 10mg x5 days, then 5mg x 5 days for acute RA flareup which is ordered. Discharge with remainder of taper if not completed during admission. Can continue tylenol prn -Continue enbrel weekly per rheumatology 2- CKD stage 3- stable -Continue monitoring renal function with lithium use 3- Hypothyroidism- stable -Continue levothyroxine 4-Pancytopenia- chronic and stable -Recommend discussion with rheumatology regarding CBC monitoring with enbrel being resumed 5-Bipolar disorder -continue plan as outlined by psychiatry I spent minutes with the patient and/or on the patient floor today, greater than?50% of which was spent counseling/coordinating care. Patient educated on: therapeutic strategies Informed Consent: understands Reason for contiued inpatient stay Substantial Risk for: rapid decompensation and med/psych decompensation
[2021-10-12] MEDS: Divalproex Sodium 500 MG TABLET.DR 1000 MG PO (16:29)
[2021-10-12] MEDS: Gabapentin 300 MG CAPSULE PO ×2 (18:15→22:09)
[2021-10-12 18:35] VITALS: BP 130/73; PULSE 106; RESP 18; TEMP 36.7; O2SAT 99
[2021-10-12] MEDS: Sennosides 8.6 MG TABLET 17.2 MG PO (18:42)
[2021-10-12] MEDS: Lithium Carbonate 300 MG TABLET 150 MG PO (18:43)
[2021-10-13 06:50] VITALS: BP 150/78; PULSE 91; TEMP 35.8
[2021-10-13] MEDS: Omeprazole 20 MG CAPSULE.DR PO (08:40)
[2021-10-13] MEDS: Levothyroxine Sodium 50 MCG TABLET PO (08:41)
[2021-10-13] MEDS: predniSONE 20 MG TABLET 5 MG PO (08:41)
[2021-10-13] MEDS: Docusate Sodium 100 MG CAPSULE PO ×2 (08:41→18:56)
[2021-10-13] MEDS: Folic Acid 1 MG TABLET PO (08:41)
[2021-10-13] MEDS: HaloperidoL 5 MG TABLET 10 MG PO ×2 (08:41→18:56)
[2021-10-13] MEDS: Gabapentin 400 MG CAPSULE PO ×3 (08:41→18:56)
[2021-10-13] MEDS: Ferrous Sulfate 324 MG TABLET.DR PO (08:41)
[2021-10-13] MEDS: Acetaminophen 325 MG TABLET 650 MG PO ×2 (09:32→23:31)
[2021-10-13] MEDS: Cyclobenzaprine HCl 10 MG TABLET PO ×2 (09:32→23:31)
[2021-10-13] MEDS: hydrOXYzine HCL 25 MG TABLET PO (09:32)
[2021-10-13] MEDS: Divalproex Sodium 500 MG TABLET.DR 1000 MG PO (15:44)
[2021-10-13 16:00] VITALS: BP 109/63; PULSE 92
--- NOTE | 2021-10-13 17:39 | P.PNPSI_ITS ---
Subjective Subjective Date of Service: 10/13/21 Reason For Visit: Manic Interim History: Jeri reports improvement today. She is awake, alert, napping on occasion, utilizing her walker and appears stronger more alert and attentive which she validates when we talk. Medication Compliance: Yes Side effects from medications: No Attending Groups: Intermittent Review of Systems Acute medical concerns: No Medical Review of Systems: unchanged Review of Systems Musculoskeletal: Reports myalgias, Reports arthralgias and Reports stiffness Psychiatric: Reports no additional psychiatric complaints Mental Status Exam Mental Status Exam Patient Appearance: Fatigued Patient Orientation: Person, Place, Time and Situation Level of Consciousness: Alert Patient Behavior: Appropriate, Talkative, Cooperative and Good Eye Contact Mood Description: Flat Affect Description: Flat Patient Cognition Impaired: No Ability to Follow Directions: Good Speech Pattern: Spontaneous Speech Memory Description: Episodic Impaired Hallucinations: None Delusions: Not Present Thought Process: Goal Oriented Thought Content: positive for Goal Oriented Depressive Symptoms: Increased Fatigue and Loss of Energy Judgement: Fair Diagnostics Vital Signs (24Hr): Vital Signs - 24 hr 10/12/21 18:35 10/13/21 06:50 10/13/21 16:00 Temperature 98.0 F 96.5 F L Pulse Rate 106 H 91 92 Respiratory Rate 18 Blood Pressure 130/73 150/78 H 109/63 Pulse Oximetry 99 Oxygen Delivery Method Room Air BMI result Body Mass Index 25.5 Labs Results: 10/05/21 08:06 10/07/21 16:14 Medications Medications Current Medications Acetaminophen (Acetaminophen 325 Mg Tablet) 650 mg PO Q6H PRN PRN Reason: Headache/Pain Mild Scale (1-3) Last Admin: 10/13/21 09:32 Dose: 650 mg Al Hydroxide/Mg Hydroxide (Magnesium Hydrox/Alum Hydrox 30 Ml Oral.Susp) 30 ml PO Q6H PRN PRN Reason: Heartburn/Nausea Last Admin: 09/29/21 18:33 Dose: 30 ml Chlorpromazine HCl (Chlorpromazine Hcl 25 Mg Tablet) 50 mg PO BEDTIME PRN PRN Reason: anxiety, agitation Last Admin: 10/04/21 17:15 Dose: 50 mg Cyclobenzaprine HCl (Cyclobenzaprine Hcl 10 Mg Tablet) 10 mg PO TID PRN PRN Reason: Pain, Moderate (Pain Scale 4-6 Last Admin: 10/13/21 09:32 Dose: 10 mg Diphenhydramine HCl (Diphenhydramine Hcl 25 Mg Tablet) 50 mg PO BEDTIME PRN PRN Reason: Sleep Last Admin: 10/11/21 02:57 Dose: 50 mg Divalproex Sodium (Divalproex Sodium 500 Mg Tablet.) 1,000 mg PO 1700 [facility] Last Admin: 10/13/21 15:44 Dose: 1,000 mg Docusate Sodium (Docusate Sodium 100 Mg Capsule) 100 mg PO BID [facility] Last Admin: 10/13/21 08:41 Dose: 100 mg Ferrous Sulfate (Ferrous Sulfate 324 Mg Tablet.) 324 mg PO DAILY [facility] Last Admin: 10/13/21 08:41 Dose: 324 mg Folic Acid (Folic Acid 1 Mg Tablet) 1 mg PO DAILY [facility] Last Admin: 10/13/21 08:41 Dose: 1 mg Gabapentin (Gabapentin 400 Mg Capsule) 400 mg PO TID [facility] Last Admin: 10/13/21 15:40 Dose: 400 mg Gabapentin (Gabapentin 300 Mg Capsule) 300 mg PO BID PRN PRN Reason: mod pain Last Admin: 10/12/21 22:09 Dose: 300 mg Haloperidol (Haloperidol 5 Mg Tablet) 10 mg PO BID [facility] Last Admin: 10/13/21 08:41 Dose: 10 mg Hydroxyzine HCl (Hydroxyzine Hcl 25 Mg Tablet) 25 mg PO Q6H PRN PRN Reason: anxiety Last Admin: 10/13/21 09:32 Dose: 25 mg Levothyroxine Sodium (Levothyroxine Sodium 50 Mcg Tablet) 50 mcg PO DAILY@0600 [facility] Last Admin: 10/13/21 08:41 Dose: 50 mcg [place] Carbonate ([place] Carbonate 300 Mg Tablet) 150 mg PO BEDTIME [facility] Last Admin: 10/12/21 18:43 Dose: 150 mg Magnesium Hydroxide (Milk Of Magnesia 30 Ml Oral.Susp) 30 ml PO DAILY PRN PRN Reason: Constipation Nicotine (Nicotine 14 Mg Patch.Td24) 14 mg TRANSDERMA DAILY [facility] Last Admin: 10/13/21 08:41 Dose: Not Given Nicotine Polacrilex (Nicotine Polacrilex Lozenge 2 Mg Lozenge) 2 mg BUCCAL Q2H PRN PRN Reason: Nicotine Cravings Pt Own Enbrel ( (Etanercept 50 Mg)) 50 mg SUBCUT Q7D [facility] Last Admin: 10/13/21 15:44 Dose: 50 mg Nystatin (Nystatin Cream 15 Gm Tube) 1 appl TOPICAL BID [facility]; Protocol Last Admin: 10/13/21 08:42 Dose: Not Given Omeprazole (Omeprazole 20 Mg Capsule.Dr) 20 mg PO DAILY@0630 [facility] Last Admin: 10/13/21 08:40 Dose: 20 mg Prednisone (Prednisone 20 Mg Tablet) 20 mg PO DAILY [facility]; Taper Stop: 10/24/21 14:44 Last Admin: 10/13/21 08:41 Dose: 20 mg Propranolol HCl (Propranolol Hcl 10 Mg Tablet) 10 mg PO TID PRN; Protocol PRN Reason: anxiety, akathesia Last Admin: 10/10/21 09:34 Dose: 10 mg Senna (Sennosides 8.6 Mg Tablet) 17.2 mg PO BEDTIME [facility] Last Admin: 10/12/21 18:42 Dose: 17.2 mg Trazodone HCl (Trazodone Hcl 50 Mg Tablet) 50 mg PO BEDTIME PRN PRN Reason: Insomnia Last Admin: 10/11/21 03:59 Dose: 50 mg Trolamine Salicylate (Trolamine Salicylate 10 % Cream 85 Gm Tube) 1 appl TOPICAL TID PRN; Protocol PRN Reason: arthtiric pain Last Admin: 10/11/21 20:50 Dose: 1 appl Allergies Allergies Allergy/AdvReac Type Severity Reaction Status Date / Time lithium AdvReac Intermediate CKD Verified 09/28/21 11:34 Assessment & Plan Assessment & Plan (1) Psoriatic arthritis: Status: Acute Code(s): L40.50 - Arthropathic psoriasis, unspecified (2) Bipolar 1 disorder: Status: Acute Code(s): F31.9 - Bipolar disorder, unspecified Assessment and Plan: Continue current regime and plan of care. 10/10/21- Increase Depakote to 1000 mg daily Increase Haldol to 10 mg bid 10/12/21- Continue current regime 10/13/21- Continue current regime/plan Plan 60 year old female with history significant for bipolar illness, hypothyroidism, pancytopenia, GERD, stable CKD stage 3 secondary to lithium use, and rheumatoid arthritis admitted to psychiatry being consulted on for intractable pain, stage 1 pressure ulcer of buttock, and decreased level of functioning. 1- Psoriatic arthritis/Rheumatoid arthritis -Polyarthralgia related to acute flare up following several months without enbrel, which was resumed last week but can take several weeks to become effective. Suspect pain and inability to walk is not solely related to the psoriatic/rheumatoid arthritis but also current psychiatric state. She needs to get out of bed. -Recommend PT consult to assist with this which will also help prevent ulceration of the coccyx. Possible stage 1 pressure ulcer of coccyx has been evaluated by wound care. Recommend repositioning and getting OOB -Discussed patient with rheumatology. Recommend prednisone 20mg x 5 days, then 10mg x5 days, then 5mg x 5 days for acute RA flareup which is ordered. Discharge with remainder of taper if not completed during admission. Can continue tylenol prn -Continue enbrel weekly per rheumatology 2- CKD stage 3- stable -Continue monitoring renal function with lithium use 3- Hypothyroidism- stable -Continue levothyroxine 4-Pancytopenia- chronic and stable -Recommend discussion with rheumatology regarding CBC monitoring with enbrel being resumed 5-Bipolar disorder -continue plan as outlined by psychiatry I spent minutes with the patient and/or on the patient floor today, greater than?50% of which was spent counseling/coordinating care. Patient educated on: medication risk/benefits and therapeutic strategies Informed Consent: understands and further education needed Reason for contiued inpatient stay Substantial Risk for: rapid decompensation
[2021-10-13] MEDS: Sennosides 8.6 MG TABLET 17.2 MG PO (18:57)
[2021-10-13] MEDS: Lithium Carbonate 300 MG TABLET 150 MG PO (18:57)
[2021-10-13] MEDS: traZODone HCL 50 MG TABLET PO (23:31)
[2021-10-13] MEDS: diphenhydrAMINE HCL 25 MG TABLET 50 MG PO (23:31)
[2021-10-14] MEDS: Cyclobenzaprine HCl 10 MG TABLET PO ×2 (04:41→10:39)
[2021-10-14] MEDS: Gabapentin 300 MG CAPSULE PO (04:42)
[2021-10-14] MEDS: Omeprazole 20 MG CAPSULE.DR PO (04:42)
[2021-10-14] MEDS: Levothyroxine Sodium 50 MCG TABLET PO (04:42)
[2021-10-14 06:56] VITALS: BP 98/53; PULSE 79; RESP 16; TEMP 36.1; O2SAT 99
[2021-10-14] MEDS: Acetaminophen 325 MG TABLET 650 MG PO ×3 (06:56→23:38)
[2021-10-14] MEDS: Folic Acid 1 MG TABLET PO (10:39)
[2021-10-14] MEDS: Gabapentin 400 MG CAPSULE PO ×3 (10:39→20:51)
[2021-10-14] MEDS: HaloperidoL 5 MG TABLET 10 MG PO ×2 (10:39→20:52)
[2021-10-14] MEDS: Ferrous Sulfate 324 MG TABLET.DR PO (10:39)
[2021-10-14] MEDS: Docusate Sodium 100 MG CAPSULE PO ×2 (10:39→20:52)
[2021-10-14] MEDS: predniSONE 20 MG TABLET 5 MG PO (10:39)
[2021-10-14 16:00] VITALS: BP 120/57; PULSE 95; RESP 18; TEMP 36.1; O2SAT 97
[2021-10-14] MEDS: Divalproex Sodium 500 MG TABLET.DR 1000 MG PO (17:23)
--- NOTE | 2021-10-14 20:25 | P.PNPSI_ITS ---
Subjective Subjective Date of Service: 10/14/21 Reason For Visit: Manic Interim History: Jeri is alert, clear, asking appropriate questions about her plan of care today. States she and her sister have [employer] tickets in October and she does not want to miss this show. Attending groups. Continues with intermittent incontinence of urine. Urine culture ordered. Medication Compliance: Yes Side effects from medications: No Attending Groups: Yes Review of Systems Acute medical concerns: No Medical Review of Systems: unchanged Review of Systems Musculoskeletal: Reports myalgias, Reports arthralgias and Reports stiffness Psychiatric: Reports no additional psychiatric complaints Mental Status Exam Mental Status Exam Patient Appearance: Fatigued Patient Orientation: Person, Place, Time and Situation Level of Consciousness: Alert Patient Behavior: Appropriate, Talkative, Cooperative and Good Eye Contact Mood Description: Flat Affect Description: Flat Patient Cognition Impaired: No Ability to Follow Directions: Good Speech Pattern: Spontaneous Speech Memory Description: Episodic Impaired Hallucinations: None Delusions: Not Present Thought Process: Goal Oriented Thought Content: positive for Goal Oriented Depressive Symptoms: Increased Fatigue and Loss of Energy Judgement: Fair Diagnostics Vital Signs (24Hr): Vital Signs - 24 hr 10/14/21 06:56 Temperature 97.0 F Pulse Rate 79 Respiratory Rate 16 Blood Pressure 98/53 L Pulse Oximetry 99 Oxygen Delivery Method Room Air BMI result Body Mass Index 25.5 Labs Results: 10/05/21 08:06 10/07/21 16:14 Medications Medications Current Medications Acetaminophen (Acetaminophen 325 Mg Tablet) 650 mg PO Q6H PRN PRN Reason: Headache/Pain Mild Scale (1-3) Last Admin: 10/14/21 14:33 Dose: 650 mg Al Hydroxide/Mg Hydroxide (Magnesium Hydrox/Alum Hydrox 30 Ml Oral.Susp) 30 ml PO Q6H PRN PRN Reason: Heartburn/Nausea Last Admin: 09/29/21 18:33 Dose: 30 ml Chlorpromazine HCl (Chlorpromazine Hcl 25 Mg Tablet) 50 mg PO BEDTIME PRN PRN Reason: anxiety, agitation Last Admin: 10/04/21 17:15 Dose: 50 mg Cyclobenzaprine HCl (Cyclobenzaprine Hcl 10 Mg Tablet) 10 mg PO TID PRN PRN Reason: Pain, Moderate (Pain Scale 4-6 Last Admin: 10/14/21 10:39 Dose: 10 mg Diphenhydramine HCl (Diphenhydramine Hcl 25 Mg Tablet) 50 mg PO BEDTIME PRN PRN Reason: Sleep Last Admin: 10/13/21 23:31 Dose: 50 mg Divalproex Sodium (Divalproex Sodium 500 Mg Tablet.) 1,000 mg PO 1700 [facility] Last Admin: 10/14/21 17:23 Dose: 1,000 mg Docusate Sodium (Docusate Sodium 100 Mg Capsule) 100 mg PO BID [facility] Last Admin: 10/14/21 10:39 Dose: 100 mg Ferrous Sulfate (Ferrous Sulfate 324 Mg Tablet.) 324 mg PO DAILY [facility] Last Admin: 10/14/21 10:39 Dose: 324 mg Folic Acid (Folic Acid 1 Mg Tablet) 1 mg PO DAILY [facility] Last Admin: 10/14/21 10:39 Dose: 1 mg Gabapentin (Gabapentin 400 Mg Capsule) 400 mg PO TID [facility] Last Admin: 10/14/21 14:34 Dose: 400 mg Gabapentin (Gabapentin 300 Mg Capsule) 300 mg PO BID PRN PRN Reason: mod pain Last Admin: 10/14/21 04:42 Dose: 300 mg Haloperidol (Haloperidol 5 Mg Tablet) 10 mg PO BID [facility] Last Admin: 10/14/21 10:39 Dose: 10 mg Hydroxyzine HCl (Hydroxyzine Hcl 25 Mg Tablet) 25 mg PO Q6H PRN PRN Reason: anxiety Last Admin: 10/13/21 09:32 Dose: 25 mg Levothyroxine Sodium (Levothyroxine Sodium 50 Mcg Tablet) 50 mcg PO DAILY@0600 [facility] Last Admin: 10/14/21 04:42 Dose: 50 mcg [place] Carbonate ([place] Carbonate 300 Mg Tablet) 150 mg PO BEDTIME [facility] Last Admin: 10/13/21 18:57 Dose: 150 mg Magnesium Hydroxide (Milk Of Magnesia 30 Ml Oral.Susp) 30 ml PO DAILY PRN PRN Reason: Constipation Nicotine (Nicotine 14 Mg Patch.Td24) 14 mg TRANSDERMA DAILY [facility] Last Admin: 10/14/21 10:44 Dose: Not Given Nicotine Polacrilex (Nicotine Polacrilex Lozenge 2 Mg Lozenge) 2 mg BUCCAL Q2H PRN PRN Reason: Nicotine Cravings Pt Own Enbrel ( (Etanercept 50 Mg)) 50 mg SUBCUT Q7D [facility] Last Admin: 10/13/21 15:44 Dose: 50 mg Nystatin (Nystatin Cream 15 Gm Tube) 1 appl TOPICAL BID [facility]; Protocol Last Admin: 10/14/21 10:44 Dose: Not Given Omeprazole (Omeprazole 20 Mg Capsule.Dr) 20 mg PO DAILY@0630 [facility] Last Admin: 10/14/21 04:42 Dose: 20 mg Prednisone (Prednisone 20 Mg Tablet) 10 mg PO DAILY [facility]; Taper Stop: 10/24/21 14:44 Last Admin: 10/14/21 10:39 Dose: 20 mg Propranolol HCl (Propranolol Hcl 10 Mg Tablet) 10 mg PO TID PRN; Protocol PRN Reason: anxiety, akathesia Last Admin: 10/10/21 09:34 Dose: 10 mg Senna (Sennosides 8.6 Mg Tablet) 17.2 mg PO BEDTIME [facility] Last Admin: 10/13/21 18:57 Dose: 17.2 mg Trazodone HCl (Trazodone Hcl 50 Mg Tablet) 50 mg PO BEDTIME PRN PRN Reason: Insomnia Last Admin: 10/13/21 23:31 Dose: 50 mg Trolamine Salicylate (Trolamine Salicylate 10 % Cream 85 Gm Tube) 1 appl TOPICAL TID PRN; Protocol PRN Reason: arthtiric pain Last Admin: 10/11/21 20:50 Dose: 1 appl Allergies Allergies Allergy/AdvReac Type Severity Reaction Status Date / Time lithium AdvReac Intermediate CKD Verified 09/28/21 11:34 Assessment & Plan Assessment & Plan (1) Psoriatic arthritis: Status: Acute Code(s): L40.50 - Arthropathic psoriasis, unspecified (2) Bipolar 1 disorder: Status: Acute Code(s): F31.9 - Bipolar disorder, unspecified Assessment and Plan: Continue current regime and plan of care. 10/10/21- Increase Depakote to 1000 mg daily Increase Haldol to 10 mg bid 10/12/21- Continue current regime 10/14/21- Continue current regime Plan 60 year old female with history significant for bipolar illness, hypothyroidism, pancytopenia, GERD, stable CKD stage 3 secondary to lithium use, and rheumatoid arthritis admitted to psychiatry being consulted on for intractable pain, stage 1 pressure ulcer of buttock, and decreased level of functioning. 1- Psoriatic arthritis/Rheumatoid arthritis -Polyarthralgia related to acute flare up following several months without enbrel, which was resumed last week but can take several weeks to become effective. Suspect pain and inability to walk is not solely related to the psoriatic/rheumatoid arthritis but also current psychiatric state. She needs to get out of bed. -Recommend PT consult to assist with this which will also help prevent ulceration of the coccyx. Possible stage 1 pressure ulcer of coccyx has been evaluated by wound care. Recommend repositioning and getting OOB -Discussed patient with rheumatology. Recommend prednisone 20mg x 5 days, then 10mg x5 days, then 5mg x 5 days for acute RA flareup which is ordered. Discharge with remainder of taper if not completed during admission. Can continue tylenol prn -Continue enbrel weekly per rheumatology 2- CKD stage 3- stable -Continue monitoring renal function with lithium use 3- Hypothyroidism- stable -Continue levothyroxine 4-Pancytopenia- chronic and stable -Recommend discussion with rheumatology regarding CBC monitoring with enbrel being resumed 5-Bipolar disorder -continue plan as outlined by psychiatry I spent minutes with the patient and/or on the patient floor today, greater than?50% of which was spent counseling/coordinating care. Patient educated on: therapeutic strategies Informed Consent: further education needed Reason for contiued inpatient stay Substantial Risk for: rapid decompensation
[2021-10-14] MEDS: Sennosides 8.6 MG TABLET 17.2 MG PO (20:51)
[2021-10-14] MEDS: Lithium Carbonate 300 MG TABLET 150 MG PO (20:52)
[2021-10-14] MEDS: Nystatin Cream 15 GM TUBE 1 APPL TOPICAL (22:14)
[2021-10-14] MEDS: diphenhydrAMINE HCL 25 MG TABLET 50 MG PO (23:38)
[2021-10-14] MEDS: traZODone HCL 50 MG TABLET PO (23:38)
[2021-10-15] MEDS: hydrOXYzine HCL 25 MG TABLET PO ×2 (01:06→17:14)
[2021-10-15] MEDS: Gabapentin 300 MG CAPSULE PO (01:06)
[2021-10-15] MEDS: traZODone HCL 50 MG TABLET PO (01:06)
[2021-10-15] MEDS: Propranolol HCL 10 MG TABLET PO (01:55)
[2021-10-15] MEDS: Cyclobenzaprine HCl 10 MG TABLET PO (01:55)
[2021-10-15 01:57] VITALS: BP 131/68; PULSE 103
[2021-10-15] MEDS: predniSONE 20 MG TABLET 5 MG PO (08:01)
[2021-10-15] MEDS: Folic Acid 1 MG TABLET PO (08:02)
[2021-10-15] MEDS: Gabapentin 400 MG CAPSULE PO ×3 (08:02→20:22)
[2021-10-15] MEDS: Omeprazole 20 MG CAPSULE.DR PO (08:02)
[2021-10-15] MEDS: Levothyroxine Sodium 50 MCG TABLET PO (08:02)
[2021-10-15] MEDS: Docusate Sodium 100 MG CAPSULE PO ×2 (08:02→20:22)
[2021-10-15] MEDS: HaloperidoL 5 MG TABLET 10 MG PO ×2 (08:03→20:22)
[2021-10-15] MEDS: Ferrous Sulfate 324 MG TABLET.DR PO (08:03)
--- NOTE | 2021-10-15 10:43 | PC.NURSE ---
Three Day Notice Jeri signed a Three Day Notice today, it will be up on 10/18/2021
[2021-10-15 16:00] VITALS: BP 148/75; PULSE 94; RESP 18; TEMP 36.5; O2SAT 97
[2021-10-15] MEDS: Divalproex Sodium 500 MG TABLET.DR 1000 MG PO (16:35)
--- NOTE | 2021-10-15 18:09 | P.PNPSI_ITS ---
Subjective Subjective Date of Service: 10/15/21 Reason For Visit: Manic Subjective Notes: Conditional Voluntary Interim History: I don't need Tylenol today. Reports she is well, social, in groups, using the bathroom indepedently. Team does not believe pt will need SNF. Medication Compliance: Yes Side effects from medications: No Attending Groups: Yes Review of Systems Acute medical concerns: No Medical Review of Systems: unchanged Review of Systems Psychiatric: Reports no additional psychiatric complaints Mental Status Exam Mental Status Exam Patient Appearance: Fatigued Patient Orientation: Person, Place, Time and Situation Level of Consciousness: Alert Patient Behavior: Appropriate, Talkative, Cooperative and Good Eye Contact Mood Description: Flat Affect Description: Flat Patient Cognition Impaired: No Ability to Follow Directions: Good Speech Pattern: Spontaneous Speech Memory Description: Episodic Impaired Hallucinations: None Delusions: Not Present Thought Process: Goal Oriented Thought Content: positive for Goal Oriented Depressive Symptoms: Increased Fatigue and Loss of Energy Judgement: Fair Diagnostics Vital Signs (24Hr): Vital Signs - 24 hr 10/15/21 01:57 Pulse Rate 103 H Blood Pressure 131/68 BMI result Body Mass Index 25.5 Labs Results: 10/05/21 08:06 10/07/21 16:14 Medications Medications Current Medications Acetaminophen (Acetaminophen 325 Mg Tablet) 650 mg PO Q6H PRN PRN Reason: Headache/Pain Mild Scale (1-3) Last Admin: 10/14/21 23:38 Dose: 650 mg Al Hydroxide/Mg Hydroxide (Magnesium Hydrox/Alum Hydrox 30 Ml Oral.Susp) 30 ml PO Q6H PRN PRN Reason: Heartburn/Nausea Last Admin: 09/29/21 18:33 Dose: 30 ml Chlorpromazine HCl (Chlorpromazine Hcl 25 Mg Tablet) 50 mg PO BEDTIME PRN PRN Reason: anxiety, agitation Last Admin: 10/04/21 17:15 Dose: 50 mg Cyclobenzaprine HCl (Cyclobenzaprine Hcl 10 Mg Tablet) 10 mg PO TID PRN PRN Reason: Pain, Moderate (Pain Scale 4-6 Last Admin: 10/15/21 01:55 Dose: 10 mg Diphenhydramine HCl (Diphenhydramine Hcl 25 Mg Tablet) 50 mg PO BEDTIME PRN PRN Reason: Sleep Last Admin: 10/14/21 23:38 Dose: 50 mg Divalproex Sodium (Divalproex Sodium 500 Mg Tablet.Dr) 1,000 mg PO 1700 [facility] Last Admin: 10/15/21 16:35 Dose: 1,000 mg Docusate Sodium (Docusate Sodium 100 Mg Capsule) 100 mg PO BID [facility] Last Admin: 10/15/21 08:02 Dose: 100 mg Ferrous Sulfate (Ferrous Sulfate 324 Mg Tablet.) 324 mg PO DAILY [facility] Last Admin: 10/15/21 08:03 Dose: 324 mg Folic Acid (Folic Acid 1 Mg Tablet) 1 mg PO DAILY [facility] Last Admin: 10/15/21 08:02 Dose: 1 mg Gabapentin (Gabapentin 400 Mg Capsule) 400 mg PO TID [facility] Last Admin: 10/15/21 14:53 Dose: 400 mg Gabapentin (Gabapentin 300 Mg Capsule) 300 mg PO BID PRN PRN Reason: mod pain Last Admin: 10/15/21 01:06 Dose: 300 mg Haloperidol (Haloperidol 5 Mg Tablet) 10 mg PO BID [facility] Last Admin: 10/15/21 08:03 Dose: 10 mg Hydroxyzine HCl (Hydroxyzine Hcl 25 Mg Tablet) 25 mg PO Q6H PRN PRN Reason: anxiety Last Admin: 10/15/21 17:14 Dose: 25 mg Levothyroxine Sodium (Levothyroxine Sodium 50 Mcg Tablet) 50 mcg PO DAILY@0600 [facility] Last Admin: 10/15/21 08:02 Dose: 50 mcg Short Carbonate (Short Carbonate 300 Mg Tablet) 150 mg PO BEDTIME [facility] Last Admin: 10/14/21 20:52 Dose: 150 mg Magnesium Hydroxide (Milk Of Magnesia 30 Ml Oral.Susp) 30 ml PO DAILY PRN PRN Reason: Constipation Nicotine (Nicotine 14 Mg Patch.Td24) 14 mg TRANSDERMA DAILY [facility] Last Admin: 10/15/21 08:06 Dose: Not Given Nicotine Polacrilex (Nicotine Polacrilex Lozenge 2 Mg Lozenge) 2 mg BUCCAL Q2H PRN PRN Reason: Nicotine Cravings Pt Own Enbrel ( (Etanercept 50 Mg)) 50 mg SUBCUT Q7D [facility] Last Admin: 10/13/21 15:44 Dose: 50 mg Nystatin (Nystatin Cream 15 Gm Tube) 1 appl TOPICAL BID [facility]; Protocol Last Admin: 10/15/21 08:06 Dose: Not Given Omeprazole (Omeprazole 20 Mg Capsule.) 20 mg PO DAILY@0630 [facility] Last Admin: 10/15/21 08:02 Dose: 20 mg Prednisone (Prednisone 20 Mg Tablet) 10 mg PO DAILY [facility]; Taper Stop: 10/24/21 14:44 Last Admin: 10/15/21 08:01 Dose: 10 mg Propranolol HCl (Propranolol Hcl 10 Mg Tablet) 10 mg PO TID PRN; Protocol PRN Reason: anxiety, akathesia Last Admin: 10/15/21 01:55 Dose: 10 mg Senna (Sennosides 8.6 Mg Tablet) 17.2 mg PO BEDTIME [facility] Last Admin: 10/14/21 20:51 Dose: 17.2 mg Trazodone HCl (Trazodone Hcl 50 Mg Tablet) 50 mg PO BEDTIME PRN PRN Reason: Insomnia Last Admin: 10/15/21 01:06 Dose: 50 mg Trolamine Salicylate (Trolamine Salicylate 10 % Cream 85 Gm Tube) 1 appl T OPICAL TID PRN; Protocol PRN Reason: arthtiric pain Last Admin: 10/11/21 20:50 Dose: 1 appl Allergies Allergies Allergy/AdvReac Type Severity Reaction Status Date / Time lithium AdvReac Intermediate CKD Verified 09/28/21 11:34 Assessment & Plan Assessment & Plan (1) Psoriatic arthritis: Status: Acute Code(s): L40.50 - Arthropathic psoriasis, unspecified (2) Bipolar 1 disorder: Status: Acute Code(s): F31.9 - Bipolar disorder, unspecified Assessment and Plan: Continue current regime and plan of care. 10/10/21- Increase Depakote to 1000 mg daily Increase Haldol to 10 mg bid 10/12/21- Continue current regime 10/15/21- Continue current regime Plan 60 year old female with history significant for bipolar illness, hypothyroidism, pancytopenia, GERD, stable CKD stage 3 secondary to lithium use, and rheumatoid arthritis admitted to psychiatry being consulted on for intractable pain, stage 1 pressure ulcer of buttock, and decreased level of functioning. 1- Psoriatic arthritis/Rheumatoid arthritis -Polyarthralgia related to acute flare up following several months without enbrel, which was resumed last week but can take several weeks to become effective. Suspect pain and inability to walk is not solely related to the psoriatic/rheumatoid arthritis but also current psychiatric state. She needs to get out of bed. -Recommend PT consult to assist with this which will also help prevent ulceration of the coccyx. Possible stage 1 pressure ulcer of coccyx has been ev aluated by wound care. Recommend repositioning and getting OOB -Discussed patient with rheumatology. Recommend prednisone 20mg x 5 days, then 10mg x5 days, then 5mg x 5 days for acute RA flareup which is ordered. Discharge with remainder of taper if not completed during admission. Can continue tylenol prn -Continue enbrel weekly per rheumatology 2- CKD stage 3- stable -Continue monitoring renal function with lithium use 3- Hypothyroidism- stable -Continue levothyroxine 4-Pancytopenia- chronic and stable -Recommend discussion with rheumatology regarding CBC monitoring with enbrel being resumed 5-Bipolar disorder -continue plan as outlined by psychiatry I spent minutes with the patient and/or on the patient floor today, greater than?50% of which was spent counseling/coordinating care. Patient educated on: therapeutic strategies and medical condition Informed Consent: further education needed Reason for contiued inpatient stay Substantial Risk for: rapid decompensation
[2021-10-15] MEDS: Sennosides 8.6 MG TABLET 17.2 MG PO (20:22)
[2021-10-15] MEDS: Lithium Carbonate 300 MG TABLET 150 MG PO (20:22)
[2021-10-15] MEDS: diphenhydrAMINE HCL 25 MG TABLET 50 MG PO (23:42)
[2021-10-15] MEDS: chlorproMAZINE HCl 25 MG TABLET 50 MG PO (23:42)
[2021-10-16] MEDS: traZODone HCL 50 MG TABLET PO (01:35)
[2021-10-16 08:40] VITALS: BP 138/89; PULSE 110; RESP 18; TEMP 37.1; O2SAT 96
[2021-10-16] MEDS: Levothyroxine Sodium 50 MCG TABLET PO (08:43)
[2021-10-16] MEDS: Folic Acid 1 MG TABLET PO (08:43)
[2021-10-16] MEDS: Gabapentin 400 MG CAPSULE PO ×2 (08:43→15:23)
[2021-10-16] MEDS: HaloperidoL 5 MG TABLET 10 MG PO (08:43)
[2021-10-16] MEDS: Omeprazole 20 MG CAPSULE.DR PO (08:43)
[2021-10-16] MEDS: Ferrous Sulfate 324 MG TABLET.DR PO (08:43)
[2021-10-16] MEDS: Docusate Sodium 100 MG CAPSULE PO (08:43)
[2021-10-16] MEDS: predniSONE 20 MG TABLET 5 MG PO (08:44)
[2021-10-16] MEDS: Nystatin Cream 15 GM TUBE 1 APPL TOPICAL (08:46)
[2021-10-16] MEDS: Cyclobenzaprine HCl 10 MG TABLET PO (15:23)
[2021-10-16] MEDS: Acetaminophen 325 MG TABLET 650 MG PO (15:23)
--- NOTE | 2021-10-16 16:55 | HO.PSYCHPN ---
Subjective Subjective Date of Service: 10/16/21 Reason For Visit: Manic Subjective Notes: Conditional Voluntary and 3 Day Healthcare Proxy: No Guardianship: No Medical Problems Affecting Mental Status: No Interim History: Three day notice expires 10/18. Jeri states she has not contacted her brother yet to discuss going home. Appears tired, more sedate today, not as active as she presented over the weekend. Mood is stable however, no outbursts, lability. Calm with sedation. Continues to utilize walker and assist from team for mobility, ADL's. Medication Compliance: Yes Side effects from medications: No (? sedation) Attending Groups: Intermittent Review of Systems Acute medical concerns: No Medical Review of Systems: unchanged Review of Systems: Reports less pain overall. Mental Status Exam Mental Status Exam Patient Appearance: Fatigued Patient Orientation: Person, Place, Time and Situation Level of Consciousness: Alert Patient Behavior: Appropriate, Talkative, Cooperative and Good Eye Contact Mood Description: Flat Affect Description: Flat Patient Cognition Impaired: No Ability to Follow Directions: Good Speech Pattern: Spontaneous Speech Memory Description: Episodic Impaired Hallucinations: None Delusions: Not Present Thought Process: Goal Oriented Thought Content: positive for Goal Oriented Depressive Symptoms: Increased Fatigue and Loss of Energy Judgement: Fair Diagnostics Vital Signs (24Hr): Vital Signs - 24 hr 10/16/21 08:40 Temperature 98.7 F Pulse Rate 110 H Respiratory Rate 18 Blood Pressure 138/89 Pulse Oximetry 96 Oxygen Delivery Method Room Air BMI result Body Mass Index 25.5 Labs Results: 10/05/21 08:06 10/07/21 16:14 Medications Medications Current Medications Acetaminophen (Acetaminophen 325 Mg Tablet) 650 mg PO Q6H PRN PRN Reason: Headache/Pain Mild Scale (1-3) Last Admin: 10/16/21 15:23 Dose: 650 mg Al Hydroxide/Mg Hydroxide (Magnesium Hydrox/Alum Hydrox 30 Ml Oral.Susp) 30 ml PO Q6H PRN PRN Reason: Heartburn/Nausea Last Admin: 09/29/21 18:33 Dose: 30 ml Chlorpromazine HCl (Chlorpromazine Hcl 25 Mg Tablet) 50 mg PO BEDTIME PRN PRN Reason: anxiety, agitation Last Admin: 10/15/21 23:42 Dose: 50 mg Cyclobenzaprine HCl (Cyclobenzaprine Hcl 10 Mg Tablet) 10 mg PO TID PRN PRN Reason: Pain, Moderate (Pain Scale 4-6 Last Admin: 10/16/21 15:23 Dose: 10 mg Diphenhydramine HCl (Diphenhydramine Hcl 25 Mg Tablet) 50 mg PO BEDTIME PRN PRN Reason: Sleep Last Admin: 10/15/21 23:42 Dose: 50 mg Divalproex Sodium (Divalproex Sodium 500 Mg Tablet.) 1,000 mg PO 1700 [facility] Last Admin: 10/15/21 16:35 Dose: 1,000 mg Docusate Sodium (Docusate Sodium 100 Mg Capsule) 100 mg PO BID [facility] Last Admin: 10/16/21 08:43 Dose: 100 mg Ferrous Sulfate (Ferrous Sulfate 324 Mg Tablet.) 324 mg PO DAILY [facility] [place] Last Admin: 10/16/21 08:43 Dose: 324 mg Folic Acid (Folic Acid 1 Mg Tablet) 1 mg PO DAILY [facility] Last Admin: 10/16/21 08:43 Dose: 1 mg Gabapentin (Gabapentin 400 Mg Capsule) 400 mg PO TID [facility] Last Admin: 10/16/21 15:23 Dose: 400 mg Gabapentin (Gabapentin 300 Mg Capsule) 300 mg PO BID PRN PRN Reason: mod pain Last Admin: 10/15/21 01:06 Dose: 300 mg Haloperidol (Haloperidol 5 Mg Tablet) 10 mg PO BID [facility] Last Admin: 10/16/21 08:43 Dose: 10 mg Hydroxyzine HCl (Hydroxyzine Hcl 25 Mg Tablet) 25 mg PO Q6H PRN PRN Reason: anxiety Last Admin: 10/15/21 17:14 Dose: 25 mg Levothyroxine Sodium (Levothyroxine Sodium 50 Mcg Tablet) 50 mcg PO DAILY@0600 [facility] Last Admin: 10/16/21 08:43 Dose: 50 mcg Abanda Carbonate (Abanda Carbonate 300 Mg Tablet) 150 mg PO BEDTIME [facility] Last Admin: 10/15/21 20:22 Dose: 150 mg Magnesium Hydroxide (Milk Of Magnesia 30 Ml Oral.Susp) 30 ml PO DAILY PRN PRN Reason: Constipation Nicotine (Nicotine 14 Mg Patch.Td24) 14 mg TRANSDERMA DAILY [facility] [place] Last Admin: 10/16/21 08:44 Dose: Not Given Nicotine Polacrilex (Nicotine Polacrilex Lozenge 2 Mg Lozenge) 2 mg BUCCAL Q2H PRN PRN Reason: Nicotine Cravings Pt Own Enbrel ( (Etanercept 50 Mg)) 50 mg SUBCUT Q7D [facility] Last Admin: 10/13/21 15:44 Dose: 50 mg Nystatin (Nystatin Cream 15 Gm Tube) 1 appl TOPICAL BID [facility]; Protocol Last Admin: 10/16/21 08:46 Dose: 1 appl Omeprazole (Omeprazole 20 Mg Capsule.Dr) 20 mg PO DAILY@0630 [facility] Last Admin: 10/16/21 08:43 Dose: 20 mg Prednisone (Prednisone 20 Mg Tablet) 10 mg PO DAILY [facility]; Taper Stop: 10/24/21 14:44 Last Admin: 10/16/21 08:44 Dose: 10 mg Propranolol HCl (Propranolol Hcl 10 Mg Tablet) 10 mg PO TID PRN; Protocol PRN Reason: anxiety, akathesia Last Admin: 10/15/21 01:55 Dose: 10 mg Senna (Sennosides 8.6 Mg Tablet) 17.2 mg PO BEDTIME [facility] Last Admin: 10/15/21 20:22 Dose: 17.2 mg Trazodone HCl (Trazodone Hcl 50 Mg Tablet) 50 mg PO BEDTIME PRN PRN Reason: Insomnia Last Admin: 10/16/21 01:35 Dose: 50 mg Trolamine Salicylate (Trolamine Salicylate 10 % Cream 85 Gm Tube) 1 appl TOPICAL TID PRN; Protocol PRN Reason: arthtiric pain Last Admin: 10/11/21 20:50 Dose: 1 appl Allergies Allergies Allergy/AdvReac Type Severity Reaction Status Date / Time lithium AdvReac Intermediate CKD Verified 09/28/21 11:34 Assessment & Plan Assessment & Plan (1) Psoriatic arthritis: Status: Acute Code(s): L40.50 - Arthropathic psoriasis, unspecified (2) Bipolar 1 disorder: Status: Acute Code(s): F31.9 - Bipolar disorder, unspecified Assessment and Plan: Continue current regime and plan of care. 10/10/21- Increase Depakote to 1000 mg daily Increase Haldol to 10 mg bid 10/12/21- Continue current regime 10/15/21- Continue current regime 10/16/21- Discharge planning, continue current regime. Plan 60 year old female with history significant for bipolar illness, hypothyroidism, pancytopenia, GERD, stable CKD stage 3 secondary to lithium use, and rheumatoid arthritis admitted to psychiatry being consulted on for intractable pain, stage 1 pressure ulcer of buttock, and decreased level of functioning. 1- Psoriatic arthritis/Rheumatoid arthritis -Polyarthralgia related to acute flare up following several months without enbrel, which was resumed last week but can take several weeks to become effective. Suspect pain and inability to walk is not solely related to the psoriatic/rheumatoid arthritis but also current psychiatric state. She needs to get out of bed. -Recommend PT consult to assist with this which will also help prevent ulceration of the coccyx. Possible stage 1 pressure ulcer of coccyx has been evaluated by wound care. Recommend repositioning and getting OOB -Discussed patient with rheumatology. Recommend prednisone 20mg x 5 days, then 10mg x5 days, then 5mg x 5 days for acute RA flareup which is ordered. Discharge with remainder of taper if not completed during admission. Can continue tylenol prn -Continue enbrel weekly per rheumatology 2- CKD stage 3- stable -Continue monitoring renal function with lithium use 3- Hypothyroidism- stable -Continue levothyroxine 4-Pancytopenia- chronic and stable -Recommend discussion with rheumatology regarding CBC monitoring with enbrel being resumed 5-Bipolar disorder -continue plan as outlined by psychiatry I spent minutes with the patient and/or on the patient floor today, greater than?50% of which was spent counseling/coordinating care. Patient educated on: medication risk/benefits and therapeutic strategies Informed Consent: understands and further education needed Reason for contiued inpatient stay Substantial Risk for: inability to function, rapid decompensation and med/psych decompensation
[2021-10-16] MEDS: Divalproex Sodium 500 MG TABLET.DR 1000 MG PO (17:20)
[2021-10-16 22:00] VITALS: RESP 16
--- NOTE | 2021-10-17 04:22 | CONS_ITS ---
DATE OF SERVICE: 10/15/2021 REASON FOR CONSULTATION: Consultation from Nephrology for her chronic kidney disease and being on lithium. Her serum creatinine has been in the 1.5 to 1.8 range and she has been on long-standing lithium. HISTORY OF PRESENT ILLNESS: In summary, she is a 61-year-old female with a history of bipolar disorder, hypothyroidism, pancytopenia, gastroesophageal reflux disease, stage 3 chronic kidney disease, thought to be consistent with lithium use along with underlying rheumatoid arthritis, who was admitted to Psychiatry for intractable pain. She has a history of the rheumatoid arthritis and is followed by Dr. Garcia, has maintained on therapy. She has chronic kidney disease with creatinine 1.5 to 1.8 range, longstanding lithium. At present, she is lying in bed, able to respond to questions, but a poor historian. Information obtained from the electronic medical record. PAST MEDICAL HISTORY: As noted above. anxiety disorder, bipolar, stage 3 chronic kidney disease, depression, gastroesophageal reflux disease, hypothyroidism, psoriatic arthritis, although the admitting notes mentions rheumatoid arthritis. MEDICATIONS: Her medications on admission are noted in the admitting notes. They do include lithium. Current medications are on the APR and she continues to be maintained on lithium. SOCIAL HISTORY: She is a nonsmoker, nondrinker. No illicit drug use. FAMILY HISTORY: Noncontributory. REVIEW OF SYSTEMS: As noted above. PHYSICAL EXAMINATION: VITAL SIGNS: Blood pressure 130/80 with heart rate 100. HEENT: Head is atraumatic and normocephalic. NECK: Supple. Mucous membranes moist. LUNGS: Clear. CARDIAC: Regular rate and rhythm without rub. ABDOMEN: Soft and nontender. Good bowel sounds. No CVA tenderness. EXTREMITIES: Shows no edema. LABORATORY DATA: From October 15, show sodium 138, potassium 4.2, chloride 103, bicarb 22, BUN 26, and creatinine 1.53. As mentioned, her serum creatinine is ranged from 1.5 to 2.0 range. IMPRESSION: A 61-YEAR-OLD WITH STAGE 3 CHRONIC KIDNEY DISEASE AND LONGSTANDING LITHIUM USE. 1. Stage 3 chronic kidney disease. This is consistent with lithium-associated nephrotoxicity. Other possibilities seem less likely. At this point, we will hold off doing any further evaluation for her chronic kidney disease, given the stability of her chronic creatinine in the 1.5 to 1.8 range. 2. Anemia. She has evidence of iron deficiency. IV iron versus oral iron. We needs to be taking consideration of psychiatric illness and what is better for her. It might be to take oral iron. 3. Metabolic bone disease of chronic kidney disease. We will check an intact PTH level. SUGGESTIONS: At this time include continue her on lithium as far as her creatinine remains below 2.0. Place her on oral iron. Avoid other nephrotoxic agents such as NSAIDs. We will follow the patient with the team. MD NAKIA Xiong/ABIMAEL / [id number]
[2021-10-17 08:00] VITALS: RESP 16
[2021-10-17] MEDS: Gabapentin 400 MG CAPSULE PO ×3 (09:22→19:22)
[2021-10-17] MEDS: Levothyroxine Sodium 50 MCG TABLET PO (09:22)
[2021-10-17] MEDS: Folic Acid 1 MG TABLET PO (09:22)
[2021-10-17] MEDS: Ferrous Sulfate 324 MG TABLET.DR PO (09:22)
[2021-10-17] MEDS: HaloperidoL 5 MG TABLET 10 MG PO (09:23)
[2021-10-17] MEDS: Docusate Sodium 100 MG CAPSULE PO ×2 (09:23→19:22)
[2021-10-17] MEDS: predniSONE 20 MG TABLET 5 MG PO (09:23)
[2021-10-17] MEDS: Cyclobenzaprine HCl 10 MG TABLET PO (10:31)
[2021-10-17 16:00] VITALS: BP 146/83; PULSE 84; TEMP 36.7; O2SAT 99
--- NOTE | 2021-10-17 18:36 | HO.PSYCHPN ---
Subjective Subjective Date of Service: 10/17/21 Reason For Visit: Manic Subjective Notes: Conditional Voluntary Healthcare Proxy: No Guardianship: No Medical Problems Affecting Mental Status: Yes Interim History: Team reports some confusion, sedation. Using prn medications. No call to her brother per her report to discuss going home. Agrees she is not ready to leave. Discussed labs and cutting dosages. Medication Compliance: Yes Side effects from medications: No Attending Groups: Intermittent Review of Systems Acute medical concerns: No Medical Review of Systems: unchanged Mental Status Exam Mental Status Exam Patient Appearance: Fatigued Patient Orientation: Person, Place, Time and Situation Level of Consciousness: Alert Patient Behavior: Appropriate, Talkative, Cooperative, Confused and Good Eye Contact Mood Description: Flat Affect Description: Flat Patient Cognition Impaired: No Ability to Follow Directions: Good Speech Pattern: Impoverished and Spontaneous Speech Memory Description: Episodic Impaired Hallucinations: None Delusions: Not Present Thought Process: Distracted and Goal Oriented Thought Content: positive for Goal Oriented Depressive Symptoms: Increased Fatigue, Loss of Energy and Difficulty Concentrating Judgement: Fair Diagnostics Vital Signs (24Hr): Vital Signs - 24 hr 10/16/21 22:00 10/17/21 08:00 Respiratory Rate 16 16 BMI result Body Mass Index 25.5 Labs Results: 10/18/21 08:17 10/18/21 08:17 Medications Medications Current Medications Acetaminophen (Acetaminophen 325 Mg Tablet) 650 mg PO Q6H PRN PRN Reason: Headache/Pain Mild Scale (1-3) Last Admin: 10/16/21 15:23 Dose: 650 mg Al Hydroxide/Mg Hydroxide (Magnesium Hydrox/Alum Hydrox 30 Ml Oral.Susp) 30 ml PO Q6H PRN PRN Reason: Heartburn/Nausea Last Admin: 09/29/21 18:33 Dose: 30 ml Chlorpromazine HCl (Chlorpromazine Hcl 25 Mg Tablet) 50 mg PO BEDTIME PRN PRN Reason: anxiety, agitation Last Admin: 10/15/21 23:42 Dose: 50 mg Cyclobenzaprine HCl (Cyclobenzaprine Hcl 10 Mg Tablet) 10 mg PO TID PRN PRN Reason: Pain, Moderate (Pain Scale 4-6 Last Admin: 10/17/21 10:31 Dose: 10 mg Diphenhydramine HCl (Diphenhydramine Hcl 25 Mg Tablet) 50 mg PO BEDTIME PRN PRN Reason: Sleep Last Admin: 10/15/21 23:42 Dose: 50 mg Divalproex Sodium (Divalproex Sodium 250 Mg Tablet.) 750 mg PO 1700 PENDING SALE TO [facility] Docusate Sodium (Docusate Sodium 100 Mg Capsule) 100 mg PO BID PENDING SALE TO [facility] Last Admin: 10/17/21 09:23 Dose: 100 mg Ferrous Sulfate (Ferrous Sulfate 324 Mg Tablet.) 324 mg PO DAILY PENDING SALE TO [facility] Last Admin: 10/17/21 09:22 Dose: 324 mg Folic Acid (Folic Acid 1 Mg Tablet) 1 mg PO DAILY PENDING SALE TO [facility] Last Admin: 10/17/21 09:22 Dose: 1 mg Gabapentin (Gabapentin 400 Mg Capsule) 400 mg PO TID PENDING SALE TO [facility] Last Admin: 10/17/21 14:37 Dose: 400 mg Gabapentin (Gabapentin 300 Mg Capsule) 300 mg PO BID PRN PRN Reason: mod pain Last Admin: 10/15/21 01:06 Dose: 300 mg Haloperidol (Haloperidol 5 Mg Tablet) 5 mg PO BID PENDING SALE TO [facility] Hydroxyzine HCl (Hydroxyzine Hcl 25 Mg Tablet) 25 mg PO Q6H PRN PRN Reason: anxiety Last Admin: 10/15/21 17:14 Dose: 25 mg Levothyroxine Sodium (Levothyroxine Sodium 50 Mcg Tablet) 50 mcg PO DAILY@0600 PENDING SALE TO [facility] Last Admin: 10/17/21 09:22 Dose: 50 mcg [place] Carbonate ([place] Carbonate 300 Mg Tablet) 150 mg PO BEDTIME PENDING SALE TO [facility] Last Admin: 10/16/21 21:44 Dose: Not Given Magnesium Hydroxide (Milk Of Magnesia 30 Ml Oral.Susp) 30 ml PO DAILY PRN PRN Reason: Constipation Nicotine (Nicotine 14 Mg Patch.Td24) 14 mg TRANSDERMA DAILY PENDING SALE TO [facility] Last Admin: 10/17/21 09:23 Dose: Not Given Nicotine Polacrilex (Nicotine Polacrilex Lozenge 2 Mg Lozenge) 2 mg BUCCAL Q2H PRN PRN Reason: Nicotine Cravings Pt Own Enbrel ( (Etanercept 50 Mg)) 50 mg SUBCUT Q7D PENDING SALE TO [facility] Last Admin: 10/13/21 15:44 Dose: 50 mg Nystatin (Nystatin Cream 15 Gm Tube) 1 appl TOPICAL BID PENDING SALE TO [facility]; Protocol Last Admin: 10/17/21 09:23 Dose: Not Given Omeprazole (Omeprazole 20 Mg Capsule.) 20 mg PO DAILY@0630 PENDING SALE TO [facility] Last Admin: 10/17/21 06:25 Dose: Not Given Prednisone (Prednisone 20 Mg Tablet) 10 mg PO DAILY ISAÍAS; Taper Stop: 10/24/21 14:44 Last Admin: 10/17/21 09:23 Dose: 10 mg Propranolol HCl (Propranolol Hcl 10 Mg Tablet) 10 mg PO TID PRN; Protocol PRN Reason: anxiety, akathesia Last Admin: 10/15/21 01:55 Dose: 10 mg Senna (Sennosides 8.6 Mg Tablet) 17.2 mg PO BEDTIME ISAÍAS Last Admin: 10/16/21 21:45 Dose: Not Given Trazodone HCl (Trazodone Hcl 50 Mg Tablet) 50 mg PO BEDTIME PRN PRN Reason: Insomnia Last Admin: 10/16/21 01:35 Dose: 50 mg Trolamine Salicylate (Trolamine Salicylate 10 % Cream 85 Gm Tube) 1 appl TOPICAL TID PRN; Protocol PRN Reason: arthtiric pain Last Admin: 10/11/21 20:50 Dose: 1 appl Allergies Allergies Allergy/AdvReac Type Severity Reaction Status Date / Time lithium AdvReac Intermediate CKD Verified 09/28/21 11:34 Assessment & Plan Assessment & Plan (1) Psoriatic arthritis: Status: Acute Code(s): L40.50 - Arthropathic psoriasis, unspecified (2) Bipolar 1 disorder: Status: Acute Code(s): F31.9 - Bipolar disorder, unspecified Assessment and Plan: Continue current regime and plan of care. 10/10/21- Increase Depakote to 1000 mg daily Increase Haldol to 10 mg bid 10/12/21- Continue current regime 10/15/21- Continue current regime 10/17/21- Decrease Depakote to 750 mg HS Decrease Haldol to 5 mg bid Labs in a.m. Plan 60 year old female with history significant for bipolar illness, hypothyroidism, pancytopenia, GERD, stable CKD stage 3 secondary to lithium use, and rheumatoid arthritis admitted to psychiatry being consulted on for intractable pain, stage 1 pressure ulcer of buttock, and decreased level of functioning. 1- Psoriatic arthritis/Rheumatoid arthritis -Polyarthralgia related to acute flare up following several months without enbrel, which was resumed last week but can take several weeks to become effective. Suspect pain and inability to walk is not solely related to the psoriatic/rheumatoid arthritis but also current psychiatric state. She needs to get out of bed. -Recommend PT consult to assist with this which will also help prevent ulceration of the coccyx. Possible stage 1 pressure ulcer of coccyx has been evaluated by wound care. Recommend repositioning and getting OOB -Discussed patient with rheumatology. Recommend prednisone 20mg x 5 days, then 10mg x5 days, then 5mg x 5 days for acute RA flareup which is ordered. Discharge with remainder of taper if not completed during admission. Can continue tylenol prn -Continue enbrel weekly per rheumatology 2- CKD stage 3- stable -Continue monitoring renal function with lithium use 3- Hypothyroidism- stable -Continue levothyroxine 4-Pancytopenia- chronic and stable -Recommend discussion with rheumatology regarding CBC monitoring with enbrel being resumed 5-Bipolar disorder -continue plan as outlined by psychiatry I spent minutes with the patient and/or on the patient floor today, greater than?50% of which was spent counseling/coordinating care. Patient educated on: medication risk/benefits and medical condition Informed Consent: further education needed Reason for contiued inpatient stay Substantial Risk for: rapid decompensation
[2021-10-17] MEDS: Lithium Carbonate 300 MG TABLET 150 MG PO (19:21)
[2021-10-17] MEDS: Gabapentin 300 MG CAPSULE PO (19:22)
[2021-10-17] MEDS: HaloperidoL 5 MG TABLET PO (19:22)
[2021-10-18] MEDS: Cyclobenzaprine HCl 10 MG TABLET PO (01:02)
[2021-10-18] MEDS: diphenhydrAMINE HCL 25 MG TABLET 50 MG PO (01:03)
[2021-10-18] MEDS: hydrOXYzine HCL 25 MG TABLET PO ×2 (01:03→21:18)
[2021-10-18 08:00] VITALS: BP 121/62; PULSE 96; RESP 18
[2021-10-18] MEDS: predniSONE 20 MG TABLET 5 MG PO (08:27)
[2021-10-18] MEDS: Omeprazole 20 MG CAPSULE.DR PO (08:28)
[2021-10-18] MEDS: Levothyroxine Sodium 50 MCG TABLET PO (08:28)
[2021-10-18] MEDS: Ferrous Sulfate 324 MG TABLET.DR PO (08:28)
[2021-10-18] MEDS: Gabapentin 400 MG CAPSULE PO ×3 (08:28→21:00)
[2021-10-18] MEDS: Folic Acid 1 MG TABLET PO (08:28)
[2021-10-18] MEDS: Acetaminophen 325 MG TABLET 650 MG PO ×2 (08:29→17:03)
[2021-10-18] MEDS: Docusate Sodium 100 MG CAPSULE PO ×2 (08:29→20:56)
[2021-10-18] MEDS: HaloperidoL 5 MG TABLET PO ×2 (08:29→20:59)
[2021-10-18 08:30] LABS: MANUAL DIFF FLAG NO
[2021-10-18 08:39] LABS: Basophils Absolute Auto 0.1 X10*3/uL (0.0-0.2); Basophils Percent Auto 0.4 % (0-2); Eosinophils Absolute Auto 0.2 X10*3/uL (0.0-0.4); Eosinophils Percent Auto 1.3 % (0-4); Hematocrit 27.3 % (37.0-47.0); Hemoglobin 8.8 g/dl (12.0-16.0); Imm Gran Abs Auto 0.14 X10*3/uL (0.00-0.03); Imm Gran Pct Auto 1.2 % (0.0-0.4); Lymphocytes Absolute Auto 2.3 X10*3/uL (1.2-4.9); Lymphocytes Percent Auto 19.6 % (20-40); Mean Corpuscular HGB Conc 32.2 g/dl (31.0-35.0); Mean Corpuscular Hemoglobin 31.3 pg (27.0-33.0); Mean Corpuscular Volume 97.2 fL (80.0-98.0); Mean Platelet Volume 9.7 fL (9.4-12.3); Monocytes Absolute Auto 1.2 X10*3/uL (0.1-1.2); Monocytes Percent Auto 10.4 % (2-11); Neutrophils Absolute Auto 7.7 x10*3/uL (2.0-8.3); Neutrophils Percent Auto 67.1 % (45-73); Platelet Count 330 X10*3/uL (160-400); Red Blood Count 2.81 X10*6/uL (4.20-5.50); Red Cell Distribution Width 13.7 % (11.0-16.0); White Blood Count 11.5 X10*3/uL (4.8-10.8)
[2021-10-18 09:04] LABS: Lithium 0.17 mmol/L (0.60-1.20)
[2021-10-18 09:17] LABS: Alanine Aminotransferase 15 U/L (0-31); Albumin Level 3.3 g/dL (3.5-5.0); Alkaline Phosphatase 97 U/L (39-117); Anion Gap 15 (12-20); Aspartate Amino Transferase 28 U/L (5-31); Bilirubin Total < 0.2 mg/dL (0.0-1.0); Blood Urea Nitrogen 36 mg/dL (9-16); Calcium 9.4 mg/dL (8.4-10.2); Carbon Dioxide 25 mmol/L (22-29); Chloride 104 mmol/L (96-108); Creatinine Clr Calc Pharmacy 51.6; Estimated Glomerular Filt Rate 45; Glucose Random 81 mg/dL (60-115); Potassium 4.4 mmol/L (3.3-5.1); Sodium 140 mmol/L (135-145); Total Protein 6.6 g/dL (6.5-8.0)
[2021-10-18 09:36] LABS: Valproate 22.8 mcg/mL (50.0-100.0)
[2021-10-18 16:00] VITALS: BP 152/65; PULSE 103; RESP 16; TEMP 36.1; O2SAT 96
--- NOTE | 2021-10-18 17:17 | P.PNPSI_ITS ---
Subjective Subjective Date of Service: 10/18/21 Reason For Visit: Manic Subjective Notes: Conditional Voluntary and 3 Day (retracted) Healthcare Proxy: No Guardianship: No Medical Problems Affecting Mental Status: Yes Interim History: WBC elevated, RBC, HCT, HGB decreased BUN 36, Valproate 22.8. [place] 0.17. Initiated with pt a discussion regarding subacute admit prior to going home for increase in strengthening, PT and increased time to heal. Pt to consider. Some yelling this a.m. States she is talking with her brother. Aware she is not strong enough to return home at this time. Ambulating later in the day, reports feeling weak at times. Will decrease prn dosing in addition. Medication Compliance: Yes Side effects from medications: No Attending Groups: No Review of Systems Acute medical concerns: No Medical Review of Systems: unchanged Mental Status Exam Mental Status Exam Patient Appearance: Fatigued Patient Orientation: Person, Place, Time and Situation Level of Consciousness: Alert Patient Behavior: Appropriate, Talkative, Cooperative, Confused and Good Eye Contact Mood Description: Flat Affect Description: Flat Patient Cognition Impaired: No Ability to Follow Directions: Good Speech Pattern: Impoverished and Spontaneous Speech Memory Description: Episodic Impaired Hallucinations: None Delusions: Not Present Thought Process: Distracted and Goal Oriented Thought Content: positive for Goal Oriented Depressive Symptoms: Increased Fatigue, Loss of Energy and Difficulty Concentrating Judgement: Fair Diagnostics Vital Signs (24Hr): Vital Signs - 24 hr 10/18/21 08:00 Pulse Rate 96 Respiratory Rate 18 Blood Pressure 121/62 Oxygen Delivery Method Room Air BMI result Body Mass Index 25.5 Labs Results: 10/18/21 08:17 10/18/21 08:17 Labs: Laboratory Results - last 48 hr 10/18/21 10/18/21 10/18/21 08:17 08:17 08:17 WBC 11.5 H RBC 2.81 L Hgb 8.8 L Hct 27.3 L MCV 97.2 MCH 31.3 MCHC 32.2 RDW 13.7 Plt Count 330 D MPV 9.7 Immature Gran % (Auto) 1.2 H Neut % (Auto) 67.1 Lymph % (Auto) 19.6 L [place] % (Auto) 10.4 Eos % (Auto) 1.3 Baso % (Auto) 0.4 Lymph # (Auto) 2.3 [place] # (Auto) 1.2 Eos # (Auto) 0.2 Baso # (Auto) 0.1 Abs Immat Gran (auto) 0.14 H Absolute Neuts (auto) 7.7 Absolute Nucleated RBC 0.000 Nucleated RBC % (auto) 0.0 Sodium 140 Potassium 4.4 Chloride 104 Carbon Dioxide 25 Anion Gap 15 BUN 36 H Creatinine 1.21 Estim Creat Clear Calc 51.6 Estimated GFR 45 Random Glucose 81 Calcium 9.4 Total Bilirubin < 0.2 AST 28 ALT 15 Alkaline Phosphatase 97 Total Protein 6.6 Albumin 3.3 L Valproic Acid 22.8 L [place] 0.17 L Medications Medications Current Medications Acetaminophen (Acetaminophen 325 Mg Tablet) 650 mg PO Q6H PRN PRN Reason: Headache/Pain Mild Scale (1-3) Last Admin: 10/18/21 08:29 Dose: 650 mg Al Hydroxide/Mg Hydroxide (Magnesium Hydrox/Alum Hydrox 30 Ml Oral.Susp) 30 ml PO Q6H PRN PRN Reason: Heartburn/Nausea Last Admin: 09/29/21 18:33 Dose: 30 ml Chlorpromazine HCl (Chlorpromazine Hcl 25 Mg Tablet) 50 mg PO BEDTIME PRN PRN Reason: anxiety, agitation Last Admin: 10/15/21 23:42 Dose: 50 mg Cyclobenzaprine HCl (Cyclobenzaprine Hcl 10 Mg Tablet) 10 mg PO TID PRN PRN Reason: Pain, Moderate (Pain Scale 4-6 Last Admin: 10/18/21 01:02 Dose: 10 mg Diphenhydramine HCl (Diphenhydramine Hcl 25 Mg Tablet) 50 mg PO BEDTIME PRN PRN Reason: Sleep Last Admin: 10/18/21 01:03 Dose: 50 mg Divalproex Sodium (Divalproex Sodium 250 Mg Tablet.) 750 mg PO 1700 REPLACED BY [facility] Docusate Sodium (Docusate Sodium 100 Mg Capsule) 100 mg PO BID REPLACED BY [facility] Last Admin: 10/18/21 08:29 Dose: 100 mg Ferrous Sulfate (Ferrous Sulfate 324 Mg Tablet.) 324 mg PO DAILY REPLACED BY [facility] Last Admin: 10/18/21 08:28 Dose: 324 mg Folic Acid (Folic Acid 1 Mg Tablet) 1 mg PO DAILY REPLACED BY [facility] Last Admin: 10/18/21 08:28 Dose: 1 mg Gabapentin (Gabapentin 400 Mg Capsule) 400 mg PO TID REPLACED BY [facility] Last Admin: 10/18/21 14:00 Dose: 400 mg Gabapentin (Gabapentin 300 Mg Capsule) 300 mg PO BID PRN PRN Reason: mod pain Last Admin: 10/17/21 19:22 Dose: 300 mg Haloperidol (Haloperidol 5 Mg Tablet) 5 mg PO BID REPLACED BY [facility] Last Admin: 10/18/21 08:29 Dose: 5 mg Hydroxyzine HCl (Hydroxyzine Hcl 25 Mg Tablet) 25 mg PO Q6H PRN PRN Reason: anxiety Last Admin: 10/18/21 01:03 Dose: 25 mg Levothyroxine Sodium (Levothyroxine Sodium 50 Mcg Tablet) 50 mcg PO DAILY@0600 REPLACED BY [facility] Last Admin: 10/18/21 08:28 Dose: 50 mcg [place] Carbonate ([place] Carbonate 300 Mg Tablet) 150 mg PO BEDTIME REPLACED BY [facility] Last Admin: 10/17/21 19:21 Dose: 150 mg Magnesium Hydroxide (Milk Of Magnesia 30 Ml Oral.Susp) 30 ml PO DAILY PRN PRN Reason: Constipation Nicotine (Nicotine 14 Mg Patch.Td24) 14 mg TRANSDERMA DAILY REPLACED BY [facility] Last Admin: 10/18/21 08:30 Dose: Not Given Nicotine Polacrilex (Nicotine Polacrilex Lozenge 2 Mg Lozenge) 2 mg BUCCAL Q2H PRN PRN Reason: Nicotine Cravings Pt Own Enbrel ( (Etanercept 50 Mg)) 50 mg SUBCUT Q7D REPLACED BY [facility] Last Admin: 10/13/21 15:44 Dose: 50 mg Nystatin (Nystatin Cream 15 Gm Tube) 1 appl TOPICAL BID REPLACED BY [facility]; Protocol Last Admin: 10/18/21 08:30 Dose: Not Given Omeprazole (Omeprazole 20 Mg Capsule.Dr) 20 mg PO DAILY@0630 REPLACED BY [facility] Last Admin: 10/18/21 08:28 Dose: 20 mg Prednisone (Prednisone 20 Mg Tablet) 10 mg PO DAILY REPLACED BY [facility]; Taper Stop: 10/24/21 14:44 Last Admin: 10/18/21 08:27 Dose: 10 mg Propranolol HCl (Propranolol Hcl 10 Mg Tablet) 10 mg PO TID PRN; Protocol PRN Reason: anxiety, akathesia Last Admin: 10/15/21 01:55 Dose: 10 mg Senna (Sennosides 8.6 Mg Tablet) 17.2 mg PO BEDTIME REPLACED BY [facility] Last Admin: 10/17/21 19:24 Dose: Not Given Trazodone HCl (Trazodone Hcl 50 Mg Tablet) 50 mg PO BEDTIME PRN PRN Reason: Insomnia Last Admin: 10/16/21 01:35 Dose: 50 mg Trolamine Salicylate (Trolamine Salicylate 10 % Cream 85 Gm Tube) 1 appl TOPICAL TID PRN; Protocol PRN Reason: arthtiric pain Last Admin: 10/11/21 20:50 Dose: 1 appl Allergies Allergies Allergy/AdvReac Type Severity Reaction Status Date / Time lithium AdvReac Intermediate CKD Verified 09/28/21 11:34 Assessment & Plan Assessment & Plan (1) Psoriatic arthritis: Status: Acute Code(s): L40.50 - Arthropathic psoriasis, unspecified (2) Bipolar 1 disorder: Status: Acute Code(s): F31.9 - Bipolar disorder, unspecified Assessment and Plan: Continue current regime and plan of care. 10/10/21- Increase Depakote to 1000 mg daily Increase Haldol to 10 mg bid 10/12/21- Continue current regime 10/15/21- Continue current regime 10/18/21- Decrease prn dosing of hydroxyzine, gabapentin, benadryl, flexoril. Encourage pt to consider subacute rehab to continue her strengthening regime. Plan 60 year old female with history significant for bipolar illness, hypothyroidism, pancytopenia, GERD, stable CKD stage 3 secondary to lithium use, and rheumatoid arthritis admitted to psychiatry being consulted on for intractable pain, stage 1 pressure ulcer of buttock, and decreased level of functioning. 1- Psoriatic arthritis/Rheumatoid arthritis -Polyarthralgia related to acute flare up following several months without enbrel, which was resumed last week but can take several weeks to become effective. Suspect pain and inability to walk is not solely related to the psoriatic/rheumatoid arthritis but also current psychiatric state. She needs to get out of bed. -Recommend PT consult to assist with this which will also help prevent ulceration of the coccyx. Possible stage 1 pressure ulcer of coccyx has been evaluated by wound care. Recommend repositioning and getting OOB -Discussed patient with rheumatology. Recommend prednisone 20mg x 5 days, then 10mg x5 days, then 5mg x 5 days for acute RA flareup which is ordered. Discharge with remainder of taper if not completed during admission. Can continue tylenol prn -Continue enbrel weekly per rheumatology 2- CKD stage 3- stable -Continue monitoring renal function with lithium use 3- Hypothyroidism- stable -Continue levothyroxine 4-Pancytopenia- chronic and stable -Recommend discussion with rheumatology regarding CBC monitoring with enbrel being resumed 5-Bipolar disorder -continue plan as outlined by psychiatry I spent minutes with the patient and/or on the patient floor today, greater than?50% of which was spent counseling/coordinating care. Patient educated on: therapeutic strategies Informed Consent: further education needed Reason for contiued inpatient stay Substantial Risk for: med/psych decompensation
--- NOTE | 2021-10-18 19:14 | PC.NURSE ---
Patient refused 1700 Depakote 750 mg po because I don't like the way it makes me feel.
[2021-10-18] MEDS: Sennosides 8.6 MG TABLET 17.2 MG PO (20:56)
[2021-10-18] MEDS: Lithium Carbonate 300 MG TABLET 150 MG PO (20:56)
[2021-10-18] MEDS: Cyclobenzaprine HCl 5 MG TABLET PO (21:20)
--- NOTE | 2021-10-18 22:02 | PC.NURSE ---
Patient signed another 3 day notice today 10/18/21, . Will be up Saturday10/24/21
[2021-10-18] MEDS: diphenhydrAMINE HCL 25 MG TABLET PO (22:35)
[2021-10-18] MEDS: chlorproMAZINE HCl 25 MG TABLET 50 MG PO (23:51)
[2021-10-18] MEDS: traZODone HCL 50 MG TABLET PO (23:51)
[2021-10-19] MEDS: Gabapentin 100 MG CAPSULE PO (01:21)
[2021-10-19 08:00] VITALS: BP 134/63; PULSE 104; RESP 16; TEMP 36.4; O2SAT 98
[2021-10-19] MEDS: Folic Acid 1 MG TABLET PO (08:26)
[2021-10-19] MEDS: Ferrous Sulfate 324 MG TABLET.DR PO (08:26)
[2021-10-19] MEDS: predniSONE 20 MG TABLET 5 MG PO (08:26)
[2021-10-19] MEDS: Docusate Sodium 100 MG CAPSULE PO ×2 (08:27→19:40)
[2021-10-19] MEDS: Levothyroxine Sodium 50 MCG TABLET PO (08:27)
[2021-10-19] MEDS: Omeprazole 20 MG CAPSULE.DR PO (08:27)
[2021-10-19] MEDS: Gabapentin 400 MG CAPSULE PO ×3 (08:27→19:40)
[2021-10-19] MEDS: HaloperidoL 5 MG TABLET PO ×2 (08:28→19:40)
[2021-10-19] MEDS: Nystatin Cream 15 GM TUBE 1 APPL TOPICAL (09:23)
[2021-10-19] MEDS: Acetaminophen 325 MG TABLET 650 MG PO ×2 (10:45→20:36)
[2021-10-19 12:42] LABS: Creatinine Urine 23.51 mg/dL; Total Protein Urine Random < 7 mg/dL (<12)
[2021-10-19] MEDS: Cyclobenzaprine HCl 5 MG TABLET PO (13:00)
[2021-10-19] MEDS: Divalproex Sodium 250 MG TABLET.DR 750 MG PO (16:13)
--- NOTE | 2021-10-19 16:16 | P.PNPSI_ITS ---
Subjective Subjective Date of Service: 10/19/21 Reason For Visit: Manic Subjective Notes: 3 Day (retract) Interim History: Retracted TDN, then re-submitted. Discussed with pt if she would agree to subacute rehab as she has experienced deconditioning and is inconsistent currently in progress-some days are clearly with more abilities than others along with inconsistent needs for help. Meds have been decreased along with prn's, labs completed. Pt continues with some lability of her mood, sleeps more during the day than at night. Confusion is intermittent at times. Discussed with pt, and she will consider this option, stating is is a sensible suggestion. Medication Compliance: Yes Side effects from medications: No Attending Groups: Intermittent Review of Systems Acute medical concerns: No chronic pain Medical Review of Systems: unchanged Mental Status Exam Mental Status Exam Patient Appearance: Fatigued Patient Orientation: Person, Place, Time and Situation Level of Consciousness: Alert Patient Behavior: Appropriate, Talkative, Cooperative, Confused and Good Eye Contact Mood Description: Flat Affect Description: Flat Patient Cognition Impaired: No Ability to Follow Directions: Good Speech Pattern: Impoverished and Spontaneous Speech Memory Description: Episodic Impaired Hallucinations: None Delusions: Not Present Thought Process: Distracted and Goal Oriented Thought Content: positive for Goal Oriented Depressive Symptoms: Increased Fatigue, Loss of Energy and Difficulty Concentrating Judgement: Fair Diagnostics Vital Signs (24Hr): Vital Signs - 24 hr 10/19/21 08:00 Temperature 97.5 F Pulse Rate 104 H Respiratory Rate 16 Blood Pressure 134/63 Pulse Oximetry 98 Oxygen Delivery Method Room Air BMI result Body Mass Index 25.5 Labs Results: 10/18/21 08:17 10/18/21 08:17 Labs: Laboratory Results - last 48 hr 10/18/21 10/18/21 10/18/21 08:17 08:17 08:17 WBC 11.5 H RBC 2.81 L Hgb 8.8 L Hct 27.3 L MCV 97.2 MCH 31.3 MCHC 32.2 RDW 13.7 Plt Count 330 D MPV 9.7 Immature Gran % (Auto) 1.2 H Neut % (Auto) 67.1 Lymph % (Auto) 19.6 L [place] % (Auto) 10.4 Eos % (Auto) 1.3 Baso % (Auto) 0.4 Lymph # (Auto) 2.3 [place] # (Auto) 1.2 Eos # (Auto) 0.2 Baso # (Auto) 0.1 Abs Immat Gran (auto) 0.14 H Absolute Neuts (auto) 7.7 Absolute Nucleated RBC 0.000 Nucleated RBC % (auto) 0.0 Sodium 140 Potassium 4.4 Chloride 104 Carbon Dioxide 25 Anion Gap 15 BUN 36 H Creatinine 1.21 Estim Creat Clear Calc 51.6 Estimated GFR 45 Random Glucose 81 Calcium 9.4 Total Bilirubin < 0.2 AST 28 ALT 15 Alkaline Phosphatase 97 Total Protein 6.6 Albumin 3.3 L U Random Total Protein Urine Creatinine Valproic Acid 22.8 L [place] 0.17 L 10/19/21 11:04 WBC RBC Hgb Hct MCV MCH MCHC RDW Plt Count MPV Immature Gran % (Auto) Neut % (Auto) Lymph % (Auto) [place] % (Auto) Eos % (Auto) Baso % (Auto) Lymph # (Auto) [place] # (Auto) Eos # (Auto) Baso # (Auto) Abs Immat Gran (auto) Absolute Neuts (auto) Absolute Nucleated RBC Nucleated RBC % (auto) Sodium Potassium Chloride Carbon Dioxide Anion Gap BUN Creatinine Estim Creat Clear Calc Estimated GFR Random Glucose Calcium Total Bilirubin AST ALT Alkaline Phosphatase Total Protein Albumin U Random Total Protein < 7 Urine Creatinine 23.51 Valproic Acid [place] Medications Medications Current Medications Acetaminophen (Acetaminophen 325 Mg Tablet) 650 mg PO Q6H PRN PRN Reason: Headache/Pain Mild Scale (1-3) Last Admin: 10/19/21 10:45 Dose: 650 mg Al Hydroxide/Mg Hydroxide (Magnesium Hydrox/Alum Hydrox 30 Ml Oral.Susp) 30 ml PO Q6H PRN PRN Reason: Heartburn/Nausea Last Admin: 09/29/21 18:33 Dose: 30 ml Chlorpromazine HCl (Chlorpromazine Hcl 25 Mg Tablet) 50 mg PO BEDTIME PRN PRN Reason: anxiety, agitation Last Admin: 10/18/21 23:51 Dose: 50 mg Cyclobenzaprine HCl (Cyclobenzaprine Hcl 5 Mg Tablet) 5 mg PO TID PRN PRN Reason: Pain, Moderate (Pain Scale 4-6 Last Admin: 10/19/21 13:00 Dose: 5 mg Diphenhydramine HCl (Diphenhydramine Hcl 25 Mg Tablet) 25 mg PO BEDTIME PRN PRN Reason: Sleep Last Admin: 10/18/21 22:35 Dose: 25 mg Divalproex Sodium (Divalproex Sodium 250 Mg Tablet.) 750 mg PO 1700 [facility] Last Admin: 10/19/21 16:13 Dose: 750 mg Docusate Sodium (Docusate Sodium 100 Mg Capsule) 100 mg PO BID [facility] Last Admin: 10/19/21 08:27 Dose: 100 mg Ferrous Sulfate (Ferrous Sulfate 324 Mg Tablet.) 324 mg PO DAILY [facility] Last Admin: 10/19/21 08:26 Dose: 324 mg Folic Acid (Folic Acid 1 Mg Tablet) 1 mg PO DAILY [facility] Last Admin: 10/19/21 08:26 Dose: 1 mg Gabapentin (Gabapentin 400 Mg Capsule) 400 mg PO TID [facility] Last Admin: 10/19/21 14:09 Dose: 400 mg Gabapentin (Gabapentin 100 Mg Capsule) 100 mg PO BID PRN PRN Reason: mod pain Last Admin: 10/19/21 01:21 Dose: 100 mg Haloperidol (Haloperidol 5 Mg Tablet) 5 mg PO BID [facility] Last Admin: 10/19/21 08:28 Dose: 5 mg Hydroxyzine HCl (Hydroxyzine Hcl 25 Mg Tablet) 25 mg PO BID PRN PRN Reason: anxiety Last Admin: 10/18/21 21:18 Dose: 25 mg Levothyroxine Sodium (Levothyroxine Sodium 50 Mcg Tablet) 50 mcg PO DAILY@0600 [facility] Last Admin: 10/19/21 08:27 Dose: 50 mcg [place] Carbonate ([place] Carbonate 300 Mg Tablet) 150 mg PO BEDTIME [facility] Last Admin: 10/18/21 20:56 Dose: 150 mg Magnesium Hydroxide (Milk Of Magnesia 30 Ml Oral.Susp) 30 ml PO DAILY PRN PRN Reason: Constipation Nicotine (Nicotine 14 Mg Patch.Td24) 14 mg TRANSDERMA DAILY [facility] Last Admin: 10/19/21 08:28 Dose: Not Given Nicotine Polacrilex (Nicotine Polacrilex Lozenge 2 Mg Lozenge) 2 mg BUCCAL Q2H PRN PRN Reason: Nicotine Cravings Pt Own Enbrel ( (Etanercept 50 Mg)) 50 mg SUBCUT Q7D [facility] Last Admin: 10/13/21 15:44 Dose: 50 mg Nystatin (Nystatin Cream 15 Gm Tube) 1 appl TOPICAL BID [facility]; Protocol Last Admin: 10/19/21 09:23 Dose: 1 appl Omeprazole (Omeprazole 20 Mg Capsule.) 20 mg PO DAILY@0630 [facility] Last Admin: 10/19/21 08:27 Dose: 20 mg Prednisone (Prednisone 20 Mg Tablet) 5 mg PO DAILY [facility]; Taper Stop: 10/24/21 14:44 Last Admin: 10/19/21 08:26 Dose: 10 mg Propranolol HCl (Propranolol Hcl 10 Mg Tablet) 10 mg PO TID PRN; Protocol PRN Reason: anxiety, akathesia Last Admin: 10/15/21 01:55 Dose: 10 mg Senna (Sennosides 8.6 Mg Tablet) 17.2 mg PO BEDTIME [facility] Last Admin: 10/18/21 20:56 Dose: 17.2 mg Trazodone HCl (Trazodone Hcl 50 Mg Tablet) 50 mg PO BEDTIME PRN PRN Reason: Insomnia Last Admin: 10/18/21 23:51 Dose: 50 mg Trolamine Salicylate (Trolamine Salicylate 10 % Cream 85 Gm Tube) 1 appl TOPICAL TID PRN; Protocol PRN Reason: arthtiric pain Last Admin: 10/11/21 20:50 Dose: 1 appl Allergies Allergies Allergy/AdvReac Type Severity Reaction Status Date / Time lithium AdvReac Intermediate CKD Verified 09/28/21 11:34 Assessment & Plan Assessment & Plan (1) Psoriatic arthritis: Status: Acute Code(s): L40.50 - Arthropathic psoriasis, unspecified (2) Bipolar 1 disorder: Status: Acute Code(s): F31.9 - Bipolar disorder, unspecified Assessment and Plan: Continue current regime and plan of care. 10/10/21- Increase Depakote to 1000 mg daily Increase Haldol to 10 mg bid 10/12/21- Continue current regime 10/15/21- Continue current regime 10/18/21- Decrease prn dosing of hydroxyzine, gabapentin, benadryl, flexoril. Encourage pt to consider subacute rehab to continue her strengthening regime. 10/19/21- Continue current regime with decreases. Monitor, Screen for subacute rehab. Plan 60 year old female with history significant for bipolar illness, hypothyroidism, pancytopenia, GERD, stable CKD stage 3 secondary to lithium use, and rheumatoid arthritis admitted to psychiatry being consulted on for intractable pain, stage 1 pressure ulcer of buttock, and decreased level of functioning. 1- Psoriatic arthritis/Rheumatoid arthritis -Polyarthralgia related to acute flare up following several months without enbrel, which was resumed last week but can take several weeks to become effective. Suspect pain and inability to walk is not solely related to the psoriatic/rheumatoid arthritis but also current psychiatric state. She needs to get out of bed. -Recommend PT consult to assist with this which will also help prevent ulceration of the coccyx. Possible stage 1 pressure ulcer of coccyx has been evaluated by wound care. Recommend repositioning and getting OOB -Discussed patient with rheumatology. Recommend prednisone 20mg x 5 days, then 10mg x5 days, then 5mg x 5 days for acute RA flareup which is ordered. Discharge with remainder of taper if not completed during admission. Can continue tylenol prn -Continue enbrel weekly per rheumatology 2- CKD stage 3- stable -Continue monitoring renal function with lithium use 3- Hypothyroidism- stable -Continue levothyroxine 4-Pancytopenia- chronic and stable -Recommend discussion with rheumatology regarding CBC monitoring with enbrel being resumed 5-Bipolar disorder -continue plan as outlined by psychiatry I spent minutes with the patient and/or on the patient floor today, greater than?50% of which was spent counseling/coordinating care. Patient educated on: medication risk/benefits and therapeutic strategies Informed Consent: further education needed Reason for contiued inpatient stay Substantial Risk for: inability to function, rapid decompensation and med/psych decompensation
[2021-10-19] MEDS: Lithium Carbonate 300 MG TABLET 150 MG PO (19:40)
[2021-10-19] MEDS: diphenhydrAMINE HCL 25 MG TABLET PO (23:18)
[2021-10-19] MEDS: traZODone HCL 50 MG TABLET PO (23:18)
[2021-10-20] MEDS: Acetaminophen 325 MG TABLET 650 MG PO (05:31)
[2021-10-20] MEDS: Omeprazole 20 MG CAPSULE.DR PO (05:31)
[2021-10-20] MEDS: hydrOXYzine HCL 25 MG TABLET PO (05:35)
[2021-10-20] MEDS: Cyclobenzaprine HCl 5 MG TABLET PO ×2 (05:36→13:48)
[2021-10-20] MEDS: Levothyroxine Sodium 50 MCG TABLET PO (05:36)
[2021-10-20] MEDS: Gabapentin 100 MG CAPSULE PO (05:37)
[2021-10-20 08:23] VITALS: BP 125/70; PULSE 99; RESP 18; TEMP 36.8; O2SAT 99
[2021-10-20] MEDS: Folic Acid 1 MG TABLET PO (08:25)
[2021-10-20] MEDS: Docusate Sodium 100 MG CAPSULE PO ×2 (08:25→19:00)
[2021-10-20] MEDS: Gabapentin 400 MG CAPSULE PO ×3 (08:25→19:00)
[2021-10-20] MEDS: Ferrous Sulfate 324 MG TABLET.DR PO (08:25)
[2021-10-20] MEDS: HaloperidoL 5 MG TABLET PO ×2 (08:26→19:00)
[2021-10-20 10:14] VITALS: BP 125/70; PULSE 99; O2SAT 99
[2021-10-20] MEDS: predniSONE 5 MG TABLET PO (10:45)
--- NOTE | 2021-10-20 13:54 | P.PNPSI_ITS ---
Subjective Subjective Date of Service: 10/20/21 Reason For Visit: Manic Subjective Notes: 3 Day Interim History: Pt asks to return to Paxil and [place]. Reviewed why these agents were stopped during July admission. Today, lapses in memory evident-no recall of disco ntinuation of Paxil, decrease of [place] in July 2021 and renal rationale. Irritable, but visable in milieu-did attend group and appeared attentive to process and peers. Requires assist in ADL's and in using the bathroom. Medication Compliance: Yes Side effects from medications: No Attending Groups: Intermittent Review of Systems Acute medical concerns: No Medical Review of Systems: unchanged Mental Status Exam Mental Status Exam Patient Appearance: Fatigued Patient Orientation: Person, Place, Time and Situation Level of Consciousness: Alert Patient Behavior: Appropriate, Talkative, Cooperative, Confused and Good Eye Contact Mood Description: Flat Affect Description: Flat Patient Cognition Impaired: No Ability to Follow Directions: Good Speech Pattern: Impoverished and Spontaneous Speech Memory Description: Episodic Impaired Hallucinations: None Delusions: Not Present Thought Process: Distracted and Goal Oriented Thought Content: positive for Goal Oriented Depressive Symptoms: Increased Fatigue, Loss of Energy and Difficulty Concentrating Judgement: Fair Diagnostics Vital Signs (24Hr): Vital Signs - 24 hr 10/20/21 08:23 10/20/21 10:14 Temperature 98.2 F Pulse Rate 99 99 Respiratory Rate 18 Blood Pressure 125/70 125/70 Pulse Oximetry 99 99 Oxygen Delivery Method Room Air BMI result Body Mass Index 25.5 Labs Results: 10/18/21 08:17 10/18/21 08:17 Labs: Laboratory Results - last 48 hr 10/19/21 11:04 U Random Total Protein < 7 Urine Creatinine 23.51 Medications Medications Current Medications Acetaminophen (Acetaminophen 325 Mg Tablet) 650 mg PO Q6H PRN PRN Reason: Headache/Pain Mild Scale (1-3) Last Admin: 10/20/21 05:31 Dose: 650 mg Al Hydroxide/Mg Hydroxide (Magnesium Hydrox/Alum Hydrox 30 Ml Oral.Susp) 30 ml PO Q6H PRN PRN Reason: Heartburn/Nausea Last Admin: 09/29/21 18:33 Dose: 30 ml Chlorpromazine HCl (Chlorpromazine Hcl 25 Mg Tablet) 50 mg PO BEDTIME PRN PRN Reason: anxiety, agitation Last Admin: 10/18/21 23:51 Dose: 50 mg Cyclobenzaprine HCl (Cyclobenzaprine Hcl 5 Mg Tablet) 5 mg PO TID PRN PRN Reason: Pain, Moderate (Pain Scale 4-6 Last Admin: 10/20/21 13:48 Dose: 5 mg Diphenhydramine HCl (Diphenhydramine Hcl 25 Mg Tablet) 25 mg PO BEDTIME PRN PRN Reason: Sleep Last Admin: 10/19/21 23:18 Dose: 25 mg Divalproex Sodium (Divalproex Sodium 250 Mg Tablet.) 750 mg PO 1700 [facility] Last Admin: 10/19/21 16:13 Dose: 750 mg Docusate Sodium (Docusate Sodium 100 Mg Capsule) 100 mg PO BID [facility] Last Admin: 10/20/21 08:25 Dose: 100 mg Ferrous Sulfate (Ferrous Sulfate 324 Mg Tablet.) 324 mg PO DAILY [facility] Last Admin: 10/20/21 08:25 Dose: 324 mg Folic Acid (Folic Acid 1 Mg Tablet) 1 mg PO DAILY [facility] Last Admin: 10/20/21 08:25 Dose: 1 mg Gabapentin (Gabapentin 400 Mg Capsule) 400 mg PO TID [facility] Last Admin: 10/20/21 08:25 Dose: 400 mg Gabapentin (Gabapentin 100 Mg Capsule) 100 mg PO BID PRN PRN Reason: mod pain Last Admin: 10/20/21 05:37 Dose: 100 mg Haloperidol (Haloperidol 5 Mg Tablet) 5 mg PO BID [facility] Last Admin: 10/20/21 08:26 Dose: 5 mg Hydroxyzine HCl (Hydroxyzine Hcl 25 Mg Tablet) 25 mg PO BID PRN PRN Reason: anxiety Last Admin: 10/20/21 05:35 Dose: 25 mg Levothyroxine Sodium (Levothyroxine Sodium 50 Mcg Tablet) 50 mcg PO DAILY@0600 [facility] Last Admin: 10/20/21 05:36 Dose: 50 mcg [place] Carbonate ([place] Carbonate 300 Mg Tablet) 150 mg PO BEDTIME [facility] Last Admin: 10/19/21 19:40 Dose: 150 mg Magnesium Hydroxide (Milk Of Magnesia 30 Ml Oral.Susp) 30 ml PO DAILY PRN PRN Reason: Constipation Nicotine (Nicotine 14 Mg Patch.Td24) 14 mg TRANSDERMA DAILY [facility] Last Admin: 10/20/21 09:02 Dose: Not Given Nicotine Polacrilex (Nicotine Polacrilex Lozenge 2 Mg Lozenge) 2 mg BUCCAL Q2H PRN PRN Reason: Nicotine Cravings Pt Own Enbrel ( (Etanercept 50 Mg)) 50 mg SUBCUT Q7D [facility] Last Admin: 10/13/21 15:44 Dose: 50 mg Nystatin (Nystatin Cream 15 Gm Tube) 1 appl TOPICAL BID [facility]; Protocol Last Admin: 10/20/21 09:04 Dose: Not Given Omeprazole (Omeprazole 20 Mg Capsule.Dr) 20 mg PO DAILY@0630 [facility] Last Admin: 10/20/21 05:31 Dose: 20 mg Prednisone (Prednisone 5 Mg Tablet) 5 mg PO DAILY [facility] Stop: 10/24/21 09:14 Last Admin: 10/20/21 10:45 Dose: 5 mg Propranolol HCl (Propranolol Hcl 10 Mg Tablet) 10 mg PO TID PRN; Protocol PRN Reason: anxiety, akathesia Last Admin: 10/15/21 01:55 Dose: 10 mg Senna (Sennosides 8.6 Mg Tablet) 17.2 mg PO BEDTIME [facility] Last Admin: 10/19/21 19:46 Dose: Not Given Trazodone HCl (Trazodone Hcl 50 Mg Tablet) 50 mg PO BEDTIME PRN PRN Reason: Insomnia Last Admin: 10/19/21 23:18 Dose: 50 mg Trolamine Salicylate (Trolamine Salicylate 10 % Cream 85 Gm Tube) 1 appl TOPICAL TID PRN; Protocol PRN Reason: arthtiric pain Last Admin: 10/11/21 20:50 Dose: 1 appl Allergies Allergies Allergy/AdvReac Type Severity Reaction Status Date / Time lithium AdvReac Intermediate CKD Verified 09/28/21 11:34 Assessment & Plan Assessment & Plan (1) Psoriatic arthritis: Status: Acute Code(s): L40.50 - Arthropathic psoriasis, unspecified (2) Bipolar 1 disorder: Status: Acute Code(s): F31.9 - Bipolar disorder, unspecified Assessment and Plan: Continue current regime and plan of care. 10/10/21- Increase Depakote to 1000 mg daily Increase Haldol to 10 mg bid 10/12/21- Continue current regime 10/15/21- Continue current regime 10/18/21- Decrease prn dosing of hydroxyzine, gabapentin, benadryl, flexoril. Encourage pt to consider subacute rehab to continue her strengthening regime. 10/20/21- No new changes today. Plan 60 year old female with history significant for bipolar illness, hypothyroidism, pancytopenia, GERD, stable CKD stage 3 secondary to lithium use, and rheumatoid arthritis admitted to psychiatry being consulted on for intractable pain, stage 1 pressure ulcer of buttock, and decreased level of functioning. 1- Psoriatic arthritis/Rheumatoid arthritis -Polyarthralgia related to acute flare up following several months without enbrel, which was resumed last week but can take several weeks to become effective. Suspect pain and inability to walk is not solely related to the psoriatic/rheumatoid arthritis but also current psychiatric state. She needs to get out of bed. -Recommend PT consult to assist with this which will also help prevent ulceration of the coccyx. Possible stage 1 pressure ulcer of coccyx has been evaluated by wound care. Recommend repositioning and getting OOB -Discussed patient with rheumatology. Recommend prednisone 20mg x 5 days, then 10mg x5 days, then 5mg x 5 days for acute RA flareup which is ordered. Discharge with remainder of taper if not completed during admission. Can continue tylenol prn -Continue enbrel weekly per rheumatology 2- CKD stage 3- stable -Continue monitoring renal function with lithium use 3- Hypothyroidism- stable -Continue levothyroxine 4-Pancytopenia- chronic and stable -Recommend discussion with rheumatology regarding CBC monitoring with enbrel being resumed 5-Bipolar disorder -continue plan as outlined by psychiatry I spent minutes with the patient and/or on the patient floor today, greater than?50% of which was spent counseling/coordinating care. Patient educated on: medication risk/benefits Informed Consent: does not understand Reason for contiued inpatient stay Substantial Risk for: med/psych decompensation
[2021-10-20] MEDS: Milk of Magnesia 30 ML ORAL.SUSP PO (14:49)
[2021-10-20] MEDS: Propranolol HCL 10 MG TABLET PO (14:49)
[2021-10-20 16:00] VITALS: BP 139/69; PULSE 98; RESP 18; TEMP 36.8; O2SAT 97
[2021-10-20] MEDS: Divalproex Sodium 250 MG TABLET.DR 750 MG PO (16:01)
[2021-10-20] MEDS: Sennosides 8.6 MG TABLET 17.2 MG PO (19:00)
[2021-10-20] MEDS: Lithium Carbonate 300 MG TABLET 150 MG PO (19:00)
[2021-10-21] MEDS: Acetaminophen 325 MG TABLET 650 MG PO ×4 (00:02→16:49)
[2021-10-21] MEDS: Gabapentin 100 MG CAPSULE PO ×2 (00:04→20:49)
[2021-10-21] MEDS: chlorproMAZINE HCl 25 MG TABLET 50 MG PO (00:08)
[2021-10-21] MEDS: Cyclobenzaprine HCl 5 MG TABLET PO ×2 (00:08→14:31)
[2021-10-21] MEDS: Omeprazole 20 MG CAPSULE.DR PO (05:45)
[2021-10-21] MEDS: Levothyroxine Sodium 50 MCG TABLET PO (05:47)
[2021-10-21] MEDS: hydrOXYzine HCL 25 MG TABLET PO ×2 (06:16→20:49)
[2021-10-21 08:00] VITALS: BP 129/56; PULSE 89; RESP 20; TEMP 37.1; O2SAT 95
[2021-10-21] MEDS: Folic Acid 1 MG TABLET PO (08:34)
[2021-10-21] MEDS: Ferrous Sulfate 324 MG TABLET.DR PO (08:34)
[2021-10-21] MEDS: Gabapentin 400 MG CAPSULE PO ×3 (08:34→20:49)
[2021-10-21] MEDS: HaloperidoL 5 MG TABLET PO ×2 (08:34→20:49)
[2021-10-21] MEDS: predniSONE 5 MG TABLET PO (08:34)
[2021-10-21] MEDS: Docusate Sodium 100 MG CAPSULE PO ×2 (08:34→20:49)
[2021-10-21] MEDS: Divalproex Sodium 250 MG TABLET.DR 750 MG PO (15:46)
[2021-10-21 16:00] VITALS: BP 116/68; PULSE 91
--- NOTE | 2021-10-21 16:24 | HO.PSYCHPN ---
Subjective Subjective Date of Service: 10/21/21 Reason For Visit: Manic Interim History: pt calm, then labile re her pain. states her RA has not been treated, but does acknowledge when MD raises the issue that she has received a dose of her immunotherapy. otherwise focuses on pain, agrees to try scheduled tylenol rather than PRN for now to see if pain can be squelched. no other complaints or requests, feels she needn't be in the hospital and looking forward to expiry of 3-day notice on . denies she is homeless, stating her brother never pursued the restraining order. per staff, c/o RA pain. demanding. poor ADLs. +SI, anxiety. possibly homeless due to restraining order. asking for paxil. Mental Status Exam Mental Status Exam Narrative: Adequately dressed and groomed.? Cooperative, no PMA/PMR.? Speech nml rate, incr amount, nml loudness, nml tone, decr latency.? Thoughts linear and logical.? Affect constricted, normo-intense, mod-labile (tearful).? Mood not assessed? No SI/HI/AVH expressed. Diagnostics Vital Signs (24Hr): Vital Signs - 24 hr 10/21/21 08:00 10/21/21 16:00 Temperature 98.7 F Pulse Rate 89 91 Respiratory Rate 20 Blood Pressure 129/56 L 116/68 Pulse Oximetry 95 Oxygen Delivery Method Room Air BMI result Body Mass Index 25.5 Labs Results: 10/18/21 08:17 10/18/21 08:17 Medications Medications Current Medications Acetaminophen (Acetaminophen 325 Mg Tablet) 650 mg PO DAILY PRN PRN Reason: Headache/Pain Mild Scale (1-3) Al Hydroxide/Mg Hydroxide (Magnesium Hydrox/Alum Hydrox 30 Ml Oral.Susp) 30 ml PO Q6H PRN PRN Reason: Heartburn/Nausea Last Admin: 09/29/21 18:33 Dose: 30 ml Chlorpromazine HCl (Chlorpromazine Hcl 25 Mg Tablet) 50 mg PO BEDTIME PRN PRN Reason: anxiety, agitation Last Admin: 10/21/21 00:08 Dose: 50 mg Cyclobenzaprine HCl (Cyclobenzaprine Hcl 5 Mg Tablet) 5 mg PO TID PRN PRN Reason: Pain, Moderate (Pain Scale 4-6 Last Admin: 10/21/21 14:31 Dose: 5 mg Diphenhydramine HCl (Diphenhydramine Hcl 25 Mg Tablet) 25 mg PO BEDTIME PRN PRN Reason: Sleep Last Admin: 10/19/21 23:18 Dose: 25 mg Divalproex Sodium (Divalproex Sodium 250 Mg Tablet.) 750 mg PO 1700 [facility] Last Admin: 10/21/21 15:46 Dose: 750 mg Docusate Sodium (Docusate Sodium 100 Mg Capsule) 100 mg PO BID [facility] Last Admin: 10/21/21 08:34 Dose: 100 mg Ferrous Sulfate (Ferrous Sulfate 324 Mg Tablet.) 324 mg PO DAILY [facility] Last Admin: 10/21/21 08:34 Dose: 324 mg Folic Acid (Folic Acid 1 Mg Tablet) 1 mg PO DAILY [facility] Last Admin: 10/21/21 08:34 Dose: 1 mg Gabapentin (Gabapentin 400 Mg Capsule) 400 mg PO TID [facility] Last Admin: 10/21/21 14:31 Dose: 400 mg Gabapentin (Gabapentin 100 Mg Capsule) 100 mg PO BID PRN PRN Reason: mod pain Last Admin: 10/21/21 00:04 Dose: 100 mg Haloperidol (Haloperidol 5 Mg Tablet) 5 mg PO BID [facility] Last Admin: 10/21/21 08:34 Dose: 5 mg Hydroxyzine HCl (Hydroxyzine Hcl 25 Mg Tablet) 25 mg PO BID PRN PRN Reason: anxiety Last Admin: 10/21/21 06:16 Dose: 25 mg Levothyroxine Sodium (Levothyroxine Sodium 50 Mcg Tablet) 50 mcg PO DAILY@0600 [facility] Last Admin: 10/21/21 05:47 Dose: 50 mcg [place] Carbonate ([place] Carbonate 300 Mg Tablet) 150 mg PO BEDTIME [facility] Last Admin: 10/20/21 19:00 Dose: 150 mg Magnesium Hydroxide (Milk Of Magnesia 30 Ml Oral.Susp) 30 ml PO DAILY PRN PRN Reason: Constipation Last Admin: 10/20/21 14:49 Dose: 30 ml Nicotine (Nicotine 14 Mg Patch.Td24) 14 mg TRANSDERMA DAILY [facility] Last Admin: 10/21/21 08:53 Dose: Not Given Nicotine Polacrilex (Nicotine Polacrilex Lozenge 2 Mg Lozenge) 2 mg BUCCAL Q2H PRN PRN Reason: Nicotine Cravings Pt Own Enbrel ( (Etanercept 50 Mg)) 50 mg SUBCUT Q7D [facility] Last Admin: 10/20/21 15:49 Dose: 50 mg Nystatin (Nystatin Cream 15 Gm Tube) 1 appl TOPICAL BID [facility]; Protocol Last Admin: 10/21/21 08:53 Dose: Not Given Omeprazole (Omeprazole 20 Mg Capsule.Dr) 20 mg PO DAILY@0630 [facility] Last Admin: 10/21/21 05:45 Dose: 20 mg Prednisone (Prednisone 5 Mg Tablet) 5 mg PO DAILY [facility] Stop: 10/24/21 09:14 Last Admin: 10/21/21 08:34 Dose: 5 mg Propranolol HCl (Propranolol Hcl 10 Mg Tablet) 10 mg PO TID PRN; Protocol PRN Reason: anxiety, akathesia Last Admin: 10/20/21 14:49 Dose: 10 mg Senna (Sennosides 8.6 Mg Tablet) 17.2 mg PO BEDTIME [facility] Last Admin: 10/20/21 19:00 Dose: 17.2 mg Trazodone HCl (Trazodone Hcl 50 Mg Tablet) 50 mg PO BEDTIME PRN PRN Reason: Insomnia Last Admin: 10/19/21 23:18 Dose: 50 mg Trolamine Salicylate (Trolamine Salicylate 10 % Cream 85 Gm Tube) 1 appl TOPICAL TID PRN; Protocol PRN Reason: arthtiric pain Last Admin: 10/11/21 20:50 Dose: 1 appl Allergies Allergies Allergy/AdvReac Type Severity Reaction Status Date / Time lithium AdvReac Intermediate CKD Verified 09/28/21 11:34 Assessment & Plan Assessment & Plan (1) Psoriatic arthritis: Status: Acute Code(s): L40.50 - Arthropathic psoriasis, unspecified (2) Bipolar 1 disorder: Status: Acute Code(s): F31.9 - Bipolar disorder, unspecified Assessment and Plan: Continue current regime and plan of care. 10/10/21- Increase Depakote to 1000 mg daily Increase Haldol to 10 mg bid 10/12/21- Continue current regime 10/15/21- Continue current regime 10/18/21- Decrease prn dosing of hydroxyzine, gabapentin, benadryl, flexeril. Encourage pt to consider subacute rehab to continue her strengthening regime. 10/20/21- No new changes today. 10/21: schedule tylenol for RA pain. Plan 60 year old female with history significant for bipolar illness, hypothyroidism, pancytopenia, GERD, stable CKD stage 3 secondary to lithium use, and rheumatoid arthritis admitted to psychiatry being consulted on for intractable pain, stage 1 pressure ulcer of buttock, and decreased level of functioning. 1- Psoriatic arthritis/Rheumatoid arthritis -Polyarthralgia related to acute flare up following several months without enbrel, which was resumed last week but can take several weeks to become effective. Suspect pain and inability to walk is not solely related to the psoriatic/rheumatoid arthritis but also current psychiatric state. She needs to get out of bed. -Recommend PT consult to assist with this which will also help prevent ulceration of the coccyx. Possible stage 1 pressure ulcer of coccyx has been evaluated by wound care. Recommend repositioning and getting OOB -Discussed patient with rheumatology. Recommend prednisone 20mg x 5 days, then 10mg x5 days, then 5mg x 5 days for acute RA flareup which is ordered. Discharge with remainder of taper if not completed during admission. Can continue tylenol prn -Continue enbrel weekly per rheumatology 2- CKD stage 3- stable -Continue monitoring renal function with lithium use 3- Hypothyroidism- stable -Continue levothyroxine 4-Pancytopenia- chronic and stable -Recommend discussion with rheumatology regarding CBC monitoring with enbrel being resumed 5-Bipolar disorder -continue plan as outlined by psychiatry I spent ___15___ minutes with the patient and/or on the patient floor today, greater than?50% of which was spent counseling/coordinating care. Reason for contiued inpatient stay Substantial Risk for: harm to self, inability to function and rapid decompensation
[2021-10-21] MEDS: Lithium Carbonate 300 MG TABLET 150 MG PO (20:49)
[2021-10-21] MEDS: Sennosides 8.6 MG TABLET 17.2 MG PO (20:50)
[2021-10-22] MEDS: Cyclobenzaprine HCl 5 MG TABLET PO ×2 (05:05→23:51)
[2021-10-22] MEDS: Levothyroxine Sodium 50 MCG TABLET PO (05:07)
[2021-10-22] MEDS: Omeprazole 20 MG CAPSULE.DR PO (05:07)
[2021-10-22] MEDS: Acetaminophen 325 MG TABLET 650 MG PO ×4 (05:10→18:43)
[2021-10-22] MEDS: Trolamine Salicylate 10 % Cream 85 GM TUBE 1 APPL TOPICAL (05:17)
[2021-10-22 08:00] VITALS: BP 115/65; PULSE 104; RESP 16; TEMP 36.4; O2SAT 97
[2021-10-22] MEDS: Docusate Sodium 100 MG CAPSULE PO ×2 (08:38→18:43)
[2021-10-22] MEDS: Gabapentin 400 MG CAPSULE PO ×3 (08:38→18:43)
[2021-10-22] MEDS: Folic Acid 1 MG TABLET PO (08:38)
[2021-10-22] MEDS: predniSONE 5 MG TABLET PO (08:38)
[2021-10-22] MEDS: Ferrous Sulfate 324 MG TABLET.DR PO (08:38)
[2021-10-22] MEDS: HaloperidoL 5 MG TABLET PO ×2 (08:38→18:44)
[2021-10-22] MEDS: Gabapentin 100 MG CAPSULE PO ×2 (09:30→18:44)
--- NOTE | 2021-10-22 15:36 | P.PNPSI_ITS ---
Subjective Subjective Date of Service: 10/22/21 Reason For Visit: Manic Interim History: pt seen twice, first time sedated, later up. seen in the hallway, ambulating with walker. some contradictory statements, saying she hasn't been able to sleep and then excusing herself from not being available for interview earlier bcse she was sleeping. talking about discharge saturday, does not believe she is committable. c/o left hand swelling and pain. per staff, no change in presentation. incontinent of urine x 2 in the past 24H. Mental Status Exam Mental Status Exam Narrative: Adequately dressed and groomed.? Cooperative, no PMA/PMR.? Speech nml rate, incr amount, nml loudness, nml tone, decr latency.? Thoughts linear and logical.? Affect constricted, normo-intense, mod-labile (irritable).? Mood not assessed.? No SI/HI/AVH expressed. Diagnostics Vital Signs (24Hr): Vital Signs - 24 hr 10/21/21 16:00 10/22/21 08:00 Temperature 97.5 F Pulse Rate 91 104 H Respiratory Rate 16 Blood Pressure 116/68 115/65 Pulse Oximetry 97 Oxygen Delivery Method Room Air BMI result Body Mass Index 25.5 Labs Results: 10/18/21 08:17 10/18/21 08:17 Medications Medications Current Medications Acetaminophen (Acetaminophen 325 Mg Tablet) 650 mg PO DAILY PRN PRN Reason: Headache/Pain Mild Scale (1-3) Last Admin: 10/22/21 05:10 Dose: 650 mg Acetaminophen (Acetaminophen 325 Mg Tablet) 650 mg PO QID [facility] Last Admin: 10/22/21 12:33 Dose: Not Given Al Hydroxide/Mg Hydroxide (Magnesium Hydrox/Alum Hydrox 30 Ml Oral.Susp) 30 ml PO Q6H PRN PRN Reason: Heartburn/Nausea Last Admin: 09/29/21 18:33 Dose: 30 ml Chlorpromazine HCl (Chlorpromazine Hcl 25 Mg Tablet) 50 mg PO BEDTIME PRN PRN Reason: anxiety, agitation Last Admin: 10/21/21 00:08 Dose: 50 mg Cyclobenzaprine HCl (Cyclobenzaprine Hcl 5 Mg Tablet) 5 mg PO TID PRN PRN Reason: Pain, Moderate (Pain Scale 4-6 Last Admin: 10/22/21 05:05 Dose: 5 mg Diphenhydramine HCl (Diphenhydramine Hcl 25 Mg Tablet) 25 mg PO BEDTIME PRN PRN Reason: Sleep Last Admin: 10/19/21 23:18 Dose: 25 mg Divalproex Sodium (Divalproex Sodium 250 Mg Tablet.) 750 mg PO 1700 [facility] Last Admin: 10/21/21 15:46 Dose: 750 mg Docusate Sodium (Docusate Sodium 100 Mg Capsule) 100 mg PO BID [facility] Last Admin: 10/22/21 08:38 Dose: 100 mg Ferrous Sulfate (Ferrous Sulfate 324 Mg Tablet.) 324 mg PO DAILY [facility] Last Admin: 10/22/21 08:38 Dose: 324 mg Folic Acid (Folic Acid 1 Mg Tablet) 1 mg PO DAILY [facility] Last Admin: 10/22/21 08:38 Dose: 1 mg Gabapentin (Gabapentin 400 Mg Capsule) 400 mg PO TID [facility] Last Admin: 10/22/21 14:12 Dose: 400 mg Gabapentin (Gabapentin 100 Mg Capsule) 100 mg PO BID PRN PRN Reason: mod pain Last Admin: 10/22/21 09:30 Dose: 100 mg Haloperidol (Haloperidol 5 Mg Tablet) 5 mg PO BID [facility] Last Admin: 10/22/21 08:38 Dose: 5 mg Hydroxyzine HCl (Hydroxyzine Hcl 25 Mg Tablet) 25 mg PO BID PRN PRN Reason: anxiety Last Admin: 10/21/21 20:49 Dose: 25 mg Levothyroxine Sodium (Levothyroxine Sodium 50 Mcg Tablet) 50 mcg PO DAILY@0600 [facility] Last Admin: 10/22/21 05:07 Dose: 50 mcg [place] Carbonate ([place] Carbonate 300 Mg Tablet) 150 mg PO BEDTIME [facility] Last Admin: 10/21/21 20:49 Dose: 150 mg Magnesium Hydroxide (Milk Of Magnesia 30 Ml Oral.Susp) 30 ml PO DAILY PRN PRN Reason: Constipation Last Admin: 10/20/21 14:49 Dose: 30 ml Nicotine (Nicotine 14 Mg Patch.Td24) 14 mg TRANSDERMA DAILY [facility] Last Admin: 10/22/21 10:16 Dose: Not Given Nicotine Polacrilex (Nicotine Polacrilex Lozenge 2 Mg Lozenge) 2 mg BUCCAL Q2H PRN PRN Reason: Nicotine Cravings Pt Own Enbrel ( (Etanercept 50 Mg)) 50 mg SUBCUT Q7D [facility] Last Admin: 10/20/21 15:49 Dose: 50 mg Nystatin (Nystatin Cream 15 Gm Tube) 1 appl TOPICAL BID [facility]; Protocol Last Admin: 10/22/21 10:16 Dose: Not Given Omeprazole (Omeprazole 20 Mg Capsule.Dr) 20 mg PO DAILY@0630 [facility] Last Admin: 10/22/21 05:07 Dose: 20 mg Prednisone (Prednisone 5 Mg Tablet) 5 mg PO DAILY [facility] Stop: 10/24/21 09:14 Last Admin: 10/22/21 08:38 Dose: 5 mg Propranolol HCl (Propranolol Hcl 10 Mg Tablet) 10 mg PO TID PRN; Protocol PRN Reason: anxiety, akathesia Last Admin: 10/20/21 14:49 Dose: 10 mg Senna (Sennosides 8.6 Mg Tablet) 17.2 mg PO BEDTIME [facility] Last Admin: 10/21/21 20:50 Dose: 17.2 mg Trazodone HCl (Trazodone Hcl 50 Mg Tablet) 50 mg PO BEDTIME PRN PRN Reason: Insomnia Last Admin: 10/19/21 23:18 Dose: 50 mg Trolamine Salicylate (Trolamine Salicylate 10 % Cream 85 Gm Tube) 1 appl TOPICAL TID PRN; Protocol PRN Reason: arthtiric pain Last Admin: 10/22/21 05:17 Dose: 1 appl Allergies Allergies Allergy/AdvReac Type Severity Reaction Status Date / Time lithium AdvReac Intermediate CKD Verified 09/28/21 11:34 Assessment & Plan Assessment & Plan (1) Psoriatic arthritis: Status: Acute Code(s): L40.50 - Arthropathic psoriasis, unspecified (2) Bipolar 1 disorder: Status: Acute Code(s): F31.9 - Bipolar disorder, unspecified Assessment and Plan: Continue current regime and plan of care. 10/10/21- Increase Depakote to 1000 mg daily Increase Haldol to 10 mg bid 10/12/21- Continue current regime 10/15/21- Continue current regime 10/18/21- Decrease prn dosing of hydroxyzine, gabapentin, benadryl, flexeril. Encourage pt to consider subacute rehab to continue her strengthening regime. 10/20/21- No new changes today. 10/21: schedule tylenol for RA pain. 10/22: focused on discharge. ambivalent re utility of scheduled tylenol. continue current mgmt. Plan 60 year old female with history significant for bipolar illness, hypothyroidism, pancytopenia, GERD, stable CKD stage 3 secondary to lithium use, and rheumatoid arthritis admitted to psychiatry being consulted on for intractable pain, stage 1 pressure ulcer of buttock, and decreased level of functioning. 1- Psoriatic arthritis/Rheumatoid arthritis -Polyarthralgia related to acute flare up following several months without enbrel, which was resumed last week but can take several weeks to become effective. Suspect pain and inability to walk is not solely related to the psoriatic/rheumatoid arthritis but also current psychiatric state. She needs to get out of bed. -Recommend PT consult to assist with this which will also help prevent ulcera tion of the coccyx. Possible stage 1 pressure ulcer of coccyx has been evaluated by wound care. Recommend repositioning and getting OOB -Discussed patient with rheumatology. Recommend prednisone 20mg x 5 days, then 10mg x5 days, then 5mg x 5 days for acute RA flareup which is ordered. Discharge with remainder of taper if not completed during admission. Can continue tylenol prn -Continue enbrel weekly per rheumatology 2- CKD stage 3- stable -Continue monitoring renal function with lithium use 3- Hypothyroidism- stable -Continue levothyroxine 4-Pancytopenia- chronic and stable -Recommend discussion with rheumatology regarding CBC monitoring with enbrel being resumed 5-Bipolar disorder -continue plan as outlined by psychiatry I spent ___20___ minutes with the patient and/or on the patient floor today, greater than?50% of which was spent counseling/coordinating care. Reason for contiued inpatient stay Substantial Risk for: harm to self, inability to function and rapid decompensation
[2021-10-22] MEDS: hydrOXYzine HCL 25 MG TABLET PO ×2 (15:50→18:43)
[2021-10-22] MEDS: Divalproex Sodium 250 MG TABLET.DR 750 MG PO (15:50)
[2021-10-22 17:51] VITALS: BP 123/71; PULSE 61; TEMP 36.7
[2021-10-22] MEDS: Lithium Carbonate 300 MG TABLET 150 MG PO (18:43)
[2021-10-22] MEDS: Sennosides 8.6 MG TABLET 17.2 MG PO (18:43)
[2021-10-22] MEDS: diphenhydrAMINE HCL 25 MG TABLET PO (20:49)
[2021-10-22] MEDS: traZODone HCL 50 MG TABLET PO (23:06)
[2021-10-22] MEDS: chlorproMAZINE HCl 25 MG TABLET 50 MG PO (23:50)
[2021-10-23] MEDS: Levothyroxine Sodium 50 MCG TABLET PO (06:29)
[2021-10-23] MEDS: Omeprazole 20 MG CAPSULE.DR PO (06:29)
[2021-10-23] MEDS: Gabapentin 100 MG CAPSULE PO (06:29)
[2021-10-23 08:00] VITALS: BP 135/84; PULSE 102; RESP 18
[2021-10-23] MEDS: predniSONE 5 MG TABLET PO (08:17)
[2021-10-23] MEDS: Acetaminophen 325 MG TABLET 650 MG PO ×4 (08:17→20:03)
[2021-10-23] MEDS: Ferrous Sulfate 324 MG TABLET.DR PO (08:17)
[2021-10-23] MEDS: Docusate Sodium 100 MG CAPSULE PO ×2 (08:17→20:04)
[2021-10-23] MEDS: Folic Acid 1 MG TABLET PO (08:17)
[2021-10-23] MEDS: HaloperidoL 5 MG TABLET PO ×2 (08:17→20:04)
[2021-10-23] MEDS: Gabapentin 400 MG CAPSULE PO ×3 (08:17→20:03)
[2021-10-23] MEDS: Cyclobenzaprine HCl 5 MG TABLET PO ×2 (08:18→17:00)
--- NOTE | 2021-10-23 13:11 | HO.PSYCHPN ---
Subjective Subjective Date of Service: 10/23/21 Reason For Visit: Manic Interim History: calm, cooperative. appears a bit tired or sedated. asking about discharge tomorrow, keen to leave the hospital. her questions are deferred for the primary team to address tomorrow. no other requests or complaints aside from arthritic pain. per staff, not attending groups. poor ambulation and ADLs 2/2 pain. denies psychiatric Sx but appears to be RIS. Mental Status Exam Mental Status Exam Narrative: Adequately dressed and groomed.? Cooperative, no PMA/PMR.? Speech nml rate, decr amount, nml loudness, flattened tone, nml latency.? Thoughts linear and logical.? Affect constricted, normo-intense, non-labile.? Mood not assessed.? No SI/HI/AVH expressed. Diagnostics Vital Signs (24Hr): Vital Signs - 24 hr 10/22/21 17:51 10/23/21 08:00 Temperature 98.1 F Pulse Rate 61 102 H Respiratory Rate 18 Blood Pressure 123/71 135/84 BMI result Body Mass Index 25.5 Labs Results: 10/18/21 08:17 10/18/21 08:17 Medications Medications Current Medications Acetaminophen (Acetaminophen 325 Mg Tablet) 650 mg PO DAILY PRN PRN Reason: Headache/Pain Mild Scale (1-3) Last Admin: 10/22/21 05:10 Dose: 650 mg Acetaminophen (Acetaminophen 325 Mg Tablet) 650 mg PO QID [facility] Last Admin: 10/23/21 08:17 Dose: 650 mg Al Hydroxide/Mg Hydroxide (Magnesium Hydrox/Alum Hydrox 30 Ml Oral.Susp) 30 ml PO Q6H PRN PRN Reason: Heartburn/Nausea Last Admin: 09/29/21 18:33 Dose: 30 ml Chlorpromazine HCl (Chlorpromazine Hcl 25 Mg Tablet) 50 mg PO BEDTIME PRN PRN Reason: anxiety, agitation Last Admin: 10/22/21 23:50 Dose: 50 mg Cyclobenzaprine HCl (Cyclobenzaprine Hcl 5 Mg Tablet) 5 mg PO TID PRN PRN Reason: Pain, Moderate (Pain Scale 4-6 Last Admin: 10/23/21 08:18 Dose: 5 mg Diphenhydramine HCl (Diphenhydramine Hcl 25 Mg Tablet) 25 mg PO BEDTIME PRN PRN Reason: Sleep Last Admin: 10/22/21 20:49 Dose: 25 mg Divalproex Sodium (Divalproex Sodium 250 Mg Tablet.Dr) 750 mg PO 1700 [facility] Last Admin: 10/22/21 15:50 Dose: 750 mg Docusate Sodium (Docusate Sodium 100 Mg Capsule) 100 mg PO BID [facility] Last Admin: 10/23/21 08:17 Dose: 100 mg Ferrous Sulfate (Ferrous Sulfate 324 Mg Tablet.) 324 mg PO DAILY [facility] Last Admin: 10/23/21 08:17 Dose: 324 mg Folic Acid (Folic Acid 1 Mg Tablet) 1 mg PO DAILY [facility] Last Admin: 10/23/21 08:17 Dose: 1 mg Gabapentin (Gabapentin 400 Mg Capsule) 400 mg PO TID [facility] Last Admin: 10/23/21 08:17 Dose: 400 mg Gabapentin (Gabapentin 100 Mg Capsule) 100 mg PO BID PRN PRN Reason: mod pain Last Admin: 10/23/21 06:29 Dose: 100 mg Haloperidol (Haloperidol 5 Mg Tablet) 5 mg PO BID [facility] Last Admin: 10/23/21 08:17 Dose: 5 mg Hydroxyzine HCl (Hydroxyzine Hcl 25 Mg Tablet) 25 mg PO BID PRN PRN Reason: anxiety Last Admin: 10/22/21 18:43 Dose: 25 mg Levothyroxine Sodium (Levothyroxine Sodium 50 Mcg Tablet) 50 mcg PO DAILY@0600 [facility] Last Admin: 10/23/21 06:29 Dose: 50 mcg [place] Carbonate ([place] Carbonate 300 Mg Tablet) 150 mg PO BEDTIME [facility] Last Admin: 10/22/21 18:43 Dose: 150 mg Magnesium Hydroxide (Milk Of Magnesia 30 Ml Oral.Susp) 30 ml PO DAILY PRN PRN Reason: Constipation Last Admin: 10/20/21 14:49 Dose: 30 ml Nicotine (Nicotine 14 Mg Patch.Td24) 14 mg TRANSDERMA DAILY [facility] Last Admin: 10/23/21 08:23 Dose: Not Given Nicotine Polacrilex (Nicotine Polacrilex Lozenge 2 Mg Lozenge) 2 mg BUCCAL Q2H PRN PRN Reason: Nicotine Cravings Pt Own Enbrel ( (Etanercept 50 Mg)) 50 mg SUBCUT Q7D [facility] Last Admin: 10/20/21 15:49 Dose: 50 mg Nystatin (Nystatin Cream 15 Gm Tube) 1 appl TOPICAL BID [facility]; Protocol Last Admin: 10/23/21 08:23 Dose: Not Given Omeprazole (Omeprazole 20 Mg Capsule.Dr) 20 mg PO DAILY@0630 [facility] Last Admin: 10/23/21 06:29 Dose: 20 mg Prednisone (Prednisone 5 Mg Tablet) 5 mg PO DAILY [facility] Stop: 10/24/21 09:14 Last Admin: 10/23/21 08:17 Dose: 5 mg Propranolol HCl (Propranolol Hcl 10 Mg Tablet) 10 mg PO TID PRN; Protocol PRN Reason: anxiety, akathesia Last Admin: 10/20/21 14:49 Dose: 10 mg Senna (Sennosides 8.6 Mg Tablet) 17.2 mg PO BEDTIME [facility] Last Admin: 10/22/21 18:43 Dose: 17.2 mg Trazodone HCl (Trazodone Hcl 50 Mg Tablet) 50 mg PO BEDTIME PRN PRN Reason: Insomnia Last Admin: 10/22/21 23:06 Dose: 50 mg Trolamine Salicylate (Trolamine Salicylate 10 % Cream 85 Gm Tube) 1 appl TOPICAL TID PRN; Protocol PRN Reason: arthtiric pain Last Admin: 10/22/21 05:17 Dose: 1 appl Allergies Allergies Allergy/AdvReac Type Severity Reaction Status Date / Time lithium AdvReac Intermediate CKD Verified 09/28/21 11:34 Assessment & Plan Assessment & Plan (1) Psoriatic arthritis: Status: Acute Code(s): L40.50 - Arthropathic psoriasis, unspecified (2) Bipolar 1 disorder: Status: Acute Code(s): F31.9 - Bipolar disorder, unspecified Assessment and Plan: Continue current regime and plan of care. 10/10/21- Increase Depakote to 1000 mg daily Increase Haldol to 10 mg bid 10/12/21- Continue current regime 10/15/21- Continue current regime 10/18/21- Decrease prn dosing of hydroxyzine, gabapentin, benadryl, flexeril. Encourage pt to consider subacute rehab to continue her strengthening regime. 10/20/21- No new changes today. 10/21: schedule tylenol for RA pain. 10/22: focused on discharge. ambivalent re utility of scheduled tylenol. continue current mgmt. 10/23: remains focused on discharge, believes she will be leaving tomorrow. continue current mgmt. Plan 60 year old female with history significant for bipolar illness, hypothyroidism, pancytopenia, GERD, stable CKD stage 3 secondary to lithium use, and rheumatoid arthritis admitted to psychiatry being consulted on for intractable pain, stage 1 pressure ulcer of buttock, and decreased level of functioning. 1- Psoriatic arthritis/Rheumatoid arthritis -Polyarthralgia related to acute flare up following several months without enbrel, which was resumed last week but can take several weeks to become effective. Suspect pain and inability to walk is not solely related to the psoriatic/rheumatoid arthritis but also current psychiatric state. She needs to get out of bed. -Recommend PT consult to assist with this which will also help prevent ulceration of the coccyx. Possible stage 1 pressure ulcer of coccyx has been evaluated by wound care. Recommend repositioning and getting OOB -Discussed patient with rheumatology. Recommend prednisone 20mg x 5 days, then 10mg x5 days, then 5mg x 5 days for acute RA flareup which is ordered. Discharge with remainder of taper if not completed during admission. Can continue tylenol prn -Continue enbrel weekly per rheumatology 2- CKD stage 3- stable -Continue monitoring renal function with lithium use 3- Hypothyroidism- stable -Continue levothyroxine 4-Pancytopenia- chronic and stable -Recommend discussion with rheumatology regarding CBC monitoring with enbrel being resumed 5-Bipolar disorder -continue plan as outlined by psychiatry I spent ___15___ minutes with the patient and/or on the patient floor today, greater than?50% of which was spent counseling/coordinating care. Reason for contiued inpatient stay Substantial Risk for: inability to function and rapid decompensation
[2021-10-23 16:35] VITALS: BP 144/85; PULSE 93; TEMP 35.8
[2021-10-23] MEDS: Divalproex Sodium 250 MG TABLET.DR 750 MG PO (16:58)
[2021-10-23] MEDS: Sennosides 8.6 MG TABLET 17.2 MG PO (20:05)
[2021-10-23] MEDS: traZODone HCL 50 MG TABLET PO (22:49)
[2021-10-23] MEDS: chlorproMAZINE HCl 25 MG TABLET 50 MG PO (22:49)
[2021-10-24] MEDS: traZODone HCL 50 MG TABLET PO (00:14)
[2021-10-24] MEDS: hydrOXYzine HCL 25 MG TABLET PO (00:15)
[2021-10-24] MEDS: diphenhydrAMINE HCL 25 MG TABLET PO (01:52)
[2021-10-24 05:54] VITALS: BP 144/86; PULSE 94; RESP 16; TEMP 36.3; O2SAT 98
[2021-10-24] MEDS: predniSONE 5 MG TABLET PO (08:25)
[2021-10-24] MEDS: Docusate Sodium 100 MG CAPSULE PO ×2 (08:25→14:52)
[2021-10-24] MEDS: Ferrous Sulfate 324 MG TABLET.DR PO (08:25)
[2021-10-24] MEDS: Levothyroxine Sodium 50 MCG TABLET PO (08:25)
[2021-10-24] MEDS: Folic Acid 1 MG TABLET PO (08:25)
[2021-10-24] MEDS: Omeprazole 20 MG CAPSULE.DR PO (08:25)
[2021-10-24] MEDS: Gabapentin 400 MG CAPSULE PO ×2 (08:25→14:30)
[2021-10-24] MEDS: Acetaminophen 325 MG TABLET 650 MG PO ×2 (08:26→13:19)
[2021-10-24] MEDS: Cyclobenzaprine HCl 5 MG TABLET PO ×2 (08:26→13:20)
[2021-10-24] MEDS: HaloperidoL 5 MG TABLET PO ×2 (08:26→14:52)
[2021-10-24 08:37] VITALS: BP 110/74; PULSE 105; RESP 18
[2021-10-24 10:09] VITALS: BP 110/74; PULSE 105
[2021-10-24] MEDS: Divalproex Sodium 250 MG TABLET.DR 750 MG PO (14:51)
[2021-10-24] MEDS: Sennosides 8.6 MG TABLET 17.2 MG PO (14:52)
[2021-10-24] MEDS: Lithium Carbonate 300 MG TABLET 150 MG PO (14:53)
--- NOTE | 2021-10-24 18:09 | P.DS_ITS ---
DS: Providers Provider Date of Service: 10/24/21 Date of admission: 09/28/21 16:30 Date of discharge: 10/24/21 Primary care physician: Aquiles Rivera DO, MD Admitting clinician: Carley Lowry Attending physician on admission: Stephen Uribe Consults: 10/03/21 17:20 Consult to Rheumatology Routine Consulting Provider: León Daniel Reason for consultation: intractable pain, rheumatoid arthritis, on enbrel inj 10/04/21 15:37 Consult to Rheumatology Routine Consulting Provider: Yina Rivera Reason for consultation: Arthritis pain, Enbrel pt, without relief Has provider been notified: No 10/05/21 11:38 Consult to Hospitalist Routine Consulting Provider: Hospitalist Reason For Exam: anemia, phys. decline, ?need for medical admit 10/09/21 12:04 Consult to Hospitalist Stat Consulting Provider: Hospitalist Reason For Exam: severe pain, non ambulatory, decrease LOF 10/09/21 12:06 Consult to Nephrology Stat Consulting Provider: Desmond Alva Reason for consultation: CKD, decline, severe pain Has provider been notified: No 10/09/21 13:20 Consult to Wound Care Routine Consulting Provider: [facility] [place] [facility] Reason for consultation: buttock~5cm,red,noblistering,nobleeding,intertrigo?nodrainage Has provider been notified: Yes DS: Diagnosis Discharge Diagnosis (1) Psoriatic arthritis: Status: Acute (2) Bipolar 1 disorder: Status: Acute DS: Medications Discharge Medications Home Medications: Previous Rx's Medication Instructions Recorded etanercept 50 mg/mL (1 mL) 50 mg subcut QWEEK #1 units 09/29/21 subcutaneous pen injector (Enbrel SureClick) etanercept 50 mg/mL (1 mL) 50 mg subcut QWEEK #4 mL 10/17/21 subcutaneous pen injector (Enbrel SureClick) Etanercept 50 mg subcut Q7D #4 applicators 10/24/21 acetaminophen 325 mg tablet 650 mg PO QID #240 tabs 10/24/21 chlorpromazine 25 mg tablet 50 mg PO BEDTIME PRN anxiety, 10/24/21 agitation #0 tabs chlorpromazine 50 mg tablet 1 tab PO BEDTIME PRN Sleep #30 tabs 10/24/21 cyclobenzaprine 5 mg tablet 5 mg PO TID PRN Pain, Moderate 10/24/21 (Pain Scale 4-6 #90 tabs diphenhydramine HCl 25 mg tablet 25 mg PO BEDTIME PRN Sleep #30 tabs 10/24/21 (Allergy Relief (diphenhydramine)) divalproex 250 mg tablet,delayed 750 mg PO 1700 #90 tabs 10/24/21 release docusate sodium 100 mg capsule 100 mg PO BID #60 caps 10/24/21 ferrous sulfate 324 mg (65 mg 324 mg PO DAILY #30 tabs 10/24/21 iron) tablet,delayed release folic acid 1 mg tablet 1 mg PO DAILY #30 tabs 10/24/21 gabapentin 100 mg capsule 100 mg PO BID PRN mod pain #60 caps 10/24/21 gabapentin 400 mg capsule 400 mg PO TID #90 caps 10/24/21 haloperidol 5 mg tablet 5 mg PO BID #60 tabs 10/24/21 hydroxyzine HCl 25 mg tablet 25 mg PO BID PRN anxiety #60 tabs 10/24/21 levothyroxine 50 mcg tablet 50 mcg PO DAILY 30 days #30 tabs 10/24/21 lithium carbonate 150 mg capsule 1 cap PO BEDTIME #30 caps 10/24/21 lithium carbonate 300 mg tablet 150 mg PO BEDTIME #0 tabs 10/24/21 nicotine (polacrilex) 2 mg buccal 2 mg buccal Q2H PRN Nicotine 10/24/21 lozenge Cravings #60 ea nicotine 14 mg/24 hr daily 14 mg transdermal DAILY #28 ea 10/24/21 transdermal patch nystatin 100,000 unit/gram topical 1 appl topical BID #20 grams 10/24/21 cream omeprazole 20 mg capsule,delayed 1 cap PO DAILY@0630 #30 caps 10/24/21 release omeprazole 20 mg capsule,delayed 20 mg PO DAILY@0630 #30 caps 10/24/21 release propranolol 10 mg tablet 10 mg PO TID PRN anxiety, 10/24/21 akathesia #90 tabs sennosides 8.6 mg tablet (Senna 17.2 mg PO BEDTIME #60 tabs 10/24/21 Lax) trazodone 50 mg tablet 50 mg PO BEDTIME PRN Insomnia #30 09/06/22 tabs trolamine salicylate 10 % topical 1 appl topical TID PRN arthtiric 10/24/21 cream (Arthricream) pain #141 grams Mental Status Exam Mental Status Exam Patient Appearance: Fatigued Patient Orientation: Person, Place, Time and Situation Level of Consciousness: Alert Patient Behavior: Appropriate, Talkative, Cooperative and Good Eye Contact Mood Description: Flat Affect Description: Flat Patient Cognition Impaired: No Ability to Follow Directions: Good Speech Pattern: Spontaneous Speech Memory Description: Episodic Impaired Hallucinations: None Delusions: Not Present Thought Process: Distracted and Goal Oriented Thought Content: positive for Goal Oriented Depressive Symptoms: Increased Fatigue and Loss of Energy Judgement: Good Data Data Completed and Pending Completed studies during hospitalization [Text1]: 10/18/21 10/18/21 10/18/21 08:17 08:17 08:17 WBC 11.5 H RBC 2.81 L Hgb 8.8 L Hct 27.3 L MCV 97.2 MCH 31.3 MCHC 32.2 RDW 13.7 Plt Count 330 D MPV 9.7 Immature Gran % (Auto) 1.2 H Neut % (Auto) 67.1 Lymph % (Auto) 19.6 L [place] % (Auto) 10.4 Eos % (Auto) 1.3 Baso % (Auto) 0.4 Lymph # (Auto) 2.3 [place] # (Auto) 1.2 Eos # (Auto) 0.2 Baso # (Auto) 0.1 Abs Immat Gran (auto) 0.14 H Absolute Neuts (auto) 7.7 Absolute Nucleated RBC 0.000 Nucleated RBC % (auto) 0.0 Sodium 140 Potassium 4.4 Chloride 104 Carbon Dioxide 25 Anion Gap 15 BUN 36 H Creatinine 1.21 Estim Creat Clear Calc 51.6 Estimated GFR 45 Random Glucose 81 Calcium 9.4 Total Bilirubin < 0.2 AST 28 ALT 15 Alkaline Phosphatase 97 Total Protein 6.6 Albumin 3.3 L U Random Total Protein Urine Creatinine Valproic Acid 22.8 L [place] 0.17 L 10/19/21 11:04 WBC RBC Hgb Hct MCV MCH MCHC RDW Plt Count MPV Immature Gran % (Auto) Neut % (Auto) Lymph % (Auto) [place] % (Auto) Eos % (Auto) Baso % (Auto) Lymph # (Auto) [place] # (Auto) Eos # (Auto) Baso # (Auto) Abs Immat Gran (auto) Absolute Neuts (auto) Absolute Nucleated RBC Nucleated RBC % (auto) Sodium Potassium Chloride Carbon Dioxide Anion Gap BUN Creatinine Estim Creat Clear Calc Estimated GFR Random Glucose Calcium Total Bilirubin AST ALT Alkaline Phosphatase Total Protein Albumin U Random Total Protein < 7 Urine Creatinine 23.51 Valproic Acid [place] 10/14/21 18:50 Urine clean catch - Clean Catch Midstream Urine Culture - Final DS: Summary Hospital Course Hospital Course: Admission to adult psychiatry for exacerbation of bipolar disorder and psoriatic arthritis with physical decline. Jeri reported stopping medications for several weeks (since her most recent discharge from ) as the probable precipitant for current decline. Consults requested from the hospitalist team, rheumatology, nephrology and wound care as she had an area of psoriasis near to her buttock which team was monitoring for breakdown. Enbrel was restarted. Medical and psychotropic regime was restarted and adjusted as needed. Depakote and Haldol were adjusted several times during the admission, to manage lability and sedation. Jeri required full nursing care for most of the admission and gradually improved with mobility and independence. Jeri submitted a three day notice of intent to leave after the team discussed with her our opinion that she should spend some time post discharge in subacute rehab for deconditioning rehab. She was not in favor of this. We did ask her as she declined rehab to rem ain in patient and retract her three day and she again declined. She agreed to return as needed and the team arranged home care services for her along with medication management. She will see her rheumatology team on 11/01/21. She agreed to call and or return as needed and plans to return to her family home where her brother resides. Time spent discussing smoking cessation with patient: 3 to 10 minutes Status at Discharge Functional status at discharge: uses cane/walker Overall status at discharge: patient is progressing back to baseline Time Spent with Patient Time attestation: Total time spent providing and/or coordinating discharge services: 60 Time spent: Greater than 30 minutes Discharge Plan Discharge Patient Disposition: Home, Self-Care Discharge Diagnosis: Bipolar Disorder Arthritis-Psoriatic Referrals: [facility] VISITING RN [Other] - 10/25/21 (Fax - [phone] The VNA service to start on 10/25/21- They will assist with medication and they will machine operator picker the medication for the Ct at the [facility] [address], [address] [facility] ) Psychiatric Med Management: Christine Rosales [Other] - 11/14/21 11:30 am (This is a video Telehealth appointment. A text message will be sent to you at the time of the appointment to connect. Please call the office at the above number if you need to reschedule or would prefer an in-person appointment) Therapy: Meenakshi Flor [Other] - 10/25/21 1:30 pm (This is a Telehealth appointment. Please call Nathalia in the office if you need to reschedule for a Saturday appointment as Meenakshi will be available then) Department of Mental Health: Linh Mccauley [Other] - 1 Week (Please contact Linh Mccauley, [facility] Retail Administrative Assistant, at the above number to check on the status of your [facility] referral) [facility] [address]: [employer] Durant [Other] - 1 Week (Please contact Jordy Durant's office at the above number to check on the status of your upcoming hearings) [facility] Binder Layer at [facility]- Fallon Dunn [Other] - 1 Week ( Shaun is working on setting up PT, OT via [facility] and will look into a METAL HARDENER and a medical alert life line. For and update on when these services might be available please call Ms Dunn. ) Arnel Garcia MD [Physician] - 11/01/21 3:15 pm Aquiles Rivera DO, MD [Primary Care Provider] - 11/02/21 1:15 pm (in office) Discharge Medications: New Enbrel SureClick 50 mg/mL (1 mL) pen injector 50 mg subcut QWEEK Qty: 4 0RF diphenhydramine HCl [Allergy Relief(diphenhydramin)] 25 mg Tablet 25 mg PO BEDTIME PRN (Reason: Sleep) Qty: 30 0RF nicotine 14 mg/24 hr Patch 24 Hour 14 mg transdermal DAILY Qty: 28 0RF cyclobenzaprine 5 mg Tablet 5 mg PO TID PRN (Reason: Pain, Moderate (Pain Scale 4-6) Qty: 90 0RF nicotine (polacrilex) 2 mg Lozenge 2 mg buccal Q2H PRN (Reason: Nicotine Cravings) Qty: 60 0RF ferrous sulfate 324 mg (65 mg iron) Tablet,Delayed Release (Dr/Ec) 324 mg PO DAILY Qty: 30 0RF propranolol 10 mg Tablet 10 mg PO TID PRN (Reason: anxiety, akathesia) Qty: 90 0RF Protocol: Hold for SBP/HR < HOLD for SBP < : 90 HOLD for HR < : 60 acetaminophen 325 mg Tablet 650 mg PO QID Qty: 240 0RF haloperidol 5 mg Tablet 5 mg PO BID Qty: 60 0RF divalproex 250 mg Tablet,Delayed Release (Dr/Ec) 750 mg PO 1700 Qty: 90 0RF trazodone 50 mg Tablet 50 mg PO BEDTIME PRN (Reason: Insomnia) Qty: 30 0RF gabapentin 400 mg Capsule 400 mg PO TID Qty: 90 0RF chlorpromazine 25 mg Tablet 50 mg PO BEDTIME PRN (Reason: anxiety, agitation) Qty: 0 0RF hydroxyzine HCl 25 mg Tablet 25 mg PO BID PRN (Reason: anxiety) Qty: 60 0RF gabapentin 100 mg Capsule 100 mg PO BID PRN (Reason: mod pain) Qty: 60 0RF lithium carbonate 300 mg Tablet 150 mg PO BEDTIME Qty: 0 0RF trolamine salicylate [Arthricream] 10 % Cream 1 appl topical TID PRN (Reason: arthtiric pain) Qty: 141 0RF Protocol: Apply to: Apply to: joints docusate sodium 100 mg Capsule 100 mg PO BID Qty: 60 0RF sennosides [Senna Lax] 8.6 mg Tablet 17.2 mg PO BEDTIME Qty: 60 0RF omeprazole 20 mg Capsule,Delayed Release(Dr/Ec) 20 mg PO DAILY@0630 Qty: 30 0RF nystatin 100,000 unit/gram Cream 1 appl topical BID Qty: 20 0RF Protocol: Apply to: Apply to: bilateral breasts Etanercept 50 mg subcut Q7D Qty: 4 0RF Continued lithium carbonate 150 mg capsule 1 cap PO BEDTIME Qty: 30 0RF levothyroxine 50 mcg tablet 50 mcg PO DAILY 30 Days Qty: 30 0RF omeprazole 20 mg capsule,delayed release(DR/EC) 1 cap PO DAILY@0630 Qty: 30 0RF chlorpromazine 50 mg tablet 1 tab PO BEDTIME PRN (Reason: Sleep) Qty: 30 0RF Changed Enbrel SureClick 50 mg/mL (1 mL) pen injector 50 mg subcut QWEEK Qty: 1 0RF folic acid 1 mg tablet 1 mg PO DAILY Qty: 30 0RF Discontinued haloperidol 10 mg tablet 1 tab PO BID diphenhydramine HCl 12.5 mg/5 mL liquid 5 - 20 ml PO BEDTIME PRN (Reason: Sleep) divalproex 500 mg tablet,delayed release (DR/EC) 3 tab PO DAILY@1700 paroxetine HCl 20 mg tablet 1 tab PO DAILY No Action prednisone 20 mg tablet 40 mg PO DAILY Qty: 10 0RF tramadol 50 mg tablet 50 mg PO Q6H PRN (Reason: pain) Qty: 20 0RF lorazepam [Ativan] 1 mg tablet 1 mg PO BEDTIME PRN (Reason: anxiety) Qty: 14 0RF methylprednisolone [Medrol (Mike)] 4 mg tablets,dose pack 4 mg PO DAILY Qty: 21 0RF Rx Instructions: Use per instructions on the package colchicine 0.6 mg tablet 0.6 mg PO DAILY Qty: 20 0RF Discharge Orders: Discharge Order (Routine); Ordered 10/24/21 Ordered By: Carley Lowry Diet: Advance to usual diet Activity on Discharge: As tolerated Stand Alone Forms: Patient Portal Discharge page, Community Support Care Plan Goals: Maintain mood and safe behaviors Take medications as directed Practice coping skills Continue with out patient providers and connect with your out patient team as needed. Health Concerns: Mood Stabilization Psoriatic Arthritis Plan of Treatment: Follow up with PCP and out patient providers Take medications as directed Assessment: Jeri was interviewed prior to discharge and found to be fully oriented and with out SI, HI, lability of mood or psychosis. She has insight and demonstrates good judgment in terms of wanting to pursue treatment. She is aware of her physical capabilities and is aware of referrals made to assist her when at home. She is aware she may call or return at any time should her request to discharge not be working. She is not in imminent risk of harm to self or others and has a safety plan which includes presenting to the ER, calling 911 or crisis if feeling unsafe. She has not engaged in any behaviors which suggest dangerousness to self or others and has demonstrated appropriate behaviors and impulse control. Discharge Date/Time: 10/24/21 15:15
== END 2021-10-24 15:15 | disposition home or self-care (01) | DRG 885 ==
LOC: HO.ED 15:30 → HO.PM5 16:38
PROVIDERS: Internal Medicine Nephrology; Nurse Practitioner Family; Registered Nurse; Admitting Provider Psychiatry & Neurology Psychiatry; Emergency Provider Emergency Medicine; PCP Internal Medicine; Visit Provider Clinical Nurse Specialist Psychiatric/Mental Health, Adult
DX: F31.9 Bipolar disorder, unspecified (principal); D61.818 Other pancytopenia; E03.9 Hypothyroidism, unspecified; T43.595S Adverse effect of other antipsychotics and neuroleptics, sequela; N18.30 Chronic kidney disease, stage 3 unspecified; K21.9 Gastro-esophageal reflux disease without esophagitis; M06.9 Rheumatoid arthritis, unspecified; L40.50 Arthropathic psoriasis, unspecified; Z20.822 Contact with and (suspected) exposure to COVID-19; Z91.51 Personal history of suicidal behavior; Z91.14 Patient's other noncompliance with medication regimen; Z88.8 Allergy status to other drugs, medicaments and biological substances; Z79.899 Other long term (current) drug therapy
CPT/HCPCS: 36415; 80048; 80051; 80053; 80061; 80164; 80178; 80307; 82140; 82565; 82607; 82746; 83036; 83540; 83735; 84156; 84207; 84439; 84443; 84520; 85025; 87086; 87635; 97110; 97116; 97162; 99285; Q0163

== ENCOUNTER 2021-10-25 05:20 | Emergency (ER) | payer OTHER, SELFPAY ==
[2021-10-25 05:31] VITALS: BP 128/72; BP 140/86; PULSE 100; PULSE 130; RESP 18; TEMP 36.9; O2SAT 97; O2SAT 98; BMI 27.6
--- NOTE | 2021-10-25 05:39 | ED.GENADULT ---
HPI - General Adult General Chief complaint: General Medical Stated complaint: GEN WEAK,PAIN D/T ARTHRITIS PER EMS Time Seen by Provider: 10/25/21 05:39 Source: patient Mode of arrival: EMS Limitations: no limitations History of Present Illness HPI narrative: Patient's history of psoriatic arthritis is to ambulate all which she not taking for last 4 weeks since then complaining of increased joint pain involving mostly upper extremities no fever no chills complaining of pain all over the body also c/o weakness Related Data Previous Rx's Medication Instructions Recorded etanercept 50 mg/mL (1 mL) 50 mg subcut QWEEK #1 units 09/29/21 subcutaneous pen injector (Enbrel SureClick) etanercept 50 mg/mL (1 mL) 50 mg subcut QWEEK #4 mL 10/17/21 subcutaneous pen injector (Enbrel SureClick) Etanercept 50 mg subcut Q7D #4 applicators 10/24/21 acetaminophen 325 mg tablet 650 mg PO QID #240 tabs 10/24/21 chlorpromazine 25 mg tablet 50 mg PO BEDTIME PRN anxiety, 10/24/21 agitation #0 tabs chlorpromazine 50 mg tablet 1 tab PO BEDTIME PRN Sleep #30 tabs 10/24/21 cyclobenzaprine 5 mg tablet 5 mg PO TID PRN Pain, Moderate 10/24/21 (Pain Scale 4-6 #90 tabs diphenhydramine HCl 25 mg tablet 25 mg PO BEDTIME PRN Sleep #30 tabs 10/24/21 (Allergy Relief (diphenhydramine)) divalproex 250 mg tablet,delayed 750 mg PO 1700 #90 tabs 10/24/21 release docusate sodium 100 mg capsule 100 mg PO BID #60 caps 10/24/21 ferrous sulfate 324 mg (65 mg 324 mg PO DAILY #30 tabs 10/24/21 iron) tablet,delayed release folic acid 1 mg tablet 1 mg PO DAILY #30 tabs 10/24/21 gabapentin 100 mg capsule 100 mg PO BID PRN mod pain #60 caps 10/24/21 gabapentin 400 mg capsule 400 mg PO TID #90 caps 10/24/21 haloperidol 5 mg tablet 5 mg PO BID #60 tabs 10/24/21 hydroxyzine HCl 25 mg tablet 25 mg PO BID PRN anxiety #60 tabs 10/24/21 levothyroxine 50 mcg tablet 50 mcg PO DAILY 30 days #30 tabs 10/24/21 lithium carbonate 150 mg capsule 1 cap PO BEDTIME #30 caps 10/24/21 lithium carbonate 300 mg tablet 150 mg PO BEDTIME #0 tabs 10/24/21 nicotine (polacrilex) 2 mg buccal 2 mg buccal Q2H PRN Nicotine 10/24/21 lozenge Cravings #60 ea nicotine 14 mg/24 hr daily 14 mg transdermal DAILY #28 ea 10/24/21 transdermal patch nystatin 100,000 unit/gram topical 1 appl topical BID #20 grams 10/24/21 cream omeprazole 20 mg capsule,delayed 1 cap PO DAILY@0630 #30 caps 10/24/21 release omeprazole 20 mg capsule,delayed 20 mg PO DAILY@0630 #30 caps 10/24/21 release propranolol 10 mg tablet 10 mg PO TID PRN anxiety, 10/24/21 akathesia #90 tabs sennosides 8.6 mg tablet (Senna 17.2 mg PO BEDTIME #60 tabs 10/24/21 Lax) trazodone 50 mg tablet 50 mg PO BEDTIME PRN Insomnia #30 10/24/21 tabs trolamine salicylate 10 % topical 1 appl topical TID PRN arthtiric 10/24/21 cream (Arthricream) pain #141 grams prednisone 20 mg tablet 40 mg PO DAILY #10 tabs 10/25/21 tramadol 50 mg tablet 50 mg PO Q6H PRN pain #20 tabs 10/25/21 Allergies Allergy/AdvReac Type Severity Reaction Status Date / Time lithium AdvReac Intermediate CKD Verified 09/28/21 11:34 Review of Systems Review of Systems: Yes all other systems are reviewed and are negative [facility] Past Medical History Medical History Anxiety Bipolar 1 disorder CKD (chronic kidney disease) Depression GERD (gastroesophageal reflux disease) Hypothyroidism Psoriatic arthritis Social History Social History Household Members: None Housing: Homeless Do you presently have visiting nurse or other home services: No Alcohol intake: never Patient Tobacco Use Status: Never used Tobacco Tobacco use type: Cigarette Cigarette Packs Per Day: 0.5 Second Hand Smoke Exposure: Yes Use of substances other than those prescribed or required for medical reasons: No Advance Directives: No Advance Directives Information Provided: No Patient : No service: No Sexual orientation: Straight/Heterosexual Physical Exam ED Vital Signs: Vital Signs - 24 hr 10/25/21 05:31 10/25/21 05:48 Temperature 98.4 F 98.2 F Pulse Rate 100 100 Respiratory Rate 18 18 Blood Pressure 128/72 128/72 Pulse Oximetry 97 97 Oxygen Delivery Method Room Air Room Air BMI result Body Mass Index 27.6 Appearance: Alert. Oriented X3. No acute distress. Eyes: PERRLA, No Nystagmus pallor + ENT: Pharynx normal. Oral Mucosa moist Neck: Normal inspection. Neck supple. CVS: Normal heart rate and rhythm. Pulses normal. Respiratory: No respiratory distress. Equal air entry bilateral, no wheezing/rales/rhonchi Abdomen: Soft and nontender. Bowel sounds are present, no mass palpable, no CVA tenderness Skin: Skin warm and dry. Normal skin color. Normal skin turgor. Extremities: No lower extremity edema. No calf tenderness MCP joint tenderness and swelling in bilateral ankle also swollen bilateral wrist also swollen Neuro: Oriented X 3. No motor deficit. No sensory deficit.No cerebellar signs , cranial nerves II-XII intact Medical Decision Making Lab Data Result diagrams: 10/25/21 06:01 10/25/21 06:01 Labs: Lab Results 10/25/21 10/25/21 10/25/21 Range/Units 05:44 06:01 06:01 WBC 9.5 (4.8-10.8) X10*3/uL RBC 2.66 L (4.20-5.50) X10*6/uL Hgb 8.1 L (12.0-16.0) g/dl Hct 25.7 L (37.0-47.0) % MCV 96.6 (80.0-98.0) fL MCH 30.5 (27.0-33.0) pg MCHC 31.5 (31.0-35.0) g/dl RDW 13.6 (11.0-16.0) % Plt Count 308 (160-400) X10*3/uL MPV 9.7 (9.4-12.3) fL Immature Gran % (Auto) 1.0 H (0.0-0.4) % Neut % (Auto) 66.9 (45-73) % Lymph % (Auto) 18.5 L (20-40) % [place] % (Auto) 12.3 H (2-11) % Eos % (Auto) 1.0 (0-4) % Baso % (Auto) 0.3 (0-2) % Lymph # (Auto) 1.8 (1.2-4.9) X10*3/uL [place] # (Auto) 1.2 (0.1-1.2) X10*3/uL Eos # (Auto) 0.1 (0.0-0.4) X10*3/uL Baso # (Auto) 0.0 (0.0-0.2) X10*3/uL Abs Immat Gran (auto) 0.09 H (0.00-0.03) X10*3/uL Absolute Neuts (auto) 6.3 (2.0-8.3) x10*3/uL Absolute Nucleated RBC 0.000 (0.0-0.012) X10*3/uL Nucleated RBC % (auto) 0.0 (0.0-0.2) /100WBC Sodium 144 (135-145) mmol/L Potassium 4.0 (3.3-5.1) mmol/L Chloride 108 (96-108) mmol/L Carbon Dioxide 23 (22-29) mmol/L Anion Gap 17 (12-20) BUN 24 H (9-16) mg/dL Creatinine 1.39 (0.5-1.4) mg/dL Estim Creat Clear Calc 50.0 Estimated GFR 39 Random Glucose 89 (60-115) mg/dL Calcium 9.6 (8.4-10.2) mg/dL Magnesium 1.9 (1.6-2.6) mg/dL Total Bilirubin 0.3 (0.0-1.0) mg/dL AST 10 D (5-31) U/L ALT 10 (0-31) U/L Alkaline Phosphatase 98 (39-117) U/L Total Protein 7.1 (6.5-8.0) g/dL Albumin 3.5 (3.5-5.0) g/dL COVID-19 ([facility]) Negative (Negative) COVID-19 Clin Com See Note Discharge Plan Discharge Clinical Impression: Psoriatic arthritis Patient Disposition: Home, Self-Care Instructions: Psoriasis (ED), Arthritis (ED) Additional Instructions: Take prednisone as prescribed Pain medication as prescribed Follow-up with your PCP/steamer gum candy Prescriptions: New prednisone 20 mg tablet 40 mg PO DAILY Qty: 10 0RF tramadol 50 mg tablet 50 mg PO Q6H PRN (Reason: pain) Qty: 20 0RF No Action Enbrel SureClick 50 mg/mL (1 mL) pen injector 50 mg subcut QWEEK Qty: 1 0RF Enbrel SureClick 50 mg/mL (1 mL) pen injector 50 mg subcut QWEEK Qty: 4 0RF diphenhydramine HCl [Allergy Relief(diphenhydramin)] 25 mg Tablet 25 mg PO BEDTIME PRN (Reason: Sleep) Qty: 30 0RF nicotine 14 mg/24 hr Patch 24 Hour 14 mg transdermal DAILY Qty: 28 0RF cyclobenzaprine 5 mg Tablet 5 mg PO TID PRN (Reason: Pain, Moderate (Pain Scale 4-6) Qty: 90 0RF nicotine (polacrilex) 2 mg Lozenge 2 mg buccal Q2H PRN (Reason: Nicotine Cravings) Qty: 60 0RF ferrous sulfate 324 mg (65 mg iron) Tablet,Delayed Release (Dr/Ec) 324 mg PO DAILY Qty: 30 0RF propranolol 10 mg Tablet 10 mg PO TID PRN (Reason: anxiety, akathesia) Qty: 90 0RF Protocol: Hold for SBP/HR < HOLD for SBP < : 90 HOLD for HR < : 60 acetaminophen 325 mg Tablet 650 mg PO QID Qty: 240 0RF haloperidol 5 mg Tablet 5 mg PO BID Qty: 60 0RF divalproex 250 mg Tablet,Delayed Release (Dr/Ec) 750 mg PO 1700 Qty: 90 0RF trazodone 50 mg Tablet 50 mg PO BEDTIME PRN (Reason: Insomnia) Qty: 30 0RF gabapentin 400 mg Capsule 400 mg PO TID Qty: 90 0RF chlorpromazine 25 mg Tablet 50 mg PO BEDTIME PRN (Reason: anxiety, agitation) Qty: 0 0RF hydroxyzine HCl 25 mg Tablet 25 mg PO BID PRN (Reason: anxiety) Qty: 60 0RF gabapentin 100 mg Capsule 100 mg PO BID PRN (Reason: mod pain) Qty: 60 0RF lithium carbonate 300 mg Tablet 150 mg PO BEDTIME Qty: 0 0RF trolamine salicylate [Arthricream] 10 % Cream 1 appl topical TID PRN (Reason: arthtiric pain) Qty: 141 0RF Protocol: Apply to: Apply to: joints docusate sodium 100 mg Capsule 100 mg PO BID Qty: 60 0RF sennosides [Senna Lax] 8.6 mg Tablet 17.2 mg PO BEDTIME Qty: 60 0RF omeprazole 20 mg Capsule,Delayed Release(Dr/Ec) 20 mg PO DAILY@0630 Qty: 30 0RF nystatin 100,000 unit/gram Cream 1 appl topical BID Qty: 20 0RF Protocol: Apply to: Apply to: bilateral breasts Etanercept 50 mg subcut Q7D Qty: 4 0RF lithium carbonate 150 mg capsule 1 cap PO BEDTIME Qty: 30 0RF levothyroxine 50 mcg tablet 50 mcg PO DAILY 30 Days Qty: 30 0RF omeprazole 20 mg capsule,delayed release(DR/EC) 1 cap PO DAILY@0630 Qty: 30 0RF folic acid 1 mg tablet 1 mg PO DAILY Qty: 30 0RF chlorpromazine 50 mg tablet 1 tab PO BEDTIME PRN (Reason: Sleep) Qty: 30 0RF
[2021-10-25 05:48] VITALS: BP 128/72; PULSE 100; RESP 18; TEMP 36.8; O2SAT 97
--- NOTE | 2021-10-25 05:50 | PC.NURSE ---
COVID swab sent as ordered
[2021-10-25 06:04] LABS: MANUAL DIFF FLAG NO
[2021-10-25 06:05] LABS: COVID-19 Test Negative (Negative)
[2021-10-25] MEDS: methylPREDNISolone Sod Succ 125 MG/2 ML VIAL IVPUSH (06:08)
[2021-10-25 06:22] LABS: Basophils Percent Auto 0.3 % (0-2); Eosinophils Absolute Auto 0.1 X10*3/uL (0.0-0.4); Hematocrit 25.7 % (37.0-47.0); Hemoglobin 8.1 g/dl (12.0-16.0); Imm Gran Abs Auto 0.09 X10*3/uL (0.00-0.03); Lymphocytes Absolute Auto 1.8 X10*3/uL (1.2-4.9); Lymphocytes Percent Auto 18.5 % (20-40); Mean Corpuscular HGB Conc 31.5 g/dl (31.0-35.0); Mean Corpuscular Hemoglobin 30.5 pg (27.0-33.0); Mean Corpuscular Volume 96.6 fL (80.0-98.0); Mean Platelet Volume 9.7 fL (9.4-12.3); Monocytes Absolute Auto 1.2 X10*3/uL (0.1-1.2); Monocytes Percent Auto 12.3 % (2-11); Neutrophils Absolute Auto 6.3 x10*3/uL (2.0-8.3); Neutrophils Percent Auto 66.9 % (45-73); Platelet Count 308 X10*3/uL (160-400); Red Blood Count 2.66 X10*6/uL (4.20-5.50); Red Cell Distribution Width 13.6 % (11.0-16.0); White Blood Count 9.5 X10*3/uL (4.8-10.8)
[2021-10-25 06:32] LABS: Alanine Aminotransferase 10 U/L (0-31); Albumin Level 3.5 g/dL (3.5-5.0); Alkaline Phosphatase 98 U/L (39-117); Anion Gap 17 (12-20); Aspartate Amino Transferase 10 U/L (5-31); Bilirubin Total 0.3 mg/dL (0.0-1.0); Blood Urea Nitrogen 24 mg/dL (9-16); Calcium 9.6 mg/dL (8.4-10.2); Carbon Dioxide 23 mmol/L (22-29); Chloride 108 mmol/L (96-108); Estimated Glomerular Filt Rate 39; Glucose Random 89 mg/dL (60-115); Magnesium 1.9 mg/dL (1.6-2.6); Sodium 144 mmol/L (135-145); Total Protein 7.1 g/dL (6.5-8.0)
[2021-10-25 07:00] LABS: Lithium 0.14 mmol/L (0.60-1.20)
[2021-10-25 07:32] VITALS: BP 127/73; PULSE 98; RESP 16; O2SAT 95
[2021-10-25] MEDS: Ketorolac Tromethamine 30 MG/ML VIAL IVPUSH (08:37)
== END 2021-10-25 09:15 | disposition home or self-care (01) ==
PROVIDERS: Emergency Provider Internal Medicine; PCP Internal Medicine
DX: L40.50 Arthropathic psoriasis, unspecified (principal); Z20.822 Contact with and (suspected) exposure to COVID-19; R53.1 Weakness; F17.210 Nicotine dependence, cigarettes, uncomplicated; Z79.899 Other long term (current) drug therapy
CPT/HCPCS: 36415; 80053; 80178; 83735; 85025; 87635; 96374; 96375; 99284; J1885; J2930

== ENCOUNTER 2021-10-26 20:46 | Emergency (ER) | payer OTHER, SELFPAY ==
[2021-10-26 22:04] VITALS: BP 110/66; PULSE 89; RESP 18; TEMP 36.7; O2SAT 99; BMI 26.6
--- NOTE | 2021-10-27 00:16 | ED.GENADULT ---
HPI - General Adult General Chief complaint: General Medical Stated complaint: arthritis/pain all over Time Seen by Provider: 10/26/21 22:24 Source: patient Mode of arrival: ambulatory Limitations: no limitations History of Present Illness HPI narrative: Patient's history of psoriatic arthritis was seen here on 10/25 and prednisone prescription was given but patient could not get the prescription comes here with pain in the most of the small joints specially in the hands and the ankle also patient feels anxious . No fever no chills Related Data Previous Rx's Medication Instructions Recorded etanercept 50 mg/mL (1 mL) 50 mg subcut QWEEK #1 units 09/29/21 subcutaneous pen injector (Enbrel SureClick) etanercept 50 mg/mL (1 mL) 50 mg subcut QWEEK #4 mL 10/17/21 subcutaneous pen injector (Enbrel SureClick) Etanercept 50 mg subcut Q7D #4 applicators 10/24/21 acetaminophen 325 mg tablet 650 mg PO QID #240 tabs 10/24/21 chlorpromazine 25 mg tablet 50 mg PO BEDTIME PRN anxiety, 10/24/21 agitation #0 tabs chlorpromazine 50 mg tablet 1 tab PO BEDTIME PRN Sleep #30 tabs 10/24/21 cyclobenzaprine 5 mg tablet 5 mg PO TID PRN Pain, Moderate 10/24/21 (Pain Scale 4-6 #90 tabs diphenhydramine HCl 25 mg tablet 25 mg PO BEDTIME PRN Sleep #30 tabs 10/24/21 (Allergy Relief (diphenhydramine)) divalproex 250 mg tablet,delayed 750 mg PO 1700 #90 tabs 10/24/21 release docusate sodium 100 mg capsule 100 mg PO BID #60 caps 10/24/21 ferrous sulfate 324 mg (65 mg 324 mg PO DAILY #30 tabs 10/24/21 iron) tablet,delayed release folic acid 1 mg tablet 1 mg PO DAILY #30 tabs 10/24/21 gabapentin 100 mg capsule 100 mg PO BID PRN mod pain #60 caps 10/24/21 gabapentin 400 mg capsule 400 mg PO TID #90 caps 10/24/21 haloperidol 5 mg tablet 5 mg PO BID #60 tabs 10/24/21 hydroxyzine HCl 25 mg tablet 25 mg PO BID PRN anxiety #60 tabs 10/24/21 levothyroxine 50 mcg tablet 50 mcg PO DAILY 30 days #30 tabs 10/24/21 lithium carbonate 150 mg capsule 1 cap PO BEDTIME #30 caps 10/24/21 lithium carbonate 300 mg tablet 150 mg PO BEDTIME #0 tabs 10/24/21 nicotine (polacrilex) 2 mg buccal 2 mg buccal Q2H PRN Nicotine 10/24/21 lozenge Cravings #60 ea nicotine 14 mg/24 hr daily 14 mg transdermal DAILY #28 ea 10/24/21 transdermal patch nystatin 100,000 unit/gram topical 1 appl topical BID #20 grams 10/24/21 cream omeprazole 20 mg capsule,delayed 1 cap PO DAILY@0630 #30 caps 10/24/21 release omeprazole 20 mg capsule,delayed 20 mg PO DAILY@0630 #30 caps 10/24/21 release propranolol 10 mg tablet 10 mg PO TID PRN anxiety, 10/24/21 akathesia #90 tabs sennosides 8.6 mg tablet (Senna 17.2 mg PO BEDTIME #60 tabs 10/24/21 Lax) trazodone 50 mg tablet 50 mg PO BEDTIME PRN Insomnia #30 10/24/21 tabs trolamine salicylate 10 % topical 1 appl topical TID PRN arthtiric 10/24/21 cream (Arthricream) pain #141 grams lorazepam 1 mg tablet (Ativan) 1 mg PO BEDTIME PRN anxiety #14 10/27/21 tabs prednisone 20 mg tablet 40 mg PO DAILY #10 tabs 10/27/21 tramadol 50 mg tablet 50 mg PO Q6H PRN pain #20 tabs 10/27/21 Allergies Allergy/AdvReac Type Severity Reaction Status Date / Time lithium AdvReac Intermediate CKD Verified 10/26/21 22:08 Review of Systems Review of Systems: Yes all other systems are reviewed and are negative PMFSH Past Medical History Medical History Anxiety Bipolar 1 disorder CKD (chronic kidney disease) Depression GERD (gastroesophageal reflux disease) Hypothyroidism Psoriatic arthritis Social History Social History Household Members: None Housing: Homeless Do you presently have visiting nurse or other home services: No Alcohol intake: never Patient Tobacco Use Status: Never used Tobacco Tobacco use type: Cigarette Cigarette Packs Per Day: 0.5 Second Hand Smoke Exposure: Yes Advance Directives: No Advance Directives Information Provided: Yes service: No Sexual orientation: Straight/Heterosexual Physical Exam ED Vital Signs: Vital Signs - 24 hr 10/26/21 22:04 10/27/21 00:26 Temperature 98.1 F Pulse Rate 89 93 Respiratory Rate 18 18 Blood Pressure 110/66 115/70 Pulse Oximetry 99 99 Oxygen Delivery Method Room Air Room Air BMI result Body Mass Index 26.6 Appearance: Alert. Oriented X3. Anxious Eyes: PERRLA, No Nystagmus ENT: Pharynx normal. Oral Mucosa moist Neck: Normal inspection. Neck supple. CVS: Normal heart rate and rhythm. Pulses normal. Respiratory: No respiratory distress. Equal air entry bilateral, no wheezing/rales/rhonchi Abdomen: Soft and nontender. Bowel sounds are present, no mass palpable, no CVA tenderness Skin: Skin warm and dry. Normal skin color. Normal skin turgor. Extremities: No lower extremity edema. No calf tenderness swollen bilateral hand metacarpophalangeal joint Neuro: Oriented X 3. No motor deficit. No sensory deficit.No cerebellar signs , cranial nerves II-XII intact Medical Decision Making MDM Narrative Medical decision making narrative: Patient was psoriatic arthritis with anxiety was seen here on 10/25 was given prednisone felt better but could not get her prescription filled as she did not know which pharmacy to go, she wants different pharmacy will send the prescription to [facility] pharmacy of her choice patient Discharge Plan Discharge Clinical Impression: Psoriatic arthritis Patient Disposition: Home, Self-Care Instructions: Arthritis (ED) Additional Instructions: Take prednisone and pain medication as prescribed Medication for anxiety Follow-up with your PCP/dermatology Prescriptions: New prednisone 20 mg tablet 40 mg PO DAILY Qty: 10 0RF tramadol 50 mg tablet 50 mg PO Q6H PRN (Reason: pain) Qty: 20 0RF lorazepam [Ativan] 1 mg tablet 1 mg PO BEDTIME PRN (Reason: anxiety) Qty: 14 0RF Discontinued prednisone 20 mg tablet 40 mg PO DAILY Qty: 10 0RF tramadol 50 mg tablet 50 mg PO Q6H PRN (Reason: pain) Qty: 20 0RF No Action Enbrel SureClick 50 mg/mL (1 mL) pen injector 50 mg subcut QWEEK Qty: 1 0RF Enbrel SureClick 50 mg/mL (1 mL) pen injector 50 mg subcut QWEEK Qty: 4 0RF diphenhydramine HCl [Allergy Relief(diphenhydramin)] 25 mg Tablet 25 mg PO BEDTIME PRN (Reason: Sleep) Qty: 30 0RF nicotine 14 mg/24 hr Patch 24 Hour 14 mg transdermal DAILY Qty: 28 0RF cyclobenzaprine 5 mg Tablet 5 mg PO TID PRN (Reason: Pain, Moderate (Pain Scale 4-6) Qty: 90 0RF nicotine (polacrilex) 2 mg Lozenge 2 mg buccal Q2H PRN (Reason: Nicotine Cravings) Qty: 60 0RF ferrous sulfate 324 mg (65 mg iron) Tablet,Delayed Release (Dr/Ec) 324 mg PO DAILY Qty: 30 0RF propranolol 10 mg Tablet 10 mg PO TID PRN (Reason: anxiety, akathesia) Qty: 90 0RF Protocol: Hold for SBP/HR < HOLD for SBP < : 90 HOLD for HR < : 60 acetaminophen 325 mg Tablet 650 mg PO QID Qty: 240 0RF haloperidol 5 mg Tablet 5 mg PO BID Qty: 60 0RF divalproex 250 mg Tablet,Delayed Release (Dr/Ec) 750 mg PO 1700 Qty: 90 0RF trazodone 50 mg Tablet 50 mg PO BEDTIME PRN (Reason: Insomnia) Qty: 30 0RF gabapentin 400 mg Capsule 400 mg PO TID Qty: 90 0RF chlorpromazine 25 mg Tablet 50 mg PO BEDTIME PRN (Reason: anxiety, agitation) Qty: 0 0RF hydroxyzine HCl 25 mg Tablet 25 mg PO BID PRN (Reason: anxiety) Qty: 60 0RF gabapentin 100 mg Capsule 100 mg PO BID PRN (Reason: mod pain) Qty: 60 0RF lithium carbonate 300 mg Tablet 150 mg PO BEDTIME Qty: 0 0RF trolamine salicylate [Arthricream] 10 % Cream 1 appl topical TID PRN (Reason: arthtiric pain) Qty: 141 0RF Protocol: Apply to: Apply to: joints docusate sodium 100 mg Capsule 100 mg PO BID Qty: 60 0RF sennosides [Senna Lax] 8.6 mg Tablet 17.2 mg PO BEDTIME Qty: 60 0RF omeprazole 20 mg Capsule,Delayed Release(Dr/Ec) 20 mg PO DAILY@0630 Qty: 30 0RF nystatin 100,000 unit/gram Cream 1 appl topical BID Qty: 20 0RF Protocol: Apply to: Apply to: bilateral breasts Etanercept 50 mg subcut Q7D Qty: 4 0RF lithium carbonate 150 mg capsule 1 cap PO BEDTIME Qty: 30 0RF levothyroxine 50 mcg tablet 50 mcg PO DAILY 30 Days Qty: 30 0RF omeprazole 20 mg capsule,delayed release(DR/EC) 1 cap PO DAILY@0630 Qty: 30 0RF folic acid 1 mg tablet 1 mg PO DAILY Qty: 30 0RF chlorpromazine 50 mg tablet 1 tab PO BEDTIME PRN (Reason: Sleep) Qty: 30 0RF
[2021-10-27 00:26] VITALS: BP 115/70; PULSE 93; RESP 18; O2SAT 99
[2021-10-27] MEDS: traMADoL HCL 50 MG TABLET PO (00:52)
[2021-10-27] MEDS: dexAMETHasone 2 MG TABLET 10 MG PO (00:53)
== END 2021-10-27 00:54 | disposition home or self-care (01) ==
PROVIDERS: Emergency Provider Internal Medicine
DX: L40.50 Arthropathic psoriasis, unspecified (principal)
CPT/HCPCS: 99283; 99284; J8540

== ENCOUNTER 2021-10-30 12:10 | Emergency (ER) | payer OTHER, SELFPAY ==
[2021-10-30 12:19] VITALS: BP 120/69; BP 128/82; PULSE 96; RESP 16; TEMP 37.4; O2SAT 99; BMI 28.4
--- NOTE | 2021-10-30 12:21 | ED.GENADULT ---
HPI - General Adult General Chief complaint: Back Pain/Injury Stated complaint: SPINE PAIN FROM H/O ARTHRITIS,NO INJURY Time Seen by Provider: 10/30/21 12:20 Source: patient and EMS Mode of arrival: EMS Limitations: no limitations History of Present Illness HPI narrative: Patient is a 61 year old female presenting to the emergency department today with chronic back pain. Patient states that she has chronic pain all over and the last time she was here, she was given a steroid injection that helped. Patient states that after that, she was given a prednisone prescription but wasn't able to pick it up until this morning. Patient denies any dizziness, lightheadedness, abdominal pain, nausea, vomiting, fever, chills, blurry vision, double vision, loss of vision, chest pain, difficulty breathing, shortness of breath, night sweats, pain with urination, increased urinary frequency, increased urinary urgency, blood in her urine or stool, syncope or a near syncopal episode, recent trauma or falls, bowel incontinence, bladder incontinence, bowel retention, bladder retention, or any other complaints at this time. Patient states that she doesn't follow with a pain specialist. Onset (ago): year(s) Location: back Radiation: non-radiation Severity: mild Severity scale (1-10): 6 Quality: aching Pain Consistency: constant Relieving factors: none Exacerbating factors: none Associated symptoms: denies other symptoms Treatments prior to arrival: none Related Data Previous Rx's Medication Instructions Recorded etanercept 50 mg/mL (1 mL) 50 mg subcut QWEEK #1 units 09/29/21 subcutaneous pen injector (Enbrel SureClick) etanercept 50 mg/mL (1 mL) 50 mg subcut QWEEK #4 mL 10/17/21 subcutaneous pen injector (Enbrel SureClick) Etanercept 50 mg subcut Q7D #4 applicators 10/24/21 acetaminophen 325 mg tablet 650 mg PO QID #240 tabs 10/24/21 chlorpromazine 25 mg tablet 50 mg PO BEDTIME PRN anxiety, 10/24/21 agitation #0 tabs chlorpromazine 50 mg tablet 1 tab PO BEDTIME PRN Sleep #30 tabs 10/24/21 cyclobenzaprine 5 mg tablet 5 mg PO TID PRN Pain, Moderate 10/24/21 (Pain Scale 4-6 #90 tabs diphenhydramine HCl 25 mg tablet 25 mg PO BEDTIME PRN Sleep #30 tabs 10/24/21 (Allergy Relief (diphenhydramine)) divalproex 250 mg tablet,delayed 750 mg PO 1700 #90 tabs 10/24/21 release docusate sodium 100 mg capsule 100 mg PO BID #60 caps 10/24/21 ferrous sulfate 324 mg (65 mg 324 mg PO DAILY #30 tabs 10/24/21 iron) tablet,delayed release folic acid 1 mg tablet 1 mg PO DAILY #30 tabs 10/24/21 gabapentin 100 mg capsule 100 mg PO BID PRN mod pain #60 caps 10/24/21 gabapentin 400 mg capsule 400 mg PO TID #90 caps 10/24/21 haloperidol 5 mg tablet 5 mg PO BID #60 tabs 10/24/21 hydroxyzine HCl 25 mg tablet 25 mg PO BID PRN anxiety #60 tabs 10/24/21 levothyroxine 50 mcg tablet 50 mcg PO DAILY 30 days #30 tabs 10/24/21 lithium carbonate 150 mg capsule 1 cap PO BEDTIME #30 caps 10/24/21 lithium carbonate 300 mg tablet 150 mg PO BEDTIME #0 tabs 10/24/21 nicotine (polacrilex) 2 mg buccal 2 mg buccal Q2H PRN Nicotine 10/24/21 lozenge Cravings #60 ea nicotine 14 mg/24 hr daily 14 mg transdermal DAILY #28 ea 10/24/21 transdermal patch nystatin 100,000 unit/gram topical 1 appl topical BID #20 grams 10/24/21 cream omeprazole 20 mg capsule,delayed 1 cap PO DAILY@0630 #30 caps 10/24/21 release omeprazole 20 mg capsule,delayed 20 mg PO DAILY@0630 #30 caps 10/24/21 release propranolol 10 mg tablet 10 mg PO TID PRN anxiety, 10/24/21 akathesia #90 tabs sennosides 8.6 mg tablet (Senna 17.2 mg PO BEDTIME #60 tabs 10/24/21 Lax) trazodone 50 mg tablet 50 mg PO BEDTIME PRN Insomnia #30 10/24/21 tabs trolamine salicylate 10 % topical 1 appl topical TID PRN arthtiric 10/24/21 cream (Arthricream) pain #141 grams lorazepam 1 mg tablet (Ativan) 1 mg PO BEDTIME PRN anxiety #14 10/27/21 tabs prednisone 20 mg tablet 40 mg PO DAILY #10 tabs 10/27/21 tramadol 50 mg tablet 50 mg PO Q6H PRN pain #20 tabs 10/27/21 Allergies Allergy/AdvReac Type Severity Reaction Status Date / Time lithium AdvReac Intermediate CKD Verified 10/26/21 22:08 Review of Systems Constitutional: Constitutional: Reports no additional constitutional complaints, Denies chills, Denies fever(s) and Denies night sweats Eyes: Eyes: Reports no additional eye complaints, Denies blurry vision, Denies change in vision, Denies diplopia, Denies eye discharge, Denies loss of vision and Denies eye pain ENT: Denies dizziness Cardiovascular: Cardiovascular: Reports no additional cardiovascular complaints, Denies chest pain, Denies lightheadedness, Denies Loss of Consciousness and Denies dyspnea Respiratory: Respiratory: Reports no additional respiratory complaints and Denies dyspnea Gastrointestinal: Gastrointestinal: Reports no additional gastrointestinal complaints, Denies abdominal pain, Denies melena, Denies hematochezia, Denies change in bowel habits and Denies change in stool character Genitourinary: Genitourinary: Denies hematuria, Denies urinary frequency, Denies dysuria, Denies urinary incontinence, Denies urinary hesitancy and Denies urinary urgency Musculoskeletal: Musculoskeletal: Reports no additional musculoskeletal complaints, Reports back pain, Denies numbness and Denies tingling Neurologic: Denies dizziness, Denies loss of vision, Denies numbness and Denies tingling Psychiatric: Psychiatric: Reports no additional psychiatric complaints Endocrine: Endocrine: Reports no additional endocrine complaints Hematologic/Lymphatic: Hematologic/Lymphatic: Reports no additional hematologic/lymphatic complaints Allergic/Immunologic: Allergic/Immunologic: Reports no additional allergic/immunologic complaints PMFSH Past Medical History Attestation statement: The following information was validated with the patient. Source: old records reviewed Medical History Anxiety Bipolar 1 disorder CKD (chronic kidney disease) Depression GERD (gastroesophageal reflux disease) Hypothyroidism Psoriatic arthritis Social History Social History Household Members: None Housing: Homeless Do you presently have visiting nurse or other home services: No Alcohol intake: never Patient Tobacco Use Status: Never used Tobacco Tobacco use type: Cigarette Cigarette Packs Per Day: 0.5 Second Hand Smoke Exposure: Yes Advance Directives: Yes Advance Directives Information Provided: No Advance Directives on File: No service: No Sexual orientation: Straight/Heterosexual Physical Exam ED Vital Signs: Vital Signs - 24 hr 10/30/21 12:19 10/30/21 15:24 Temperature 99.4 F 98.5 F Pulse Rate 96 76 Respiratory Rate 16 14 Blood Pressure 120/69 142/83 H Pulse Oximetry 99 98 Oxygen Delivery Method Room Air Room Air BMI result Body Mass Index 28.4 Const General: cooperative, no acute distress, alert and awake Nutritional Appearance: well nourished Orientation/consciousness: patient oriented x3 Limitations: no limitations HENMT Head: Yes normal to inspection and Yes atraumatic Ears: hearing grossly normal bilaterally and external ears normal General nose exam: Normal external nose present, no nasal discharge noted and no epistaxis Face and sinus: Yes normal facial exam, No abrasion and No laceration Mouth: Normal oral and palatal mucosa present, no drooling and no muffled voice Eyes General: appearance normal, both eyes and all related structures Periorbital: periorbital findings normal Eyelids: Yes eyelids normal Conjunctivae: conjunctivae normal Pupils: Equal, round and reactive pupils present EOM: EOMs intact bilaterally Neck Neck: Yes normal visual inspection, Yes full ROM and Yes no lymphadenopathy Chest Chest palpation & inspection: normal inspection of the chest Resp Effort & Inspection: normal respiratory effort and able to speak in complete sentences Auscultation: clear to auscultation bilaterally Cardio Rate: regular rate Rhythm: regular rhythm GI Inspection: Yes normal to inspection General: Yes no CVA tenderness Back/Spine/Pelvis Back: no CVA tenderness Cervical Spine: normal cervical lordosis and cervical ROM normal Thoracic/Lumbar Spine: thoracic and lumbar spine normal to inspection and thoraco-lumbar ROM normal Neuro General: patient oriented x3 and moves all extremities Cranial nerves: Yes Equal, round and reactive pupils present Cognition (Neuro): normal cognition Motor exam (neuro): 5/5 motor strength present throughout Sensory Exam: Normal double simultaneous stimulation for sensation Coordination: [id number] test normal Extrem General: Yes normal to inspection, Yes full ROM and Yes capillary refill normal Psych Appearance: grossly normal Mental Status: mental status grossly normal Affect: normal affect Attitude: cooperative Thought process: Normal thought process present Thought content: Normal thought content present Insight: Good insight present (Psych) Medical Decision Making MDM Narrative Medical decision making narrative: Patient is a 61 year old female presenting to the emergency department today with chronic back pain. Patient's physical exam was unremarkable. I explained my physical exam findings to the patient. I answered all questions asked by the patient. Patient received IM Solu-Medrol and PO Ativan which she stated helped her symptoms significantly. I stressed the importance of the patient taking her medication as prescribed. I stressed the importance of the patient following up with her primary care provider and a pain specialist. I stressed the importance of the patient returning to the emergency department immediately if her symptoms were to worsen or if she were to develop any dizziness, shortness of breath, difficulty breathing, chest pain, blurry vision, loss of vision, nausea, vomiting, abdominal pain, fever, chills, back pain, or any other complaints. Patient verbalized agreement and understanding with this treatment plan and discharge. Differential Diagnosis Differential Diagnosis: chronic pain Medical Records Medical records reviewed: Yes I reviewed the patient's medical records. Discharge Plan Discharge Clinical Impression: Chronic back pain Patient Disposition: Home, Self-Care Instructions: Chronic Pain (ED) Additional Instructions: Follow up with your primary care provider and a pain specialist. Return to the emergency department immediately if your symptoms worsen or if you develop any dizziness, shortness of breath, difficulty breathing, chest pain, blurry vision, loss of vision, nausea, vomiting, abdominal pain, fever, chills, back pain, or any other complaints. Prescriptions: No Action Enbrel SureClick 50 mg/mL (1 mL) pen injector 50 mg subcut QWEEK Qty: 1 0RF Enbrel SureClick 50 mg/mL (1 mL) pen injector 50 mg subcut QWEEK Qty: 4 0RF diphenhydramine HCl [Allergy Relief(diphenhydramin)] 25 mg Tablet 25 mg PO BEDTIME PRN (Reason: Sleep) Qty: 30 0RF nicotine 14 mg/24 hr Patch 24 Hour 14 mg transdermal DAILY Qty: 28 0RF cyclobenzaprine 5 mg Tablet 5 mg PO TID PRN (Reason: Pain, Moderate (Pain Scale 4-6) Qty: 90 0RF nicotine (polacrilex) 2 mg Lozenge 2 mg buccal Q2H PRN (Reason: Nicotine Cravings) Qty: 60 0RF ferrous sulfate 324 mg (65 mg iron) Tablet,Delayed Release (Dr/Ec) 324 mg PO DAILY Qty: 30 0RF propranolol 10 mg Tablet 10 mg PO TID PRN (Reason: anxiety, akathesia) Qty: 90 0RF Protocol: Hold for SBP/HR < HOLD for SBP < : 90 HOLD for HR < : 60 acetaminophen 325 mg Tablet 650 mg PO QID Qty: 240 0RF haloperidol 5 mg Tablet 5 mg PO BID Qty: 60 0RF divalproex 250 mg Tablet,Delayed Release (Dr/Ec) 750 mg PO 1700 Qty: 90 0RF trazodone 50 mg Tablet 50 mg PO BEDTIME PRN (Reason: Insomnia) Qty: 30 0RF gabapentin 400 mg Capsule 400 mg PO TID Qty: 90 0RF chlorpromazine 25 mg Tablet 50 mg PO BEDTIME PRN (Reason: anxiety, agitation) Qty: 0 0RF hydroxyzine HCl 25 mg Tablet 25 mg PO BID PRN (Reason: anxiety) Qty: 60 0RF gabapentin 100 mg Capsule 100 mg PO BID PRN (Reason: mod pain) Qty: 60 0RF lithium carbonate 300 mg Tablet 150 mg PO BEDTIME Qty: 0 0RF trolamine salicylate [Arthricream] 10 % Cream 1 appl topical TID PRN (Reason: arthtiric pain) Qty: 141 0RF Protocol: Apply to: Apply to: joints docusate sodium 100 mg Capsule 100 mg PO BID Qty: 60 0RF sennosides [Senna Lax] 8.6 mg Tablet 17.2 mg PO BEDTIME Qty: 60 0RF omeprazole 20 mg Capsule,Delayed Release(Dr/Ec) 20 mg PO DAILY@0630 Qty: 30 0RF nystatin 100,000 unit/gram Cream 1 appl topical BID Qty: 20 0RF Protocol: Apply to: Apply to: bilateral breasts Etanercept 50 mg subcut Q7D Qty: 4 0RF lithium carbonate 150 mg capsule 1 cap PO BEDTIME Qty: 30 0RF levothyroxine 50 mcg tablet 50 mcg PO DAILY 30 Days Qty: 30 0RF omeprazole 20 mg capsule,delayed release(DR/EC) 1 cap PO DAILY@0630 Qty: 30 0RF folic acid 1 mg tablet 1 mg PO DAILY Qty: 30 0RF chlorpromazine 50 mg tablet 1 tab PO BEDTIME PRN (Reason: Sleep) Qty: 30 0RF prednisone 20 mg tablet 40 mg PO DAILY Qty: 10 0RF tramadol 50 mg tablet 50 mg PO Q6H PRN (Reason: pain) Qty: 20 0RF lorazepam [Ativan] 1 mg tablet 1 mg PO BEDTIME PRN (Reason: anxiety) Qty: 14 0RF [place]: [facility] [place] [facility] [place] (Call to establish and follow up with a primary care provider. If you already have a primary care provider, please follow up with them. ) [facility] [place]Provider Group] (Call to establish and follow up with a primary care provider. If you already have a primary care provider, please follow up with them. ) [facility] [place] Group] (Call to establish and follow up with a primary care provider. If you already have a primary care provider, please follow up with them. ) [facility] [place] [facility] [place] (Call to establish and follow up with a pain specialist. ) Print Language: Vincentian
[2021-10-30] MEDS: methylPREDNISolone Sod Succ 125 MG/2 ML VIAL 120 MG IM (12:49)
[2021-10-30] MEDS: LORazepam 1 MG TABLET PO (12:49)
[2021-10-30 15:24] VITALS: BP 142/83; PULSE 76; RESP 14; TEMP 36.9; O2SAT 98
== END 2021-10-30 15:21 | disposition home or self-care (01) ==
PROVIDERS: Emergency Provider Emergency Medicine; PCP Internal Medicine
DX: G89.29 Other chronic pain (principal); M54.9 Dorsalgia, unspecified; F17.210 Nicotine dependence, cigarettes, uncomplicated; Z79.899 Other long term (current) drug therapy
CPT/HCPCS: 96372; 99282; 99284; J2930

== ENCOUNTER 2021-10-31 15:13 | Emergency (ER) | payer OTHER, SELFPAY ==
[2021-10-31 15:22] VITALS: BP 118/72; PULSE 95; O2SAT 98
[2021-10-31 16:17] VITALS: BP 122/77; PULSE 84; RESP 18; TEMP 36.9; O2SAT 98; BMI 27.6
[2021-10-31] MEDS: Acetaminophen 325 MG TABLET 650 MG PO (17:59)
[2021-10-31 18:10] LABS: MANUAL DIFF FLAG NO
[2021-10-31 18:12] LABS: Basophils Percent Auto 0.3 % (0-2); Eosinophils Percent Auto 0.1 % (0-4); Hematocrit 27.9 % (37.0-47.0); Imm Gran Abs Auto 0.07 X10*3/uL (0.00-0.03); Imm Gran Pct Auto 0.5 % (0.0-0.4); Lymphocytes Absolute Auto 3.4 X10*3/uL (1.2-4.9); Lymphocytes Percent Auto 24.1 % (20-40); Mean Corpuscular HGB Conc 32.3 g/dl (31.0-35.0); Mean Corpuscular Hemoglobin 30.7 pg (27.0-33.0); Mean Corpuscular Volume 95.2 fL (80.0-98.0); Mean Platelet Volume 9.6 fL (9.4-12.3); Monocytes Percent Auto 6.8 % (2-11); Neutrophils Absolute Auto 9.6 x10*3/uL (2.0-8.3); Neutrophils Percent Auto 68.2 % (45-73); Platelet Count 383 X10*3/uL (160-400); Red Blood Count 2.93 X10*6/uL (4.20-5.50); Red Cell Distribution Width 13.3 % (11.0-16.0)
[2021-10-31 18:31] LABS: Anion Gap 18 (12-20); Blood Urea Nitrogen 29 mg/dL (9-16); Calcium 9.8 mg/dL (8.4-10.2); Carbon Dioxide 22 mmol/L (22-29); Chloride 105 mmol/L (96-108); Creatinine Clr Calc Pharmacy 42.9; Estimated Glomerular Filt Rate 32; Glucose Random 73 mg/dL (60-115); Potassium 3.8 mmol/L (3.3-5.1); Sodium 141 mmol/L (135-145)
[2021-10-31 23:18] VITALS: BP 134/79; PULSE 89; RESP 22; TEMP 36.5; O2SAT 100
--- NOTE | 2021-11-01 00:17 | ED.GENADULT ---
HPI - General Adult General Chief complaint: General Medical Stated complaint: BODY PAIN,SEEN RECENTLY FOR SAME PER EMS Time Seen by Provider: 10/31/21 22:15 Source: patient Mode of arrival: ambulatory Limitations: no limitations History of Present Illness HPI narrative: Patient with psoriatic arthritis depression been here at least 4 times in last 1 week of body pain feel depressed crying started on prednisone Ativan and tramadol which she taking patient lives alone workup is negative so far Related Data Previous Rx's Medication Instructions Recorded etanercept 50 mg/mL (1 mL) 50 mg subcut QWEEK #1 units 09/29/21 subcutaneous pen injector (Enbrel SureClick) etanercept 50 mg/mL (1 mL) 50 mg subcut QWEEK #4 mL 10/17/21 subcutaneous pen injector (Enbrel SureClick) Etanercept 50 mg subcut Q7D #4 applicators 10/24/21 acetaminophen 325 mg tablet 650 mg PO QID #240 tabs 10/24/21 chlorpromazine 25 mg tablet 50 mg PO BEDTIME PRN anxiety, 10/24/21 agitation #0 tabs chlorpromazine 50 mg tablet 1 tab PO BEDTIME PRN Sleep #30 tabs 10/24/21 cyclobenzaprine 5 mg tablet 5 mg PO TID PRN Pain, Moderate 10/24/21 (Pain Scale 4-6 #90 tabs diphenhydramine HCl 25 mg tablet 25 mg PO BEDTIME PRN Sleep #30 tabs 10/24/21 (Allergy Relief (diphenhydramine)) divalproex 250 mg tablet,delayed 750 mg PO 1700 #90 tabs 10/24/21 release docusate sodium 100 mg capsule 100 mg PO BID #60 caps 10/24/21 ferrous sulfate 324 mg (65 mg 324 mg PO DAILY #30 tabs 10/24/21 iron) tablet,delayed release folic acid 1 mg tablet 1 mg PO DAILY #30 tabs 10/24/21 gabapentin 100 mg capsule 100 mg PO BID PRN mod pain #60 caps 10/24/21 gabapentin 400 mg capsule 400 mg PO TID #90 caps 10/24/21 haloperidol 5 mg tablet 5 mg PO BID #60 tabs 10/24/21 hydroxyzine HCl 25 mg tablet 25 mg PO BID PRN anxiety #60 tabs 10/24/21 levothyroxine 50 mcg tablet 50 mcg PO DAILY 30 days #30 tabs 10/24/21 lithium carbonate 150 mg capsule 1 cap PO BEDTIME #30 caps 10/24/21 lithium carbonate 300 mg tablet 150 mg PO BEDTIME #0 tabs 10/24/21 nicotine (polacrilex) 2 mg buccal 2 mg buccal Q2H PRN Nicotine 10/24/21 lozenge Cravings #60 ea nicotine 14 mg/24 hr daily 14 mg transdermal DAILY #28 ea 10/24/21 transdermal patch nystatin 100,000 unit/gram topical 1 appl topical BID #20 grams 10/24/21 cream omeprazole 20 mg capsule,delayed 1 cap PO DAILY@0630 #30 caps 10/24/21 release omeprazole 20 mg capsule,delayed 20 mg PO DAILY@0630 #30 caps 10/24/21 release propranolol 10 mg tablet 10 mg PO TID PRN anxiety, 10/24/21 akathesia #90 tabs sennosides 8.6 mg tablet (Senna 17.2 mg PO BEDTIME #60 tabs 10/24/21 Lax) trazodone 50 mg tablet 50 mg PO BEDTIME PRN Insomnia #30 10/24/21 tabs trolamine salicylate 10 % topical 1 appl topical TID PRN arthtiric 10/24/21 cream (Arthricream) pain #141 grams lorazepam 1 mg tablet (Ativan) 1 mg PO BEDTIME PRN anxiety #14 10/27/21 tabs prednisone 20 mg tablet 40 mg PO DAILY #10 tabs 10/27/21 tramadol 50 mg tablet 50 mg PO Q6H PRN pain #20 tabs 10/27/21 colchicine 0.6 mg tablet 0.6 mg PO DAILY #20 tabs 11/01/21 methylprednisolone 4 mg tablets in 4 mg PO DAILY #21 ea 11/01/21 a dose pack (Medrol (Mike)) Allergies Allergy/AdvReac Type Severity Reaction Status Date / Time lithium AdvReac Intermediate CKD Verified 10/26/21 22:08 Review of Systems Review of Systems: Yes all other systems are reviewed and are negative PMFSH Past Medical History Medical History Anxiety Bipolar 1 disorder CKD (chronic kidney disease) Depression GERD (gastroesophageal reflux disease) Hypothyroidism Psoriatic arthritis Social History Social History Household Members: None Housing: Homeless Do you presently have visiting nurse or other home services: No Alcohol intake: never Patient Tobacco Use Status: Never used Tobacco Tobacco use type: Cigarette Cigarette Packs Per Day: 0.5 Second Hand Smoke Exposure: Yes Advance Directives: No Advance Directives Information Provided: No service: No Sexual orientation: Straight/Heterosexual Physical Exam ED Vital Signs: Vital Signs - 24 hr 10/31/21 16:17 10/31/21 23:18 11/01/21 02:15 Temperature 98.4 F 97.7 F Pulse Rate 84 89 75 Respiratory Rate 18 22 H 18 Blood Pressure 122/77 134/79 124/60 Pulse Oximetry 98 100 98 Oxygen Delivery Method Room Air Room Air Room Air BMI result Body Mass Index 27.6 Appearance: Alert. Oriented X3. No acute distress. Anxious crying Eyes: PERRLA, No Nystagmus ENT: Pharynx normal. Oral Mucosa moist Neck: Normal inspection. Neck supple. CVS: Normal heart rate and rhythm. Pulses normal. Respiratory: No respiratory distress. Equal air entry bilateral, no wheezing/rales/rhonchi Abdomen: Soft and nontender. Bowel sounds are present, no mass palpable, no CVA tenderness Skin: Skin warm and dry. Normal skin color. Normal skin turgor. Extremities: No lower extremity edema. No calf tenderness no significant joint swelling Neuro: Oriented X 3. No motor deficit. No sensory deficit.No cerebellar signs , cranial nerves II-XII intact Medical Decision Making Lab Data Result diagrams: 10/31/21 18:05 10/31/21 18:05 Labs: Lab Results 10/31/21 10/31/21 10/31/21 Range/Units 18:05 18:05 18:05 WBC 14.0 H (4.8-10.8) X10*3/uL RBC 2.93 L (4.20-5.50) X10*6/uL Hgb 9.0 L (12.0-16.0) g/dl Hct 27.9 L (37.0-47.0) % MCV 95.2 (80.0-98.0) fL MCH 30.7 (27.0-33.0) pg MCHC 32.3 (31.0-35.0) g/dl RDW 13.3 (11.0-16.0) % Plt Count 383 (160-400) X10*3/uL MPV 9.6 (9.4-12.3) fL Immature Gran % (Auto) 0.5 H (0.0-0.4) % Neut % (Auto) 68.2 (45-73) % Lymph % (Auto) 24.1 (20-40) % [place] % (Auto) 6.8 (2-11) % Eos % (Auto) 0.1 (0-4) % Baso % (Auto) 0.3 (0-2) % Lymph # (Auto) 3.4 (1.2-4.9) X10*3/uL [place] # (Auto) 1.0 (0.1-1.2) X10*3/uL Eos # (Auto) 0.0 (0.0-0.4) X10*3/uL Baso # (Auto) 0.0 (0.0-0.2) X10*3/uL Abs Immat Gran (auto) 0.07 H (0.00-0.03) X10*3/uL Absolute Neuts (auto) 9.6 H (2.0-8.3) x10*3/uL Absolute Nucleated RBC 0.000 (0.0-0.012) X10*3/uL Nucleated RBC % (auto) 0.0 (0.0-0.2) /100WBC ESR Cancelled Sodium 141 (135-145) mmol/L Potassium 3.8 (3.3-5.1) mmol/L Chloride 105 (96-108) mmol/L Carbon Dioxide 22 (22-29) mmol/L Anion Gap 18 (12-20) BUN 29 H (9-16) mg/dL Creatinine 1.62 H (0.5-1.4) mg/dL Estim Creat Clear Calc 42.9 Estimated GFR 32 Random Glucose 73 (60-115) mg/dL Calcium 9.8 (8.4-10.2) mg/dL C-Reactive Protein 14.42 H (< or = 0.50) mg/dL 11/01/21 Range/Units 00:30 WBC (4.8-10.8) X10*3/uL RBC (4.20-5.50) X10*6/uL Hgb (12.0-16.0) g/dl Hct (37.0-47.0) % MCV (80.0-98.0) fL MCH (27.0-33.0) pg MCHC (31.0-35.0) g/dl RDW (11.0-16.0) % Plt Count (160-400) X10*3/uL MPV (9.4-12.3) fL Immature Gran % (Auto) (0.0-0.4) % Neut % (Auto) (45-73) % Lymph % (Auto) (20-40) % [place] % (Auto) (2-11) % Eos % (Auto) (0-4) % Baso % (Auto) (0-2) % Lymph # (Auto) (1.2-4.9) X10*3/uL [place] # (Auto) (0.1-1.2) X10*3/uL Eos # (Auto) (0.0-0.4) X10*3/uL Baso # (Auto) (0.0-0.2) X10*3/uL Abs Immat Gran (auto) (0.00-0.03) X10*3/uL Absolute Neuts (auto) (2.0-8.3) x10*3/uL Absolute Nucleated RBC (0.0-0.012) X10*3/uL Nucleated RBC % (auto) (0.0-0.2) /100WBC ESR 111 H Sodium (135-145) mmol/L Potassium (3.3-5.1) mmol/L Chloride (96-108) mmol/L Carbon Dioxide (22-29) mmol/L Anion Gap (12-20) BUN (9-16) mg/dL Creatinine (0.5-1.4) mg/dL Estim Creat Clear Calc Estimated GFR Random Glucose (60-115) mg/dL Calcium (8.4-10.2) mg/dL C-Reactive Protein (< or = 0.50) mg/dL Discharge Plan Discharge Clinical Impression: Psoriatic arthritis Patient Disposition: Home, Self-Care Instructions: Psoriasis (ED) Additional Instructions: Continue to take prednisone as prescribed and follow-up with rheumatology/PCP Prescriptions: New methylprednisolone [Medrol (Mike)] 4 mg tablets,dose pack 4 mg PO DAILY Qty: 21 0RF Rx Instructions: Use per instructions on the package colchicine 0.6 mg tablet 0.6 mg PO DAILY Qty: 20 0RF No Action Enbrel SureClick 50 mg/mL (1 mL) pen injector 50 mg subcut QWEEK Qty: 1 0RF Enbrel SureClick 50 mg/mL (1 mL) pen injector 50 mg subcut QWEEK Qty: 4 0RF diphenhydramine HCl [Allergy Relief(diphenhydramin)] 25 mg Tablet 25 mg PO BEDTIME PRN (Reason: Sleep) Qty: 30 0RF nicotine 14 mg/24 hr Patch 24 Hour 14 mg transdermal DAILY Qty: 28 0RF cyclobenzaprine 5 mg Tablet 5 mg PO TID PRN (Reason: Pain, Moderate (Pain Scale 4-6) Qty: 90 0RF nicotine (polacrilex) 2 mg Lozenge 2 mg buccal Q2H PRN (Reason: Nicotine Cravings) Qty: 60 0RF ferrous sulfate 324 mg (65 mg iron) Tablet,Delayed Release (Dr/Ec) 324 mg PO DAILY Qty: 30 0RF propranolol 10 mg Tablet 10 mg PO TID PRN (Reason: anxiety, akathesia) Qty: 90 0RF Protocol: Hold for SBP/HR < HOLD for SBP < : 90 HOLD for HR < : 60 acetaminophen 325 mg Tablet 650 mg PO QID Qty: 240 0RF haloperidol 5 mg Tablet 5 mg PO BID Qty: 60 0RF divalproex 250 mg Tablet,Delayed Release (Dr/Ec) 750 mg PO 1700 Qty: 90 0RF trazodone 50 mg Tablet 50 mg PO BEDTIME PRN (Reason: Insomnia) Qty: 30 0RF gabapentin 400 mg Capsule 400 mg PO TID Qty: 90 0RF chlorpromazine 25 mg Tablet 50 mg PO BEDTIME PRN (Reason: anxiety, agitation) Qty: 0 0RF hydroxyzine HCl 25 mg Tablet 25 mg PO BID PRN (Reason: anxiety) Qty: 60 0RF gabapentin 100 mg Capsule 100 mg PO BID PRN (Reason: mod pain) Qty: 60 0RF lithium carbonate 300 mg Tablet 150 mg PO BEDTIME Qty: 0 0RF trolamine salicylate [Arthricream] 10 % Cream 1 appl topical TID PRN (Reason: arthtiric pain) Qty: 141 0RF Protocol: Apply to: Apply to: joints docusate sodium 100 mg Capsule 100 mg PO BID Qty: 60 0RF sennosides [Senna Lax] 8.6 mg Tablet 17.2 mg PO BEDTIME Qty: 60 0RF omeprazole 20 mg Capsule,Delayed Release(Dr/Ec) 20 mg PO DAILY@0630 Qty: 30 0RF nystatin 100,000 unit/gram Cream 1 appl topical BID Qty: 20 0RF Protocol: Apply to: Apply to: bilateral breasts Etanercept 50 mg subcut Q7D Qty: 4 0RF lithium carbonate 150 mg capsule 1 cap PO BEDTIME Qty: 30 0RF levothyroxine 50 mcg tablet 50 mcg PO DAILY 30 Days Qty: 30 0RF omeprazole 20 mg capsule,delayed release(DR/EC) 1 cap PO DAILY@0630 Qty: 30 0RF folic acid 1 mg tablet 1 mg PO DAILY Qty: 30 0RF chlorpromazine 50 mg tablet 1 tab PO BEDTIME PRN (Reason: Sleep) Qty: 30 0RF prednisone 20 mg tablet 40 mg PO DAILY Qty: 10 0RF tramadol 50 mg tablet 50 mg PO Q6H PRN (Reason: pain) Qty: 20 0RF lorazepam [Ativan] 1 mg tablet 1 mg PO BEDTIME PRN (Reason: anxiety) Qty: 14 0RF
[2021-11-01] MEDS: 0.9 % Sodium Chloride 1,000 ML 999 ML IV (00:31)
[2021-11-01] MEDS: LORazepam 1 MG TABLET 2 MG PO (00:35)
[2021-11-01] MEDS: Ketorolac Tromethamine 30 MG/ML VIAL IVPUSH (00:35)
[2021-11-01 00:37] LABS: C Reactive Protein 14.42 mg/dL (< or = 0.50)
[2021-11-01] MEDS: dexAMETHasone sod phosphate 10 MG/ML VIAL IVPUSH (01:09)
[2021-11-01 01:14] LABS: Erythrocyte Sedimentation Rate 111 MM/HR (0-20)
[2021-11-01 02:15] VITALS: BP 124/60; PULSE 75; RESP 18; O2SAT 98
== END 2021-11-01 05:27 | disposition home or self-care (01) ==
PROVIDERS: Emergency Provider Internal Medicine; PCP Internal Medicine
DX: L40.50 Arthropathic psoriasis, unspecified (principal); M79.10 Myalgia, unspecified site; F33.1 Major depressive disorder, recurrent, moderate; F17.210 Nicotine dependence, cigarettes, uncomplicated; Z71.6 Tobacco abuse counseling; Z79.899 Other long term (current) drug therapy
CPT/HCPCS: 36415; 80048; 85025; 85652; 86140; 96361; 96374; 96375; 99284; J1100; J1885